=== PATIENT | male | born 1980 | race American Indian/Alaskan Native ===

== ENCOUNTER 2021-11-19 19:45 | Inpatient (IN) | payer SELFPAY ==
--- NOTE | 2021-11-19 21:06 | Emergency Department Report ---
ED Altered Mental Status HPI - General Stated Complaint: WEAKNESS Time Seen by Provider: 11/19/21 20:55 Source: patient, family, old records reviewed (No previous medical record for review) Mode of arrival: Ambulatory Limitations: Altered Mental Status - History of Present Illness Initial Comments: 41-year-old male with a past medical history end-stage renal disease on dialysis Sunday, Sunday, and Sunday and liver cirrhosis secondary to alcohol abuse presents to the hospital with alteration in mental status is 2 PM. Patient is alert and ambulatory but is confused and has to consciously be redirected. His mother is at the bedside providing details of history of present illness. Last dialysis yesterday with compliance. History of paracentesis in the past with last 3 months ago. No previous history of hepatic encephalopathy. Patient does not take lactulose as per mother. Patient has abdominal swelling/distention and leg edema which is chronic and at baseline. Patient is alert and oriented to self only. This is patient's first visit here. Typically goes to [facility]. 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 Mom states that pt no longer drinks alcohol. - Related Data Allergies Allergy/AdvReac Type Severity Reaction Status Date / Time No Known Allergies Allergy Unverified 11/19/21 21:37 ED Review of Systems ROS: Stated complaint: WEAKNESS Other details as noted in HPI Comment: All other systems reviewed and negative ED Physical Exam - Other Other exam information: General: No acute distress cachectic appearing Head: Atraumatic Eyes: normal appearance ENT: Moist mucous membranes Neck: Normal appearance, no midline tenderness Chest: Clear to auscultation bilaterally, right chest wall Vas-Cath CV: Regular rate and rhythm Abdomen: Soft, normal bowel sounds, abdominal ascites nontender] Rectal: maroon colored stools, guaic + Back: Normal inspection Extremity: Bilateral 2+ pitting lower extremity edema without leg exam Neuro: Alert O x 1, no facial asymmetry, speech clear, no gross motor sensory deficit Skin: No rash ED Course Vital Signs 11/19/21 20:54 Temperature 98.1 F Pulse Rate 93 H Respiratory 18 Rate Blood Pressure 114/87 Blood Pressure 114/87 [Left] O2 Sat by Pulse 100 Oximetry - Reevaluation(s) Reevaluation #1: 11/19/21 22:33 pt requiring restraint due to agitation and was administered haldol 5mg for sedation - Lab Data Result diagrams: 11/19/21 21:22 11/19/21 21:22 Lab Results 11/19/21 11/19/21 11/19/21 Range/Units 21:22 21:22 21:22 WBC 8.0 (4.5-11.0) K/mm3 RBC 1.87 L (3.65-5.03) M/mm3 Hgb 6.1 L (11.8-15.2) gm/dl Hct 18.9 L* (35.5-45.6) % MCV 102 H (84-94) fl MCH 33 H (28-32) pg MCHC 32 (32-34) % RDW 18.9 H (13.2-15.2) % Plt Count 161 (140-440) K/mm3 Lymph % (Auto) 24.7 (13.4-35.0) % [place] % (Auto) 9.0 H (0.0-7.3) % Eos % (Auto) 0.1 (0.0-4.3) % Baso % (Auto) 0.7 (0.0-1.8) % Lymph # (Auto) 2.0 (1.2-5.4) K/mm3 [place] # (Auto) 0.7 (0.0-0.8) K/mm3 Eos # (Auto) 0.0 (0.0-0.4) K/mm3 Baso # (Auto) 0.1 (0.0-0.1) K/mm3 Seg Neutrophils % 65.5 (40.0-70.0) % Seg Neutrophils # 5.2 (1.8-7.7) K/mm3 PT 17.7 H (12.2-14.9) Sec. INR 1.26 H (0.87-1.13) APTT 41.1 H (24.2-36.6) Sec. Sodium 138 (137-145) mmol/L Potassium 3.5 L (3.6-5.0) mmol/L Chloride 102.5 (98-107) mmol/L Carbon Dioxide 24 (22-30) mmol/L Anion Gap 15 mmol/L BUN 28 H (9-20) mg/dL Creatinine 2.5 H (0.8-1.3) mg/dL Estimated GFR 29 ml/min BUN/Creatinine Ratio 11 % Glucose 111 H (75-100) mg/dL Calcium 8.9 (8.4-10.2) mg/dL Magnesium (1.7-2.3) mg/dL Total Bilirubin 1.90 H (0.1-1.2) mg/dL AST 48 H (5-40) units/L ALT 17 (7-56) units/L Alkaline Phosphatase 167 H (35-129) units/L Ammonia (25-60) umol/L Total Protein 6.7 (6.3-8.2) g/dL Albumin 2.9 L (3.9-5) g/dL Albumin/Globulin Ratio 0.8 % Plasma/Serum Alcohol (0-0.07) % Blood Type 11/19/21 11/19/21 11/19/21 Range/Units 21:22 21:22 21:22 WBC (4.5-11.0) K/mm3 RBC (3.65-5.03) M/mm3 Hgb (11.8-15.2) gm/dl Hct (35.5-45.6) % MCV (84-94) fl MCH (28-32) pg MCHC (32-34) % RDW (13.2-15.2) % Plt Count (140-440) K/mm3 Lymph % (Auto) (13.4-35.0) % [place] % (Auto) (0.0-7.3) % Eos % (Auto) (0.0-4.3) % Baso % (Auto) (0.0-1.8) % Lymph # (Auto) (1.2-5.4) K/mm3 [place] # (Auto) (0.0-0.8) K/mm3 Eos # (Auto) (0.0-0.4) K/mm3 Baso # (Auto) (0.0-0.1) K/mm3 Seg Neutrophils % (40.0-70.0) % Seg Neutrophils # (1.8-7.7) K/mm3 PT (12.2-14.9) Sec. INR (0.87-1.13) APTT (24.2-36.6) Sec. Sodium (137-145) mmol/L Potassium (3.6-5.0) mmol/L Chloride (98-107) mmol/L Carbon Dioxide (22-30) mmol/L Anion Gap mmol/L BUN (9-20) mg/dL Creatinine (0.8-1.3) mg/dL Estimated GFR ml/min BUN/Creatinine Ratio % Glucose (75-100) mg/dL Calcium (8.4-10.2) mg/dL Magnesium 1.80 (1.7-2.3) mg/dL Total Bilirubin (0.1-1.2) mg/dL AST (5-40) units/L ALT (7-56) units/L Alkaline Phosphatase (35-129) units/L Ammonia 165.0 H (25-60) umol/L Total Protein (6.3-8.2) g/dL Albumin (3.9-5) g/dL Albumin/Globulin Ratio % Plasma/Serum Alcohol < 0.01 (0-0.07) % Blood Type 11/19/21 Range/Units 22:45 WBC (4.5-11.0) K/mm3 RBC (3.65-5.03) M/mm3 Hgb (11.8-15.2) gm/dl Hct (35.5-45.6) % MCV (84-94) fl MCH (28-32) pg MCHC (32-34) % RDW (13.2-15.2) % Plt Count (140-440) K/mm3 Lymph % (Auto) (13.4-35.0) % [place] % (Auto) (0.0-7.3) % Eos % (Auto) (0.0-4.3) % Baso % (Auto) (0.0-1.8) % Lymph # (Auto) (1.2-5.4) K/mm3 [place] # (Auto) (0.0-0.8) K/mm3 Eos # (Auto) (0.0-0.4) K/mm3 Baso # (Auto) (0.0-0.1) K/mm3 Seg Neutrophils % (40.0-70.0) % Seg Neutrophils # (1.8-7.7) K/mm3 PT (12.2-14.9) Sec. INR (0.87-1.13) APTT (24.2-36.6) Sec. Sodium (137-145) mmol/L Potassium (3.6-5.0) mmol/L Chloride (98-107) mmol/L Carbon Dioxide (22-30) mmol/L Anion Gap mmol/L BUN (9-20) mg/dL Creatinine (0.8-1.3) mg/dL Estimated GFR ml/min BUN/Creatinine Ratio % Glucose (75-100) mg/dL Calcium (8.4-10.2) mg/dL Magnesium (1.7-2.3) mg/dL Total Bilirubin (0.1-1.2) mg/dL AST (5-40) units/L ALT (7-56) units/L Alkaline Phosphatase (35-129) units/L Ammonia (25-60) umol/L Total Protein (6.3-8.2) g/dL Albumin (3.9-5) g/dL Albumin/Globulin Ratio % Plasma/Serum Alcohol (0-0.07) % Blood Type O POSITIVE - EKG Data -: EKG Interpreted by [place] EKG shows normal: sinus rhythm, ST-T waves (no stemi) Rate: normal - Radiology Data Radiology results: report reviewed CHEST 1 VIEW INDICATION / CLINICAL INFORMATION: ams, leg edema STUDY TIME: 2157 COMPARISON: None available. FINDINGS: SUPPORT DEVICES: Large for right CVL with tip in the area of the upper to mid right atrium. HEART / MEDIASTINUM: No significant abnormality. LUNGS / PLEURA: Left pleural effusion is seen which is small to moderate in size and probably is layering posteriorly causing diffuse increase in density. Left basilar atelectasis and possible infiltrate is seen and there is mild patchy density in the right upper lobe. Poor degree of inspiration. No pneumothorax. ADDITIONAL FINDINGS: No significant additional findings. - Medical Decision Making 41-year-old male with liver cirrhosis and end-stage renal disease requiring admission to the hospital for acute hepatic encephalopathy, anemia, and GI bleed. Case was discussed with GI on-call. Protonix twice daily ordered as well as octreotide drip. 1 unit PRBC ordered for significant anemia. Mild coagulopathy noted. CT head unremarkable for acute abnormality. Left pleural effusion noted on chest x-ray with clinical ascites and lower extremity edema. Patient did require Haldol for sedation for cooperation. Rectal p.o. lactulose ordered to be given as tolerated Critical Care Time: No Critical care attestation.: If time is entered above; I have spent that time in minutes in the direct care of this critically ill patient, excluding procedure time. ED Disposition Clinical Impression: Hepatic encephalopathy, Anemia, Alcoholic cirrhosis of liver with ascites, ESRD on dialysis, Rectal bleed Disposition: ADMITTED INPATIENT Is pt being admited?: Yes Condition: Stable Time of Disposition: 00:01 (Dr. Sams/hosptialist)
[2021-11-19] MEDS ORDERED: HALOPERIDOL LACTATE 5 MG/1 ML INJ IM ONE (21:33)
[2021-11-19 22:02] LABS: Basophils # (Auto) 0.1 K/mm3 (0.0-0.1); Basophils % (Auto) 0.7 % (0.0-1.8); Eosinophils % (Auto) 0.1 % (0.0-4.3); Hemoglobin 6.1 gm/dl (11.8-15.2); Lymphocytes % (Auto) 24.7 % (13.4-35.0); Mean Corpuscular HGB Conc 32 % (32-34); Mean Corpuscular Volume 102 fl (84-94); Monocytes # (Auto) 0.7 K/mm3 (0.0-0.8); Platelet Count 161 K/mm3 (140-440); Red Blood Count 1.87 M/mm3 (3.65-5.03); Red Cell Distribution Width 18.9 % (13.2-15.2)
[2021-11-19 22:05] LABS: Hematocrit 18.9 % (35.5-45.6)
[2021-11-19 22:11] LABS: INR 1.26 (0.87-1.13)
[2021-11-19 22:12] LABS: Partial Thromboplastin Time 41.1 Sec. (24.2-36.6)
[2021-11-19 22:27] LABS: Albumin 2.9 g/dL (3.9-5); Calcium 8.9 mg/dL (8.4-10.2)
[2021-11-19] MEDS ORDERED: LACTULOSE 20 GM/30 ML ORAL LIQD PO ONE (22:32)
--- NOTE | 2021-11-19 22:35 | XRay Report ---
CHEST 1 VIEW INDICATION / CLINICAL INFORMATION: ams, leg edema STUDY TIME: 2157 COMPARISON: None available. FINDINGS: SUPPORT DEVICES: Large for right CVL with tip in the area of the upper to mid right atrium. HEART / MEDIASTINUM: No significant abnormality. LUNGS / PLEURA: Left pleural effusion is seen which is small to moderate in size and probably is laye ring posteriorly causing diffuse increase in density. Left basilar atelectasis and possible infiltrat e is seen and there is mild patchy density in the right upper lobe. Poor degree of inspiration. No pn eumothorax. ADDITIONAL FINDINGS: No significant additional findings. Signer Name: Salvatore Gusman MD Signed: 11/19/2021 10:31 PM Workstation Name: [id number]
--- NOTE | 2021-11-19 22:59 | Cat Scan Report ---
. CT HEAD WITHOUT CONTRAST INDICATION / CLINICAL INFORMATION: ams. TECHNIQUE: All CT scans at this location are performed using CT dose reduction for ALARA by means of automated exposure control. COMPARISON: None available. FINDINGS: HEMORRHAGE: None. EXTRA-AXIAL SPACES: Normal in size and morphology for the patient's age. VENTRICULAR SYSTEM: Normal in size and morphology for the patient's age. CEREBRAL PARENCHYMA: No significant abnormality. No acute territorial infarct. MIDLINE SHIFT / HERNIATION: None. CEREBELLUM / BRAINSTEM: No significant abnormality. ORBITS: Normal as visualized SOFT TISSUES: No significant abnormality. SKULL: No significant abnormality. PARANASAL SINUSES / MASTOID AIR CELLS: Normal as visualized ADDITIONAL FINDINGS: None. IMPRESSION: 1. No acute intracranial abnormality. Signer Name: Chidi Mckeon DO Signed: 11/19/2021 10:54 PM Workstation Name: [id number]
[2021-11-19] MEDS ORDERED: SODIUM CHLORIDE 0.9% 500 ML 500 ML IV ONE (23:34)
[2021-11-19] MEDS ORDERED: OCTREOTIDE 500 MCG in SODIUM CHLORIDE 0.9% 100 ML IV SCH (23:45)
[2021-11-19] MEDS ORDERED: ACETAMINOPHEN 650 MG RECT SUPP PR PRN (23:47)
[2021-11-19] MEDS ORDERED: MORPHINE 4 MG/1 ML INJ IV PRN (23:47)
[2021-11-19] MEDS ORDERED: MORPHINE 2 MG/1 ML INJ IV PRN (23:47)
[2021-11-19] MEDS ORDERED: MAGNESIUM HYDROXIDE (MOM) ORAL LIQD UDC PO PRN (23:47)
--- NOTE | 2021-11-19 23:58 | History and Physical Report ---
History of Present Illness Date of examination: 11/19/21 Date of admission: 11/19/2021 Chief complaint: Altered mental status History of present illness: 41-year-old -K[place] male with known history of alcoholic liver cirrhosis, end-stage renal disease on dialysisMondays, Wednesdays and Fridays brought into the emergency room today for evaluation of changes in mental status which started at about 2 PM today. Most of the history was gotten from the mother who was by the bedside as patient is confused. Patient has been compliant with his dialysis and last dialysis was yesterday. Patient goes to [facility] in [place]. Patient has also had paracentesis done periodically for his ascites. Last paracentesis was about 3 months ago. According to mother, patient has had chronic lower extremity swelling and has also had abdominal distention. Patient has not been seen in this facility in the past. He goes to [facility] [place] for his medical care. According to mother patient no longer drinks alcohol. Unclear of when patient last drank alcohol. Work-up in the emergency room today, labs are significant for hemoglobin of 6.1 and hematocrit of 18.9. Potassium of 3.5, BUN of 28 and creatinine of 2.5. Total bilirubin of 1.9. Toxicology screen shows alcohol level less than 0.01. Stool Hemoccult today was positive. [employer] on-call was notified by the ER physician and recommendation was to place patient on IV Protonix and octreotide. Patient is being prepared for blood transfusion. Past History Past Medical History: dialysis (On Mondays, Wednesdays and Fridays), ESRD, liver disease (Alcoholic liver cirrhosis) Past Surgical History: No surgical history Social history: alcohol abuse Family history: no significant family history Medications and Allergies Allergies Allergy/AdvReac Type Severity Reaction Status Date / Time No Known Allergies Allergy Unverified 11/19/21 21:37 Active Meds: Active Medications Acetaminophen (Acetaminophen 650 Mg Rect Supp) 650 mg DE Q6H PRN PRN Reason: Pain MILD(1-3)/Fever >100.5/CARRERA Octreotide Acetate 500 mcg/ (Sodium Chloride) 101 mls @ 5.05 mls/hr IV TITR JORDAN; Protocol Lactulose (Lactulose Enema 1000 Ml) 200 gm DE ONCE ONE Stop: 11/20/21 00:16 Magnesium Hydroxide (Magnesium Hydroxide (Mom) Oral Liqd Udc) 30 ml PO Q4H PRN PRN Reason: Constipation Morphine Sulfate (Morphine 2 Mg/1 Ml Inj) 2 mg IV Q4H PRN PRN Reason: Pain, Moderate (4-6) Morphine Sulfate (Morphine 4 Mg/1 Ml Inj) 4 mg IV Q4H PRN PRN Reason: Pain , Severe (7-10) Octreotide Acetate (Octreotide 50 Mcg/1 Ml Inj) 50 mcg IV ONCE ONE Stop: 11/20/21 00:17 Pantoprazole Sodium (Pantoprazole 40 Mg Inj) 40 mg IV BID JORDAN Sodium Chloride (Sodium Chloride 0.9% 10 Ml Flush Syringe) 10 ml IV BID JORDAN Sodium Chloride (Sodium Chloride 0.9% 10 Ml Flush Syringe) 10 ml IV PRN PRN PRN Reason: LINE FLUSH Review of Systems ROS unobtainable: due to mental status Exam - Constitutional Vitals: Temp Pulse Resp BP Pulse Ox 98.1 F 93 H 18 114/87 100 11/19/21 20:54 11/19/21 20:54 11/19/21 20:54 11/19/21 20:54 11/19/21 20:54 General appearance: Present: no acute distress, well-nourished, disheveled - EENT Eyes: Present: PERRL, EOM intact. Absent: scleral icterus ENT: hearing intact, clear oral mucosa, dentition normal - Neck Neck: Present: supple, normal ROM - Respiratory Respiratory effort: normal Respiratory: bilateral: CTA - Cardiovascular Rhythm: regular Heart Sounds: Present: S1 & S2. Absent: gallop, systolic murmur, diastolic murmur, rub, click - Extremities Extremities: no ischemia, pulses intact, pulses symmetrical, normal temperature, normal color, Full ROM Extremity abnormal: edema (2+ bilateral ankle edema) Peripheral Pulses: within normal limits - Abdominal General gastrointestinal: Present: soft, non-tender, distended (With ascites), normal bowel sounds. Absent: mass - Integumentary Integumentary: Present: clear, warm, dry, normal turgor. Absent: rash - Musculoskeletal Musculoskeletal: strength equal bilaterally - Psychiatric Psychiatric: agitated - Neurologic Neurologic: CNII-XII intact, no focal deficits, moves all extremities Results - Labs CBC & Chem 7: 11/19/21 21:22 11/19/21 21:22 Labs: Abnormal lab results 11/19/21 11/19/21 11/19/21 Range/Units 21:22 21:22 21:22 RBC 1.87 L (3.65-5.03) M/mm3 Hgb 6.1 L (11.8-15.2) gm/dl Hct 18.9 L* (35.5-45.6) % MCV 102 H (84-94) fl MCH 33 H (28-32) pg RDW 18.9 H (13.2-15.2) % [place] % (Auto) 9.0 H (0.0-7.3) % PT 17.7 H (12.2-14.9) Sec. INR 1.26 H (0.87-1.13) APTT 41.1 H (24.2-36.6) Sec. Potassium 3.5 L (3.6-5.0) mmol/L BUN 28 H (9-20) mg/dL Creatinine 2.5 H (0.8-1.3) mg/dL Glucose 111 H (75-100) mg/dL Total Bilirubin 1.90 H (0.1-1.2) mg/dL AST 48 H (5-40) units/L Alkaline Phosphatase 167 H (35-129) units/L Ammonia (25-60) umol/L Albumin 2.9 L (3.9-5) g/dL Crossmatch 11/19/21 11/19/21 Range/Units 21:22 22:45 RBC (3.65-5.03) M/mm3 Hgb (11.8-15.2) gm/dl Hct (35.5-45.6) % MCV (84-94) fl MCH (28-32) pg RDW (13.2-15.2) % [place] % (Auto) (0.0-7.3) % PT (12.2-14.9) Sec. INR (0.87-1.13) APTT (24.2-36.6) Sec. Potassium (3.6-5.0) mmol/L BUN (9-20) mg/dL Creatinine (0.8-1.3) mg/dL Glucose (75-100) mg/dL Total Bilirubin (0.1-1.2) mg/dL AST (5-40) units/L Alkaline Phosphatase (35-129) units/L Ammonia 165.0 H (25-60) umol/L Albumin (3.9-5) g/dL Crossmatch See Detail Assessment and Plan Assessment: 1. Acute encephalopathy-possibly secondary to hepatic encephalopathy 2. GI bleed 3. End-stage renal disease on dialysis 4. Alcoholic liver cirrhosis 5. Anemia Plan: 1. Patient admitted and will be closely observed in the intensive care unit. 2. Patient started on IV Protonix and octreotide. 3. Consult to oil field rig builder requested 4. We will monitor CBC. 5. We will also place patient on CIWA protocol. 6. We will consult nephrology for dialysis while on admission. DVT prophylaxis: Sequential compression device. CODE STATUS: Full code
[2021-11-20] MEDS ORDERED: LACTULOSE ENEMA 1000 ML PR ONE (00:15)
[2021-11-20] MEDS ORDERED: OCTREOTIDE 50 MCG/1 ML INJ IV ONE (00:16)
[2021-11-20] MEDS ORDERED: HALOPERIDOL LACTATE 5 MG/1 ML INJ IM ONE (01:28)
[2021-11-20] MEDS: PANTOPRAZOLE 40 MG INJ IV SCH ×3 (02:30→21:00)
[2021-11-20] MEDS ORDERED: LACTULOSE 20 GM/30 ML ORAL LIQD PO ONE (03:00)
[2021-11-20] MEDS ORDERED: SODIUM CHLORIDE 0.9% 1000 ML 1,000 ML ONE ×2 (03:12→12:33)
--- NOTE | 2021-11-20 08:50 | Consultation ---
History of Present Illness - Reason for Consult Consult date: 11/20/21 end stage renal disease - History of Present Illness This is a 41 year-old man with ESRD, cirrhosis of liver who presents for altered mentation Patient usually dialyzes MWF at [facility]. Last HD 11/18. No recent issues with HD, including dizziness, lightheadedness, cramping, chest pain on HD per outpatient documentation. Currently, patient drowsy and remains altered, unable to provide any additional HPI. Found to have hemoglobin 6.1 on arrival, started on IV protonix, octreotide gtt. Past History Past Medical History: dialysis (On Mondays, Wednesdays and Fridays), ESRD, liver disease (Alcoholic liver cirrhosis) Past Surgical History: No surgical history Social history: alcohol abuse Family history: no significant family history Medications and Allergies Allergies Allergy/AdvReac Type Severity Reaction Status Date / Time No Known Allergies Allergy Unverified 11/19/21 21:37 Active Meds: Active Medications Acetaminophen (Acetaminophen 650 Mg Rect Supp) 650 mg CA Q6H PRN PRN Reason: Pain MILD(1-3)/Fever >100.5/CARRERA Octreotide Acetate 500 mcg/ (Sodium Chloride) 101 mls @ 5.05 mls/hr IV TITR JORDAN; Protocol Last Admin: 11/20/21 03:03 Dose: 25 mcg/hr, 5.05 mls/hr Magnesium Hydroxide (Magnesium Hydroxide (Mom) Oral Liqd Udc) 30 ml PO Q4H PRN PRN Reason: Constipation Pantoprazole Sodium (Pantoprazole 40 Mg Inj) 40 mg IV BID JORDAN Last Admin: 11/20/21 02:30 Dose: 40 mg Sodium Chloride (Sodium Chloride 0.9% 10 Ml Flush Syringe) 10 ml IV BID JORDAN Sodium Chloride (Sodium Chloride 0.9% 10 Ml Flush Syringe) 10 ml IV PRN PRN PRN Reason: LINE FLUSH Review of Systems ROS unobtainable: due to mental status Exam - Vital Signs Vital signs: Vital Signs Temp Pulse Resp BP Pulse Ox 98 F 93 H 18 114/87 100 11/19/21 20:54 11/19/21 20:54 11/19/21 20:54 11/19/21 20:54 11/19/21 20:54 - Physical Exam Narrative exam: Constitutional: drowsy, altered Head: NC/AT Neck: supple Lungs: clear to auscultation CV: RRR, no M/R/G Abdomen: distended Back: nontender Extremities: 1+ edema, pulses WNL Skin: intact Neuro: drowsy, not following commands Results - Lab Results 11/19/21 21:22 11/19/21 21:22 Most recent lab results Calcium 8.9 mg/dL (8.4-10.2) 11/19/21 21: Magnesium 1.80 mg/dL (1.7-2.3) 11/19/21 21:22 Assessment and Plan This is a 41 year old man who presents with altered mentation, anemia # ESRD: plan to continue HD MWF if hemodynamically stable- assess tomorrow AM and place orders pending clinical status - daily labs - renally dose meds - avoid nephrotoxins - renal diet - verbal consent obtained for HD # Anemia: last hemoglobin 6.1, GI following for potential GI bleed, on octreotide gtt. ESAs with HD as indicated # HTN: UF as tolerated, suspect intravascularly depleted. BP soft # Secondary Hyperparathyroidism: hold home binders for now if on, vitamin D analogs prn # Acute Metabolic Encephalopathy: less likely uremia related # Hepatic Cirrhosis, Alcoholic
--- NOTE | 2021-11-20 09:18 | Progress Note ---
<SAMANTHA LR - Last Filed: 11/20/21 17:21> Assessment and Plan Assessment and plan: This is a 41-year-old AA male with known past medical history of ESRD on Dialysis(M,W,F), alcoholic liver cirrhosis, ascites s/p paracentesis 3 months ago admitted for acute encephalopathy and possible GI bleed Hospital Course to Date: 11/20: S/p EGD with variceal band ligation by GI and Diagnostic paracentesis by CCM, 2.2L of cloudy yellow fluid removed. Pateint is currently obtunded, on NRB, no signs of any respiratory distress noted. VSS. Hyperammonemia noted this am, continue lactolose TID, repeat level in the am. Patient is also on octreotide gtt. Per GI continue gtt X48hrs and Protonix BID. Hgb improved to 7.0 post 1unit of PRBCs, no s/s of any active bleeding. Continue to trend H&H and transfuse for hgb less than 7. Empiric IV Abx was also initiated, F/u on paracentesis cultures for sensitivity. Possible US paracentesis in the am by IR. Assessment and Plan #Acute Metabolic Encephalopathy #Hyperammonemia - most likely secondary to liver cirrhosis - CT head/brain with no acute intracranial abnormality. - Ammonia level 165 - Continue Lactulose TID - repeat ammonia level in the am - Avoid benzodiazepine to reduce the possibility of delirium - Maintenance of sleep-wake cycle #Acute Blood Loss Anemia #Upper GI Bleed - presented with low Hgb 6.1, s/p 1unit of PRBCs - No s/s of any active bleeding - Stool Hemoccult is positive - H&H with mild improvement this am - GI consulted, appreciate recommendations - 11/20 s/p EGD by GI. Single grade grade 3 distal esophageal varix-Single rubber band placed on this for ligation. Gastroparesis with retained food, no evidence of blood in the upper GI tract. - Per GI clear Liquid diet, continue octreotide gtt X48hrs - On Protonix BID - Continue to trend H&H - Transfuse for hgb less than 7 #Acoholic Liver Cirrhosis #Large Volume Ascites #Esophageal Varix #Gastroparesis - Unclear of when patient last drank alcohol. Per mother she initially said last drink was in May, then she admit it might have been in August - US Abd reveals Large volume ascites - CCM and GI consulted, appreciate recommendations - S/p Diagnosic Paracentesis at the bedside by CCM, 2.2L of cloudy yellow fluid removed. Samples sent to the lab - s/p EGD by GI. as described above - Empiric IV Abx- Rocephin initiated - Continue Lactulose TID - Continue Octreotide gtt and IV protonix BID by GI - Possible US paracentesis in the am by IR. #End-Stage Renal Disease(ESRD) on dialysis - HD days(M,W,F), last HD 11/18 - Nephrology on consult, appreciated recommendation - HD per Nephro - Strict intake and output - Avoid nephrotoxic medications; Renally dose medications - Monitor and replace electrolytes as needed #GI/DVT Prophylaxis - PPI- Protonix - SCDs to bilateral lower extremities while in bed #Advance Care Planning - Disease education data, care plan, diagnoses, and prognosis were discussed with patient's mother, Rebecca Oscar, at the bedside. All questions and concerns were voiced at the bedside. Patient is a FULL code. Patient family acknowledged understanding and agreement with care plan. The high probability of a clinically significant, sudden or life threatening deterioration of the [multiple] system(s) required my full and direct attention, intervention and personal management. The aggregate critical care time was [60] minutes. This time is in addition to time spent performing reported procedures but includes the following: [x] Data Review and interpretation [x] Patient assessment and monitoring of vital signs [x] Documentation [x] Medication orders and management Disposition Plan: ICU Total Time Spent with Patient (Minutes): 60 History Interval history: Patient seen and examined at the bedside. S/p EGD with variceal band ligation by GI and Diagnostic paracentesis by CCM, 2.2L of cloudy yellow fluid removed. Patient is currently obtunded, on NRB, VSS. Abdomen remains distented, no signs of any respiratory distress noted. Hospitalist Physical - Constitutional Vitals: Temp Pulse Resp BP Pulse Ox 97.2 F L 102 H 17 123/79 100 11/20/21 04:02 11/20/21 06:45 11/20/21 06:45 11/20/21 06:45 11/20/21 06:45 General appearance: Present: no acute distress, cachectic - EENT Eyes: Present: PERRL (Sclera Jaundice) - Respiratory Respiratory effort: normal Respiratory: bilateral: diminished - Cardiovascular Rhythm: regular Heart Sounds: Present: S1 & S2 - Extremities Extremities: no ischemia, pulses intact, pulses symmetrical Peripheral Pulses: within normal limits - Abdominal General gastrointestinal: soft, distended (Taut), hypoactive bowel sounds - Integumentary Integumentary: Present: warm, dry - Psychiatric Psychiatric: other (JC, Obtunded) - Neurologic Neurologic: other (Obtunded, open eyes briefly with sternal rubs. Withdrawal from pain) - Allied Health Allied health notes reviewed: nursing Results - Labs CBC & Chem 7: 11/20/21 09:30 11/20/21 09:30 Labs: Laboratory Last Values WBC 8.0 K/mm3 (4.5-11.0) 11/19/21 21: RBC 1.87 M/mm3 (3.65-5.03) L 11/19/21 21: Hgb 6.1 gm/dl (11.8-15.2) L 11/19/21: Hct 18.9 % (35.5-45.6) L* 11/19/21 21: MCV 102 fl (84-94) H 11/19/21 21: MCH 33 pg (28-32) H 11/19/21: MCHC 32 % (32-34) 11/19/21 21: RDW 18.9 % (13.2-15.2) H 11/19/21 21: Plt Count 161 K/mm3 (140-440) 11/19/21 21: Lymph % (Auto) 24.7 % (13.4-35.0) 11/19/21 21: Emanuel % (Auto) 9.0 % (0.0-7.3) H 11/19/21: Eos % (Auto) 0.1 % (0.0-4.3) 11/19/21: Baso % (Auto) 0.7 % (0.0-1.8) 11/19/21: Lymph # (Auto) 2.0 K/mm3 (1.2-5.4) 11/19/21: Emanuel # (Auto) 0.7 K/mm3 (0.0-0.8) 11/19/21 21:22 Eos # (Auto) 0.0 K/mm3 (0.0-0.4) 11/19/21 21:22 Baso # (Auto) 0.1 K/mm3 (0.0-0.1) 11/19/21 21: Seg Neutrophils % 65.5 % (40.0-70.0) 11/19/21 21: Seg Neutrophils # 5.2 K/mm3 (1.8-7.7) 11/19/21 21: PT 17.7 Sec. (12.2-14.9) H 11/19/21 21: INR 1.26 (0.87-1.13) H 11/19/21 21: APTT 41.1 Sec. (24.2-36.6) H 11/19/21 21:22 Sodium 138 mmol/L (137-145) 11/19/21 21: Potassium 3.5 mmol/L (3.6-5.0) L 11/19/21: Chloride 102.5 mmol/L (98-107) 11/19/21 21: Carbon Dioxide 24 mmol/L (22-30) 11/19/21 21: Anion Gap 15 mmol/L 11/19/21 21: BUN 28 mg/dL (9-20) H 11/19/21 21: Creatinine 2.5 mg/dL (0.8-1.3) H 11/19/21 21:22 Estimated GFR 29 ml/min 11/19/21 21: BUN/Creatinine Ratio 11 % 11/19/21 21: Glucose 111 mg/dL (75-100) H 11/19/21 21: Calcium 8.9 mg/dL (8.4-10.2) 11/19/21: Magnesium 1.80 mg/dL (1.7-2.3) 11/19/21: Total Bilirubin 1.90 mg/dL (0.1-1.2) H 11/19/21 21: AST 48 units/L (5-40) H 11/19/21 21: ALT 17 units/L (7-56) 11/19/21 21: Alkaline Phosphatase 167 units/L (35-129) H 11/19/21 21:22 Ammonia 165.0 umol/L (25-60) H 11/19/21 21:22 Total Protein 6.7 g/dL (6.3-8.2) 11/19/21 21:22 Albumin 2.9 g/dL (3.9-5) L 11/19/21 21:22 Albumin/Globulin Ratio 0.8 % 11/19/21 21:22 Plasma/Serum Alcohol < 0.01 % (0-0.07) 11/19/21 21:22 Blood Type O POSITIVE 11/19/21 22:45 Antibody Screen Negative 11/19/21 22:45 Crossmatch See Detail 11/19/21 22:45 Microbiology: Microbiology 11/19/21 22:55 Stool Stool Occult Blood (MELVIN) - Final Active Medications - Current Medications Current Medications: Generic Name Dose Route Start Last Admin Trade Name Freq PRN Reason Stop Dose Admin Acetaminophen 650 mg 11/19/21 23:47 Acetaminophen 650 Mg Rect Supp SD Q6H PRN Pain MILD(1-3)/Fever >100.5/CARRERA Octreotide Acetate 500 mcg/ 101 mls @ 5.05 mls/hr 11/19/21 23:45 11/20/21 03: 03 Sodium Chloride IV 25 mcg/hr TITR JORDAN 5.05 mls/hr Administration Protocol 25 MCG/HR Lactulose 200 gm 11/20/21 14:00 Lactulose Enema 1000 Ml SD TID JORDAN Magnesium Hydroxide 30 ml 11/19/21 23:47 Magnesium Hydroxide (Mom) Oral Liqd Udc PO Q4H PRN Constipation Pantoprazole Sodium 40 mg 11/19/21 23:45 11/20/21 02:30 Pantoprazole 40 Mg Inj IV 40 mg BID JORDAN Administration Sodium Chloride 10 ml 11/20/21 10:00 Sodium Chloride 0.9% 10 Ml Flush Syringe IV BID JORDAN Sodium Chloride 10 ml 11/19/21 23:47 Sodium Chloride 0.9% 10 Ml Flush Syringe IV PRN PRN LINE FLUSH <JUDIE GUZMAN - Last Filed: 11/21/21 07:23> Assessment and Plan Assessment and plan: I saw and evaluated the patient. I agree with the findings and the plan of care as documented in the Nurse Practitioner's~note, with the following corrections and additions. Hospitalist Physical - Constitutional Vitals: Temp Pulse Resp BP Pulse Ox 98 F 79 12 105/76 100 11/21/21 00:13 11/21/21 07:00 11/21/21 07:00 11/21/21 07:00 11/21/21 07:00 Results - Labs CBC & Chem 7: 11/21/21 04:18 11/21/21 04:18 Labs: Laboratory Last Values WBC 6.1 K/mm3 (4.5-11.0) 11/21/21 04:18 RBC 2.24 M/mm3 (3.65-5.03) L 11/21/21 04:18 Hgb 7.1 gm/dl (11.8-15.2) L 11/21/21 04:18 Hct 21.7 % (35.5-45.6) L 11/21/21 04:18 MCV 97 fl (84-94) H 11/21/21 04:18 MCH 32 pg (28-32) 11/21/21 04:18 MCHC 33 % (32-34) 11/21/21 04:18 RDW 19.5 % (13.2-15.2) H 11/21/21 04:18 Plt Count 131 K/mm3 (140-440) L 11/21/21 04:18 Lymph % (Auto) 16.9 % (13.4-35.0) 11/20/21 09:30 Emanuel % (Auto) 6.6 % (0.0-7.3) 11/20/21 09:30 Eos % (Auto) 0.1 % (0.0-4.3) 11/20/21 09:30 Baso % (Auto) 0.6 % (0.0-1.8) 11/20/21 09:30 Lymph # (Auto) 1.2 K/mm3 (1.2-5.4) 11/20/21 09:30 Emanuel # (Auto) 0.5 K/mm3 (0.0-0.8) 11/20/21 09:30 Eos # (Auto) 0.0 K/mm3 (0.0-0.4) 11/20/21 09:30 Baso # (Auto) 0.0 K/mm3 (0.0-0.1) 11/20/21 09:30 Seg Neutrophils % 75.8 % (40.0-70.0) H 11/20/21 09:30 Seg Neutrophils # 5.4 K/mm3 (1.8-7.7) 11/20/21 09:30 PT 17.7 Sec. (12.2-14.9) H 11/19/21 21:22 INR 1.26 (0.87-1.13) H 11/19/21 21:22 APTT 41.1 Sec. (24.2-36.6) H 11/19/21 21:22 ABG pH 7.478 pH Units (7.350-7.450) H 11/20/21 18:40 ABG pCO2 31.9 mm Hg 11/20/21 18:40 ABG pO2 82.2 mm Hg (80.0-90.0) 11/20/21 18:40 ABG HCO3 23.1 mmol/L (20.0-26.0) 11/20/21 18:40 ABG O2 Saturation 97.2 % (95.0-99.0) 11/20/21 18:40 ABG O2 Content 7.4 (0.0-44) 11/20/21 18:40 ABG Base Excess -0.5 mmol/L (-2.0-3.0) 11/20/21 18:40 ABG Hemoglobin 5.4 gm/dl (14.0-18.0) L 11/20/21 18:40 ABG Carboxyhemoglobin 2.2 % (0.0-5.0) 11/20/21 18:40 ABG Methemoglobin 0.4 % (0.0-1.5) 11/20/21 18:40 Oxyhemoglobin 94.6 % (95.0-99.0) L 11/20/21 18:40 FiO2 21 % 11/20/21 18:40 Sodium 141 mmol/L (137-145) 11/21/21 04:18 Potassium 3.4 mmol/L (3.6-5.0) L 11/21/21 04:18 Chloride 107.3 mmol/L (98-107) H 11/21/21 04:18 Carbon Dioxide 23 mmol/L (22-30) 11/21/21 04:18 Anion Gap 14 mmol/L 11/21/21 04:18 BUN 30 mg/dL (9-20) H 11/21/21 04:18 Creatinine 2.5 mg/dL (0.8-1.3) H 11/21/21 04:18 Estimated GFR 35 ml/min 11/21/21 04:18 BUN/Creatinine Ratio 12 % 11/21/21 04:18 Glucose 94 mg/dL (75-100) 11/21/21 04:18 Calcium 8.4 mg/dL (8.4-10.2) 11/21/21 04:18 Magnesium 1.80 mg/dL (1.7-2.3) 11/19/21 21:22 Total Bilirubin 3.10 mg/dL (0.1-1.2) H 11/21/21 04:18 AST 41 units/L (5-40) H 11/21/21 04:18 ALT 16 units/L (7-56) 11/21/21 04:18 Alkaline Phosphatase 116 units/L (35-129) 11/21/21 04:18 Ammonia 71.0 umol/L (25-60) H 11/21/21 04:18 Total Protein 5.4 g/dL (6.3-8.2) L 11/21/21 04:18 Albumin 2.2 g/dL (3.9-5) L 11/21/21 04:18 Albumin/Globulin Ratio 0.7 % 11/21/21 04:18 Fluid Type Paracentesis 11/20/21 Unknown Fluid Color Dark yellow 11/20/21 Unknown Fluid Appearance Turbid 11/20/21 Unknown Fluid WBC 233 /mm3 11/20/21 Unknown Fluid RBC 42 /mm3 11/20/21 Unknown Fluid Seg Neutrophils 0 % 11/20/21 Unknown Fluid Lymphocytes 98 % 11/20/21 Unknown Fluid Reactive Lymphs 2 % 11/20/21 Unknown Fluid Monocytes 0 % 11/20/21 Unknown Fluid Eosinophils 0 % 11/20/21 Unknown Fluid Basophils 0 % 11/20/21 Unknown Plasma/Serum Alcohol < 0.01 % (0-0.07) 11/19/21 21:22 Blood Type O POSITIVE 11/19/21 22:45 Antibody Screen Negative 11/19/21 22:45 Crossmatch See Detail 11/19/21 22:45 Microbiology: Microbiology 11/20/21 Unknown Other (Please Specify:) - Other Body Fluid Culture - Preliminary Beltran/IV: Voiding Method Condom Catheter Active Medications - Current Medications Current Medications: Generic Name Dose Route Start Last Admin Trade Name Freq PRN Reason Stop Dose Admin Acetaminophen 650 mg 11/19/21 23:47 Acetaminophen 650 Mg Rect Supp SD Q6H PRN Pain MILD(1-3)/Fever >100.5/CARRERA Octreotide Acetate 500 mcg/ 101 mls @ 5.05 mls/hr 11/19/21 23:45 11/20/21 03:03 Sodium Chloride IV 25 mcg/hr TITR JORDAN 5.05 mls/hr Administration Protocol 25 MCG/HR Ceftriaxone Sodium 1 gm in 50 mls @ 100 mls/hr 11/20/21 14:00 11/20/21 15:49 Rocephin/Ns 1 Gm/50 Ml IV 100 mls/hr Q24H JORDAN Administration Protocol Lactulose 20 gm 11/20/21 16:00 11/20/21 20:20 Lactulose 20 Gm/30 Ml Oral Liqd PO 20 gm TID JORDAN Administration Lidocaine 10 ml 11/20/21 15:30 Lidocaine (1%) 10 Mg/1 Ml Vial 20 Ml Mdv INFILTRATI PREOP JORDAN Magnesium Hydroxide 30 ml 11/19/21 23:47 Magnesium Hydroxide (Mom) Oral Liqd Udc PO Q4H PRN Constipation Pantoprazole Sodium 40 mg 11/19/21 23:45 11/20/21 21:00 Pantoprazole 40 Mg Inj IV 40 mg BID JORDAN Administration Sodium Chloride 10 ml 11/20/21 10:00 11/20/21 21:00 Sodium Chloride 0.9% 10 Ml Flush Syringe IV 10 ml BID JORDAN Administration Sodium Chloride 10 ml 11/19/21 23:47 Sodium Chloride 0.9% 10 Ml Flush Syringe IV PRN PRN LINE FLUSH Nutrition/Malnutrition Assess - Dietary Evaluation Nutrition/Malnutrition Findings: Nutrition Notes Start: 11/20/21 14:41 Freq: Status: Active Protocol: Document 11/20/21 14:42 RS (Rec: 11/20/21 14:53 RS [id number]) Nutrition Notes Need for Assessment generated from: MD Order Initial or Follow up Brief Note Current Diagnosis CKD (stage V CKD) Other Pertinent Diagnosis EtOh related Cirrhosis, encephalopathy, GI bleed Current Diet Clear Liquids Labs/Tests K+: 3.5 BUN: 28 Cr:2.6 Glu:112 Pertinent Medications reviewed Height 6 ft 3 in Weight 81 kg [place] Body Weight (kg) 89.09 BMI 22.3 Weight change and time frame Dry wt unkown. Wt corrected on 11/20 to 81kg. Weight Status Appropriate Subjective/Other Information MD crook for diet education . Pt currently confused and has AMS. Diet education innapropriate at this time. Pt recieved paracentesis tx recently. Will need to educate pt on sodium/fluid restritions upon F/U if confusion subsides. RD noted extreme swelling in LE and distended belly. No urine output recorded. Lower GI bleed present GI Symptoms None Current % PO Negligible Minimum of two criteria No physical signs of malnutrition #1 Nutrition Diagnosis Inadequate protein intake Etiology ESRD As Evidenced by Signs and Symptoms negliable PO intake Is patient on ventilator? No Is Patient Ambulatory and/or Out of Bed No REE-([facility]-confined to bed) 2175.528 Kcal/Kg value to use for calculation 30 Approximate Energy Requirements Using 2430 kcal/Kg Calculation Used for Recommendations Kcal/kg Additional Notes Protein needs: >97g/day (>1.2g /kg BW/day) Fluid needs: 1000mL +UO or per MD Nutrition Intervention Nutrition Support: Ensure Clear apple qd Kcal 240 Protein (gm) 8 Goal #1 Diet advancement Anticipated Discharge Needs: 1.2-1.3g HBV Renal Diet Follow-Up By: 11/22/21 Additional Comments F/U for renal diet education, sodium/fluid restriction education, intakes, ONS tolerance
[2021-11-20 10:10] LABS: Basophils % (Auto) 0.6 % (0.0-1.8); Eosinophils % (Auto) 0.1 % (0.0-4.3); Hematocrit 20.7 % (35.5-45.6); Lymphocytes # (Auto) 1.2 K/mm3 (1.2-5.4); Lymphocytes % (Auto) 16.9 % (13.4-35.0); Mean Corpuscular HGB Conc 34 % (32-34); Mean Corpuscular Volume 98 fl (84-94); Monocytes # (Auto) 0.5 K/mm3 (0.0-0.8); Monocytes % (Auto) 6.6 % (0.0-7.3); Platelet Count 127 K/mm3 (140-440); Red Cell Distribution Width 17.8 % (13.2-15.2)
[2021-11-20 10:28] LABS: Calcium 8.9 mg/dL (8.4-10.2)
--- NOTE | 2021-11-20 11:48 | Ultrasound Report ---
ULTRASOUND ABDOMEN, COMPLETE INDICATION: Abdominal Distention/ Ascites. COMPARISON: No relevant prior imaging study available. FINDINGS: Pancreas: No significant abnormality. Abdominal Aorta: Incompletely visualized. Liver: Incompletely visualized Gallbladder: Not well visualized. Bile ducts: Difficult to visualize. Common bile duct difficult to visualize Kidneys: Right: Difficult to visualize given body habitus. Left: No significant abnormality. Spleen: Incompletely visualized Free fluid: Large volume ascites. Additional Findings: None. IMPRESSION: Large volume ascites. Limited exam. Signer Name: Rangel George MD Signed: 11/20/2021 11:43 AM Workstation Name: [id number]
[2021-11-20] MEDS ORDERED: LIDOCAINE MPF (2%) 20 MG/1 ML VIAL 5 ML ONE (12:15)
[2021-11-20] MEDS ORDERED: KETAMINE/STERILE WATER 50 MG/ML SYRINGE ONE (12:16)
[2021-11-20] MEDS ORDERED: propofoL 200 MG/20 ML VIAL IV ONE (12:16)
[2021-11-20] MEDS ORDERED: MIDAZOLAM 2 MG/2 ML INJ ONE (12:16)
--- NOTE | 2021-11-20 12:33 | Consultation ---
History of Present Illness - Reason for Consult Consult date: 11/20/21 GI bleed Requesting physician: NEO LE - History of Present Illness Mr. Aguero is a 41-year-old man with a history of alcoholic cirrhosis, quit alcohol in May 2021, and ascites, brought in by his mother for mental status changes. History is obtained from her. She states that he was well until yesterday at about 2:00 in the afternoon when she noticed onset of confusion. Just prior to that, he had gone to the bathroom and did not flush the toilet and she did note that there was blood in the toilet. On bringing him here, patient was profoundly encephalopathic and not answering questions. His hemoglobin was noted to be 6.1 and a rectal exam was performed which showed maroon stool. He was started on octreotide, given lactulose from below, and admitted to the intensive care unit. There is no prior history of GI bleeding. Patient is typically hospitalized at [facility] and was last there from August 18 through September 04, with ascites. He has end-stage renal disease and has been on dialysis for the last 3 months. He has a history of necrotizing pancreatitis more than a year ago. He has ascites and last had a paracentesis in August of this year. According to the mother, there is no history of GI bleeding. There is no history of encephalopathy. Patient has never undergone upper endoscopy. He was last seen by his licensed and certified midwife in [place] on October 06 of this year, and the notes do suggest that he would get an upper endoscopy done but according to the mother, it has not yet been scheduled. Currently, patient is oriented to name. He thinks he is at home. He denies any discomfort except for the Beltran catheter. Medications reviewed. Past History Past Medical History: dialysis (On Mondays, Wednesdays and Fridays), ESRD, liver disease (Alcoholic liver cirrhosis) Past Surgical History: No surgical history Social history: alcohol abuse (Quit in May 2021) Family history: no significant family history Medications and Allergies Allergies Allergy/AdvReac Type Severity Reaction Status Date / Time No Known Allergies Allergy Unverified 11/19/21 21:37 Active Meds: Active Medications Acetaminophen (Acetaminophen 650 Mg Rect Supp) 650 mg UT Q6H PRN PRN Reason: Pain MILD(1-3)/Fever >100.5/CARRERA Octreotide Acetate 500 mcg/ (Sodium Chloride) 101 mls @ 5.05 mls/hr IV TITR JORDAN; Protocol Last Admin: 11/20/21 03:03 Dose: 25 mcg/hr, 5.05 mls/hr Lactulose (Lactulose Enema 1000 Ml) 200 gm UT TID JORDAN Magnesium Hydroxide (Magnesium Hydroxide (Mom) Oral Liqd Udc) 30 ml PO Q4H PRN PRN Reason: Constipation Pantoprazole Sodium (Pantoprazole 40 Mg Inj) 40 mg IV BID JORDAN Last Admin: 11/20/21 10:10 Dose: 40 mg Sodium Chloride (Sodium Chloride 0.9% 10 Ml Flush Syringe) 10 ml IV BID JORDAN Last Admin: 11/20/21 10:10 Dose: 10 ml Sodium Chloride (Sodium Chloride 0.9% 10 Ml Flush Syringe) 10 ml IV PRN PRN PRN Reason: LINE FLUSH Review of Systems ROS unobtainable: due to mental status Exam - Constitutional Vitals: Temp Pulse Resp BP Pulse Ox 97.2 F L 96 H 13 104/71 100 11/20/21 04:02 11/20/21 12:20 11/20/21 12:20 11/20/21 12:20 11/20/21 12:20 General appearance: Present: no acute distress - EENT Eyes: Present: PERRL, EOM intact ENT: hearing intact - Respiratory Respiratory effort: normal Respiratory: bilateral: CTA - Cardiovascular Rhythm: regular Heart Sounds: Present: S1 & S2 - Extremities Extremities: No edema - Abdominal General gastrointestinal: Present: soft, non-tender, distended - Rectal Rectal Exam: other (Maroon stool per ER) - Psychiatric Psychiatric: cooperative - Neurologic Neurologic: other (Lethargic, oriented x1) Results - Labs CBC & Chem 7: 11/20/21 09:30 11/20/21 09:30 Labs: Abnormal lab results 11/19/21 11/19/21 11/19/21 Range/Units 21:22 21:22 21:22 RBC 1.87 L (3.65-5.03) M/mm3 Hgb 6.1 L (11.8-15.2) gm/dl Hct 18.9 L* (35.5-45.6) % MCV 102 H (84-94) fl MCH 33 H (28-32) pg RDW 18.9 H (13.2-15.2) % Plt Count (140-440) K/mm3 [place] % (Auto) 9.0 H (0.0-7.3) % Seg Neutrophils % (40.0-70.0) % PT 17.7 H (12.2-14.9) Sec. INR 1.26 H (0.87-1.13) APTT 41.1 H (24.2-36.6) Sec. Potassium 3.5 L (3.6-5.0) mmol/L BUN 28 H (9-20) mg/dL Creatinine 2.5 H (0.8-1.3) mg/dL Glucose 111 H (75-100) mg/dL Total Bilirubin 1.90 H (0.1-1.2) mg/dL AST 48 H (5-40) units/L Alkaline Phosphatase 167 H (35-129) units/L Ammonia (25-60) umol/L Albumin 2.9 L (3.9-5) g/dL Crossmatch 11/19/21 11/19/21 11/20/21 Range/Units 21:22 22:45 09:30 RBC 2.10 L (3.65-5.03) M/mm3 Hgb 7.0 L (11.8-15.2) gm/dl Hct 20.7 L (35.5-45.6) % MCV 98 H (84-94) fl MCH 33 H (28-32) pg RDW 17.8 H (13.2-15.2) % Plt Count 127 L (140-440) K/mm3 [place] % (Auto) (0.0-7.3) % Seg Neutrophils % 75.8 H (40.0-70.0) % PT (12.2-14.9) Sec. INR (0.87-1.13) APTT (24.2-36.6) Sec. Potassium (3.6-5.0) mmol/L BUN (9-20) mg/dL Creatinine (0.8-1.3) mg/dL Glucose (75-100) mg/dL Total Bilirubin (0.1-1.2) mg/dL AST (5-40) units/L Alkaline Phosphatase (35-129) units/L Ammonia 165.0 H (25-60) umol/L Albumin (3.9-5) g/dL Crossmatch See Detail 11/20/21 Range/Units 09:30 RBC (3.65-5.03) M/mm3 Hgb (11.8-15.2) gm/dl Hct (35.5-45.6) % MCV (84-94) fl MCH (28-32) pg RDW (13.2-15.2) % Plt Count (140-440) K/mm3 [place] % (Auto) (0.0-7.3) % Seg Neutrophils % (40.0-70.0) % PT (12.2-14.9) Sec. INR (0.87-1.13) APTT (24.2-36.6) Sec. Potassium 3.5 L (3.6-5.0) mmol/L BUN 28 H (9-20) mg/dL Creatinine 2.6 H (0.8-1.3) mg/dL Glucose 112 H (75-100) mg/dL Total Bilirubin (0.1-1.2) mg/dL AST (5-40) units/L Alkaline Phosphatase (35-129) units/L Ammonia (25-60) umol/L Albumin (3.9-5) g/dL Crossmatch Assessment and Plan 1. GI bleedneed to exclude portal hypertension as an etiology. He is not having hematemesis or significant chacha GI bleeding, but his hemoglobin has dropped from a 7.8 in August, to 6.1 now. We will proceed with upper endoscopy to assess for varices and other etiology. Discussed with mother. 2. Alcoholic cirrhosiswith ascites and encephalopathy. Encephalopathy now may be related to protein load from blood in GI tract since he has not had this before. Lactulose Minimize sodium 3. End-stage renal diseasedialysis as per nephrology. 4. Asciteschronic. May need paracentesis if worsens.
--- NOTE | 2021-11-20 12:58 | Post Operative Note ---
Pre-op diagnosis: GI bleed Post-op diagnosis: other (Single grade grade 3 distal esophageal varix, gastroparesis with retained food, no evidence of blood in the upper GI tract.) Findings: 1. Single, grade 3, distal esophageal varix with red skye markings. No evidence of bleeding. Single rubber band placed on this for ligation. 2. Otherwise normal esophagus. 3. Large solid bolus of food noted in gastric lumen. No evidence of blood. 4. Otherwise normal gastric antrum, cardia, and fundus with no evidence of ulcers or bleeding or varices. 5. Normal duodenum and bulb. Procedure: EGD with variceal band ligation Anesthesia: MAC Surgeon: LINUS YOUNG Estimated blood loss: none Pathology: none Condition: stable Disposition: ICU (Patient to remain in ICU. May have clear liquids. Monitor hemoglobin and transfuse as needed. Continue octreotide for total 48 hours.)
[2021-11-20] MEDS ORDERED: LIDOCAINE (1%) 10 MG/1 ML VIAL 20 ML MDV ONE (13:05)
--- NOTE | 2021-11-20 13:37 | Operative Report ---
DATE OF SURGERY: 11/20/2021 PROCEDURE: Upper endoscopy with variceal band ligation. PREOPERATIVE DIAGNOSIS: Gastrointestinal bleed. POSTOPERATIVE DIAGNOSES: Grade 3 esophageal varix and gastroparesis. SEDATION: MAC by Anesthesia. HISTORY: The patient is a 41-year-old man with a known history of alcoholic cirrhosis. He quit drinking in 05/2021. He has no prior history of GI bleeding, but does have ascites. He presented with mental status changes, and was found to be anemic with a hemoglobin of 6.1. Rectal exam revealed maroon stool. DESCRIPTION OF PROCEDURE: Indications, risks and benefits were explained and consent was obtained from the patient's mother as the patient is only oriented x 1. Endoscope was passed through the mouth and oropharynx into the descending duodenum and then gradually withdrawn with close inspection of mucosa. FINDINGS: 1. A single grade 3 esophageal varix was found in the distal esophagus with red skye markings, but no stigmata of bleeding. This is a band ligated with a rubber band x 1. 2. Otherwise, normal esophagus. 3. Normal appearing gastric antrum, cardia, and fundus with no evidence of ulcers, mass, lesions or blood. 4. Large food bolus present in gastric lumen precluding visualization of the mucosa of the body. No blood is identified. 5. Normal duodenal bulb and duodenum. The patient tolerated the procedure well without immediate complications. IMPRESSION: 1. Single grade 3 esophageal varix -- band ligated. 2. Food retained in gastric lumen consistent with gastroparesis. 3. Otherwise, normal upper endoscopy with no evidence of blood or bleeding source. RECOMMENDATIONS: 1. Advance diet to clear liquids. 2. Monitor hemoglobin and transfuse as needed. 3. Continue octreotide for a total of 48 hours. 4. If has ongoing evidence of bleeding, may need colonoscopy. TID: [id number] RECEIPT: [id number] [facility]/DRE[facility]
[2021-11-20] MEDS ORDERED: LACTULOSE ENEMA 1000 ML PR SCH (14:00)
--- NOTE | 2021-11-20 15:15 | Consultation ---
History of Present Illness Consult date: 11/20/21 Requesting physician: PAPO HURTADO History of present illness: 41-year-old -Cymra[place] male with known history of alcoholic liver cirrhosi s, end-stage renal disease on dialysisMondays, Wednesdays and Fridays brought into the emergency room today for evaluation of changes in mental status which started at about 2 PM today. Most of the history was gotten from the mother who was by the bedside as patient is confused. Patient has been compliant with his dialysis and last dialysis was yesterday. Patient goes to [facility] dialysis center in [place]. Patient has also had paracentesis done periodically for his ascites. Last paracentesis was about 3 months ago. According to mother, patient has had chronic lower extremity swelling and has also had abdominal distention. Patient has not been seen in this facility in the past. He goes to [facility] for his medical care. According to mother patient no longer drinks alcohol. Unclear of when patient last drank alcohol. Work-up in the emergency room today, labs are significant for hemoglobin of 6.1 and hematocrit of 18.9. Potassium of 3.5, BUN of 28 and creatinine of 2.5. Total bilirubin of 1.9. Toxicology screen shows alcohol level less than 0.01. Stool Hemoccult today was positive. Patient is currently on IV Protonix and octreotide. 1 unit PRBC was transfused. Patient has been admitted to the ICU and a critical care consult placed. Past History Past Medical History: dialysis (On Mondays, Wednesdays and Fridays), ESRD, liver disease (Alcoholic liver cirrhosis) Past Surgical History: No surgical history Social history: alcohol abuse (Quit in May 2021) Family history: no significant family history Medications and Allergies Allergies Allergy/AdvReac Type Severity Reaction Status Date / Time No Known Allergies Allergy Unverified 11/19/21 21:37 Active Meds: Active Medications Acetaminophen (Acetaminophen 650 Mg Rect Supp) 650 mg ND Q6H PRN PRN Reason: Pain MILD(1-3)/Fever >100.5/CARRERA Octreotide Acetate 500 mcg/ (Sodium Chloride) 101 mls @ 5.05 mls/hr IV TITR JORDAN; Protocol Last Admin: 11/20/21 03:03 Dose: 25 mcg/hr, 5.05 mls/hr Ceftriaxone Sodium (Rocephin/Ns 1 Gm/50 Ml) 1 gm in 50 mls @ 100 mls/hr IV Q24H JORDAN; Protocol Lactulose (Lactulose Enema 1000 Ml) 200 gm ND TID JORDAN Magnesium Hydroxide (Magnesium Hydroxide (Mom) Oral Liqd Udc) 30 ml PO Q4H PRN PRN Reason: Constipation Pantoprazole Sodium (Pantoprazole 40 Mg Inj) 40 mg IV BID JORDAN Last Admin: 11/20/21 10:10 Dose: 40 mg Sodium Chloride (Sodium Chloride 0.9% 10 Ml Flush Syringe) 10 ml IV BID JORDAN Last Admin: 11/20/21 10:10 Dose: 10 ml Sodium Chloride (Sodium Chloride 0.9% 10 Ml Flush Syringe) 10 ml IV PRN PRN PRN Reason: LINE FLUSH Review of Systems ROS unobtainable: due to mental status Physical Examination Vital signs: Vital Signs Temp Pulse Resp BP Pulse Ox 98 F 93 H 18 114/87 100 11/19/21 20:54 11/19/21 20:54 11/19/21 20:54 11/19/21 20:54 11/19/21 20:54 Reviewed vitals General appearance: Present: no acute distress, cachectic - EENT Eyes: Present: PERRL (Sclera Jaundice) - Respiratory Respiratory effort: normal Respiratory: bilateral: diminished - Cardiovascular Rhythm: regular Heart Sounds: Present: S1 & S2 - Extremities Extremities: no ischemia, pulses intact, pulses symmetrical Peripheral Pulses: within normal limits - Abdominal General gastrointestinal: soft, distended (Taut), hypoactive bowel sounds - Integumentary Integumentary: Present: warm, dry - Psychiatric Psychiatric: other (JC, Obtunded) - Neurologic Neurologic: other (Obtunded, open eyes briefly with sternal rubs. Withdrawal from pain) Results - Laboratory Findings CBC and BMP: 11/21/21 04:18 11/21/21 04:18 PT/INR, D-dimer PT 17.7 Sec. (12.2-14.9) H 11/19/21 21:22 INR 1.26 (0.87-1.13) H 11/19/21 21:22 Abnormal lab findings: Abnormal Labs 11/19/21 11/19/21 11/19/21 21:22 21:22 21:22 RBC 1.87 L Hgb 6.1 L Hct 18.9 L* MCV 102 H MCH 33 H RDW 18.9 H Plt Count Gray % (Auto) 9.0 H Seg Neutrophils % PT 17.7 H INR 1.26 H APTT 41.1 H Potassium 3.5 L BUN 28 H Creatinine 2.5 H Glucose 111 H Total Bilirubin 1.90 H AST 48 H Alkaline Phosphatase 167 H Ammonia Albumin 2.9 L Crossmatch 11/19/21 11/19/21 11/20/21 21:22 22:45 09:30 RBC 2.10 L Hgb 7.0 L Hct 20.7 L MCV 98 H MCH 33 H RDW 17.8 H Plt Count 127 L Gray % (Auto) Seg Neutrophils % 75.8 H PT INR APTT Potassium BUN Creatinine Glucose Total Bilirubin AST Alkaline Phosphatase Ammonia 165.0 H Albumin Crossmatch See Detail 11/20/21 09:30 RBC Hgb Hct MCV MCH RDW Plt Count Gray % (Auto) Seg Neutrophils % PT INR APTT Potassium 3.5 L BUN 28 H Creatinine 2.6 H Glucose 112 H Total Bilirubin AST Alkaline Phosphatase Ammonia Albumin Crossmatch - Diagnostic Findings Chest x-ray: image reviewed (Right HD catheter, left pleural effusion) Assessment and Plan This is a 41-year-old AA male with known past medical history of ESRD on Dialysis(M,W,F), alcoholic liver cirrhosis, ascites s/p paracentesis 3 months ago admitted for acute encephalopathy and possible GI bleed Acute Metabolic Encephalopathy Hyperammonemia - most likely secondary to liver cirrhosis Acute Blood Loss Anemia Upper GI Bleed - 11/20 s/p EGD by GI. Single grade grade 3 distal esophageal varix-Single rubber band placed on this for ligation. Gastroparesis with retained food, no evidence of blood in the upper GI tract. Acoholic Liver Cirrhosis Large Volume Ascites Esophageal Varix Gastroparesis End-Stage Renal Disease(ESRD) on dialysis Severe protein calorie malnutrition -Transfuse to keep HgB>7g/dL -Treat for hepatic encephalopathy- lactulose, monitor and replace electrolytes -CIWA protocol -Nutritional support -Will proceed with paracentesis- consent obtained from patient's mother -Treat for SBP -Monitor post EGD -SCDs for VTE prophylaxis -Continue PPI and Octreotide per GI -Aspiration precautions -Maintain sleep- wake cycle -Renal consult fro HD -Discontinue Beltran catheter Updated mother at the bedside Discussed with primary service
--- NOTE | 2021-11-20 15:15 | Procedure Note ---
Date of procedure: 11/20/21 Pre-op diagnosis: Large volume ascite, cirrhosis, acute encephalopathy Post-op diagnosis: same Procedure: Paracentesis Consent obtained from his mother. Patient prepped and draped in sterile fashion 1% lidocaine infiltrated- RLQ of the abdomen Finder needle used to aspirate milky-yellow fluid Manually drained about 2.3L 20 ml of fluid placed in a sterile container for peritoneal fluid analysis Anesthesia: local Surgeon: MICAELA MOON Hogshead Opener: SAMANTHA LR Estimated blood loss: none Specimen disposition: to lab Condition: stable Disposition: ICU
[2021-11-20] MEDS ORDERED: LIDOCAINE (1%) 10 MG/1 ML VIAL 20 ML MDV INFILTRATI SCH (15:30)
[2021-11-20] MEDS: LACTULOSE 20 GM/30 ML ORAL LIQD PO SCH ×2 (15:49→20:20)
[2021-11-20] MEDS: cefTRIAXone/NS 1 GM/50 ML 1 GM/50 ML BAG IV SCH (15:49)
[2021-11-20 17:10] LABS: Monocytes Body Fluid 0 %
[2021-11-20 17:14] LABS: Total Cells Counted 100 /mm3
[2021-11-20 18:52] LABS: ABG Base Excess -0.5 mmol/L (-2.0-3.0); ABG HCO3 23.1 mmol/L (20.0-26.0); ABG Methemoglobin 0.4 % (0.0-1.5); ABG Oxygen Saturation 97.2 % (95.0-99.0); ABG PCO2 31.9 mm Hg; ABG PH 7.478 pH Units (7.350-7.450); ABG PO2 82.2 mm Hg (80.0-90.0)
[2021-11-20 22:23] LABS: Hemoglobin 6.3 gm/dl (11.8-15.2)
[2021-11-20 22:48] LABS: Hematocrit 19.4 % (35.5-45.6)
[2021-11-20] MEDS ORDERED: SODIUM CHLORIDE 0.9% 500 ML 500 ML IV ONE (23:34)
[2021-11-21 04:46] LABS: Hematocrit 21.7 % (35.5-45.6); Hemoglobin 7.1 gm/dl (11.8-15.2); Mean Corpuscular HGB Conc 33 % (32-34); Mean Corpuscular Volume 97 fl (84-94); Platelet Count 131 K/mm3 (140-440); Red Blood Count 2.24 M/mm3 (3.65-5.03); Red Cell Distribution Width 19.5 % (13.2-15.2)
[2021-11-21 05:07] LABS: Albumin 2.2 g/dL (3.9-5); Calcium 8.4 mg/dL (8.4-10.2)
[2021-11-21] MEDS: LACTULOSE 20 GM/30 ML ORAL LIQD PO SCH ×3 (09:53→20:19)
[2021-11-21] MEDS: PANTOPRAZOLE 40 MG INJ IV SCH (09:53)
--- NOTE | 2021-11-21 10:43 | Electrocardiograph Report ---
[facility] Test Date: 2021-11-19 Test Time: 23:06:21 Pat Name: ELBA BOUDREAUX Department: Room: A264 Gender: M Loan Processor: ANANTH : 1980 Requested By: NEO LE Order Number: [id number] Reading MD: Mac Roberts Measurements Intervals Teller Rate: 98 P: 50 AR: 184 QRS: 46 QRSD: 77 T: -10 QT: 333 QTc: 424 Interpretive Statements Sinus rhythm Nonspecific T wave abnormality No previous ECG available for comparison Electronically Signed On 11-21-2021 10:43:11 EDT by Mac Roberts
--- NOTE | 2021-11-21 11:26 | Progress Note ---
Subjective Date of service: 11/21/21 Principal diagnosis: esrd Interval history: Assessment and Plan This is a 41 year old man who presents with altered mentation, anemia # ESRD: plan to continue HD MWF if hemodynamically stable - daily labs - renally dose meds - avoid nephrotoxins - renal diet - verbal consent obtained for HD # Anemia: serial h/h, prn prbcs GI following for potential GI bleed, on octreotide gtt. ESAs with HD as indicated # HTN: UF as tolerated, suspect intravascularly depleted. BP soft # Secondary Hyperparathyroidism: hold home binders for now if on, vitamin D analogs prn # Acute Metabolic Encephalopathy: less likely uremia related # Hepatic Cirrhosis, Alcoholic - History of Present Illness This is a 41 year-old man with ESRD, cirrhosis of liver who presents for altered mentation Patient usually dialyzes MWF at [facility]. Last HD 11/18. No recent issues with HD, including dizziness, lightheadedness, cramping, chest pain on HD per outpatient documentation. Found to have hemoglobin 6.1 on arrival, started on IV protonix, octreotide gtt. Review of Systems ROS unobtainable: due to mental status - Physical Exam Narrative exam: Constitutional: drowsy, altered Head: NC/AT Neck: supple Lungs: clear to auscultation CV: RRR, no M/R/G Abdomen: distended Back: nontender Extremities: 1+ edema, pulses WNL Skin: intact Neuro: drowsy, not following commands Objective - Vital Signs Vital signs: Vital Signs - 12hr 11/21/21 11/21/21 11/21/21 00:00 00:06 00:10 Temperature 98.5 F Pulse Rate 93 H 94 H 94 H Pulse Rate [ From Monitor] Respiratory 10 L 15 16 Rate Blood Pressure 107/77 107/77 107/77 O2 Sat by Pulse 100 100 100 Oximetry 11/21/21 11/21/21 11/21/21 00:13 00:15 00:30 Temperature 98 F Pulse Rate 89 91 H 88 Pulse Rate [ From Monitor] Respiratory 14 14 15 Rate Blood Pressure 109/72 109/72 111/78 O2 Sat by Pulse 100 100 100 Oximetry 11/21/21 11/21/21 11/21/21 00:45 01:00 01:15 Temperature Pulse Rate 90 87 90 Pulse Rate [ From Monitor] Respiratory 9 L 13 12 Rate Blood Pressure 110/80 108/77 105/74 O2 Sat by Pulse 100 100 100 Oximetry 11/21/21 11/21/21 11/21/21 01:30 01:45 02:00 Temperature Pulse Rate 92 H 89 89 Pulse Rate [ From Monitor] Respiratory 12 13 14 Rate Blood Pressure 109/75 113/71 113/71 O2 Sat by Pulse 100 100 100 Oximetry 11/21/21 11/21/21 11/21/21 02:15 03:00 03:30 Temperature Pulse Rate 86 90 Pulse Rate [ From Monitor] Respiratory 10 L 15 Rate Blood Pressure 115/77 115/83 O2 Sat by Pulse 100 100 100 Oximetry 11/21/21 11/21/21 11/21/21 04:00 05:00 06:00 Temperature Pulse Rate 83 80 80 Pulse Rate [ From Monitor] Respiratory 13 14 12 Rate Blood Pressure 116/80 114/81 109/76 O2 Sat by Pulse 100 100 Oximetry 11/21/21 11/21/21 11/21/21 07:00 07:50 07:54 Temperature Pulse Rate 79 80 Pulse Rate [ 83 From Monitor] Respiratory 12 Rate Blood Pressure 105/76 O2 Sat by Pulse 100 100 Oximetry 11/21/21 11/21/21 11/21/21 07:55 08:00 09:00 Temperature 98.1 F Pulse Rate 91 H 77 Pulse Rate [ From Monitor] Respiratory 15 13 Rate Blood Pressure 114/84 112/78 O2 Sat by Pulse 99 Oximetry 11/21/21 11/21/21 10:00 11:00 Temperature Pulse Rate 77 80 Pulse Rate [ From Monitor] Respiratory 9 L 9 L Rate Blood Pressure 116/82 114/79 O2 Sat by Pulse 100 100 Oximetry - Lab 11/21/21 04:18 11/21/21 04:18 Most recent lab results ABG pH 7.478 pH Units (7.350-7.450) H 11/20/21 18:40 ABG pCO2 31.9 mm Hg 11/20/21 18:40 ABG pO2 82.2 mm Hg (80.0-90.0) 11/20/21 18:40 ABG HCO3 23.1 mmol/L (20.0-26.0) 11/20/21 18:40 ABG O2 Saturation 97.2 % (95.0-99.0) 11/20/21 18:40 Calcium 8.4 mg/dL (8.4-10.2) 11/21/21 04:18 Magnesium 1.80 mg/dL (1.7-2.3) 11/19/21 21:22 Medications & Allergies - Medications Allergies/Adverse Reactions: Allergies No Known Allergies Allergy (Unverified 11/19/21 21:37) Active Medications: Generic Name Dose Route Start Last Admin Trade Name Freq PRN Reason Stop Dose Admin Octreotide Acetate 500 mcg/ 101 mls @ 5.05 mls/hr 11/19/21 23:45 11/20/21 03:03 Sodium Chloride IV 11/21/21 23:44 25 mcg/hr TITR JORDAN 5.05 mls/hr Administration Protocol 25 MCG/HR Ceftriaxone Sodium 1 gm in 50 mls @ 100 mls/hr 11/20/21 14:00 11/20/21 15:49 Rocephin/Ns 1 Gm/50 Ml IV 11/24/21 14:29 100 mls/hr Q24H JORDAN Administration Protocol Lactulose 20 gm 11/20/21 16:00 11/21/21 09:53 Lactulose 20 Gm/30 Ml Oral Liqd PO 20 gm TID JORDAN Administration Magnesium Hydroxide 30 ml 11/19/21 23:47 Magnesium Hydroxide (Mom) Oral Liqd Udc PO Q4H PRN Constipation Pantoprazole Sodium 40 mg 11/19/21 23:45 11/21/21 09:53 Pantoprazole 40 Mg Inj IV 40 mg BID JORDAN Administration Sodium Chloride 10 ml 11/20/21 10:00 11/21/21 09:52 Sodium Chloride 0.9% 10 Ml Flush Syringe IV 10 ml BID JORDAN Administration Sodium Chloride 10 ml 11/19/21 23:47 Sodium Chloride 0.9% 10 Ml Flush Syringe IV PRN PRN LINE FLUSH
[2021-11-21] MEDS ORDERED: EPOETIN ALFA-EPBX 20,000 UNIT/1 ML VIAL IV PRN (11:27)
[2021-11-21] MEDS ORDERED: ALBUMIN HUMAN 25% (25 GM/100 ML) INJ IV PRN (11:27)
[2021-11-21] MEDS ORDERED: SODIUM CHLORIDE 0.9% 100 ML IV PRN (11:27)
--- NOTE | 2021-11-21 13:27 | Progress Note ---
Assessment and Plan Acute Metabolic Encephalopathy Hyperammonemia Acute Blood Loss Anemia Upper GI Bleed Acoholic Liver Cirrhosis Large Volume Ascites Esophageal Varix Gastroparesis End-Stage Renal Disease on dialysis Severe protein calorie malnutrition - prn supplemental oxygen for target O2 sat's > 90% acutely - aspiration precautions - prn bronchodilators with pulmonary hygiene per RT - avoid nephrotoxins, renally dose all medications - AB's per ID rec's - prn analgesia per CPOT score - continue accuchecks with glycemic control per SSI for target blood glucose < 180 mg/dL - G.I. & VTE prophylaxis - PT/OT/ROM exercises - continue mobility protocols for pressure ulcer prophylaxis - Monitor hemodynamics closely - continue other care per attending / other consultants - discharge planning ongoing concurrently ... re-evaluate in am & prn Subjective Date of service: 11/21/21 Principal diagnosis: AMS; ABLA; Upper GI Bleed; EtOH Cirrhosis; Ascites; Esophageal Varices Interval history: Patient is seen today for: Acute Metabolic Encephalopathy; Hyperammonemia; Acute Blood Loss Anemia; Upper GI Bleed; Alcoholic Liver Cirrhosis; Large Volume Ascites; Esophageal Varix; Gastroparesis; ESRD on dialysis; Severe protein calorie malnutrition Seen and examined at bedside; 24hour events reviewed; nursing and respiratory care staff consulted; no adverse overnight events reported to me; resting in bed; Objective Vital Signs - 12hr 11/21/21 11/21/21 11/21/21 01:30 01:45 02:00 Temperature Pulse Rate 92 H 89 89 Pulse Rate [ From Monitor] Respiratory 12 13 14 Rate Blood Pressure 109/75 113/71 113/71 O2 Sat by Pulse 100 100 100 Oximetry 11/21/21 11/21/21 11/21/21 02:15 03:00 03:30 Temperature Pulse Rate 86 90 Pulse Rate [ From Monitor] Respiratory 10 L 15 Rate Blood Pressure 115/77 115/83 O2 Sat by Pulse 100 100 100 Oximetry 11/21/21 11/21/21 11/21/21 04:00 05:00 06:00 Temperature Pulse Rate 83 80 80 Pulse Rate [ From Monitor] Respiratory 13 14 12 Rate Blood Pressure 116/80 114/81 109/76 O2 Sat by Pulse 100 100 Oximetry 11/21/21 11/21/21 11/21/21 07:00 07:50 07:54 Temperature Pulse Rate 79 80 Pulse Rate [ 83 From Monitor] Respiratory 12 Rate Blood Pressure 105/76 O2 Sat by Pulse 100 100 Oximetry 11/21/21 11/21/21 11/21/21 07:55 08:00 09:00 Temperature 98.1 F Pulse Rate 91 H 77 Pulse Rate [ From Monitor] Respiratory 15 13 Rate Blood Pressure 114/84 112/78 O2 Sat by Pulse 99 Oximetry 11/21/21 11/21/21 11/21/21 10:00 11:00 11:36 Temperature Pulse Rate 77 80 85 Pulse Rate [ From Monitor] Respiratory 9 L 9 L Rate Blood Pressure 116/82 114/79 O2 Sat by Pulse 100 100 Oximetry 11/21/21 11/21/21 11/21/21 11:38 12:00 13:00 Temperature 97 F L Pulse Rate 82 81 Pulse Rate [ 85 From Monitor] Respiratory 16 15 Rate Blood Pressure 121/79 115/83 O2 Sat by Pulse 91 100 Oximetry CBC and BMP: 11/21/21 04:18 11/21/21 04:18 ABG, PT/INR, D-dimer: ABG ABG pH 7.478 pH Units (7.350-7.450) H 11/20/21 18:40 ABG pCO2 31.9 mm Hg 11/20/21 18:40 ABG pO2 82.2 mm Hg (80.0-90.0) 11/20/21 18:40 ABG O2 Saturation 97.2 % (95.0-99.0) 11/20/21 18:40 PT/INR, D-dimer PT 17.7 Sec. (12.2-14.9) H 11/19/21 21:22 INR 1.26 (0.87-1.13) H 11/19/21 21:22 Abnormal lab findings: Abnormal Labs 11/19/21 11/19/21 11/19/21 21:22 21:22 21:22 RBC 1.87 L Hgb 6.1 L Hct 18.9 L* MCV 102 H MCH 33 H RDW 18.9 H Plt Count [place] % (Auto) 9.0 H Seg Neutrophils % PT 17.7 H INR 1.26 H APTT 41.1 H ABG pH ABG Hemoglobin Oxyhemoglobin Potassium 3.5 L Chloride BUN 28 H Creatinine 2.5 H Glucose 111 H Total Bilirubin 1.90 H AST 48 H Alkaline Phosphatase 167 H Ammonia Total Protein Albumin 2.9 L Crossmatch 11/19/21 11/19/21 11/20/21 21:22 22:45 09:30 RBC 2.10 L Hgb 7.0 L Hct 20.7 L MCV 98 H MCH 33 H RDW 17.8 H Plt Count 127 L [place] % (Auto) Seg Neutrophils % 75.8 H PT INR APTT ABG pH ABG Hemoglobin Oxyhemoglobin Potassium Chloride BUN Creatinine Glucose Total Bilirubin AST Alkaline Phosphatase Ammonia 165.0 H Total Protein Albumin Crossmatch See Detail 11/20/21 11/20/21 11/20/21 09:30 18:40 21:25 RBC Hgb 6.3 L Hct 19.4 L* MCV MCH RDW Plt Count [place] % (Auto) Seg Neutrophils % PT INR APTT ABG pH 7.478 H ABG Hemoglobin 5.4 L Oxyhemoglobin 94.6 L Potassium 3.5 L Chloride BUN 28 H Creatinine 2.6 H Glucose 112 H Total Bilirubin AST Alkaline Phosphatase Ammonia Total Protein Albumin Crossmatch 11/21/21 11/21/21 11/21/21 04:18 04:18 04:18 RBC 2.24 L Hgb 7.1 L Hct 21.7 L MCV 97 H MCH RDW 19.5 H Plt Count 131 L [place] % (Auto) Seg Neutrophils % PT INR APTT ABG pH ABG Hemoglobin Oxyhemoglobin Potassium 3.4 L Chloride 107.3 H BUN 30 H Creatinine 2.5 H Glucose Total Bilirubin 3.10 H AST 41 H Alkaline Phosphatase Ammonia 71.0 H Total Protein 5.4 L Albumin 2.2 L Crossmatch
[2021-11-21] MEDS: cefTRIAXone/NS 1 GM/50 ML 1 GM/50 ML BAG IV SCH (13:42)
[2021-11-21 16:39] LABS: Hepatitis B Surface Antigen Non-Reactive (Negative); Hepatitis C Virus Antibody Non-Reactive (NonReactive)
--- NOTE | 2021-11-21 17:13 | Progress Note ---
Assessment and Plan Assessment and plan: This is a 41-year-old -[place] male with EtOH cirrhosis, ascites, ESRD on HD (MWF) admitted with hepatic encephalopathy and GI bleed Neuro: Acute on chronic hepatic encephalopathy (resolving), h/o EtOH abuse -Admit ammonia 165 -Lactulose 3 times daily -Reorientation as needed -Maintain sleep-wake cycle -As needed analgesia -CT head with no acute intracranial abnormality -Trend ammonia Cardiac: h/o HTN -Per patient: On medication to support blood pressure -BP monitoring per protocol Respiratory: NAD -Supplemental oxygen as needed -SPO2 monitoring per protocol -Pulmonary hygiene GI: Alcohol liver cirrhosis, large volume ascites, UGIB secondary to esophageal varices, gastroparesis, transaminitis -GI and CCM consulted, appreciate recommendations -US Abd revealed large volume ascites -S/p paracentesis at the bedside by CCM, 2.2L of cloudy yellow fluid removed; Samples sent to the lab -s/p EGD 11/20 showing one bleeding esophageal varices with was banded, gastroparesis with retained food -24 hours -260 ml -CLD -Octreotide drip -Protonix twice daily -BR: lactulose -Trend LFTs : ESRD on HD, h/o secondary para-hypothyroidism -Nephrology consulted, appreciate recommendations -HD per nephrology -Monitor intake and output -Renally dose medications -Avoid nephrotoxic medications -Erythropoietin with HD per nephrology -Hold home binders for now -Trend BMP ID: r/o SBP -Antibiotic therapy with Rocephin -f/u blood culture -Monitor WBC and temperature curve Endo: NAD -Avoid hypoglycemia Heme: Acute blood loss anemia, upper GI bleed -Admit H/H6.1/18.9 -Admit Hemoccult positive -S/p esophageal variceal banding -S/p 2 units PRBC -Trend CBC -Transfuse hemoglobin less than 7 -SCDs to BLE while in bed The high probability of a clinically significant, sudden or life threatening de terioration of the [multiple] system(s) required my full and direct attention, intervention and personal management. The aggregate critical care time was [60] minutes. This time is in addition to time spent performing reported procedures but includes the following: [x] Data Review and interpretation [x] Patient assessment and monitoring of vital signs [x] Documentation [x] Medication orders and management Disposition Plan: transfer to floor Total Time Spent with Patient (Minutes): 60 History Interval history: This is a 41-year-old male with EtOH cirrhosis, hepatic encephalopathy, ascites with last paracentesis 3 months prior, ESRD on HD (MWF) who presented to the emergency department due to change in mental status on 11/19. In the ED occult was postive and lab work showed anemia with h/h 6.1/18.9 and hepatic encephalopathy with ammonia 165. Patient was placed on Protonix twice daily and octreotide drip and given [address] head was unremarkable for acute abnormality and left pleural effusion was noted on CXR. Patient was admitted to the hospitalist service with consults to nephrology and GI. Hospital Course to Date: 11/20: S/p EGD with variceal band ligation by GI and Diagnostic paracentesis by CCM, 2.2L of cloudy yellow fluid removed. Pateint is currently obtunded, on NRB, no signs of any respiratory distress noted. VSS. Hyperammonemia noted this am, continue lactolose TID, repeat level in the am. Patient is also on octreotide gtt. Per GI continue gtt X48hrs and Protonix BID. Hgb improved to 7.0 post 1unit of PRBCs, no s/s of any active bleeding. Continue to trend H&H and transfuse for hgb less than 7. Empiric IV Abx was also initiated, F/u on paracentesis cultures for sensitivity. Possible US paracentesis in the am by IR. 11/21: Patient ultimately status is very improved, H/H 7.1/21.7. Patient will be transferred to the floor. Hospitalist Physical - Constitutional Vitals: Temp Pulse Resp BP Pulse Ox 97 F L 85 15 115/83 100 11/21/21 11:38 11/21/21 16:00 11/21/21 13:00 11/21/21 13:00 11/21/21 16:00 General appearance: Present: no acute distress, cachectic - EENT Eyes: Present: PERRL, EOM intact - Neck Neck: Present: supple, normal ROM - Respiratory Respiratory effort: normal Respiratory: bilateral: CTA, diminished - Cardiovascular Rhythm: regular Heart Sounds: Present: S1 & S2. Absent: systolic murmur, diastolic murmur - Extremities Extremities: no ischemia, pulses intact, pulses symmetrical, No edema, normal temperature, normal color Extremity abnormal: edema Peripheral Pulses: within normal limits - Abdominal General gastrointestinal: soft, non-tender, normal bowel sounds - Integumentary Integumentary: Present: warm, dry - Psychiatric Psychiatric: cooperative - Neurologic Neurologic: CNII-XII intact, no focal deficits, moves all extremities - Allied Health Allied health notes reviewed: nursing, RT, social work Results - Labs CBC & Chem 7: 11/21/21 04:18 11/21/21 04:18 Labs: Laboratory Last Values WBC 6.1 K/mm3 (4.5-11.0) 11/21/21 04:18 RBC 2.24 M/mm3 (3.65-5.03) L 11/21/21 04:18 Hgb 7.1 gm/dl (11.8-15.2) L 11/21/21 04:18 Hct 21.7 % (35.5-45.6) L 11/21/21 04:18 MCV 97 fl (84-94) H 11/21/21 04:18 MCH 32 pg (28-32) 11/21/21 04:18 MCHC 33 % (32-34) 11/21/21 04:18 RDW 19.5 % (13.2-15.2) H 11/21/21 04:18 Plt Count 131 K/mm3 (140-440) L 11/21/21 04:18 Lymph % (Auto) 16.9 % (13.4-35.0) 11/20/21 09:30 Bandera % (Auto) 6.6 % (0.0-7.3) 11/20/21 09:30 Eos % (Auto) 0.1 % (0.0-4.3) 11/20/21 09:30 Baso % (Auto) 0.6 % (0.0-1.8) 11/20/21 09:30 Lymph # (Auto) 1.2 K/mm3 (1.2-5.4) 11/20/21 09:30 Bandera # (Auto) 0.5 K/mm3 (0.0-0.8) 11/20/21 09:30 Eos # (Auto) 0.0 K/mm3 (0.0-0.4) 11/20/21 09:30 Baso # (Auto) 0.0 K/mm3 (0.0-0.1) 11/20/21 09:30 Seg Neutrophils % 75.8 % (40.0-70.0) H 11/20/21 09:30 Seg Neutrophils # 5.4 K/mm3 (1.8-7.7) 11/20/21 09:30 PT 17.7 Sec. (12.2-14.9) H 11/19/21 21:22 INR 1.26 (0.87-1.13) H 11/19/21 21:22 APTT 41.1 Sec. (24.2-36.6) H 11/19/21 21:22 ABG pH 7.478 pH Units (7.350-7.450) H 11/20/21 18:40 ABG pCO2 31.9 mm Hg 11/20/21 18:40 ABG pO2 82.2 mm Hg (80.0-90.0) 11/20/21 18:40 ABG HCO3 23.1 mmol/L (20.0-26.0) 11/20/21 18:40 ABG O2 Saturation 97.2 % (95.0-99.0) 11/20/21 18:40 ABG O2 Content 7.4 (0.0-44) 11/20/21 18:40 ABG Base Excess -0.5 mmol/L (-2.0-3.0) 11/20/21 18:40 ABG Hemoglobin 5.4 gm/dl (14.0-18.0) L 11/20/21 18:40 ABG Carboxyhemoglobin 2.2 % (0.0-5.0) 11/20/21 18:40 ABG Methemoglobin 0.4 % (0.0-1.5) 11/20/21 18:40 Oxyhemoglobin 94.6 % (95.0-99.0) L 11/20/21 18:40 FiO2 21 % 11/20/21 18:40 Sodium 141 mmol/L (137-145) 11/21/21 04:18 Potassium 3.4 mmol/L (3.6-5.0) L 11/21/21 04:18 Chloride 107.3 mmol/L (98-107) H 11/21/21 04:18 Carbon Dioxide 23 mmol/L (22-30) 11/21/21 04:18 Anion Gap 14 mmol/L 11/21/21 04:18 BUN 30 mg/dL (9-20) H 11/21/21 04:18 Creatinine 2.5 mg/dL (0.8-1.3) H 11/21/21 04:18 Estimated GFR 35 ml/min 11/21/21 04:18 BUN/Creatinine Ratio 12 % 11/21/21 04:18 Glucose 94 mg/dL (75-100) 11/21/21 04:18 POC Glucose 102 mg/dL (70-105) 11/21/21 11:35 Calcium 8.4 mg/dL (8.4-10.2) 11/21/21 04:18 Magnesium 1.80 mg/dL (1.7-2.3) 11/19/21 21:22 Total Bilirubin 3.10 mg/dL (0.1-1.2) H 11/21/21 04:18 AST 41 units/L (5-40) H 11/21/21 04:18 ALT 16 units/L (7-56) 11/21/21 04:18 Alkaline Phosphatase 116 units/L (35-129) 11/21/21 04:18 Ammonia 71.0 umol/L (25-60) H 11/21/21 04:18 Total Protein 5.4 g/dL (6.3-8.2) L 11/21/21 04:18 Albumin 2.2 g/dL (3.9-5) L 11/21/21 04:18 Albumin/Globulin Ratio 0.7 % 11/21/21 04:18 Fluid Type Paracentesis 11/20/21 Unknown Fluid Color Dark yellow 11/20/21 Unknown Fluid Appearance Turbid 11/20/21 Unknown Fluid WBC 233 /mm3 11/20/21 Unknown Fluid RBC 42 /mm3 11/20/21 Unknown Fluid Seg Neutrophils 0 % 11/20/21 Unknown Fluid Lymphocytes 98 % 11/20/21 Unknown Fluid Reactive Lymphs 2 % 11/20/21 Unknown Fluid Monocytes 0 % 11/20/21 Unknown Fluid Eosinophils 0 % 11/20/21 Unknown Fluid Basophils 0 % 11/20/21 Unknown Plasma/Serum Alcohol < 0.01 % (0-0.07) 11/19/21 21:22 Hepatitis A IgM Ab Non-reactive (NonReactive) 11/21/21 14:48 Hep Bs Antigen Non-reactive (Negative) 11/21/21 14:48 Hep B Core IgM Ab Non-reactive (NonReactive) 11/21/21 14:48 Hepatitis C Antibody Non-reactive (NonReactive) 11/21/21 14:48 Blood Type O POSITIVE 11/19/21 22:45 Antibody Screen Negative 11/19/21 22:45 Crossmatch See Detail 11/19/21 22:45 Microbiology: Microbiology 11/20/21 Unknown Other (Please Specify:) - Other Body Fluid Culture - Preliminary Beltran/IV: Voiding Method Condom Catheter Active Medications - Current Medications Current Medications: Generic Name Dose Route Start Last Admin Trade Name Freq PRN Reason Stop Dose Admin Albumin Human 25 gm 11/21/21 11:27 Albumin Human 25% (25 Gm/100 Ml) Inj IV CLAUDIA PRN Hypotension Epoetin Gautam-epbx 20,000 unit 11/21/21 11:27 Epoetin Gautam-Epbx 20,000 Unit/1 Ml Vial IV CLAUDIA PRN hemodialysis Famotidine 10 mg 11/21/21 22:00 Famotidine 10 Mg Tab PO BID JORDAN Octreotide Acetate 500 mcg/ 101 mls @ 5.05 mls/hr 11/19/21 23:45 11/20/21 03:03 Sodium Chloride IV 11/21/21 23:44 25 mcg/hr TITR JORDAN 5.05 mls/hr Administration Protocol 25 MCG/HR Ceftriaxone Sodium 1 gm in 50 mls @ 100 mls/hr 11/20/21 14:00 11/21/21 13:42 Rocephin/Ns 1 Gm/50 Ml IV 11/24/21 14:29 100 mls/hr Q24H JORDAN Administration Protocol Sodium Chloride 100 mls @ 999 mls/hr 11/21/21 11:27 Nacl 0.9% IV CLAUDIA PRN Hypotension Lactulose 20 gm 11/20/21 16:00 11/21/21 13:43 Lactulose 20 Gm/30 Ml Oral Liqd PO 20 gm TID JORDAN Administration Magnesium Hydroxide 30 ml 11/19/21 23:47 Magnesium Hydroxide (Mom) Oral Liqd Udc PO Q4H PRN Constipation Sodium Chloride 10 ml 11/20/21 10:00 11/21/21 09:52 Sodium Chloride 0.9% 10 Ml Flush Syringe IV 10 ml BID JORDAN Administration Sodium Chloride 10 ml 11/19/21 23:47 Sodium Chloride 0.9% 10 Ml Flush Syringe IV PRN PRN LINE FLUSH Nutrition/Malnutrition Assess - Dietary Evaluation Nutrition/Malnutrition Findings: Nutrition Notes Start: 11/20/21 14:41 Freq: Status: Active Protocol: Document 11/20/21 14:42 RS (Rec: 11/20/21 14:53 RS [id number]) Nutrition Notes Need for Assessment generated from: MD Order Initial or Follow up Brief Note Current Diagnosis CKD (stage V CKD) Other Pertinent Diagnosis EtOh related Cirrhosis, encephalopathy, GI bleed Current Diet Clear Liquids Labs/Tests K+: 3.5 BUN: 28 Cr:2.6 Glu:112 Pertinent Medications reviewed Height 6 ft 3 in Weight 81 kg Archie Body Weight (kg) 89.09 BMI 22.3 Weight change and time frame Dry wt unkown. Wt corrected on 11/20 to 81kg. Weight Status Appropriate Subjective/Other Information referall for diet education . Pt currently confused and has AMS. Diet education innapropriate at this time. Pt recieved paracentesis tx recently. Will need to educate pt on sodium/fluid restritions upon F/U if confusion subsides. RD noted extreme swelling in LE and distended belly. No urine output recorded. Lower GI bleed present GI Symptoms None Current % PO Negligible Minimum of two criteria No physical signs of malnutrition #1 Nutrition Diagnosis Inadequate protein intake Etiology ESRD As Evidenced by Signs and Symptoms negliable PO intake Is patient on ventilator? No Is Patient Ambulatory and/or Out of Bed No REE-([facility]-confined to bed) 2175.528 Kcal/Kg value to use for calculation 30 Approximate Energy Requirements Using 2430 kcal/Kg Calculation Used for Recommendations Kcal/kg Additional Notes Protein needs: >97g/day (>1.2g /kg BW/day) Fluid needs: 1000mL +UO or per MD Nutrition Intervention Nutrition Support: Ensure Clear apple qd Kcal 240 Protein (gm) 8 Goal #1 Diet advancement Anticipated Discharge Needs: 1.2-1.3g HBV Renal Diet Follow-Up By: 11/22/21 Additional Comments F/U for renal diet education, sodium/fluid restriction education, intakes, ONS tolerance
[2021-11-21] MEDS: FAMOTIDINE 10 MG TAB PO SCH (21:20)
[2021-11-22 05:35] LABS: Hematocrit 24.1 % (35.5-45.6); Mean Corpuscular HGB Conc 33 % (32-34); Mean Corpuscular Volume 95 fl (84-94); Platelet Count 110 K/mm3 (140-440); Red Blood Count 2.54 M/mm3 (3.65-5.03); Red Cell Distribution Width 19.3 % (13.2-15.2)
[2021-11-22 05:56] LABS: Calcium 8.3 mg/dL (8.4-10.2)
[2021-11-22] MEDS ORDERED: MAGNESIUM SULFATE 1 GM in SODIUM CHLORIDE 0.9% 50 ML IV ONE (09:00)
[2021-11-22] MEDS: FAMOTIDINE 10 MG TAB PO SCH ×2 (09:48→22:31)
[2021-11-22] MEDS: LACTULOSE 20 GM/30 ML ORAL LIQD PO SCH ×3 (09:48→22:34)
[2021-11-22] MEDS: POTASSIUM CHLORIDE 10 MEQ 10 MEQ/100 ML BAG IV SCH ×3 (09:48→14:03)
--- NOTE | 2021-11-22 11:28 | Progress Note ---
Subjective Date of service: 11/22/21 Principal diagnosis: AMS; ABLA; Upper GI Bleed; EtOH Cirrhosis; Ascites; Esophageal Varices Interval history: Assessment and Plan This is a 41 year old man who presents with altered mentation, anemia # ESRD: plan to continue HD MWF if hemodynamically stable - daily labs - renally dose meds - avoid nephrotoxins - renal diet - verbal consent obtained for HD # Anemia: serial h/h, prn prbcs GI following for potential GI bleed, on octreotide gtt. ESAs with HD as indicated # HTN: UF as tolerated, suspect intravascularly depleted. BP soft # Secondary Hyperparathyroidism: hold home binders for now if on, vitamin D analogs prn # Acute Metabolic Encephalopathy: less likely uremia related # Hepatic Cirrhosis, Alcoholic - History of Present Illness This is a 41 year-old man with ESRD, cirrhosis of liver who presents for altered mentation Patient usually dialyzes MWF at [facility]. Last HD 11/18. No recent issues with HD, including dizziness, lightheadedness, cramping, chest pain on HD per outpatient documentation. Found to have hemoglobin 6.1 on arrival, started on IV protonix, octreotide gtt. Review of Systems ROS unobtainable: due to mental status - Physical Exam Narrative exam: Constitutional: drowsy, altered Head: NC/AT Neck: supple Lungs: clear to auscultation CV: RRR, no M/R/G Abdomen: distended Back: nontender Extremities: 1+ edema, pulses WNL Skin: intact Neuro: drowsy, not following commands Objective - Vital Signs Vital signs: Vital Signs - 12hr 11/22/21 11/22/21 11/22/21 00:00 03:41 04:00 Temperature 98.5 F Pulse Rate 76 Respiratory 16 Rate Blood Pressure 109/73 O2 Sat by Pulse 97 100 100 Oximetry 11/22/21 08:52 Temperature 98.5 F Pulse Rate 74 Respiratory 18 Rate Blood Pressure 115/81 O2 Sat by Pulse 100 Oximetry - Lab 11/22/21 05:21 11/22/21 05:21 Most recent lab results ABG pH 7.478 pH Units (7.350-7.450) H 11/20/21 18:40 ABG pCO2 31.9 mm Hg 11/20/21 18:40 ABG pO2 82.2 mm Hg (80.0-90.0) 11/20/21 18:40 ABG HCO3 23.1 mmol/L (20.0-26.0) 11/20/21 18:40 ABG O2 Saturation 97.2 % (95.0-99.0) 11/20/21 18:40 Calcium 8.3 mg/dL (8.4-10.2) L 11/22/21 05:21 Phosphorus 3.30 mg/dL (2.5-4.5) 11/22/21 05:21 Magnesium 1.60 mg/dL (1.7-2.3) L 11/22/21 05:21 Medications & Allergies - Medications Allergies/Adverse Reactions: Allergies No Known Allergies Allergy (Unverified 11/19/21 21:37) Active Medications: Generic Name Dose Route Start Last Admin Trade Name Freq PRN Reason Stop Dose Admin Albumin Human 25 gm 11/21/21 11:27 Albumin Human 25% (25 Gm/100 Ml) Inj IV CLAUDIA PRN Hypotension Epoetin Gautam-epbx 20,000 unit 11/21/21 11:27 Epoetin Gautam-Epbx 20,000 Unit/1 Ml Vial IV CLAUDIA PRN hemodialysis Famotidine 10 mg 11/21/21 22:00 11/22/21 09:48 Famotidine 10 Mg Tab PO 10 mg BID JORDAN Administration Ceftriaxone Sodium 1 gm in 50 mls @ 100 mls/hr 11/20/21 14:00 11/21/21 13:42 Rocephin/Ns 1 Gm/50 Ml IV 11/24/21 14:29 100 mls/hr Q24H JORDAN Administration Protocol Sodium Chloride 100 mls @ 999 mls/hr 11/21/21 11:27 Nacl 0.9% IV CLAUDIA PRN Hypotension Potassium Chloride 10 meq in 100 mls @ 100 mls/hr 11/22/21 10:00 11/22/21 1 0:18 Kcl 10meq/100ml IV 11/22/21 13:59 100 mls/hr Q1H JORDAN Administration Lactulose 20 gm 11/20/21 16:00 11/22/21 09:48 Lactulose 20 Gm/30 Ml Oral Liqd PO 20 gm TID JORDAN Administration Magnesium Hydroxide 30 ml 11/19/21 23:47 Magnesium Hydroxide (Mom) Oral Liqd Udc PO Q4H PRN Constipation Sodium Chloride 10 ml 11/20/21 10:00 11/22/21 09:49 Sodium Chloride 0.9% 10 Ml Flush Syringe IV 10 ml BID JORDAN Administration Sodium Chloride 10 ml 11/19/21 23:47 Sodium Chloride 0.9% 10 Ml Flush Syringe IV PRN PRN LINE FLUSH
--- NOTE | 2021-11-22 12:52 | Gastroenterology Progress Note ---
<RAMSES BEAUCHAMP - Last Filed: 11/22/21 12:52> Assessment and Plan 1. Variceal bleed - H/H: 01/18.1, stable, continue to monitor and transfuse if hemoglobin <7 - No signs of active bleeding at this point, no hematemesis/coffee ground emesis - okay to d/c octreotide Subjective Date of service: 11/22/21 Principal diagnosis: AMS; ABLA; Upper GI Bleed; EtOH Cirrhosis; Ascites; Esophageal Varices Interval history: Pt seen and examined. Lying comfortably in bed and eating lunch. Pt states that he is feeling well and eating clear liquids w/o issues. Denies N/V. States that he has minor abd pain from paracentesis, but no other complaints. Objective - Constitutional Vitals: Temp Pulse Resp BP Pulse Ox 98.6 F 65 18 107/78 91 11/22/21 12:37 11/22/21 12:37 11/22/21 12:37 11/22/21 12:37 11/22/21 12:37 General appearance: no acute distress - EENT ENT: hearing intact - Gastrointestinal General gastrointestinal: Present: soft, non-tender, distended - Labs CBC & Chem 7: 11/22/21 05:21 11/22/21 05:21 Labs: Laboratory Results - last 24 hr 11/21/21 11/22/21 11/22/21 14:48 00:03 05:20 WBC RBC Hgb Hct MCV MCH MCHC RDW Plt Count Sodium Potassium Chloride Carbon Dioxide Anion Gap BUN Creatinine Estimated GFR BUN/Creatinine Ratio Glucose POC Glucose 110 H 90 Calcium Phosphorus Magnesium Total Bilirubin AST ALT Alkaline Phosphatase Ammonia Total Protein Albumin Albumin/Globulin Ratio Hepatitis A IgM Ab Non-reactive Hep Bs Antigen Non-reactive Hep B Core IgM Ab Non-reactive Hepatitis C Antibody Non-reactive 11/22/21 11/22/21 11/22/21 05:21 05:21 05:21 WBC 6.2 RBC 2.54 L Hgb 8.0 L Hct 24.1 L MCV 95 H MCH 32 MCHC 33 RDW 19.3 H Plt Count 110 L Sodium 136 L Potassium 3.5 L Chloride 102.9 Carbon Dioxide 24 Anion Gap 13 BUN 15 Creatinine 1.6 H Estimated GFR 59 BUN/Creatinine Ratio 9 Glucose 89 POC Glucose Calcium 8.3 L Phosphorus 3.30 Magnesium 1.60 L Total Bilirubin 2.50 H AST 44 H ALT 16 Alkaline Phosphatase 105 Ammonia 40.0 Total Protein 5.6 L Albumin 2.0 L Albumin/Globulin Ratio 0.6 Hepatitis A IgM Ab Hep Bs Antigen Hep B Core IgM Ab Hepatitis C Antibody <LINUS YOUNG R - Last Filed: 11/22/21 20:25> Assessment and Plan Patient seen and examined. No further GI bleeding. Encephalopathy resolved. If remains stable, okay to discharge home tomorrow from GI standpoint. Would keep on daily lactulose Patient is to follow-up with primary GI in [place], for follow-up endoscopy, and for initiation of nonselective beta-car for additional variceal prophylaxis. Further management of ascites, and liver disease as per primary GI. Complete 5-day course of antibiotics with oral Levaquin at time of discharge Objective - Constitutional Vitals: Temp Pulse Resp BP Pulse Ox 98.8 F 74 18 108/79 100 11/22/21 15:53 11/22/21 15:53 11/22/21 15:53 11/22/21 15:53 11/22/21 17:04 - Labs CBC & Chem 7: 11/22/21 05:21 11/22/21 05:21 Labs: Laboratory Results - last 24 hr 11/22/21 11/22/21 11/22/21 00:03 05:20 05:21 WBC 6.2 RBC 2.54 L Hgb 8.0 L Hct 24.1 L MCV 95 H MCH 32 MCHC 33 RDW 19.3 H Plt Count 110 L Sodium Potassium Chloride Carbon Dioxide Anion Gap BUN Creatinine Estimated GFR BUN/Creatinine Ratio Glucose POC Glucose 110 H 90 Calcium Phosphorus Magnesium Total Bilirubin AST ALT Alkaline Phosphatase Ammonia Total Protein Albumin Albumin/Globulin Ratio 11/22/21 11/22/21 11/22/21 05:21 05:21 16:04 WBC RBC Hgb Hct MCV MCH MCHC RDW Plt Count Sodium 136 L Potassium 3.5 L Chloride 102.9 Carbon Dioxide 24 Anion Gap 13 BUN 15 Creatinine 1.6 H Estimated GFR 59 BUN/Creatinine Ratio 9 Glucose 89 POC Glucose 92 Calcium 8.3 L Phosphorus 3.30 Magnesium 1.60 L Total Bilirubin 2.50 H AST 44 H ALT 16 Alkaline Phosphatase 105 Ammonia 40.0 Total Protein 5.6 L Albumin 2.0 L Albumin/Globulin Ratio 0.6
--- NOTE | 2021-11-22 13:26 | Progress Note ---
Assessment and Plan Assessment and plan: This is a 41-year-old -[place] male with EtOH cirrhosis, ascites, ESRD on HD (MWF) admitted with hepatic encephalopathy and upper GI bleed from esophageal varices. #Upper GI bleed #Decompensated alcoholic cirrhosis with esophageal varices #Possible SBP #Hepatic encephalopathyresolved Hemoglobin 8.0; status post transfusion 2 units packed RBCs Gastroenterology consulted; appreciate recs Status post upper endoscopy with banding. Transitioning from clear liquids to full liquids to soft GI diet. Status post paracentesis with ascitic fluid pending culture. Discontinuing octreotide drip. Continue Rocephin 1 g daily for prophylaxis. She can be transitioned to Levaquin upon discharge to complete a 5-day antibiotic course. Continue to monitor #Acute blood loss anemiaresolved #Macrocytic anemia #Thrombocytopenia Hemoglobin 8.0, platelets 110 Status post 2 units packed RBC transfusion. Transfuse if hemoglobin less than 7 or patient becomes symptomatic. #ESRD on hemodialysis #Secondary para-hypothyroidism -Access: Permacath in right upper chest -Outpatient schedule: Sunday -HD center: Unknown -Nephrology consulted; appreciate recs. -Renally dose medications and avoid nephrotoxic drugs. Renal diet. #Hypomagnesemia Magnesium 1.6 Repleted. Continue to monitor. #Hypocalcemia Calcium 8.3 Repleted. Continue to monitor. #Moderate protein caloric malnutrition Albumin 2.0 Continue dietary supplementation #Advanced care planning -Disease education conducted, care plan discussed, diagnoses discussed, prognosis discussed, and patient acknowledges understanding with care plan -Time: +30 min Disposition Plan: Possible discharge home tomorrow Total Time Spent with Patient (Minutes): 45 minutes History Interval history: No acute events overnight. Hospitalist Physical - Constitutional Vitals: Temp Pulse Resp BP Pulse Ox 98.6 F 65 18 107/78 91 11/22/21 12:37 11/22/21 12:37 11/22/21 12:37 11/22/21 12:37 11/22/21 12:37 General appearance: Present: no acute distress, cachectic - EENT Eyes: Present: PERRL, EOM intact ENT: hearing intact, clear oral mucosa, dentition normal - Neck Neck: Present: supple, normal ROM, other (Permacath in right upper chest) - Respiratory Respiratory effort: normal Respiratory: bilateral: CTA - Cardiovascular Rhythm: regular Heart Sounds: Present: S1 & S2 - Extremities Extremities: no ischemia, pulses intact, pulses symmetrical, No edema, normal temperature, normal color - Abdominal General gastrointestinal: soft, non-tender, non-distended, normal bowel sounds - Integumentary Integumentary: Present: clear, warm, dry - Psychiatric Psychiatric: appropriate mood/affect, intact judgment & insight, memory intact, cooperative - Neurologic Neurologic: CNII-XII intact, moves all extremities - Allied Health Allied health notes reviewed: nursing Results - Labs CBC & Chem 7: 11/22/21 05:21 11/22/21 05:21 Labs: Laboratory Last Values WBC 6.2 K/mm3 (4.5-11.0) 11/22/21 05:21 RBC 2.54 M/mm3 (3.65-5.03) L 11/22/21 05:21 Hgb 8.0 gm/dl (11.8-15.2) L 11/22/21 05:21 Hct 24.1 % (35.5-45.6) L 11/22/21 05:21 MCV 95 fl (84-94) H 11/22/21 05:21 MCH 32 pg (28-32) 11/22/21 05:21 MCHC 33 % (32-34) 11/22/21 05:21 RDW 19.3 % (13.2-15.2) H 11/22/21 05:21 Plt Count 110 K/mm3 (140-440) L 11/22/21 05:21 Lymph % (Auto) 16.9 % (13.4-35.0) 11/20/21 09:30 [place] % (Auto) 6.6 % (0.0-7.3) 11/20/21 09:30 Eos % (Auto) 0.1 % (0.0-4.3) 11/20/21 09:30 Baso % (Auto) 0.6 % (0.0-1.8) 11/20/21 09:30 Lymph # (Auto) 1.2 K/mm3 (1.2-5.4) 11/20/21 09:30 [place] # (Auto) 0.5 K/mm3 (0.0-0.8) 11/20/21 09:30 Eos # (Auto) 0.0 K/mm3 (0.0-0.4) 11/20/21 09:30 Baso # (Auto) 0.0 K/mm3 (0.0-0.1) 11/20/21 09:30 Seg Neutrophils % 75.8 % (40.0-70.0) H 11/20/21 09:30 Seg Neutrophils # 5.4 K/mm3 (1.8-7.7) 11/20/21 09:30 PT 17.7 Sec. (12.2-14.9) H 11/19/21 21:22 INR 1.26 (0.87-1.13) H 11/19/21 21:22 APTT 41.1 Sec. (24.2-36.6) H 11/19/21 21:22 ABG pH 7.478 pH Units (7.350-7.450) H 11/20/21 18:40 ABG pCO2 31.9 mm Hg 11/20/21 18:40 ABG pO2 82.2 mm Hg (80.0-90.0) 11/20/21 18:40 ABG HCO3 23.1 mmol/L (20.0-26.0) 11/20/21 18:40 ABG O2 Saturation 97.2 % (95.0-99.0) 11/20/21 18:40 ABG O2 Content 7.4 (0.0-44) 11/20/21 18:40 ABG Base Excess -0.5 mmol/L (-2.0-3.0) 11/20/21 18:40 ABG Hemoglobin 5.4 gm/dl (14.0-18.0) L 11/20/21 18:40 ABG Carboxyhemoglobin 2.2 % (0.0-5.0) 11/20/21 18:40 ABG Methemoglobin 0.4 % (0.0-1.5) 11/20/21 18:40 Oxyhemoglobin 94.6 % (95.0-99.0) L 11/20/21 18:40 FiO2 21 % 11/20/21 18:40 Sodium 136 mmol/L (137-145) L 11/22/21 05:21 Potassium 3.5 mmol/L (3.6-5.0) L 11/22/21 05:21 Chloride 102.9 mmol/L (98-107) 11/22/21 05:21 Carbon Dioxide 24 mmol/L (22-30) 11/22/21 05:21 Anion Gap 13 mmol/L 11/22/21 05:21 BUN 15 mg/dL (9-20) 11/22/21 05:21 Creatinine 1.6 mg/dL (0.8-1.3) H 11/22/21 05:21 Estimated GFR 59 ml/min 11/22/21 05:21 BUN/Creatinine Ratio 9 % 11/22/21 05:21 Glucose 89 mg/dL (75-100) 11/22/21 05:21 POC Glucose 90 mg/dL (70-105) 11/22/21 05:20 Calcium 8.3 mg/dL (8.4-10.2) L 11/22/21 05:21 Phosphorus 3.30 mg/dL (2.5-4.5) 11/22/21 05:21 Magnesium 1.60 mg/dL (1.7-2.3) L 11/22/21 05:21 Total Bilirubin 2.50 mg/dL (0.1-1.2) H 11/22/21 05:21 AST 44 units/L (5-40) H 11/22/21 05:21 ALT 16 units/L (7-56) 11/22/21 05:21 Alkaline Phosphatase 105 units/L (35-129) 11/22/21 05:21 Ammonia 40.0 umol/L (25-60) 11/22/21 05:21 Total Protein 5.6 g/dL (6.3-8.2) L 11/22/21 05:21 Albumin 2.0 g/dL (3.9-5) L 11/22/21 05:21 Albumin/Globulin Ratio 0.6 % 11/22/21 05:21 Fluid Type Paracentesis 11/20/21 Unknown Fluid Color Dark yellow 11/20/21 Unknown Fluid Appearance Turbid 11/20/21 Unknown Fluid WBC 233 /mm3 11/20/21 Unknown Fluid RBC 42 /mm3 11/20/21 Unknown Fluid Seg Neutrophils 0 % 11/20/21 Unknown Fluid Lymphocytes 98 % 11/20/21 Unknown Fluid Reactive Lymphs 2 % 11/20/21 Unknown Fluid Monocytes 0 % 11/20/21 Unknown Fluid Eosinophils 0 % 11/20/21 Unknown Fluid Basophils 0 % 11/20/21 Unknown Plasma/Serum Alcohol < 0.01 % (0-0.07) 11/19/21 21:22 Hepatitis A IgM Ab Non-reactive (NonReactive) 11/21/21 14:48 Hep Bs Antigen Non-reactive (Negative) 11/21/21 14:48 Hep B Core IgM Ab Non-reactive (NonReactive) 11/21/21 14:48 Hepatitis C Antibody Non-reactive (NonReactive) 11/21/21 14:48 Blood Type O POSITIVE 11/19/21 22:45 Antibody Screen Negative 11/19/21 22:45 Crossmatch See Detail 11/19/21 22:45 Microbiology: Microbiology 11/20/21 Unknown Other (Please Specify:) - Other Body Fluid Culture - Preliminary [place]/IV: Voiding Method External Female Catheter Active Medications - Current Medications Current Medications: Generic Name Dose Route Start Last Admin Trade Name Freq PRN Reason Stop Dose Admin Albumin Human 25 gm 11/21/21 11:27 Albumin Human 25% (25 Gm/100 Ml) Inj IV CLAUDIA PRN Hypotension Epoetin Gautam-epbx 20,000 unit 11/21/21 11:27 Epoetin Gautam-Epbx 20,000 Unit/1 Ml Vial IV CLAUDIA PRN hemodialysis Famotidine 10 mg 11/21/21 22:00 11/22/21 09:48 Famotidine 10 Mg Tab PO 10 mg BID JORDAN Administration Ceftriaxone Sodium 1 gm in 50 mls @ 100 mls/hr 11/20/21 14:00 11/21/21 13:42 Rocephin/Ns 1 Gm/50 Ml IV 11/24/21 14:29 100 mls/hr Q24H JORDAN Administration Protocol Sodium Chloride 100 mls @ 999 mls/hr 11/21/21 11:27 Nacl 0.9% IV CLAUDIA PRN Hypotension Potassium Chloride 10 meq in 100 mls @ 100 mls/hr 11/22/21 10:00 11/22/21 10:18 Kcl 10meq/100ml IV 11/22/21 13:59 100 mls/hr Q1H JORDAN Administration Lactulose 20 gm 11/20/21 16:00 11/22/21 09:48 Lactulose 20 Gm/30 Ml Oral Liqd PO 20 gm TID JORDAN Administration Magnesium Hydroxide 30 ml 11/19/21 23:47 Magnesium Hydroxide (Mom) Oral Liqd Udc PO Q4H PRN Constipation Sodium Chloride 10 ml 11/20/21 10:00 11/22/21 09:49 Sodium Chloride 0.9% 10 Ml Flush Syringe IV 10 ml BID JORDAN Administration Sodium Chloride 10 ml 11/19/21 23:47 Sodium Chloride 0.9% 10 Ml Flush Syringe IV PRN PRN LINE FLUSH Nutrition/Malnutrition Assess - Dietary Evaluation Nutrition/Malnutrition Findings: Nutrition Notes Start: 11/20/21 14:41 Freq: Status: Active Protocol: Document 11/22/21 11:29 TYRESE (Rec: 11/22/21 12:24 TYRESE [id number]) Nutrition Notes Initial or Follow up Assessment Current Diagnosis CKD (stage V CKD),Hypertension ,Malnutrition Other Pertinent Diagnosis ESRD+HD, Ascites, Anemia, Encephalopathy, s/p UGI Bleed/ Gastroparesis, Cirr Current Diet D Suppl (11/20), Full Liquids Diet (L 11/22), GI Soft Diet ( from D 11/22). Labs/Tests 11/22: Na 136, K 3.5, Crea 1.6 , Ca 8.3, Mg 1.6. Pertinent Medications 11/22: KCl 10mEq, others nutritionally unremarkable. Height 6 ft 3 in Weight 81 kg [place] Body Weight (kg) 89.09 BMI 22.3 Weight change and time frame No body weight change reported in 2 days. Weight Status Appropriate Subjective/Other Information RD consult for routine F/U on dietary advancement and nutrition education assessment . No reports available on Pt's PO intake of meals at the time , but diet has advanced from Clear to Full Liquids Diet and will advance to GI Soft Diet tonight, according to Progress notes. I will increase prescription of dietary supplements to support energy protein needs and malnutrition diagnosis during LOS. Pt is on Room Air, O2 saturation @ 100%, according to Physical Assessment History notes. Pt produced a BM with black liquid consistency on 11/22, according to Physical Assessment History notes. Pt's abdomen appears still distended, according to Physical Assessment History notes. Pt presents significant amounts of fluid accumulation in abdominal cavity and bilateral-LE edema, according to Progress notes. Procedure on 11/20: EGD w/ variceal band ligation, well tolerated, according to Operative Report notes. Pt still in critical condition , not a candidate for Nutrition Education at the time, will assess feasibility on F/U. Percent of energy/protein needs met: Prescribed Full Liquids Diet provides for energy/protein needs (1,155 Kcal/37 g) during LOS. Prescribed GI Soft Diet provides for energy/protein needs (2,000 Kcal/82 g) during LOS; additionally, Dietary Supplements will compensate for possible poor or insufficient PO intake of meals with 480 Kcal and 16 g of protein. Burn Absent Trauma Absent GI Symptoms Other Food Allergy No Skin Integrity/Comment R-Wrist Abrasion. 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 Etiology Possibly secondary to Hepatic Cirrhosis. As Evidenced by Signs and Symptoms Ascites, Bilateral-LE edema, Transaminitis. Is patient on ventilator? No Is Patient Ambulatory and/or Out of Bed Yes REE-([facility]-ambulatory/OOB) [ 2353.819 [id number]] Calculation Used for Recommendations [facility] Additional Notes Protein: >1.2 g/Kg ABW; >97 g/ day. Fluids: 1 ml/Kcal, or as per MD. Nutrition Intervention Change Diet Order: Advance to GI Soft Diet as tolerated. Add Supplement/Snack (indicate name/kcal Continue 8 fl oz Ensure Clear: /protein ) BID. Provides kCal: 480 Provides Protein (gm) 16 Goal #1 Compensate, through dietary supplementation, for possible poor or insufficient PO intake of meals during LOS. Goal #2 Adjust the dietary intervention to better serve Pt's needs and clinical conditions during LOS. Follow-Up By: 11/29/21 Additional Comments Nutrition education will be provided at F/U, if feasible. Continue monitoring food tolerance, %PO intake of meals , and BM.
--- NOTE | 2021-11-22 16:05 | Procedure Note ---
Date of procedure: 11/22/21 Pre-op diagnosis: ascites Post-op diagnosis: same Procedure: US paracentesis Findings: moderate ascites Anesthesia: local Surgeon: SAM TERRY Estimated blood loss: none Pathology: list (60cc was saved in case needed. No labs ordered at time of procedure.) Condition: stable Disposition: floor
--- NOTE | 2021-11-22 16:54 | Progress Note ---
Assessment and Plan This is a 41-year-old AA male with known past medical history of ESRD on Dialysis(M,W,F), alcoholic liver cirrhosis, ascites s/p paracentesis 3 months ago admitted for acute encephalopathy and possible GI bleed Acute Metabolic Encephalopathy Hyperammonemia - most likely secondary to liver cirrhosis Acute Blood Loss Anemia Upper GI Bleed - 11/20 s/p EGD by GI. Single grade grade 3 distal esophageal varix-Single rubber band placed on this for ligation. Gastroparesis with retained food, no evidence of blood in the upper GI tract. Acoholic Liver Cirrhosis Large Volume Ascites Esophageal Varix Gastroparesis End-Stage Renal Disease(ESRD) on dialysis Severe protein calorie malnutrition -Transfuse as clinically indicated to keep HgB>7g/dL -Treat for hepatic encephalopathy- lactulose, monitor and replace electrolytes -CIWA protocol -Nutritional support -SCDs for VTE prophylaxis -Continue PPI -Maintain sleep- wake cycle -Substance abuse counselling -Complete antibiotics for SBP -Discharge planning per primary service Subjective Date of service: 11/22/21 Principal diagnosis: AMS; ABLA; Upper GI Bleed; EtOH Cirrhosis; Ascites; Esophageal Varices Interval history: Patient is seen today for: Acute Metabolic Encephalopathy; Hyperammonemia; Acute Blood Loss Anemia; Upper GI Bleed; Alcoholic Liver Cirrhosis; Large Volume Ascites; Esophageal Varix; Gastroparesis; ESRD on dialysis; Severe protein calorie malnutrition Seen and examined at bedside; 24hour events reviewed; nursing and respiratory care staff consulted; no adverse overnight events reported to me; resting in bed; awake, alert, denies any chest pain, no shortness of breath, no fevers or chills. No nausea or vomiting Objective Vital Signs - 12hr 11/22/21 11/22/21 08:52 12:37 Temperature 98.5 F 98.6 F Pulse Rate 74 65 Respiratory 18 18 Rate Blood Pressure 115/81 107/78 O2 Sat by Pulse 100 91 Oximetry Constitutional: alert, other (chronically ill looking) Eyes: non-icteric ENT: oropharynx moist Neck: supple, no lymphadenopathy Effort: normal Ascultation: Bilateral: clear, diminished breath sounds Cardiovascular: regular rate and rhythm, other (S1,S2) Gastrointestinal: normoactive bowel sounds, soft, non-tender, other (distended) Integumentary: normal Extremities: no cyanosis, no edema Neurologic: normal mental status, non-focal exam, pupils equal and round, motor strength normal and Psychiatric: mood appropriate, affect normal CBC and BMP: 11/23/21 04:45 11/23/21 04:45 ABG, PT/INR, D-dimer: ABG ABG pH 7.478 pH Units (7.350-7.450) H 11/20/21 18:40 ABG pCO2 31.9 mm Hg 11/20/21 18:40 ABG pO2 82.2 mm Hg (80.0-90.0) 11/20/21 18:40 ABG O2 Saturation 97.2 % (95.0-99.0) 11/20/21 18:40 PT/INR, D-dimer PT 17.7 Sec. (12.2-14.9) H 11/19/21: INR 1.26 (0.87-1.13) H 11/19/21 21: Abnormal lab findings: Abnormal Labs 11/19/21 11/19/21 11/19/21 21:22 21:22 21:22 RBC 1.87 L Hgb 6.1 L Hct 18.9 L* MCV 102 H MCH 33 H RDW 18.9 H Plt Count [place] % (Auto) 9.0 H Seg Neutrophils % PT 17.7 H INR 1.26 H APTT 41.1 H ABG pH ABG Hemoglobin Oxyhemoglobin Sodium Potassium 3.5 L Chloride BUN 28 H Creatinine 2.5 H Glucose 111 H POC Glucose Calcium Magnesium Total Bilirubin 1.90 H AST 48 H Alkaline Phosphatase 167 H Ammonia Total Protein Albumin 2.9 L Crossmatch 11/19/21 11/19/21 11/20/21 21:22 22:45 09:30 RBC 2.10 L Hgb 7.0 L Hct 20.7 L MCV 98 H MCH 33 H RDW 17.8 H Plt Count 127 L [place] % (Auto) Seg Neutrophils % 75.8 H PT INR APTT ABG pH ABG Hemoglobin Oxyhemoglobin Sodium Potassium Chloride BUN Creatinine Glucose POC Glucose Calcium Magnesium Total Bilirubin AST Alkaline Phosphatase Ammonia 165.0 H Total Protein Albumin Crossmatch See Detail 11/20/21 11/20/21 11/20/21 09:30 18:40 21:25 RBC Hgb 6.3 L Hct 19.4 L* MCV MCH RDW Plt Count [place] % (Auto) Seg Neutrophils % PT INR APTT ABG pH 7.478 H ABG Hemoglobin 5.4 L Oxyhemoglobin 94.6 L Sodium Potassium 3.5 L Chloride BUN 28 H Creatinine 2.6 H Glucose 112 H POC Glucose Calcium Magnesium Total Bilirubin AST Alkaline Phosphatase Ammonia Total Protein Albumin Crossmatch 11/21/21 11/21/21 11/21/21 04:18 04:18 04:18 RBC 2.24 L Hgb 7.1 L Hct 21.7 L MCV 97 H MCH RDW 19.5 H Plt Count 131 L [place] % (Auto) Seg Neutrophils % PT INR APTT ABG pH ABG Hemoglobin Oxyhemoglobin Sodium Potassium 3.4 L Chloride 107.3 H BUN 30 H Creatinine 2.5 H Glucose POC Glucose Calcium Magnesium Total Bilirubin 3.10 H AST 41 H Alkaline Phosphatase Ammonia 71.0 H Total Protein 5.4 L Albumin 2.2 L Crossmatch 11/22/21 11/22/21 11/22/21 00:03 05:21 05:21 RBC 2.54 L Hgb 8.0 L Hct 24.1 L MCV 95 H MCH RDW 19.3 H Plt Count 110 L [place] % (Auto) Seg Neutrophils % PT INR APTT ABG pH ABG Hemoglobin Oxyhemoglobin Sodium 136 L Potassium 3.5 L Chloride BUN Creatinine 1.6 H Glucose POC Glucose 110 H Calcium 8.3 L Magnesium 1.60 L Total Bilirubin 2.50 H AST 44 H Alkaline Phosphatase Ammonia Total Protein 5.6 L Albumin 2.0 L Crossmatch Allied health notes reviewed: nursing
[2021-11-22] MEDS: cefTRIAXone/NS 1 GM/50 ML 1 GM/50 ML BAG IV SCH (18:25)
[2021-11-23 05:21] LABS: Hematocrit 21.9 % (35.5-45.6); Hemoglobin 7.4 gm/dl (11.8-15.2)
[2021-11-23 05:41] LABS: Calcium 8.1 mg/dL (8.4-10.2)
--- NOTE | 2021-11-23 07:44 | Ultrasound Report ---
ULTRASOUND-GUIDED PARACENTESIS HISTORY: Ascites. PROCEDURE: The risks (including but not limited to bleeding, infection, and bowel injury) and benefi ts were explained to the patient and informed consent was obtained. A time out procedure was perform ed. Ultrasound was used to evaluate the abdomen and locate the largest ascites fluid pocket. Once the sk in was marked, the procedure site was prepped and draped in the usual sterile fashion and lidocaine w as used for local anesthesia. A 5 Kinyarwanda centesis catheter was placed. The patient was monitored cl osely throughout the procedure, and a total of 3400 mL of cloudy yellow fluid was aspirated. 60 cc o f fluid was saved in case labs were ordered. The patient tolerated the procedure well with no complications. IMPRESSION: Successful ultrasound-guided paracentesis as described. Signer Name: Alberto El Jr, MD Signed: 11/23/2021 7:40 AM Workstation Name: [id number]
--- NOTE | 2021-11-23 07:57 | Discharge Summary ---
Providers - Providers Date of Admission: 11/20/21 05:26 Date of discharge: 11/23/21 Attending physician: BEVERLY VO MD 11/19/21 23:21 Consult to Physician [CONS] Urgent Comment: Consulting Provider: LINUS YOUNG Physician Instructions: Reason For Exam: gi bleed, anemia, hepatic encephalopathy 11/19/21 23:49 Consult to Dietitian/Nutrition [CONS] Routine Physician Instructions: Reason For Exam: Reason for Consult: Diet education Consult to Physician [CONS] Routine Comment: Consulting Provider: MICAELA MOON Physician Instructions: Reason For Exam: GI Bleed, Hepatic encephalopathy 11/20/21 06:56 Consult to Physician [CONS] Routine Comment: called answ. serv./ karie Consulting Provider: LUIS SMITH Physician Instructions: Reason For Exam: End-stage renal disease-on dialysis Sun, Sun,Sun Primary care physician: SHIN BYRD Hospitalization Reason for admission: Upper GI bleed, hepatic encephalopathy, acute blood loss anemia Condition: Stable Pertinent studies: Reviewed. Procedures: Upper endoscopy with banding of esophageal varix Hospital course: Patient is a 41-year-old male with past medical history of decompensated alcoholic cirrhosis complicated by ascites and esophageal varices, ESRD on hemodialysis (Sunday), chronic hepatic encephalopathy, and prior history of upper GI bleed who presented to the ED for repeat upper GI bleed from his esophageal varices. On presentation to the ED, the patient was hemodynamically stable but required transfusion of 2 units packed RBCs. Gastroenterology was consulted, the patient was started on octreotide drip, and the patient was started on a PPI drip. The patient underwent upper endoscopy with banding of 1 actively bleeding esophageal varix. Patient is since been transitioned to a soft GI diet. Due to concerns for SBP, the patient was started on prophylactic Rocephin 1 g daily. The patient will complete a 5-day antibiotic course; patient will be transitioned to Levaquin 500 mg daily upon discharge. Patient will continue with his hemodialysis on Sunday in outpatient setting. Patient is medically cleared for discharge. Disposition: HOME / SELF CARE / HOMELESS Final Discharge Diagnosis (Prints w/discharge instructions): Upper GI bleed from esophageal varices, decompensated alcoholic cirrhosis with esophageal varices, hepatic encephalopathy, acute blood loss anemia, macrocytic anemia, thrombocytopenia, ESRD on hemodialysis, secondary para-Hypothyroidism, hypomagnesemia, hypocalcemia, moderate protein caloric malnutrition Time spent for discharge: 45 min Core Measure Documentation - Palliative Care Palliative Care/ Comfort Measures: Not Applicable - Core Measures Any of the following diagnoses?: none Exam - Constitutional Vitals: Temp Pulse Resp BP Pulse Ox 98.7 F 77 16 117/86 100 11/23/21 04:54 11/23/21 04:54 11/23/21 04:54 11/23/21 04:54 11/23/21 04:54 General appearance: Present: no acute distress, cachectic - EENT Eyes: Present: PERRL, EOM intact ENT: hearing intact, clear oral mucosa, dentition normal - Neck Neck: Present: supple, normal ROM, other (Permacath in right upper chest) - Respiratory Respiratory effort: normal Respiratory: bilateral: CTA - Cardiovascular Rhythm: regular Heart Sounds: Present: S1 & S2 - Extremities Extremities: no ischemia, pulses intact, pulses symmetrical, No edema, normal temperature, normal color Peripheral Pulses: within normal limits - Abdominal General gastrointestinal: Present: soft, non-tender, non-distended, normal bowel sounds Male genitourinary: Present: deferred - Rectal Rectal Exam: deferred - Integumentary Integumentary: Present: clear, warm, dry - Musculoskeletal Musculoskeletal: generalized weakness - Psychiatric Psychiatric: appropriate mood/affect, intact judgment & insight, memory intact, cooperative - Neurologic Neurologic: CNII-XII intact, moves all extremities - Allied Health Allied health notes reviewed: nursing Plan Activity: advance as tolerated Diet: regular Additional Instructions: Patient is a 41-year-old male with past medical history of decompensated alcoholic cirrhosis complicated by ascites and esophageal varices, ESRD on hemodialysis (Sunday), chronic hepatic encephalopathy, and prior history of upper GI bleed who presented to the ED for repeat upper GI bleed from his esophageal varices. On presentation to the ED, the patient was hemodynamically stable but required transfusion of 2 units packed RBCs. Gastroenterology was consulted, the patient was started on octreotide drip, and the patient was started on a PPI drip. The patient underwent upper endoscopy with banding of 1 actively bleeding esophageal varix. Patient is since been transitioned to a soft GI diet. Due to concerns for SBP, the patient was started on prophylactic Rocephin 1 g daily. The patient will c omplete a 5-day antibiotic course; patient will be transitioned to Levaquin 500 mg daily upon discharge. Patient will continue with his hemodialysis on Sunday in outpatient setting. Patient is medically cleared for discharge. Care Plan Goals: Patient is medically clear for discharge. Assessment: Patient is a 41-year-old male with past medical history of decompensated alcoholic cirrhosis complicated by ascites and esophageal varices, ESRD on hemodialysis (Sunday), chronic hepatic encephalopathy, and prior history of upper GI bleed who presented to the ED for repeat upper GI bleed from his esophageal varices. On presentation to the ED, the patient was hemodynamically stable but required transfusion of 2 units packed RBCs. Gastroenterology was consulted, the patient was started on octreotide drip, and the patient was started on a PPI drip. The patient underwent upper endoscopy with banding of 1 actively bleeding esophageal varix. Patient is since been transitioned to a soft GI diet. Due to concerns for SBP, the patient was started on prophylactic Rocephin 1 g daily. The patient will complete a 5-day antibiotic course; patient will be transitioned to Levaquin 500 mg daily upon discharge. Patient will continue with his hemodialysis on Sunday in outpatient setting. Patient is medically cleared for discharge. Follow up with: SHIN BYRD MD [Primary Care Provider] - 7 Days Forms: Work/School Release Form Prescriptions: Lactulose [Cephulac] 20 gm PO TID #1 bottle Midodrine 1 tab PO Q8HR #90 tab Pantoprazole [Protonix TAB] 40 mg PO BID #60 tab
--- NOTE | 2021-11-23 08:04 | Progress Note ---
Assessment and Plan - Patient Problems (1) Alcoholic cirrhosis of liver with ascites Current Visit: Yes Status: Acute (2) ESRD on dialysis Current Visit: Yes Status: Acute (3) Rectal bleed Current Visit: Yes Status: Acute (4) Pleural effusion, left Current Visit: Yes Status: Acute Subjective Date of service: 11/23/21 Principal diagnosis: AMS; ABLA; Upper GI Bleed; EtOH Cirrhosis; Ascites; Esophageal Varices Interval history: 41-year-old -[place] male with known history of alcoholic liver cirrhosis, end-stage renal disease on dialysisMondays, Wednesdays and Fridays brought into the emergency room today for evaluation of changes in mental status which started at about 2 PM today. Most of the history was gotten from the mother who was by the bedside as patient is confused. Patient has been compliant with his dialysis and last dialysis was yesterday. Patient goes to [facility] dialysis center in [place]. Patient has also had paracentesis done periodically for his ascites. Last paracentesis was about 3 months ago. According to mother, patient has had chronic lower extremity swelling and has also had abdominal distention. Patient has not been seen in this facility in the past. He goes to [facility] for his medical care. According to mother patient no longer drinks alcohol. Unclear of when patient last drank alcohol. Work-up in the emergency room today, labs are significant for hemoglobin of 6.1 and hematocrit of 18.9. Potassium of 3.5, BUN of 28 and creatinine of 2.5. Total bilirubin of 1.9. Toxicology screen shows alcohol level less than 0.01. Stool Hemoccult today was positive. Stamp Classifier on-call was notified by the ER physician and recommendation was to place patient on IV Protonix and octreotide. Patient is being prepared for blood transfusion. Past History Past Medical History: dialysis (On Mondays, Wednesdays and Fridays), ESRD, liver disease (Alcoholic liver cirrhosis) Past Surgical History: No surgical history Social history: alcohol abuse Family history: no significant family history Objective Vital Signs - 12hr 11/22/21 11/22/21 11/23/21 20:30 22:58 04:54 Temperature 98.6 F 99.1 F 98.7 F Pulse Rate 80 77 Respiratory 18 16 Rate Blood Pressure 109/80 117/86 O2 Sat by Pulse 100 100 Oximetry CBC and BMP: 11/23/21 04:45 11/23/21 04:45 ABG, PT/INR, D-dimer: ABG ABG pH 7.478 pH Units (7.350-7.450) H 11/20/21 18:40 ABG pCO2 31.9 mm Hg 11/20/21 18:40 ABG pO2 82.2 mm Hg (80.0-90.0) 11/20/21 18:40 ABG O2 Saturation 97.2 % (95.0-99.0) 11/20/21 18:40 PT/INR, D-dimer PT 17.7 Sec. (12.2-14.9) H 11/19/21 21:22 INR 1.26 (0.87-1.13) H 11/19/21 21: Abnormal lab findings: Abnormal Labs 11/19/21 11/19/21 11/19/21 21:22 21:22 21:22 RBC 1.87 L Hgb 6.1 L Hct 18.9 L* MCV 102 H MCH 33 H RDW 18.9 H Plt Count Sawyer % (Auto) 9.0 H Seg Neutrophils % PT 17.7 H INR 1.26 H APTT 41.1 H ABG pH ABG Hemoglobin Oxyhemoglobin Sodium Potassium 3.5 L Chloride BUN 28 H Creatinine 2.5 H Glucose 111 H POC Glucose Calcium Magnesium Total Bilirubin 1.90 H AST 48 H Alkaline Phosphatase 167 H Ammonia Total Protein Albumin 2.9 L Crossmatch 11/19/21 11/19/21 11/20/21 21:22 22:45 09:30 RBC 2.10 L Hgb 7.0 L Hct 20.7 L MCV 98 H MCH 33 H RDW 17.8 H Plt Count 127 L Sawyer % (Auto) Seg Neutrophils % 75.8 H PT INR APTT ABG pH ABG Hemoglobin Oxyhemoglobin Sodium Potassium Chloride BUN Creatinine Glucose POC Glucose Calcium Magnesium Total Bilirubin AST Alkaline Phosphatase Ammonia 165.0 H Total Protein Albumin Crossmatch See Detail 11/20/21 11/20/21 11/20/21 09:30 18:40 21:25 RBC Hgb 6.3 L Hct 19.4 L* MCV MCH RDW Plt Count Sawyer % (Auto) Seg Neutrophils % PT INR APTT ABG pH 7.478 H ABG Hemoglobin 5.4 L Oxyhemoglobin 94.6 L Sodium Potassium 3.5 L Chloride BUN 28 H Creatinine 2.6 H Glucose 112 H POC Glucose Calcium Magnesium Total Bilirubin AST Alkaline Phosphatase Ammonia Total Protein Albumin Crossmatch 11/21/21 11/21/21 11/21/21 04:18 04:18 04:18 RBC 2.24 L Hgb 7.1 L Hct 21.7 L MCV 97 H MCH RDW 19.5 H Plt Count 131 L Sawyer % (Auto) Seg Neutrophils % PT INR APTT ABG pH ABG Hemoglobin Oxyhemoglobin Sodium Potassium 3.4 L Chloride 107.3 H BUN 30 H Creatinine 2.5 H Glucose POC Glucose Calcium Magnesium Total Bilirubin 3.10 H AST 41 H Alkaline Phosphatase Ammonia 71.0 H Total Protein 5.4 L Albumin 2.2 L Crossmatch 11/22/21 11/22/21 11/22/21 00:03 05:21 05:21 RBC 2.54 L Hgb 8.0 L Hct 24.1 L MCV 95 H MCH RDW 19.3 H Plt Count 110 L Sawyer % (Auto) Seg Neutrophils % PT INR APTT ABG pH ABG Hemoglobin Oxyhemoglobin Sodium 136 L Potassium 3.5 L Chloride BUN Creatinine 1.6 H Glucose POC Glucose 110 H Calcium 8.3 L Magnesium 1.60 L Total Bilirubin 2.50 H AST 44 H Alkaline Phosphatase Ammonia Total Protein 5.6 L Albumin 2.0 L Crossmatch 11/23/21 11/23/21 04:45 04:45 RBC Hgb 7.4 L Hct 21.9 L MCV MCH RDW Plt Count Sawyer % (Auto) Seg Neutrophils % PT INR APTT ABG pH ABG Hemoglobin Oxyhemoglobin Sodium 133 L Potassium Chloride BUN Creatinine 2.0 H Glucose POC Glucose Calcium 8.1 L Magnesium 1.60 L Total Bilirubin AST Alkaline Phosphatase Ammonia Total Protein Albumin Crossmatch Chest x-ray: report reviewed, image reviewed Additional Studies: HEST 1 VIEW 11/19/21 INDICATION / CLINICAL INFORMATION: ams, leg edema STUDY TIME: 2157 COMPARISON: None available. FINDINGS: SUPPORT DEVICES: Large for right CVL with tip in the area of the upper to mid right atrium. HEART / MEDIASTINUM: No significant abnormality. LUNGS / PLEURA: Left pleural effusion is seen which is small to moderate in size and probably is layering posteriorly causing diffuse increase in density. Left basilar atelectasis and possible infiltrate is seen and there is mild patchy density in the right upper lobe. Poor degree of inspiration. No pneumothorax. ADDITIONAL FINDINGS: No significant additional findings.
[2021-11-23] MEDS: FAMOTIDINE 10 MG TAB PO SCH (09:40)
[2021-11-23] MEDS: LACTULOSE 20 GM/30 ML ORAL LIQD PO SCH ×2 (09:40→15:51)
--- NOTE | 2021-11-23 12:01 | Progress Note ---
Subjective Date of service: 11/23/21 Principal diagnosis: AMS; ABLA; Upper GI Bleed; EtOH Cirrhosis; Ascites; Esophageal Varices Interval history: Assessment and Plan This is a 41 year old man who presents with altered mentation, anemia # ESRD: plan to continue HD MWF if hemodynamically stable - daily labs - renally dose meds - avoid nephrotoxins - renal diet - verbal consent obtained for HD # Anemia: serial h/h, prn prbcs GI following for potential GI bleed, on octreotide gtt. ESAs with HD as indicated # HTN: UF as tolerated, suspect intravascularly depleted. BP soft # Secondary Hyperparathyroidism: hold home binders for now if on, vitamin D analogs prn # Acute Metabolic Encephalopathy: less likely uremia related # Hepatic Cirrhosis, Alcoholic can do 24hr urine as outpatient and monitor for renal recovery - History of Present Illness This is a 41 year-old man with ESRD, cirrhosis of liver who presents for altered mentation Patient usually dialyzes MWF at [facility]. Last HD 11/18. No recent issues with HD, including dizziness, lightheadedness, cramping, chest pain on HD per outpatient documentation. Found to have hemoglobin 6.1 on arrival, started on IV protonix, octreotide gtt. Review of Systems ROS unobtainable: due to mental status - Physical Exam Narrative exam: Constitutional: drowsy, altered Head: NC/AT Neck: supple Lungs: clear to auscultation CV: RRR, no M/R/G Abdomen: distended Back: nontender Extremities: 1+ edema, pulses WNL Skin: intact Neuro: drowsy, not following commands Objective - Vital Signs Vital signs: Vital Signs - 12hr 11/23/21 11/23/21 11/23/21 04:54 07:31 08:00 Temperature 98.7 F 98.8 F Pulse Rate 77 75 88 Respiratory 16 16 Rate Blood Pressure 117/86 114/76 O2 Sat by Pulse 100 98 Oximetry 11/23/21 11:25 Temperature 98.6 F Pulse Rate 78 Respiratory 16 Rate Blood Pressure 111/74 O2 Sat by Pulse 100 Oximetry - Lab 11/23/21 04:45 11/23/21 04:45 Most recent lab results ABG pH 7.478 pH Units (7.350-7.450) H 11/20/21 18:40 ABG pCO2 31.9 mm Hg 11/20/21 18:40 ABG pO2 82.2 mm Hg (80.0-90.0) 11/20/21 18:40 ABG HCO3 23.1 mmol/L (20.0-26.0) 11/20/21 18:40 ABG O2 Saturation 97.2 % (95.0-99.0) 11/20/21 18:40 Calcium 8.1 mg/dL (8.4-10.2) L 11/23/21 04:45 Phosphorus 3.60 mg/dL (2.5-4.5) 11/23/21 04:45 Magnesium 1.60 mg/dL (1.7-2.3) L 11/23/21 04:45 Medications & Allergies - Medications Allergies/Adverse Reactions: Allergies No Known Allergies Allergy (Unverified 11/19/21 21:37) Home Medications: Home Medications Medication Instructions Recorded Confirmed Last Taken Type Lactulose [Cephulac] 20 gm PO TID #1 bottle 11/23/21 Unknown Rx Midodrine 1 tab PO Q8HR #90 tab 11/23/21 Unknown Rx Pantoprazole [Protonix TAB] 40 mg PO BID #60 tab 11/23/21 Unknown Rx levoFLOXacin [Levaquin TAB] 500 mg PO QDAY #3 tablet 11/23/21 Unknown Rx Active Medications: Generic Name Dose Route Start Last Admin Trade Name Freq PRN Reason Stop Dose Admin Albumin Human 25 gm 11/21/21 11:27 Albumin Human 25% (25 Gm/100 Ml) Inj IV CLAUDIA PRN Hypotension Epoetin Gautam-epbx 20,000 unit 11/21/21 11:27 Epoetin Gautam-Epbx 20,000 Unit/1 Ml Vial IV CLAUDIA PRN hemodialysis Famotidine 10 mg 11/21/21 22:00 11/23/21 09:40 Famotidine 10 Mg Tab PO 10 mg BID JORDAN Administration Ceftriaxone Sodium 1 gm in 50 mls @ 100 mls/hr 11/20/21 14:00 11/22/21 18:25 Rocephin/Ns 1 Gm/50 Ml IV 11/24/21 14:29 100 mls/hr Q24H JORDAN Administration Protocol Sodium Chloride 100 mls @ 999 mls/hr 11/21/21 11:27 Nacl 0.9% IV CLAUDIA PRN Hypotension Lactulose 20 gm 11/20/21 16:00 11/23/21 09:40 Lactulose 20 Gm/30 Ml Oral Liqd PO 20 gm TID JORDAN Administration Magnesium Hydroxide 30 ml 11/19/21 23:47 Magnesium Hydroxide (Mom) Oral Liqd Udc PO Q4H PRN Constipation Sodium Chloride 10 ml 11/20/21 10:00 11/23/21 09:40 Sodium Chloride 0.9% 10 Ml Flush Syringe IV 10 ml BID JORDAN Administration Sodium Chloride 10 ml 11/19/21 23:47 Sodium Chloride 0.9% 10 Ml Flush Syringe IV PRN PRN LINE FLUSH
[2021-11-23] MEDS: cefTRIAXone/NS 1 GM/50 ML 1 GM/50 ML BAG IV SCH (15:51)
[2021-11-23 18:26] VITALS: BP 114/77
== END 2021-11-23 18:04 | disposition home health service (06) | DRG 432 ==
LOC: ED 19:45 → CC1 11-20 05:26 → IMCU 11-20 17:40 → 4A 11-21 14:20
PROVIDERS: ADMIT Internal Medicine; ATTEND Student in an Organized Health Care Education/Training Program
PROC: 06L38CZ Occlusion of Esophageal Vein with Extraluminal Device, Via Natural or Artificial Opening Endoscopic (ICD-10-PCS; principal; 2021-11-20)
PROC: 0W9G3ZZ Drainage of Peritoneal Cavity, Percutaneous Approach (ICD-10-PCS; 2021-11-20)
PROC: 30233N1 Transfusion of Nonautologous Red Blood Cells into Peripheral Vein, Percutaneous Approach (ICD-10-PCS; 2021-11-20)
PROC: 4A033R1 Measurement of Arterial Saturation, Peripheral, Percutaneous Approach (ICD-10-PCS; 2021-11-20)
PROC: 0W9G3ZZ Drainage of Peritoneal Cavity, Percutaneous Approach (ICD-10-PCS; 2021-11-21)
PROC: 5A1D70Z Performance of Urinary Filtration, Intermittent, Less than 6 Hours Per Day (ICD-10-PCS; 2021-11-21)
PROC: 0W9G3ZZ Drainage of Peritoneal Cavity, Percutaneous Approach (ICD-10-PCS; 2021-11-22)
PROC: 5A1D70Z Performance of Urinary Filtration, Intermittent, Less than 6 Hours Per Day (ICD-10-PCS; 2021-11-23)
DX: K70.31 Alcoholic cirrhosis of liver with ascites (principal); G93.41 Metabolic encephalopathy; N18.6 End stage renal disease; E43 Unspecified severe protein-calorie malnutrition; I85.11 Secondary esophageal varices with bleeding; K72.00 Acute and subacute hepatic failure without coma; D62 Acute posthemorrhagic anemia; I85.10 Secondary esophageal varices without bleeding; E72.20 Disorder of urea cycle metabolism, unspecified; Z99.2 Dependence on renal dialysis; K31.84 Gastroparesis; Z68.22 Body mass index [BMI] 22.0-22.9, adult; K72.10 Chronic hepatic failure without coma; E03.9 Hypothyroidism, unspecified; Z68.21 Body mass index [BMI] 21.0-21.9, adult
CPT/HCPCS: 36415; 36600; 49083; 70450; 71045; 76700; 80048; 80053; 80074; 80320; 82040; 82140; 82271; 82803; 82962; 83735; 84100; 85014; 85018; 85025; 85027; 85049; 85610; 85730; 86850; 86900; 86901; 86920; 87116; 89051; 93005; G0378; J2501; J3490; C1729; C9113; G0480; J0696; J1630; J2250; J2270; J2354; J2704; J3475; J3480; J7030; J7040; P9016

== ENCOUNTER 2021-12-21 06:57 | Inpatient (IN) | payer SELFPAY ==
[2021-12-21 11:03] LABS: Hematocrit 22.6 % (35.5-45.6); Hemoglobin 6.8 gm/dl (11.8-15.2); Mean Corpuscular HGB Conc 30 % (32-34); Mean Corpuscular Volume 99 fl (84-94); Platelet Count 220 K/mm3 (140-440); Red Cell Distribution Width 19.2 % (13.2-15.2)
[2021-12-21 11:14] LABS: Albumin 2.4 g/dL (3.9-5); Calcium 8.9 mg/dL (8.4-10.2)
[2021-12-21] MEDS ORDERED: SODIUM CHLORIDE 0.9% 1000 ML IV SOLN IV ONE (11:59)
[2021-12-21] MEDS ORDERED: CEFEPIME/NS 2 GM/100 ML 2 GM/100 ML BAG IV ONE (12:15)
[2021-12-21] MEDS ORDERED: PANTOPRAZOLE 40 MG INJ IV ONE (12:33)
[2021-12-21] MEDS ORDERED: OCTREOTIDE 500 MCG in SODIUM CHLORIDE 0.9% 100 ML IV ONE (12:34)
[2021-12-21] MEDS ORDERED: OCTREOTIDE 50 MCG/1 ML INJ IV ONE (12:34)
[2021-12-21] MEDS ORDERED: ONDANSETRON 4 MG/2 ML INJ IV ONE (12:35)
[2021-12-21] MEDS ORDERED: fentaNYL 100 MCG/2 ML INJ IV ONE (12:36)
[2021-12-21] MEDS ORDERED: SODIUM CHLORIDE 0.9% 500 ML 500 ML IV ONE (12:37)
--- NOTE | 2021-12-21 12:42 | Emergency Department Report ---
HPI - General Chief Complaint: Abdominal Pain Time Seen by Provider: 12/21/21 12:22 - [facility] HPI: Room 40 Patient is a 41-year-old male present with a chief complaint of abdominal pain and black stool. Patient states for the past 3 days he has had constant diffuse abdominal pain and has passed black and bloody stool. Patient admits to nausea but denies vomiting. Of note the patient was admitted to this hospital last month and had a varix banded. Patient states that he gets dizzy upon standing for the past 2 to 3 days. Patient admits to occasional shortness of breath ED Past Medical Hx - Past Medical History Hx Renal Disease: Yes (ESRD, HD q. MWF Dr. Bridges) Additional medical history: Cirrhosis of Liver. Hypotension - Surgical History Additional Surgical History: PermaCath Right upper chest, bilateral eye surgery - Social History Smoking Status: Former Smoker Substance Use Type: None (Denies illicit drug use), Alcohol (Moderate) - Medications Home Medications: Home Medications Medication Instructions Recorded Confirmed Last Taken Type Lactulose [Cephulac] 20 gm PO TID #1 bottle 11/23/21 Unknown Rx Midodrine 1 tab PO Q8HR #90 tab 11/23/21 Unknown Rx Pantoprazole [Protonix TAB] 40 mg PO BID #60 tab 11/23/21 Unknown Rx levoFLOXacin [Levaquin TAB] 500 mg PO QDAY #3 tablet 11/23/21 Unknown Rx ED Review of Systems ROS: Stated complaint: ABD PAIN Other details as noted in HPI Constitutional: malaise Eyes: denies: eye pain ENT: denies: throat pain Respiratory: shortness of breath (+/-) Cardiovascular: denies: chest pain Endocrine: no symptoms reported Gastrointestinal: abdominal pain, nausea, melena, hematochezia. denies: vomiting Genitourinary: denies: dysuria Musculoskeletal: denies: back pain Neurological: denies: headache Physical Exam - Physical Exam Vital Signs: Vital Signs 12/21/21 09:23 Temperature 98.6 F Pulse Rate 112 H Respiratory 16 Rate Blood Pressure 103/66 [Left] O2 Sat by Pulse 100 Oximetry Physical Exam: GENERAL: The patient is well-developed well-nourished male lying on stretcher not appearing to be in acute distress. [] HEENT: Normocephalic. Atraumatic. Extraocular motions are intact. Patient has moist mucous membranes. NECK: Supple. Trachea midline CHEST/LUNGS: Clear to auscultation. There is no respiratory distress noted. HEART/CARDIOVASCULAR: Regular. There is no tachycardia. There is no gallop rub or murmur. ABDOMEN: Abdomen is soft, with diffuse tenderness to palpation. There is no rebound or guarding. Patient has normal bowel sounds. There is no abdominal distention. SKIN: There is no rash. There is no edema. There is no diaphoresis. NEURO: The patient is awake, alert, and oriented. The patient is cooperative. The patient has no focal neurologic deficits. The patient has normal speech. GCS 15 MUSCULOSKELETAL: There is no evidence of acute injury. RECTAL: Guaiac positive brown stool ED Course Vital Signs 12/21/21 09:23 Temperature 98.6 F Pulse Rate 112 H Respiratory 16 Rate Blood Pressure 103/66 [Left] O2 Sat by Pulse 100 Oximetry - Consultations Consultation #1: 12/21/21 13:47 GI paged ED Medical Decision Making - Lab Data Result diagrams: 12/21/21 10:22 12/21/21 10:22 Laboratory Tests 12/21/21 12/21/21 10:22 10:22 WBC 35.4 H RBC 2.30 L Hgb 6.8 L Hct 22.6 L MCV 99 H MCH 30 MCHC 30 L RDW 19.2 H Plt Count 220 Sodium 136 L Potassium 4.9 Chloride 98.2 Carbon Dioxide 18 L Anion Gap 25 BUN 27 H Creatinine 3.6 H Estimated GFR 23 BUN/Creatinine Ratio 8 Glucose 96 Calcium 8.9 Phosphorus 6.20 H Magnesium 1.80 Total Bilirubin 2.00 H AST 40 ALT 14 Alkaline Phosphatase 104 Total Protein 6.2 L Albumin 2.4 L Albumin/Globulin Ratio 0.6 Lipase 10 L - Radiology Data Radiology results: report reviewed (CT abdomen pelvis), image reviewed (CT abdomen pelvis) [facility] [address] [place] [address] Cat Scan Report Signed Patient: ELBA BOUDREAUX MR#: [id number] 1 : 1980 Acct:[id number] Age/Sex: 41 / M ADM Date: 12/21/21 Loc: ED Attending Dr: Ordering Physician: ALEX POLO MD Date of Service: 12/21/21 Procedure(s): CT abdomen pelvis wo con Accession Number(s): [id number] cc: ALEX POLO MD CT ABDOMEN AND PELVIS WITHOUT CONTRAST HISTORY: Diffuse abdominal pain, leukocytosis COMPARISON: Ultrasound on 11/20/2021 TECHNIQUE: Routine abdominal and pelvic CT exam performed without contrast. Lack of intravenous contrast limits evaluation of the vascular and solid organs.. All CT scans at this location are performed using CT dose reduction for ALARA by means of automated exposure control. FINDINGS: CT ABDOMEN: Lung Bases: There are small bilateral pleural effusions. Liver: No significant abnormality. Biliary: No significant abnormality. Spleen: No significant abnormality. Unenlarged. Pancreas: No significant abnormality. Adrenals: No significant abnormality. Kidneys: No significant abnormality. Lymphatics: No lymphadenopathy. Vasculature: No significant abnormality. Bowel/Peritoneum: Very large volume of ascites is again seen. No free air or obstruction. CT PELVIC: : No significant abnormality. Lymphatics: No lymphadenopathy. Osseous Structures: No aggressive appearing osseous lesions. Additional Findings: None IMPRESSION: 1. Very large volume of ascites. 2. Small bilateral pleural effusions. Signer Name: Lucius Haji MD Signed: 12/21/2021 2:16 PM Workstation Name: [id number] Transcribed By: HUSSEIN Dictated By: Lucius Haji MD Electronically Authenticated By: Lucius Haji MD Signed Date/Time: 12/21/211415 DD/ 15 TD/TT: Print Cancel - Differential Diagnosis GI bleed Critical care attestation.: If time is entered above; I have spent that time in minutes in the direct care of this critically ill patient, excluding procedure time. ED Disposition Clinical Impression: GI bleed, Ascites, Abdominal pain, acute, ESRD on dialysis Disposition: ADMITTED INPATIENT Is pt being admited?: Yes Does the pt Need Aspirin: No Condition: Fair Time of Disposition: 14:24 (Care transferred to hospitalist (Dr. Conner))
--- NOTE | 2021-12-21 13:44 | XRay Report ---
CHEST 1 VIEW 12/21/2021 12:15 PM INDICATION / CLINICAL INFORMATION: fever. COMPARISON: November 19, 2021 FINDINGS: SUPPORT DEVICES: Right Vas-Cath tip overlies distal SVC right atrial junction HEART / MEDIASTINUM: No significant abnormality. LUNGS / PLEURA: Increased opacity and effusion the left lung persist however improved since October No p neumothorax. Signer Name: Kyle Carrera MD Signed: 12/21/2021 1:39 PM Workstation Name: [id number]
--- NOTE | 2021-12-21 14:21 | Cat Scan Report ---
CT ABDOMEN AND PELVIS WITHOUT CONTRAST HISTORY: Diffuse abdominal pain, leukocytosis COMPARISON: Ultrasound on 11/20/2021 TECHNIQUE: Routine abdominal and pelvic CT exam performed without contrast. Lack of intravenous cont rast limits evaluation of the vascular and solid organs.. All CT scans at this location are performed using CT dose reduction for ALARA by means of automated exposure control. FINDINGS: CT ABDOMEN: Lung Bases: There are small bilateral pleural effusions. Liver: No significant abnormality. Biliary: No significant abnormality. Spleen: No significant abnormality. Unenlarged. Pancreas: No significant abnormality. Adrenals: No significant abnormality. Kidneys: No significant abnormality. Lymphatics: No lymphadenopathy. Vasculature: No significant abnormality. Bowel/Peritoneum: Very large volume of ascites is again seen. No free air or obstruction. CT PELVIC: : No significant abnormality. Lymphatics: No lymphadenopathy. Osseous Structures: No aggressive appearing osseous lesions. Additional Findings: None IMPRESSION: 1. Very large volume of ascites. 2. Small bilateral pleural effusions. Signer Name: Lucius Haji MD Signed: 12/21/2021 2:16 PM Workstation Name: [id number]
[2021-12-21] MEDS ORDERED: fentaNYL 100 MCG/2 ML INJ IV SCH (16:00)
--- NOTE | 2021-12-21 16:11 | Gastroenterology Consultation ---
History of Present Illness - Reason for Consult Consult date: 12/21/21 GI bleed Requesting physician: ALEX POLO - History of Present Illness The patient is a 41 yo aam who presents with abd pain, sob, and melena/hematochezia. 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 Also with ESRD on dialysis. Last alcohol intake was in May (~6 months ago). He was in the hospital 1 month ago for HE, had worsening anemia/gi bleed and EGD showing single grade III varix with red skye sign s/p banding. he started having abd pain, generalized after dialysis 2 days ago. + nausea w/o emesis. he had paracentesis last admission and has noticed re-accumulation of ascites in interim. + black stools for 2 days. found to have leukocytosis, worsening anemia and tachycardic on admission. no obvious mental status changes. Past History Past Medical History: other (cirrhosis, ESRD) Past Surgical History: Other Social history: alcohol abuse (quit in May) Medications and Allergies Allergies Allergy/AdvReac Type Severity Reaction Status Date / Time No Known Allergies Allergy Unverified 11/19/21 21:37 Home Medications Medication Instructions Recorded Confirmed Last Taken Type Lactulose [Cephulac] 20 gm PO TID #1 bottle 11/23/21 Unknown Rx Midodrine 1 tab PO Q8HR #90 tab 11/23/21 Unknown Rx Pantoprazole [Protonix TAB] 40 mg PO BID #60 tab 11/23/21 Unknown Rx levoFLOXacin [Levaquin TAB] 500 mg PO QDAY #3 tablet 11/23/21 Unknown Rx Active Meds: Active Medications Fentanyl (Fentanyl 100 Mcg/2 Ml Inj) 50 mcg IV ONCE@1600 JORDAN Stop: 12/21/21 19:00 Octreotide Acetate 500 mcg/ (Sodium Chloride) 101 mls @ 5.05 mls/hr IV TITR ONE; Protocol Stop: 12/22/21 08:33 Last Admin: 12/21/21 15:06 Dose: 25 mcg/hr, 5.05 mls/hr Reviewed/updated patient's home and current medications. Review of Systems - Review of Systems All systems: negative (per HPI) Exam - Constitutional Vital Signs: Temp Pulse Resp BP Pulse Ox 98.6 F 119 H 18 106/59 99 12/21/21 09:23 12/21/21 14:04 12/21/21 14:04 12/21/21 14:04 12/21/21 14:04 General appearance: no acute distress, other (chronically ill appearing) - EENT Eyes: PERRL, EOM intact, scleral icterus ENT: hearing intact - Respiratory Respiratory effort: normal Respiratory: bilateral: CTA - Cardiovascular Rhythm: regular Heart Sounds: Present: S1 & S2 - Gastrointestinal General gastrointestinal: Present: soft, tender (diffuse mild ttp), distended (+ ascites) Rectal Exam: stool bloody - Integumentary Integumentary: Present: clear, warm - Neurologic Neurological: alert and oriented x3 - Psychiatric Psychiatric: appropriate mood/affect - Labs CBC & Chem 7: 12/21/21 10:22 12/21/21 10:22 Lab Results: Laboratory Results - last 24 hr 12/21/21 12/21/21 12/21/21 10:22 10:22 12:48 WBC 35.4 H RBC 2.30 L Hgb 6.8 L Hct 22.6 L MCV 99 H MCH 30 MCHC 30 L RDW 19.2 H Plt Count 220 Sodium 136 L Potassium 4.9 Chloride 98.2 Carbon Dioxide 18 L Anion Gap 25 BUN 27 H Creatinine 3.6 H Estimated GFR 23 BUN/Creatinine Ratio 8 Glucose 96 Lactic Acid 13.80 H* Calcium 8.9 Phosphorus 6.20 H Magnesium 1.80 Total Bilirubin 2.00 H AST 40 ALT 14 Alkaline Phosphatase 104 Total Protein 6.2 L Albumin 2.4 L Albumin/Globulin Ratio 0.6 Lipase 10 L Blood Type Antibody Screen Crossmatch 12/21/21 12:48 WBC RBC Hgb Hct MCV MCH MCHC RDW Plt Count Sodium Potassium Chloride Carbon Dioxide Anion Gap BUN Creatinine Estimated GFR BUN/Creatinine Ratio Glucose Lactic Acid Calcium Phosphorus Magnesium Total Bilirubin AST ALT Alkaline Phosphatase Total Protein Albumin Albumin/Globulin Ratio Lipase Blood Type O POSITIVE Antibody Screen Negative Crossmatch See Detail Assessment and Plan 1. GI bleed - dark blood on rectal. chronic anemia, worse from recent discharge levels. h/o grade III varix 1 month ago s/p banding. cont octreotide and PPI drip. transfuse 1 unit but avoid over transfusion (goal hgb 7-8 range). will plan for EGD tomorrow 2. Cirrhosis - from alcohol, last intake 6 months ago. 3. Sepsis - ? sbp in setting of abd pain/ascites. recommend broad spectrum abx empirically to include coverage of possible sbp 4. Ascites - may need paracentesis once acute issues have resolved 5. ESRD
[2021-12-21] MEDS ORDERED: SODIUM CHLORIDE 0.9% 1000 ML 1,000 ML ONE (17:32)
--- NOTE | 2021-12-21 19:17 | History and Physical Report ---
History of Present Illness Date of examination: 12/21/21 Date of admission: 12/21/2021 Chief complaint: Lower GI bleed History of present illness: 41-year-old man with history of esophageal varices and recurrent GI bleed comes in for diffuse abdominal pain and blackening bloody stools for 2 days. Patient admits to nausea but no vomiting. Patient was recently admitted and discharged on 11/23/2021 for esophageal varices and ascites. Patient also has end-stage renal disease on hemodialysis. Patient had endoscopy and was on PPI drip and banding of 1 esophageal varices last admission. Patient continues to be actively bleeding. No hematemesis. No fever or chills. Compliant with his medication. [facility] neph[facility] is his sign language interpreter group. Discharge summary from 11/23/2021 Upper endoscopy with banding of esophageal varix Hospital course: Patient is a 41-year-old male with past medical history of decompensated alcoholic cirrhosis complicated by ascites and esophageal varices, ESRD on hemodialysis (Sunday), chronic hepatic encephalopathy, and prior history of upper GI bleed who presented to the ED for repeat upper GI bleed from his esophageal varices. On presentation to the ED, the patient was hemodynamically stable but required transfusion of 2 units packed RBCs. Gastroenterology was consulted, the patient was started on octreotide drip, and the patient was started on a PPI drip. The patient underwent upper endoscopy with banding of 1 actively bleeding esophageal varix. Patient is since been transitioned to a soft GI diet. Due to concerns for SBP, the patient was started on prophylactic Rocephin 1 g daily. The patient will complete a 5-day antibiotic course; patient will be transitioned to Levaquin 500 mg daily upon discharge. Patient will continue with his hemodialysis on Sunday in outpatient setting. Patient is medically cleared for discharge. Disposition: 01 HOME / SELF CARE / HOMELESS Final Discharge Diagnosis (Prints w/discharge instructions): Upper GI bleed from esophageal varices, decompensated alcoholic cirrhosis with esophageal varices, hepatic encephalopathy, acute blood loss anemia, macrocytic anemia, thrombocytopenia, ESRD on hemodialysis, secondary para-Hypothyroidism, hypomagn esemia, hypocalcemia, moderate protein caloric malnutrition Time spent for discharge: 45 min - Past Medical History --Renal Disease: Yes (ESRD, HD q. MWF Dr. Yuliana) --Additional medical history: Cirrhosis of Liver. Hypotension --GI bleed--recurrent - Surgical History --Additional Surgical History: PermaCath Right upper chest, bilateral eye surgery - Social History --Smoking Status: Former Smoker --Substance Use Type: None (Denies illicit drug use), Alcohol (Moderate) Family history --Htn - Medications Home Medications: Home Medications Medication Instructions Recorded Confirmed Last Taken Type Lactulose [Cephulac] 20 gm PO TID #1 bottle 11/23/21 Unknown Rx Midodrine 1 tab PO Q8HR #90 tab 11/23/21 Unknown Rx Pantoprazole [Protonix TAB] 40 mg PO BID #60 tab 11/23/21 Unknown Rx levoFLOXacin [Levaquin TAB] 500 mg PO QDAY #3 tablet 11/23/21 Unknown Rx -Review of Systems ROS: Stated complaint: ABD PAIN Other details as noted in HPI Constitutional: malaise Eyes: denies: eye pain ENT: denies: throat pain Respiratory: shortness of breath (+/-) Cardiovascular: denies: chest pain Endocrine: no symptoms reported Gastrointestinal: abdominal pain, nausea, melena, hematochezia. denies: vomiting Genitourinary: denies: dysuria Musculoskeletal: denies: back pain Neurological: denies: headache Past History Past Medical History: other (cirrhosis, ESRD) Past Surgical History: Other Social history: alcohol abuse (quit in May) Medications and Allergies Allergies Allergy/AdvReac Type Severity Reaction Status Date / Time No Known Allergies Allergy Verified 12/22/21 06:29 Home Medications Medication Instructions Recorded Confirmed Last Taken Type Lactulose [Cephulac] 20 gm PO TID #1 bottle 11/23/21 Unknown Rx Pantoprazole [Protonix TAB] 40 mg PO BID #60 tab 11/23/21 Unknown Rx Active Meds: Active Medications Octreotide Acetate 500 mcg/ (Sodium Chloride) 101 mls @ 5.05 mls/hr IV TITR ONE; Protocol Stop: 12/22/21 08:33 Last Admin: 12/21/21 15:06 Dose: 25 mcg/hr, 5.05 mls/hr Exam - Constitutional Vitals: Temp Pulse Resp BP Pulse Ox 98.0 F 114 H 14 111/60 100 12/21/21 18:54 12/21/21 18:54 12/21/21 18:54 12/21/21 18:54 12/21/21 18:54 General appearance: Present: no acute distress, well-nourished - EENT Eyes: Present: PERRL ENT: hearing intact, clear oral mucosa - Neck Neck: Present: supple, normal ROM - Respiratory Respiratory effort: normal Respiratory: bilateral: CTA - Cardiovascular Heart rate: 78 Rhythm: regular Heart Sounds: Present: S1 & S2. Absent: rub, click - Extremities Extremities: no ischemia, pulses intact, pulses symmetrical, No edema Peripheral Pulses: within normal limits - Abdominal General gastrointestinal: Present: soft, non-tender, tender, distended, normal bowel sounds Male genitourinary: Present: normal - Rectal Rectal Exam: stool bloody - Integumentary Integumentary: Present: clear, warm, dry - Musculoskeletal Musculoskeletal: gait normal, strength equal bilaterally - Psychiatric Psychiatric: appropriate mood/affect, intact judgment & insight - Neurologic Neurologic: CNII-XII intact, moves all extremities - Allied Health Allied health notes reviewed: nursing, case management Results - Labs CBC & Chem 7: 12/22/21 04:22 12/22/21 04:22 Labs: Laboratory Last Values WBC 35.4 K/mm3 (4.5-11.0) H 12/21/21 10:22 RBC 2.30 M/mm3 (3.65-5.03) L 12/21/21 10:22 Hgb 6.8 gm/dl (11.8-15.2) L 12/21/21 10:22 Hct 22.6 % (35.5-45.6) L 12/21/21 10:22 MCV 99 fl (84-94) H 12/21/21 10:22 MCH 30 pg (28-32) 12/21/21 10:22 MCHC 30 % (32-34) L 12/21/21 10:22 RDW 19.2 % (13.2-15.2) H 12/21/21 10:22 Plt Count 220 K/mm3 (140-440) 12/21/21 10:22 Sodium 136 mmol/L (137-145) L 12/21/21 10:22 Potassium 4.9 mmol/L (3.6-5.0) 12/21/21 10:22 Chloride 98.2 mmol/L (98-107) 12/21/21 10:22 Carbon Dioxide 18 mmol/L (22-30) L 12/21/21 10:22 Anion Gap 25 mmol/L 12/21/21 10:22 BUN 27 mg/dL (9-20) H 12/21/21 10:22 Creatinine 3.6 mg/dL (0.8-1.3) H 12/21/21 10:22 Estimated GFR 23 ml/min 12/21/21 10:22 BUN/Creatinine Ratio 8 % 12/21/21 10:22 Glucose 96 mg/dL (75-100) 12/21/21 10:22 Lactic Acid 13.80 mmol/L (0.7-2.0) H* 12/21/21 12:48 Calcium 8.9 mg/dL (8.4-10.2) 12/21/21 10:22 Phosphorus 6.20 mg/dL (2.5-4.5) H 12/21/21 10:22 Magnesium 1.80 mg/dL (1.7-2.3) 12/21/21 10:22 Total Bilirubin 2.00 mg/dL (0.1-1.2) H 12/21/21 10:22 AST 40 units/L (5-40) 12/21/21 10:22 ALT 14 units/L (7-56) 12/21/21 10:22 Alkaline Phosphatase 104 units/L (35-129) 12/21/21 10:22 Total Protein 6.2 g/dL (6.3-8.2) L 12/21/21 10:22 Albumin 2.4 g/dL (3.9-5) L 12/21/21 10:22 Albumin/Globulin Ratio 0.6 % 12/21/21 10:22 Lipase 10 units/L (13-60) L 12/21/21 10:22 Blood Type O POSITIVE 12/21/21 12:48 Antibody Screen Negative 12/21/21 12:48 Crossmatch See Detail 12/21/21 12:48 Short CBC 12/21/21 12/21/21 12/21/21 Range/Units 10:22 10:22 12:48 WBC 35.4 H (4.5-11.0) K/mm3 RBC 2.30 L (3.65-5.03) M/mm3 Hgb 6.8 L (11.8-15.2) gm/dl Hct 22.6 L (35.5-45.6) % MCV 99 H (84-94) fl MCH 30 (28-32) pg MCHC 30 L (32-34) % RDW 19.2 H (13.2-15.2) % Plt Count 220 (140-440) K/mm3 Add Manual Diff Total Counted Seg Neuts % (Manual) (40.0-70.0) % Band Neutrophils % % Lymphocytes % (Manual) (13.4-35.0) % Reactive Lymphs % (Man) % Monocytes % (Manual) (0.0-7.3) % Eosinophils % (Manual) (0.0-4.3) % Basophils % (Manual) (0.0-1.8) % Metamyelocytes % % Myelocytes % % Promyelocytes % % Blast Cells % % Nucleated RBC % Seg Neutrophils # Man (1.8-7.7) K/mm3 Band Neutrophils # K/mm3 Lymphocytes # (Manual) (1.2-5.4) K/mm3 Abs React Lymphs (Man) K/mm3 Monocytes # (Manual) (0.0-0.8) K/mm3 Eosinophils # (Manual) (0.0-0.4) K/mm3 Basophils # (Manual) (0.0-0.1) K/mm3 Metamyelocytes # K/mm3 Myelocytes # K/mm3 Promyelocytes # K/mm3 Blast Cells # K/mm3 WBC Morphology Hypersegmented Neuts Hyposegmented Neuts Hypogranular Neuts Smudge Cells Toxic Granulation Toxic Vacuolation Dohle Bodies Pelger-Huet Anomaly Dmitri Rods Platelet Estimate Clumped Platelets Plt Clumps, EDTA Large Platelets Giant Platelets Platelet Satelliting Plt Morphology Comment RBC Morphology Dimorphic RBCs Polychromasia Hypochromasia Poikilocytosis Anisocytosis Microcytosis Macrocytosis Spherocytes Pappenheimer Bodies Sickle Cells Target Cells Tear Drop Cells Ovalocytes Helmet Cells Nicholson-Kermit Bodies [place] Rings Mason Cells Bite Cells Crenated Cell Elliptocytes Acanthocytes (Spur) Rouleaux Hemoglobin C Crystals Schistocytes Malaria parasites Shamir Bodies Hem Pathologist Commnt Sodium 136 L (137-145) mmol/L Potassium 4.9 (3.6-5.0) mmol/L Chloride 98.2 (98-107) mmol/L Carbon Dioxide 18 L (22-30) mmol/L Anion Gap 25 mmol/L BUN 27 H (9-20) mg/dL Creatinine 3.6 H (0.8-1.3) mg/dL Estimated GFR 23 ml/min BUN/Creatinine Ratio 8 % Glucose 96 (75-100) mg/dL Lactic Acid 13.80 H* (0.7-2.0) mmol/L Calcium 8.9 (8.4-10.2) mg/dL Phosphorus 6.20 H (2.5-4.5) mg/dL Magnesium 1.80 (1.7-2.3) mg/dL Total Bilirubin 2.00 H (0.1-1.2) mg/dL AST 40 (5-40) units/L ALT 14 (7-56) units/L Alkaline Phosphatase 104 (35-129) units/L Total Protein 6.2 L (6.3-8.2) g/dL Albumin 2.4 L (3.9-5) g/dL Albumin/Globulin Ratio 0.6 % Lipase 10 L (13-60) units/L Urine Color (Yellow) Urine Turbidity (Clear) Urine pH (5.0-7.0) Ur Specific [place] (1.003-1.030) Urine Protein (Negative) mg/dL Urine Glucose (UA) (Negative) mg/dL Urine Ketones (Negative) mg/dL Urine Blood (Negative) Urine Nitrite (Negative) Urine Bilirubin (Negative) Urine Ictotest (Negative) Urine Urobilinogen (<2.0) mg/dL Ur Leukocyte Esterase (Negative) Urine RBC (Auto) (0.0-6.0) /HPF 12/21/21 12/22/21 12/22/21 Range/Units 18:34 00:20 04:22 WBC 27.7 H (4.5-11.0) K/mm3 RBC 2.19 L (3.65-5.03) M/mm3 Hgb 6.5 L (11.8-15.2) gm/dl Hct 20.2 L (35.5-45.6) % MCV 92 (84-94) fl MCH 30 (28-32) pg MCHC 32 (32-34) % RDW 18.9 H (13.2-15.2) % Plt Count 164 (140-440) K/mm3 Add Manual Diff Complete Total Counted 100 Seg Neuts % (Manual) 85.0 H (40.0-70.0) % Band Neutrophils % 0 % Lymphocytes % (Manual) 7.0 L (13.4-35.0) % Reactive Lymphs % (Man) 0 % Monocytes % (Manual) 8.0 H (0.0-7.3) % Eosinophils % (Manual) 0 (0.0-4.3) % Basophils % (Manual) 0 (0.0-1.8) % Metamyelocytes % 0 % Myelocytes % 0 % Promyelocytes % 0 % Blast Cells % 0 % Nucleated RBC % Not Reportable Seg Neutrophils # Man 23.5 H (1.8-7.7) K/mm3 Band Neutrophils # 0.0 K/mm3 Lymphocytes # (Manual) 1.9 (1.2-5.4) K/mm3 Abs React Lymphs (Man) 0.0 K/mm3 Monocytes # (Manual) 2.2 H (0.0-0.8) K/mm3 Eosinophils # (Manual) 0.0 (0.0-0.4) K/mm3 Basophils # (Manual) 0.0 (0.0-0.1) K/mm3 Metamyelocytes # 0.0 K/mm3 Myelocytes # 0.0 K/mm3 Promyelocytes # 0.0 K/mm3 Blast Cells # 0.0 K/mm3 WBC Morphology Not Reportable Hypersegmented Neuts Not Reportable Hyposegmented Neuts Not Reportable Hypogranular Neuts Not Reportable Smudge Cells Not Reportable Toxic Granulation Not Reportable Toxic Vacuolation Not Reportable Dohle Bodies Not Reportable Pelger-Huet Anomaly Not Reportable Dmitri Rods Not Reportable Platelet Estimate Consistent w auto Clumped Platelets Not Reportable Plt Clumps, EDTA Not Reportable Large Platelets Not Reportable Giant Platelets Not Reportable Platelet Satelliting Not Reportable Plt Morphology Comment Not Reportable RBC Morphology Not Reportable Dimorphic RBCs Not Reportable Polychromasia Not Reportable Hypochromasia Not Reportable Poikilocytosis Not Reportable Anisocytosis Not Reportable Microcytosis Not Reportable Macrocytosis Not Reportable Spherocytes Not Reportable Pappenheimer Bodies Not Reportable Sickle Cells Not Reportable Target Cells Not Reportable Tear Drop Cells Not Reportable Ovalocytes Not Reportable Helmet Cells Not Reportable Nicholson-Kermit Bodies Not Reportable [place] Rings Not Reportable Zackary Cells Not Reportable Bite Cells Not Reportable Crenated Cell Not Reportable Elliptocytes Not Reportable Acanthocytes (Spur) Not Reportable Rouleaux Not Reportable Hemoglobin C Crystals Not Reportable Schistocytes Not Reportable Malaria parasites Not Reportable Shamir Bodies Not Reportable Hem Pathologist Commnt No Sodium (137-145) mmol/L Potassium (3.6-5.0) mmol/L Chloride (98-107) mmol/L Carbon Dioxide (22-30) mmol/L Anion Gap mmol/L BUN (9-20) mg/dL Creatinine (0.8-1.3) mg/dL Estimated GFR ml/min BUN/Creatinine Ratio % Glucose (75-100) mg/dL Lactic Acid 5.70 H* (0.7-2.0) mmol/L Calcium (8.4-10.2) mg/dL Phosphorus (2.5-4.5) mg/dL Magnesium (1.7-2.3) mg/dL Total Bilirubin (0.1-1.2) mg/dL AST (5-40) units/L ALT (7-56) units/L Alkaline Phosphatase (35-129) units/L Total Protein (6.3-8.2) g/dL Albumin (3.9-5) g/dL Albumin/Globulin Ratio % Lipase (13-60) units/L Urine Color Gloria (Yellow) Urine Turbidity Clear (Clear) Urine pH 5.0 (5.0-7.0) Ur Specific [place] 1.020 (1.003-1.030) Urine Protein 100 mg/dl (Negative) mg/dL Urine Glucose (UA) Negative (Negative) mg/dL Urine Ketones Negative (Negative) mg/dL Urine Blood Negative (Negative) Urine Nitrite Negative (Negative) Urine Bilirubin 1+ (Negative) Urine Ictotest Positive (Negative) Urine Urobilinogen 0.0 (<2.0) mg/dL Ur Leukocyte Esterase 1+ (Negative) Urine RBC (Auto) (0.0-6.0) /HPF 12/22/ Range/Units 04:22 WBC (4.5-11.0) K/mm3 RBC (3.65-5.03) M/mm3 Hgb (11.8-15.2) gm/dl Hct (35.5-45.6) % MCV (84-94) fl MCH (28-32) pg MCHC (32-34) % RDW (13.2-15.2) % Plt Count (140-440) K/mm3 Add Manual Diff Total Counted Seg Neuts % (Manual) (40.0-70.0) % Band Neutrophils % % Lymphocytes % (Manual) (13.4-35.0) % Reactive Lymphs % (Man) % Monocytes % (Manual) (0.0-7.3) % Eosinophils % (Manual) (0.0-4.3) % Basophils % (Manual) (0.0-1.8) % Metamyelocytes % % Myelocytes % % Promyelocytes % % Blast Cells % % Nucleated RBC % Seg Neutrophils # Man (1.8-7.7) K/mm3 Band Neutrophils # K/mm3 Lymphocytes # (Manual) (1.2-5.4) K/mm3 Abs React Lymphs (Man) K/mm3 Monocytes # (Manual) (0.0-0.8) K/mm3 Eosinophils # (Manual) (0.0-0.4) K/mm3 Basophils # (Manual) (0.0-0.1) K/mm3 Metamyelocytes # K/mm3 Myelocytes # K/mm3 Promyelocytes # K/mm3 Blast Cells # K/mm3 WBC Morphology Hypersegmented Neuts Hyposegmented Neuts Hypogranular Neuts Smudge Cells Toxic Granulation Toxic Vacuolation Dohle Bodies Pelger-Huet Anomaly Dmitri Rods Platelet Estimate Clumped Platelets Plt Clumps, EDTA Large Platelets Giant Platelets Platelet Satelliting Plt Morphology Comment RBC Morphology Dimorphic RBCs Polychromasia Hypochromasia Poikilocytosis Anisocytosis Microcytosis Macrocytosis Spherocytes Pappenheimer Bodies Sickle Cells Target Cells Tear Drop Cells Ovalocytes Helmet Cells Nicholson-Kermit Bodies [place] Rings Mason Cells Bite Cells Crenated Cell Elliptocytes Acanthocytes (Spur) Rouleaux Hemoglobin C Crystals Schistocytes Malaria parasites Shamir Bodies Hem Pathologist Commnt Sodium 135 L (137-145) mmol/L Potassium 6.1 H* D (3.6-5.0) mmol/L Chloride 98.4 (98-107) mmol/L Carbon Dioxide 22 (22-30) mmol/L Anion Gap 21 mmol/L BUN 43 H (9-20) mg/dL Creatinine 4.3 H (0.8-1.3) mg/dL Estimated GFR 19 ml/min BUN/Creatinine Ratio 10 % Glucose 116 H (75-100) mg/dL Lactic Acid (0.7-2.0) mmol/L Calcium 8.3 L (8.4-10.2) mg/dL Phosphorus (2.5-4.5) mg/dL Magnesium (1.7-2.3) mg/dL Total Bilirubin 2.20 H (0.1-1.2) mg/dL AST 30 (5-40) units/L ALT 11 (7-56) units/L Alkaline Phosphatase 75 (35-129) units/L Total Protein 5.4 L (6.3-8.2) g/dL Albumin 2.2 L (3.9-5) g/dL Albumin/Globulin Ratio 0.7 % Lipase (13-60) units/L Urine Color (Yellow) Urine Turbidity (Clear) Urine pH (5.0-7.0) Ur Specific [place] (1.003-1.030) Urine Protein (Negative) mg/dL Urine Glucose (UA) (Negative) mg/dL Urine Ketones (Negative) mg/dL Urine Blood (Negative) Urine Nitrite (Negative) Urine Bilirubin (Negative) Urine Ictotest (Negative) Urine Urobilinogen (<2.0) mg/dL Ur Leukocyte Esterase (Negative) Urine RBC (Auto) (0.0-6.0) /HPF BMP 12/21/21 12/22/21 10:22 04:22 Sodium 136 L 135 L Potassium 4.9 6.1 H* D Chloride 98.2 98.4 Carbon Dioxide 18 L 22 BUN 27 H 43 H Creatinine 3.6 H 4.3 H Glucose 96 116 H Calcium 8.9 8.3 L Liver Function 12/21/21 12/22/21 Range/Units 10:22 04:22 Total Bilirubin 2.00 H 2.20 H (0.1-1.2) mg/dL AST 40 30 (5-40) units/L ALT 14 11 (7-56) units/L Alkaline Phosphatase 104 75 (35-129) units/L Albumin 2.4 L 2.2 L (3.9-5) g/dL Urine 12/21/21 Range/Units 18:34 Urine Color Gloria (Yellow) Urine pH 5.0 (5.0-7.0) Ur Specific [place] 1.020 (1.003-1.030) Urine Protein 100 mg/dl (Negative) mg/dL Urine Glucose (UA) Negative (Negative) mg/dL Microbiology: Microbiology 12/21/21 12:48 Peripheral/Venous Blood Culture - Preliminary Culture in Progress 12/21/21 12:48 Peripheral/Venous Blood Culture - Preliminary Culture in Progress 12/21/21 13:25 Stool Stool Occult Blood (MELVIN) - Final Assessment and Plan Assessment and plan: Critical care statement The high probability OF a clinically significant sudden or life-threatening deterioration of the cardiorespiratory system and endocrine system required my full and direct attention, intervention and postoperative management. The aggregate critical care time was 40 minutes. The time is in addition to time spent performing reported procedures but includes the followin: Data review and interpretation 2: Patient assessment and monitoring of vital signs 3: Documentation 4:: Medication orders and management Advance Directives: Yes (Full code) VTE prophylaxis?: Mechanical Plan of care discussed with patient/family: Yes - Patient Problems (1) GI bleed Current Visit: Yes Status: Acute Plan to address problem: Possibly secondary to esophageal varices Hemoglobin is 6.7 We will transfuse 1 unit for now IV Protonix drip started GI consult requested Had banding of 1 varix last admission in October 1 month ago (2) Spontaneous bacterial peritonitis Current Visit: Yes Status: Acute Plan to address problem: Rule out spontaneous bacterial peritonitis Paracentesis IV cefepime for now (3) Sepsis Current Visit: Yes Status: Acute Plan to address problem: Possible sepsis Leukocytosis Initiated on cefepime empirically Rule out SBP(spontaneous bacterial peritonitis) (4) ESRD on dialysis Current Visit: Yes Status: Chronic Plan to address problem: Continue hemodialysis as per schedule (5) Alcoholic cirrhosis of liver with ascites Current Visit: No Status: Chronic Plan to address problem: Paracentesis if necessary (6) Hepatic failure Current Visit: Yes Status: Chronic Qualifiers: Liver failure chronicity: chronic Plan to address problem: Continue lactulose KS (7) Symptomatic anemia Current Visit: Yes Status: Acute Plan to address problem: Transfuse 1 to 2 units of packed red blood cells (8) DVT prophylaxis Current Visit: Yes Status: Acute Plan to address problem: On SCDs and GI prophylaxis (9) Advance care planning Current Visit: Yes Status: Acute Plan to address problem: Disease education collected, care plan discussed, diagnosis discussed and prognosis discussed. Patient acknowledges understanding with care plan. +30 minutes
[2021-12-21] MEDS ORDERED: ONDANSETRON 4 MG/2 ML INJ IV PRN (19:32)
[2021-12-21] MEDS ORDERED: ACETAMINOPHEN 325 MG TAB PO PRN (19:32)
[2021-12-21 19:36] LABS: Bilirubin,Urine 1+ (Negative); Blood,Urine Negative (Negative); Color,Urine AMBER (Yellow)
[2021-12-21 19:39] LABS: Ictotest,Urine Positive (Negative)
[2021-12-21] MEDS ORDERED: METOCLOPRAMIDE 10 MG/2 ML INJ IV PRN (19:43)
[2021-12-21] MEDS ORDERED: D5W/0.9% NACL 1,000 ML IV SCH (20:00)
[2021-12-21] MEDS: PANTOPRAZOLE 80 MG in SODIUM CHLORIDE 0.9% 100 ML IV SCH (20:42)
[2021-12-21] MEDS: MORPHINE 2 MG/1 ML INJ IV PRN (20:50)
[2021-12-22 04:52] LABS: Hematocrit 20.2 % (35.5-45.6); Hemoglobin 6.5 gm/dl (11.8-15.2); Mean Corpuscular HGB Conc 32 % (32-34); Mean Corpuscular Volume 92 fl (84-94); Platelet Count 164 K/mm3 (140-440); Red Blood Count 2.19 M/mm3 (3.65-5.03); Red Cell Distribution Width 18.9 % (13.2-15.2)
[2021-12-22 05:12] LABS: Albumin 2.2 g/dL (3.9-5); Calcium 8.3 mg/dL (8.4-10.2)
[2021-12-22 05:43] LABS: Basophils % (Manual) 0 % (0.0-1.8); Eosinophils % (Manual) 0 % (0.0-4.3); Platelet Estimate Consistent w Auto; Total Cells Counted 100
[2021-12-22] MEDS ORDERED: CALCIUM GLUCONATE 1,000 MG/NS 100 ML PREMIX IV ONE (06:05)
[2021-12-22] MEDS ORDERED: SODIUM CHLORIDE 0.9% 500 ML 500 ML IV ONE (06:09)
[2021-12-22] MEDS ORDERED: INSULIN REGULAR, HUMAN 100 UNITS/1 ML IV ONE (06:53)
[2021-12-22] MEDS ORDERED: DEXTROSE 50% IN WATER (25GM) 50 ML SYRINGE IV ONE (06:54)
[2021-12-22] MEDS ORDERED: LACTULOSE ENEMA 1000 ML PR SCH ×2 (07:00→10:00)
[2021-12-22] MEDS ORDERED: CALC GLUCONATE 1GM/NS 100 ML 1 GM/100 ML BAG IV ONE (07:00)
[2021-12-22] MEDS ORDERED: CEFEPIME/NS 1 GM/100 ML 1 GM/100 ML BAG IV SCH (07:00)
[2021-12-22] MEDS: PANTOPRAZOLE 80 MG in SODIUM CHLORIDE 0.9% 100 ML IV SCH (07:16)
[2021-12-22] MEDS: SODIUM POLYSTYRENE 15 GM/60 ML ORAL LIQD PR SCH ×2 (07:19→16:45)
[2021-12-22] MEDS ORDERED: DEXTROSE 50% IN WATER (25GM) 50 ML SYRINGE IV SCH (07:30)
[2021-12-22] MEDS ORDERED: EPINEPHrine 1 MG/10 ML SYRINGE ONE (07:34)
[2021-12-22] MEDS ORDERED: SODIUM CHLORIDE 0.9% 1000 ML 1,000 ML ONE (07:34)
[2021-12-22] MEDS ORDERED: WATER FOR IRRIG STERILE 1,000 ML BOTTLE ONE (07:35)
[2021-12-22] MEDS ORDERED: WATER FOR IRRIG STERILE 250 ML BOTTLE IR ONE (07:35)
[2021-12-22] MEDS ORDERED: propofoL 200 MG/20 ML VIAL IV ONE ×2 (07:36→07:37)
--- NOTE | 2021-12-22 07:55 | Anesthesia Day of Surgery ---
Anesthesia Day of Surgery - Day of Surgery Patient Examined: Yes Patient H&P Reviewed: Yes Patient is NPO: Yes
--- NOTE | 2021-12-22 07:55 | Anesthesia Consultation ---
Anesthesia Consult and Med Hx Date of service: 12/22/21 - Airway Anesthetic Teeth Evaluation: Good ROM Head & Neck: Adequate Mental/Hyoid Distance: Adequate Mallampati Class: Class II Intubation Access Assessment: Probably Good - Pulmonary Exam CTA: Yes - Cardiac Exam Cardiac Exam: RRR - Pre-Operative Health Status ASA Pre-Surgery Classification: ASA4, Emergency Proposed Anesthetic Plan: MAC - Pulmonary Hx Smoking: Yes (occasional cigars - last 05/2021) Hx Asthma: No Hx Respiratory Symptoms: No Hx Pneumonia: No Hx Sleep Apnea: No - Cardiovascular System Hx Hypertension: No Hx Coronary Artery Disease: No - Central Nervous System Hx Seizures: No CVA: No Hx Psychiatric Problems: No - Gastrointestinal Hx Gastroesophageal Reflux Disease: No - Endocrine Hx Renal Disease: Yes (ESRD, HD - last on 12/19/21) Hx End Stage Renal Disease: Yes Hx Cirrhosis: Yes (ETOH) Hx Non-Insulin Dependent Diabetes: No Hx Thyroid Disease: No - Hematic Hx Anemia: Yes (hgb 6.5/27 today) Hx Sickle Cell Disease: No - Other Systems Hx Alcohol Use: Yes Hx Substance Use: No Hx Cancer: No Hx Obesity: No - Additional Comments Anesthesia Medical History Comments: Potassium 6.[address] Bullard who would like to proceed due to the emergent nature of this procedure. EKG NSR at this time and patient appears to be asymptomatic from high potassium value. No hx of anesthetic complications.
[2021-12-22] MEDS ORDERED: METOCLOPRAMIDE 10 MG/2 ML INJ IV PRN (08:00)
[2021-12-22] MEDS ORDERED: OCTREOTIDE 500 MCG in SODIUM CHLORIDE 0.9% 100 ML IV SCH (08:00)
--- NOTE | 2021-12-22 08:37 | Operative Report ---
Operative Report Operative Report: Esophagogastroduodenoscopy Procedure Report Date of procedure: 12/22/2021 Endoscopist: Jose Angel Bullard Pre-op diagnosis/indication: GI bleed (melena, maroon blood per rectum) Post-op diagnosis: Grade II esophageal varices MEDICATIONS: MAC COMPLICATIONS: No immediate complications ESTIMATED BLOOD LOSS: None DESCRIPTION OF PROCEDURE: After consent was obtained, the patient was placed in the left lateral decubitis position. The Upper endoscope was inserted in the patient's mouth under direct vision and advanced into the esophagus, stomach and then duodenum without difficulty. The views of the mucosa were fair/adequate. The patient tolerated the procedure well. Vital signs were monitored continuously throughout the procedure. FINDINGS: There were multiple columns of grade II esophageal varices in the distal esophagus. There was possibly one varix with a red spot but there was no active bleeding. Banding was planned, however unable to grasp enough of the mucosa due to inadequate suctioning. There was no blood seen in the stomach, some retained liquids were seen. No obv ious bleeding source in the stomach otherwise. The duodenum appeared normal. IMPRESSION: 1. Grade II esophageal varices. One with small red spot but no active bleeding. Unclear if this represented a recent bleeding stigmata. Unable to band due to inadequate suctioning at bedside to grasp the mucosa. No active bleeding was seen at the end of the procedure. RECOMMENDATIONS: -can start clears -continue octreotide drip for 2 more days -monitor labs -eventually recommend non-selective beta car if vital signs/BP allows -will follow
[2021-12-22] MEDS ORDERED: SODIUM CHLORIDE 0.9% 100 ML IV PRN (09:18)
[2021-12-22] MEDS ORDERED: ALBUMIN HUMAN 25% (25 GM/100 ML) INJ IV PRN (09:18)
--- NOTE | 2021-12-22 09:18 | Consultation ---
History of Present Illness - Reason for Consult Consult date: 12/22/21 end stage renal disease Requesting physician: TOMMY BRIONES - History of Present Illness 41-year-old man with history of esophageal varices and recurrent GI bleed comes in for diffuse abdominal pain and blackening bloody stools for 2 days. Patient admits to nausea but no vomiting. Patient was recently admitted and discharged on 11/23/2021 for esophageal varices and ascites. Patient also has end-stage renal disease on hemodialysis. Patient had endoscopy and was on PPI drip and banding of 1 esophageal varices last admission. Patient continues to be actively bleeding. No hematemesis. No fever or chills. Compliant with his medication. [place] [facility] [place] He undergoes dialysis on MWF schedule. His last dialysis treatment was on Sunday. He did miss his dialysis treatment yesterday. Patient is currently on octreotide as well as Protonix drip. Oxygen saturation is 100%. He is currently on a facemask Past History Past Medical History: dialysis, other (cirrhosis, ESRD, history of GI bleed and hepatic encephalopathy) Past Surgical History: Other Social history: alcohol abuse (quit in May) Medications and Allergies Allergies Allergy/AdvReac Type Severity Reaction Status Date / Time No Known Allergies Allergy Verified 12/22/21 06:29 Home Medications Medication Instructions Recorded Confirmed Last Taken Type Lactulose [Cephulac] 20 gm PO TID #1 bottle 11/23/21 12/22/21 12/21/21 Rx Pantoprazole [Protonix TAB] 40 mg PO BID #60 tab 11/23/21 12/22/21 12/21/21 Rx Active Meds: Active Medications Acetaminophen (Acetaminophen 325 Mg Tab) 650 mg PO Q4H PRN PRN Reason: Pain MILD(1-3)/Fever >100.5/CARRERA Dextrose (Dextrose 50% In Water (25gm) 50 Ml Syringe) 50 ml IV ONCE@0730 JORDAN; Protocol Stop: 12/22/21 09:30 Last Admin: 12/22/21 07:19 Dose: 50 ml Hydromorphone HCl (Hydromorphone 0.5 Mg/0.5 Ml Inj) 0.5 mg IV Q3H PRN PRN Reason: Pain , Severe (7-10) Dextrose/Sodium Chloride (D5ns) 1,000 mls @ 100 mls/hr IV DIRECT JORDAN Last Admin: 12/22/21 02:56 Dose: 100 mls/hr Pantoprazole Sodium 80 mg/ (Sodium Chloride) 100 mls @ 10 mls/hr IV DIRECT JORDAN Last Admin: 12/22/21 07:16 Dose: 8 mg/hr, 10 mls/hr Cefepime HCl (Cefepime/Ns 1 Gm/100 Ml) 1 gm in 100 mls @ 200 mls/hr IV Q24HR JORDAN Octreotide Acetate 500 mcg/ (Sodium Chloride) 101 mls @ 5.05 mls/hr IV DIRECT JORDAN; Protocol Lactulose (Lactulose Enema 1000 Ml) 200 gm TN QDAY JORDAN Metoclopramide HCl (Metoclopramide 10 Mg/2 Ml Inj) 5 mg IV Q6H PRN PRN Reason: Nausea And Vomiting Morphine Sulfate (Morphine 2 Mg/1 Ml Inj) 2 mg IV Q4H PRN PRN Reason: Pain, Moderate (4-6) Last Admin: 12/21/21 20:50 Dose: 2 mg Ondansetron HCl (Ondansetron 4 Mg/2 Ml Inj) 4 mg IV Q3H PRN PRN Reason: Nausea And Vomiting Sodium Chloride (Sodium Chloride 0.9% 10 Ml Flush Syringe) 10 ml IV BID JORDAN Last Admin: 12/22/21 03:07 Dose: 10 ml Sodium Chloride (Sodium Chloride 0.9% 10 Ml Flush Syringe) 10 ml IV PRN PRN PRN Reason: LINE FLUSH Sodium Polystyrene Sulfonate (Sodium Polystyrene 15 Gm/60 Ml Oral Liqd) 30 gm TN Q4H JORDAN Stop: 12/22/21 11:01 Last Admin: 12/22/21 07:19 Dose: 30 gm Review of Systems All systems: negative (Negative except as noted above) Exam - Vital Signs Vital signs: Vital Signs Temp Pulse Resp BP Pulse Ox 98.6 F 112 H 16 103/66 100 12/21/21 09:23 12/21/21 09:23 12/21/21 09:23 12/21/21 09:23 12/21/21 09:23 - General Appearance General appearance: cachectic, other (Pleasant -Swedish male) EENT: PERRL, mucous membranes moist Neck: Present: neck supple, trachea midline, Other (Right IJ PermCath in place). Absent: JVD/HJR, Masses Respiratory: Clear to Ascultation Heart: regular, normal heart rate, S1S2, no murmurs Gastrointestinal: Present: distended, other (Ascites present) Integumentary: other (No edema) Results - Lab Results 12/22/21 04:22 12/22/21 04:22 Most recent lab results Calcium 8.3 mg/dL (8.4-10.2) L 12/22/21 04:22 Phosphorus 6.20 mg/dL (2.5-4.5) H 12/21/21 10:22 Magnesium 1.80 mg/dL (1.7-2.3) 12/21/21 10:22 Assessment and Plan Impression * End-stage renal disease on maintenance hemodialysis * GI bleed * Hyperkalemia * Cirrhosis of liver * Lactic acidosis * Leukocytosis Recommendations * Shall arrange for hemodialysis treatment for today. No heparin with dialysis * Hopefully his hyperkalemia will be corrected with dialysis * Transfuse packed RBC with dialysis * Adjust diet and meds for ESRD state * Hold phosphate binders for now * Shall administer Epogen as well * Avoid nephrotoxins * Monitor fluid status and electrolytes closely * Thank you very much for the consultation. Shall follow along with you
[2021-12-22] MEDS: CEFEPIME/NS 1 GM/100 ML 1 GM/100 ML BAG IV SCH (09:21)
--- NOTE | 2021-12-22 11:22 | Post Anesthesia Evaluation ---
- Post Anesthesia Evaluation Patient Participated: Yes Airway Patent: Yes Stable Respiratory Function: Yes Nausea/Vomiting: No Temp > 96.8F: Yes Pain Manageable: Yes Adequeate Hydration: Yes Anesthesia Complications: No Block Receding Appropriately: Not Applicable Patient on Ventilator: No
--- NOTE | 2021-12-22 16:00 | Progress Note ---
Assessment and Plan Assessment and plan: This is a 41-year-old male with EtOH cirrhosis, EV, ascites, ESRD on HD, chronic HE admitted for GIB Neuro: h/o chronic HE -Reorientation as needed -Maintain sleep-wake cycle -As needed analgesia -Continue lactulose Cardiac: h/o chronic hypotension -Home meds includes midodrine, restart as needed -Blood pressure monitoring per protocol Respiratory: Acute hypoxic respiratory failure -Weaned to RA -Pulmonary hygiene -SPO2 monitoring -Supplemental oxygen as needed GI: GIB, h/o EV, EtOH cirrhosis, GIB -GI consulted, patient recommendations -S/p EGD on 12/22 which showed grade 2 esophageal varices, one with small red spots but no active bleeding, unclear if this represents due to recent bleeding stigmata, unable to bend due to inadequate suctioning at bedside to assess the mucosa, no active bleeding seen at the end of the procedure -CLD -Octreotide drip for 2 days per GI -PPI -Stool occult positive -BR: lactulose : ESRD on HD -Nephrology consulted, appreciate recommendations -Renally dose medications -Avoid nephrotoxic medications -Epogen per nephro -Trend BMP ID: r/o SBP -On cefepime for now -Paracentesis pending -f/u blood culture -Monitor WBC and temperature curve Endo: NAD -Avoid hypoglycemia Heme: Leukocytosis, symptomatic anemia -Presented with H/H of 6.8/22.6 -S/p 3 units prbc -Serial h/h -Transfuse hemoglobin less than 7 -SCDs to BLE while in bed -Avoid chemical anticoagulation in setting of recent GI bleed The high probability of a clinically significant, sudden or life threatening deterioration of the [GI/CV] system(s) required my full and direct attention, intervention and personal management. The aggregate critical care time was [60] minutes. This time is in addition to time spent performing reported procedures but includes the following: [x] Data Review and interpretation [x] Patient assessment and monitoring of vital signs [x] Documentation [x] Medication orders and management Disposition Plan: imcu Total Time Spent with Patient (Minutes): 60 History Interval history: This is a 41-year-old male with EtOH cirrhosis, esophageal varices, ascites, ESRD on HD, chronic HE who presented to the hospital on 12/21 with complaints of diffuse abdominal pain and black and bloody stools over the past 2 days along with nausea and vomiting. Of note patient was seen here on 11/23/2021 and was discharged after having banding of 1 esophageal varice. In the emergency department patient was tachycardic and had a hemoglobin and hematocrit of 6.5/20.2, leukocytosis at 27.7, hyponatremia 135, hyperkalemia 6.1. Patient was admitted to the hospitalist service with consults to nephrology and GI. Hospital course to date: 12/22: Patient had an EGD today which showed no active variceal bleed, patient has been cleared for clear liquid diet and will continue Protonix IVP and octreotide drip. Hospitalist Physical - Constitutional Vitals: Temp Pulse Resp BP Pulse Ox 99.1 F 92 H 14 100/68 100 12/22/21 12:00 12/22/21 12:00 12/22/21 12:00 12/22/21 12:00 12/22/21 12:00 General appearance: Present: no acute distress, well-nourished - EENT Eyes: Present: PERRL, EOM intact ENT: hearing intact, clear oral mucosa, dentition normal - Neck Neck: Present: normal ROM - Respiratory Respiratory effort: normal Respiratory: bilateral: diminished - Cardiovascular Rhythm: regular Heart Sounds: Present: S1 & S2 - Extremities Extremities: no ischemia, pulses intact, pulses symmetrical, normal temperature, normal color Extremity abnormal: edema Peripheral Pulses: within normal limits - Abdominal General gastrointestinal: soft, tender, distended, normal bowel sounds, h epatomegaly - Integumentary Integumentary: Present: warm, dry - Psychiatric Psychiatric: cooperative - Neurologic Neurologic: CNII-XII intact, no focal deficits, moves all extremities - Allied Health Allied health notes reviewed: nursing, RT Results - Labs CBC & Chem 7: 12/22/21 04:22 12/22/21 04:22 Labs: Laboratory Last Values WBC 27.7 K/mm3 (4.5-11.0) H 12/22/21 04:22 RBC 2.19 M/mm3 (3.65-5.03) L 12/22/21 04:22 Hgb 6.5 gm/dl (11.8-15.2) L 12/22/21 04:22 Hct 20.2 % (35.5-45.6) L 12/22/21 04:22 MCV 92 fl (84-94) 12/22/21 04:22 MCH 30 pg (28-32) 12/22/21 04:22 MCHC 32 % (32-34) 12/22/21 04:22 RDW 18.9 % (13.2-15.2) H 12/22/21 04:22 Plt Count 164 K/mm3 (140-440) 12/22/21 04:22 Add Manual Diff Complete 12/22/21 04:22 Total Counted 100 12/22/21 04:22 Seg Neuts % (Manual) 85.0 % (40.0-70.0) H 12/22/21 04:22 Band Neutrophils % 0 % 12/22/21 04:22 Lymphocytes % (Manual) 7.0 % (13.4-35.0) L 12/22/21 04:22 Reactive Lymphs % (Man) 0 % 12/22/21 04:22 Monocytes % (Manual) 8.0 % (0.0-7.3) H 12/22/21 04:22 Eosinophils % (Manual) 0 % (0.0-4.3) 12/22/21 04:22 Basophils % (Manual) 0 % (0.0-1.8) 12/22/21 04:22 Metamyelocytes % 0 % 12/22/21 04:22 Myelocytes % 0 % 12/22/21 04:22 Promyelocytes % 0 % 12/22/21 04:22 Blast Cells % 0 % 12/22/21 04:22 Nucleated RBC % Not Reportable 12/22/21 04:22 Seg Neutrophils # Man 23.5 K/mm3 (1.8-7.7) H 12/22/21 04:22 Band Neutrophils # 0.0 K/mm3 12/22/21 04:22 Lymphocytes # (Manual) 1.9 K/mm3 (1.2-5.4) 12/22/21 04:22 Abs React Lymphs (Man) 0.0 K/mm3 12/22/21 04:22 Monocytes # (Manual) 2.2 K/mm3 (0.0-0.8) H 12/22/21 04:22 Eosinophils # (Manual) 0.0 K/mm3 (0.0-0.4) 12/22/21 04:22 Basophils # (Manual) 0.0 K/mm3 (0.0-0.1) 12/22/21 04:22 Metamyelocytes # 0.0 K/mm3 12/22/21 04:22 Myelocytes # 0.0 K/mm3 12/22/21 04:22 Promyelocytes # 0.0 K/mm3 12/22/21 04:22 Blast Cells # 0.0 K/mm3 12/22/21 04:22 WBC Morphology Not Reportable 12/22/21 04:22 Hypersegmented Neuts Not Reportable 12/22/21 04:22 Hyposegmented Neuts Not Reportable 12/22/21 04:22 Hypogranular Neuts Not Reportable 12/22/21 04:22 Smudge Cells Not Reportable 12/22/21 04:22 Toxic Granulation Not Reportable 12/22/21 04:22 Toxic Vacuolation Not Reportable 12/22/21 04:22 Dohle Bodies Not Reportable 12/22/21 04:22 Pelger-Huet Anomaly Not Reportable 12/22/21 04:22 Dmitri Rods Not Reportable 12/22/21 04:22 Platelet Estimate Consistent w auto 12/22/21 04:22 Clumped Platelets Not Reportable 12/22/21 04:22 Plt Clumps, EDTA Not Reportable 12/22/21 04:22 Large Platelets Not Reportable 12/22/21 04:22 Giant Platelets Not Reportable 12/22/21 04:22 Platelet Satelliting Not Reportable 12/22/21 04:22 Plt Morphology Comment Not Reportable 12/22/21 04:22 RBC Morphology Not Reportable 12/22/21 04:22 Dimorphic RBCs Not Reportable 12/22/21 04:22 Polychromasia Not Reportable 12/22/21 04:22 Hypochromasia Not Reportable 12/22/21 04:22 Poikilocytosis Not Reportable 12/22/21 04:22 Anisocytosis Not Reportable 12/22/21 04:22 Microcytosis Not Reportable 12/22/21 04:22 Macrocytosis Not Reportable 12/22/21 04:22 Spherocytes Not Reportable 12/22/21 04:22 Pappenheimer Bodies Not Reportable 12/22/21 04:22 Sickle Cells Not Reportable 12/22/21 04:22 Target Cells Not Reportable 12/22/21 04:22 Tear Drop Cells Not Reportable 12/22/21 04:22 Ovalocytes Not Reportable 12/22/21 04:22 Helmet Cells Not Reportable 12/22/21 04:22 Nicholson-Silt Bodies Not Reportable 12/22/21 04:22 Coral Rings Not Reportable 12/22/21 04:22 Zackary Cells Not Reportable 12/22/21 04:22 Bite Cells Not Reportable 12/22/21 04:22 Crenated Cell Not Reportable 12/22/21 04:22 Elliptocytes Not Reportable 12/22/21 04:22 Acanthocytes (Spur) Not Reportable 12/22/21 04:22 Rouleaux Not Reportable 12/22/21 04:22 Hemoglobin C Crystals Not Reportable 12/22/21 04:22 Schistocytes Not Reportable 12/22/21 04:22 Malaria parasites Not Reportable 12/22/21 04:22 Shamir Bodies Not Reportable 12/22/21 04:22 Hem Pathologist Commnt No 12/22/21 04:22 Sodium 135 mmol/L (137-145) L 12/22/21 04:22 Potassium 6.1 mmol/L (3.6-5.0) H* D 12/22/21 04:22 Chloride 98.4 mmol/L (98-107) 12/22/21 04:22 Carbon Dioxide 22 mmol/L (22-30) 12/22/21 04:22 Anion Gap 21 mmol/L 12/22/21 04:22 BUN 43 mg/dL (9-20) H 12/22/21 04:22 Creatinine 4.3 mg/dL (0.8-1.3) H 12/22/21 04:22 Estimated GFR 19 ml/min 12/22/21 04:22 BUN/Creatinine Ratio 10 % 12/22/21 04:22 Glucose 116 mg/dL (75-100) H 12/22/21 04:22 Lactic Acid 3.80 mmol/L (0.7-2.0) H* 12/22/21 07:38 Calcium 8.3 mg/dL (8.4-10.2) L 12/22/21 04:22 Phosphorus 6.20 mg/dL (2.5-4.5) H 12/21/21 10:22 Magnesium 1.80 mg/dL (1.7-2.3) 12/21/21 10:22 Total Bilirubin 2.20 mg/dL (0.1-1.2) H 12/22/21 04:22 AST 30 units/L (5-40) 12/22/21 04:22 ALT 11 units/L (7-56) 12/22/21 04:22 Alkaline Phosphatase 75 units/L (35-129) 12/22/21 04:22 Total Protein 5.4 g/dL (6.3-8.2) L 12/22/21 04:22 Albumin 2.2 g/dL (3.9-5) L 12/22/21 04:22 Albumin/Globulin Ratio 0.7 % 12/22/21 04:22 Lipase 10 units/L (13-60) L 12/21/21 10:22 Urine Color Gloria (Yellow) 12/21/21 18:34 Urine Turbidity Clear (Clear) 12/21/21 18:34 Urine pH 5.0 (5.0-7.0) 12/21/21 18:34 Ur Specific [place] 1.020 (1.003-1.030) 12/21/21 18:34 Urine Protein 100 mg/dl mg/dL (Negative) 12/21/21 18:34 Urine Glucose (UA) Negative mg/dL (Negative) 12/21/21 18:34 Urine Ketones Negative mg/dL (Negative) 12/21/21 18:34 Urine Blood Negative (Negative) 12/21/21 18:34 Urine Nitrite Negative (Negative) 12/21/21 18:34 Urine Bilirubin 1+ (Negative) 12/21/21 18:34 Urine Ictotest Positive (Negative) 12/21/21 18:34 Urine Urobilinogen 0.0 mg/dL (<2.0) 12/21/21 18:34 Ur Leukocyte Esterase 1+ (Negative) 12/21/21 18:34 Urine RBC (Auto) /HPF (0.0-6.0) 12/21/21 18:34 Blood Type O POSITIVE 12/21/21 12:48 Antibody Screen Negative 12/21/21 12:48 Crossmatch See Detail 12/21/21 12:48 Microbiology: Microbiology 12/21/21 12:48 Peripheral/Venous Blood Culture - Preliminary NO GROWTH AFTER 24 HOURS 12/21/21 12:48 Peripheral/Venous Blood Culture - Preliminary NO GROWTH AFTER 24 HOURS 12/21/21 13:25 Stool Stool Occult Blood (MELVIN) - Final Beltran/IV: Voiding Method Urinal Active Medications - Current Medications Current Medications: Generic Name Dose Route Start Last Admin Trade Name Freq PRN Reason Stop Dose Admin Acetaminophen 650 mg 12/21/21 19:32 Acetaminophen 325 Mg Tab PO Q4H PRN Pain MILD(1-3)/Fever >100.5/CARRERA Albumin Human 25 gm 12/22/21 09:18 Albumin Human 25% (25 Gm/100 Ml) Inj IV CLAUDIA PRN Hypotension Epoetin Gautam-epbx 20,000 unit 12/22/21 09:18 Epoetin Gautam-Epbx 20,000 Unit/1 Ml Vial IV CLAUDIA PRN hemodialysis Hydromorphone HCl 0.5 mg 12/21/21 19:43 Hydromorphone 0.5 Mg/0.5 Ml Inj IV Q3H PRN Pain , Severe (7-10) Dextrose/Sodium Chloride 1,000 mls @ 100 mls/hr 12/21/21 20:00 12/22/21 02:56 D5ns IV 100 mls/hr DIRECT JORDAN Administration Cefepime HCl 1 gm in 100 mls @ 200 mls/hr 12/22/21 10:00 12/22/21 09:21 Cefepime/Ns 1 Gm/100 Ml IV 200 mls/hr Q24HR JORDAN Administration Octreotide Acetate 500 mcg/ 101 mls @ 5.05 mls/hr 12/22/21 08:00 Sodium Chloride IV 12/24/21 07:59 DIRECT JORDAN Protocol 25 MCG/HR Sodium Chloride 100 mls @ 999 mls/hr 12/22/21 09:18 Nacl 0.9% IV CLAUDIA PRN Hypotension Lactulose 20 gm 12/22/21 20:00 Lactulose 20 Gm/30 Ml Oral Liqd PO TID JORDAN Metoclopramide HCl 5 mg 12/22/21 08:00 Metoclopramide 10 Mg/2 Ml Inj IV Q6H PRN Nausea And Vomiting Morphine Sulfate 2 mg 12/21/21 19:43 12/21/21 20:50 Morphine 2 Mg/1 Ml Inj IV 2 mg Q4H PRN Administration Pain, Moderate (4-6) Ondansetron HCl 4 mg 12/21/21 19:32 Ondansetron 4 Mg/2 Ml Inj IV Q3H PRN Nausea And Vomiting Pantoprazole Sodium 40 mg 12/23/21 10:00 Pantoprazole 40 Mg Inj IV QDAY JORDAN Sodium Chloride 10 ml 12/21/21 22:00 12/22/21 09:21 Sodium Chloride 0.9% 10 Ml Flush Syringe IV 10 ml BID JORDAN Administration Sodium Chloride 10 ml 12/21/21 19:32 Sodium Chloride 0.9% 10 Ml Flush Syringe IV PRN PRN LINE FLUSH
[2021-12-22 16:58] LABS: Hematocrit 24.5 % (35.5-45.6); Hemoglobin 8.2 gm/dl (11.8-15.2); Mean Corpuscular HGB Conc 34 % (32-34); Mean Corpuscular Volume 92 fl (84-94); Platelet Count 143 K/mm3 (140-440); Red Blood Count 2.67 M/mm3 (3.65-5.03); Red Cell Distribution Width 18.5 % (13.2-15.2)
[2021-12-22 17:37] LABS: Hepatitis B Surface Antigen Non-Reactive (Negative); Hepatitis C Virus Antibody Non-Reactive (NonReactive)
[2021-12-22] MEDS: EPOETIN ALFA-EPBX 20,000 UNIT/1 ML VIAL IV PRN (21:45)
[2021-12-22 23:07] LABS: Hematocrit 21.5 % (35.5-45.6); Hemoglobin 7.2 gm/dl (11.8-15.2); Mean Corpuscular HGB Conc 34 % (32-34); Mean Corpuscular Volume 91 fl (84-94); Platelet Count 126 K/mm3 (140-440); Red Blood Count 2.36 M/mm3 (3.65-5.03); Red Cell Distribution Width 17.4 % (13.2-15.2)
[2021-12-23] MEDS: MORPHINE 2 MG/1 ML INJ IV PRN (00:45)
[2021-12-23] MEDS: LACTULOSE 20 GM/30 ML ORAL LIQD PO SCH ×4 (00:45→23:06)
[2021-12-23 05:16] LABS: Basophils % (Auto) 0.3 % (0.0-1.8); Hematocrit 22.9 % (35.5-45.6); Hemoglobin 7.5 gm/dl (11.8-15.2); Lymphocytes # (Auto) 1.5 K/mm3 (1.2-5.4); Lymphocytes % (Auto) 11.6 % (13.4-35.0); Mean Corpuscular HGB Conc 33 % (32-34); Mean Corpuscular Volume 91 fl (84-94); Monocytes # (Auto) 1.2 K/mm3 (0.0-0.8); Monocytes % (Auto) 9.4 % (0.0-7.3); Platelet Count 135 K/mm3 (140-440); Red Cell Distribution Width 17.9 % (13.2-15.2)
[2021-12-23 05:30] LABS: Calcium 7.7 mg/dL (8.4-10.2)
[2021-12-23] MEDS ORDERED: MAGNESIUM SULFATE 2 GM/50 ML BAG IV SCH (09:00)
--- NOTE | 2021-12-23 10:06 | Gastroenterology Progress Note ---
<RAMSES BEAUCHAMP - Last Filed: 12/23/21 10:07> Assessment and Plan 1. GI bleed - resolved - hemoglobin 12.2, continue to monitor and transfuse as needed - EGD yesterday revealed Grade II esophageal varices. onw with small red spot b ut not active bleeding. Unclear if this represented a recent bleeding stigmata. Unable to band d/t inadequate suctioning at bedside to grasp the mucosa. No active bleeding was seen at the end of the procedure. - continue CLD - continue octreotide drip for x1 more day - eventually recommend non-selective beta car if vitals/BP allow 2. Diffuse abd pain - ascites present - recommend paracentesis w/ fluid studies to r/o peritonitis Subjective Date of service: 12/23/21 Principal diagnosis: Gi bleed Interval history: Pt seen and examined. Lying comfortably in bed. Denies overt upper/lower GI bleeding. Reports dark BMs. Endorses generalized abd pain. Denies issues with clear liquids. Objective - Constitutional Vitals: Temp Pulse Resp BP Pulse Ox 97.2 F L 100 H 14 136/81 100 12/23/21 04:07 12/23/21 04:00 12/23/21 04:00 12/22/21 22:19 12/23/21 04:00 - EENT ENT: hearing intact - Gastrointestinal General gastrointestinal: Present: tender, distended - Neurologic Neurological: alert and oriented x3 - Labs CBC & Chem 7: 12/23/21 04:24 12/23/21 04:24 Labs: Laboratory Results - last 24 hr 12/21/21 12/22/21 12/22/21 12:48 15:50 15:50 WBC RBC Hgb Hct MCV MCH MCHC RDW Plt Count Lymph % (Auto) [place] % (Auto) Eos % (Auto) Baso % (Auto) Lymph # (Auto) [place] # (Auto) Eos # (Auto) Baso # (Auto) Seg Neutrophils % Seg Neutrophils # Sodium Potassium 5.3 H Chloride Carbon Dioxide Anion Gap BUN Creatinine Estimated GFR BUN/Creatinine Ratio Glucose Lactic Acid Calcium Phosphorus Magnesium Ammonia Hepatitis A IgM Ab Non-reactive Hep Bs Antigen Non-reactive Hep B Core IgM Ab Non-reactive Hepatitis C Antibody Non-reactive Blood Type O POSITIVE Antibody Screen Negative Crossmatch See Detail 12/22/21 12/22/21 12/22/21 16:35 16:35 16:35 WBC 20.2 H RBC 2.67 L Hgb 8.2 L Hct 24.5 L MCV 92 MCH 31 MCHC 34 RDW 18.5 H Plt Count 143 Lymph % (Auto) [place] % (Auto) Eos % (Auto) Baso % (Auto) Lymph # (Auto) [place] # (Auto) Eos # (Auto) Baso # (Auto) Seg Neutrophils % Seg Neutrophils # Sodium Potassium Chloride Carbon Dioxide Anion Gap BUN Creatinine Estimated GFR BUN/Creatinine Ratio Glucose Lactic Acid 2.80 H* Calcium Phosphorus Magnesium Ammonia 56.0 Hepatitis A IgM Ab Hep Bs Antigen Hep B Core IgM Ab Hepatitis C Antibody Blood Type Antibody Screen Crossmatch 12/22/21 12/22/21 12/23/21 22:49 22:49 04:24 WBC 15.7 H RBC 2.36 L Hgb 7.2 L Hct 21.5 L MCV 91 MCH 31 MCHC 34 RDW 17.4 H Plt Count 126 L Lymph % (Auto) [place] % (Auto) Eos % (Auto) Baso % (Auto) Lymph # (Auto) [place] # (Auto) Eos # (Auto) Baso # (Auto) Seg Neutrophils % Seg Neutrophils # Sodium Potassium Chloride Carbon Dioxide Anion Gap BUN Creatinine Estimated GFR BUN/Creatinine Ratio Glucose Lactic Acid 2.40 H* 1.70 Calcium Phosphorus Magnesium Ammonia Hepatitis A IgM Ab Hep Bs Antigen Hep B Core IgM Ab Hepatitis C Antibody Blood Type Antibody Screen Crossmatch 12/23/21 12/23/21 04:24 04:24 WBC 12.9 H RBC 2.50 L Hgb 7.5 L Hct 22.9 L MCV 91 MCH 30 MCHC 33 RDW 17.9 H Plt Count 135 L Lymph % (Auto) 11.6 L [place] % (Auto) 9.4 H Eos % (Auto) 0.0 Baso % (Auto) 0.3 Lymph # (Auto) 1.5 [place] # (Auto) 1.2 H Eos # (Auto) 0.0 Baso # (Auto) 0.0 Seg Neutrophils % 78.7 H Seg Neutrophils # 10.2 H Sodium 135 L Potassium 3.9 D Chloride 100.0 Carbon Dioxide 27 Anion Gap 12 BUN 26 H Creatinine 2.7 H Estimated GFR 32 BUN/Creatinine Ratio 10 Glucose 99 Lactic Acid Calcium 7.7 L Phosphorus 3.80 Magnesium 1.50 L Ammonia Hepatitis A IgM Ab Hep Bs Antigen Hep B Core IgM Ab Hepatitis C Antibody Blood Type Antibody Screen Crossmatch <ELIANE BRIONES A - Last Filed: 12/23/21 14:26> Assessment and Plan Patient seen and examined. I spent over 50% of time on management and care of the patient. Hgb stable (7-8 range), no overt gi bleeding today, cont octreotide through tomorrow, would empirically treat for SBP given sepsis on exam (f/u ascitic fluid studies). pt does not have insurance so unable to pursue transplant work-up at present time. Objective - Constitutional Vitals: Temp Pulse Resp BP Pulse Ox 97.2 F L 100 H 14 136/81 100 12/23/21 04:07 12/23/21 04:00 12/23/21 04:00 12/22/21 22:19 12/23/21 04:00 - Labs CBC & Chem 7: 12/23/21 10:14 12/23/21 04:24 Labs: Laboratory Results - last 24 hr 12/21/21 12/22/21 12/22/21 12:48 15:50 15:50 WBC RBC Hgb Hct MCV MCH MCHC RDW Plt Count Lymph % (Auto) [place] % (Auto) Eos % (Auto) Baso % (Auto) Lymph # (Auto) [place] # (Auto) Eos # (Auto) Baso # (Auto) Seg Neutrophils % Seg Neutrophils # Sodium Potassium 5.3 H Chloride Carbon Dioxide Anion Gap BUN Creatinine Estimated GFR BUN/Creatinine Ratio Glucose Lactic Acid Calcium Phosphorus Magnesium Ammonia Nasal Screen MRSA (PCR) Hepatitis A IgM Ab Non-reactive Hep Bs Antigen Non-reactive Hep B Core IgM Ab Non-reactive Hepatitis C Antibody Non-reactive Crossmatch See Detail 12/22/21 12/22/21 12/22/21 16:35 16:35 16:35 WBC 20.2 H RBC 2.67 L Hgb 8.2 L Hct 24.5 L MCV 92 MCH 31 MCHC 34 RDW 18.5 H Plt Count 143 Lymph % (Auto) [place] % (Auto) Eos % (Auto) Baso % (Auto) Lymph # (Auto) [place] # (Auto) Eos # (Auto) Baso # (Auto) Seg Neutrophils % Seg Neutrophils # Sodium Potassium Chloride Carbon Dioxide Anion Gap BUN Creatinine Estimated GFR BUN/Creatinine Ratio Glucose Lactic Acid 2.80 H* Calcium Phosphorus Magnesium Ammonia 56.0 Nasal Screen MRSA (PCR) Hepatitis A IgM Ab Hep Bs Antigen Hep B Core IgM Ab Hepatitis C Antibody Crossmatch 12/22/21 12/22/21 12/23/21 22:49 22:49 04:24 WBC 15.7 H RBC 2.36 L Hgb 7.2 L Hct 21.5 L MCV 91 MCH 31 MCHC 34 RDW 17.4 H Plt Count 126 L Lymph % (Auto) [place] % (Auto) Eos % (Auto) Baso % (Auto) Lymph # (Auto) [place] # (Auto) Eos # (Auto) Baso # (Auto) Seg Neutrophils % Seg Neutrophils # Sodium Potassium Chloride Carbon Dioxide Anion Gap BUN Creatinine Estimated GFR BUN/Creatinine Ratio Glucose Lactic Acid 2.40 H* 1.70 Calcium Phosphorus Magnesium Ammonia Nasal Screen MRSA (PCR) Hepatitis A IgM Ab Hep Bs Antigen Hep B Core IgM Ab Hepatitis C Antibody Crossmatch 12/23/21 12/23/21 12/23/21 04:24 04:24 10:14 WBC 12.9 H RBC 2.50 L Hgb 7.5 L 7.8 L Hct 22.9 L 22.9 L MCV 91 MCH 30 MCHC 33 RDW 17.9 H Plt Count 135 L Lymph % (Auto) 11.6 L [place] % (Auto) 9.4 H Eos % (Auto) 0.0 Baso % (Auto) 0.3 Lymph # (Auto) 1.5 [place] # (Auto) 1.2 H Eos # (Auto) 0.0 Baso # (Auto) 0.0 Seg Neutrophils % 78.7 H Seg Neutrophils # 10.2 H Sodium 135 L Potassium 3.9 D Chloride 100.0 Carbon Dioxide 27 Anion Gap 12 BUN 26 H Creatinine 2.7 H Estimated GFR 32 BUN/Creatinine Ratio 10 Glucose 99 Lactic Acid Calcium 7.7 L Phosphorus 3.80 Magnesium 1.50 L Ammonia Nasal Screen MRSA (PCR) Hepatitis A IgM Ab Hep Bs Antigen Hep B Core IgM Ab Hepatitis C Antibody Crossmatch 12/23/21 10:36 WBC RBC Hgb Hct MCV MCH MCHC RDW Plt Count Lymph % (Auto) [place] % (Auto) Eos % (Auto) Baso % (Auto) Lymph # (Auto) [place] # (Auto) Eos # (Auto) Baso # (Auto) Seg Neutrophils % Seg Neutrophils # Sodium Potassium Chloride Carbon Dioxide Anion Gap BUN Creatinine Estimated GFR BUN/Creatinine Ratio Glucose Lactic Acid Calcium Phosphorus Magnesium Ammonia Nasal Screen MRSA (PCR) Negative Hepatitis A IgM Ab Hep Bs Antigen Hep B Core IgM Ab Hepatitis C Antibody Crossmatch
[2021-12-23 10:37] LABS: Hematocrit 22.9 % (35.5-45.6); Hemoglobin 7.8 gm/dl (11.8-15.2)
[2021-12-23] MEDS: PANTOPRAZOLE 40 MG INJ IV SCH (10:43)
[2021-12-23] MEDS: CEFEPIME/NS 1 GM/100 ML 1 GM/100 ML BAG IV SCH (10:44)
--- NOTE | 2021-12-23 10:59 | Progress Note ---
Assessment and Plan Impression * End-stage renal disease on maintenance hemodialysis * GI bleed * Hyperkalemia * Cirrhosis of liver * Lactic acidosis * Leukocytosis Recommendations * Continue HD // or prn * No indication for additional HD today per clinical assessment, lab review * Transfuse packed RBC prn * Adjust diet and meds for ESRD state * Hold phosphate binders for now * Continue Epogen with HD * Avoid nephrotoxins * Monitor fluid status and electrolytes closely * Thank you very much for the consultation. Shall follow along with you Subjective Date of service: 12/23/21 Principal diagnosis: Gi bleed Interval history: Resting in bed, off oxygen Objective - Exam Narrative Exam: General appearance: cachectic, other (Pleasant -[place] male) EENT: PERRL, mucous membranes moist Neck: Present: neck supple, trachea midline, Other (Right IJ PermCath in place). Respiratory: Clear to Ascultation Heart: regular, normal heart rate, S1S2, no murmurs Gastrointestinal: Present: distended, other (Ascites present) Integumentary: other (No edema) - Vital Signs Vital signs: Vital Signs - 12hr 12/23/21 12/23/21 12/23/21 00:00 04:00 04:07 Temperature 97.2 F L Pulse Rate [ 101 H 100 H From Monitor] Pulse Rate [ 101 H 100 H Left Dorsalis Pedis] Pulse Rate [ 101 H 100 H Right Dorsalis Pedis] Respiratory 14 14 Rate O2 Sat by Pulse 100 100 Oximetry - Lab 12/23/21 10:14 12/23/21 04:24 Most recent lab results Calcium 7.7 mg/dL (8.4-10.2) L 12/23/21 04:24 Phosphorus 3.80 mg/dL (2.5-4.5) 12/23/21 04:24 Magnesium 1.50 mg/dL (1.7-2.3) L 12/23/21 04:24 Medications & Allergies - Medications Allergies/Adverse Reactions: Allergies No Known Allergies Allergy (Verified 12/22/21 06:29) Home Medications: Home Medications Medication Instructions Recorded Confirmed Last Taken Type Lactulose [Cephulac] 20 gm PO TID #1 bottle 11/23/21 12/22/21 12/21/21 Rx Pantoprazole [Protonix TAB] 40 mg PO BID #60 tab 11/23/21 12/22/21 12/21/21 Rx Active Medications: Generic Name Dose Route Start Last Admin Trade Name Freq PRN Reason Stop Dose Admin Acetaminophen 650 mg 12/21/21 19:32 Acetaminophen 325 Mg Tab PO Q4H PRN Pain MILD(1-3)/Fever >100.5/CARRERA Albumin Human 25 gm 12/22/21 09:18 Albumin Human 25% (25 Gm/100 Ml) Inj IV CLAUDIA PRN Hypotension Epoetin Gautam-epbx 20,000 unit 12/22/21 09:18 12/22/21 21:45 Epoetin Gautam-Epbx 20,000 Unit/1 Ml Vial IV 20,000 unit CLAUDIA PRN Administration hemodialysis Hydromorphone HCl 0.5 mg 12/21/21 19:43 Hydromorphone 0.5 Mg/0.5 Ml Inj IV Q3H PRN Pain , Severe (7-10) Cefepime HCl 1 gm in 100 mls @ 200 mls/hr 12/22/21 10:00 12/23/21 10:44 Cefepime/Ns 1 Gm/100 Ml IV 12/27/21 09:59 200 mls/hr Q24HR JORDAN Administration Octreotide Acetate 500 mcg/ 101 mls @ 5.05 mls/hr 12/22/21 08:00 Sodium Chloride IV 12/24/21 07:59 DIRECT JORDAN Protocol 25 MCG/HR Sodium Chloride 100 mls @ 999 mls/hr 12/22/21 09:18 Nacl 0.9% IV CLAUDIA PRN Hypotension Magnesium Sulfate 2 gm in 50 mls @ 25 mls/hr 12/23/21 09:00 12/23/21 10:00 Magnesium Sulfate 2gm/50ml IV 12/23/21 13:00 25 mls/hr ONCE@0900 JORDAN Administration Lactulose 20 gm 12/22/21 20:00 12/23/21 08:35 Lactulose 20 Gm/30 Ml Oral Liqd PO 20 gm TID JORDAN Administration Metoclopramide HCl 5 mg 12/22/21 08:00 Metoclopramide 10 Mg/2 Ml Inj IV Q6H PRN Nausea And Vomiting Morphine Sulfate 2 mg 12/21/21 19:43 12/23/21 00:45 Morphine 2 Mg/1 Ml Inj IV 2 mg Q4H PRN Administration Pain, Moderate (4-6) Ondansetron HCl 4 mg 12/21/21 19:32 Ondansetron 4 Mg/2 Ml Inj IV Q3H PRN Nausea And Vomiting Pantoprazole Sodium 40 mg 12/23/21 10:00 12/23/21 10:43 Pantoprazole 40 Mg Inj IV 40 mg QDAY JORDAN Administration Sodium Chloride 10 ml 12/21/21 22:00 12/23/21 10:45 Sodium Chloride 0.9% 10 Ml Flush Syringe IV 10 ml BID JORDNA Administration Sodium Chloride 10 ml 12/21/21 19:32 Sodium Chloride 0.9% 10 Ml Flush Syringe IV PRN PRN LINE FLUSH
--- NOTE | 2021-12-23 12:00 | Procedure Note ---
Date of procedure: 12/23/21 Pre-op diagnosis: ascites Post-op diagnosis: same Procedure: US guided paracentesis Findings: See radiology report Anesthesia: local Surgeon: VIJAY GIRON Estimated blood loss: none Pathology: none Specimen disposition: discarded Condition: stable Disposition: floor
[2021-12-23] MEDS ORDERED: ALBUMIN HUMAN 25% (25 GM/100 ML) INJ IV ONE (14:00)
--- NOTE | 2021-12-23 14:07 | Progress Note ---
<ALLISONWALTER VazquezRoseanne - Last Filed: 12/23/21 14:04> Assessment and Plan Assessment and plan: This is a 41-year-old male with EtOH cirrhosis, EV, ascites, ESRD on HD, chronic HE admitted for GIB Neuro: h/o chronic HE -Reorientation as needed -Maintain sleep-wake cycle -As needed analgesia -Continue lactulose Cardiac: h/o chronic hypotension -Home meds includes midodrine, restart as needed -Blood pressure monitoring per protocol Respiratory: Acute hypoxic respiratory failure -Weaned to RA -Pulmonary hygiene -SPO2 monitoring -Supplemental oxygen as needed GI: GIB, h/o EV, EtOH cirrhosis, GIB -GI consulted, patient recommendations -S/p EGD on 12/22 which showed grade 2 esophageal varices, one with small red spots but no active bleeding, unclear if this represents due to recent bleeding stigmata, unable to bend due to inadequate suctioning at bedside to assess the mucosa, no active bleeding seen at the end of the procedure -CLD -Octreotide drip for 2 days per GI -PPI -Stool occult positive -BR: lactulose : ESRD on HD -Nephrology consulted, appreciate recommendations -Renally dose medications -Avoid nephrotoxic medications -Epogen per nephro -Trend BMP ID: r/o SBP -On cefepime for now -Paracentesis completed 12/23 with removal of 7.5 L -Albumin post procedure -Fluid studies pending -f/u blood culture -Monitor WBC and temperature curve Endo: NAD -Avoid hypoglycemia Heme: Leukocytosis, symptomatic anemia -Presented with H/H of 6.8/22.6 -S/p 3 units prbc -Serial h/h -Transfuse hemoglobin less than 7 -SCDs to BLE while in bed -Avoid chemical anticoagulation in setting of recent GI bleed The high probability of a clinically significant, sudden or life threatening deterioration of the [GI/CV] system(s) required my full and direct attention, intervention and personal management. The aggregate critical care time was [60] minutes. This time is in addition to time spent performing reported procedures but includes the following: [x] Data Review and interpretation [x] Patient assessment and monitoring of vital signs [x] Documentation [x] Medication orders and management Disposition Plan: imcu Total Time Spent with Patient (Minutes): 60 History Interval history: This is a 41-year-old male with EtOH cirrhosis, esophageal varices, ascites, ESRD on HD, chronic HE who presented to the hospital on 12/21 with complaints of diffuse abdominal pain and black and bloody stools over the past 2 days along with nausea and vomiting. Of note patient was seen here on 11/23/2021 and was discharged after having banding of 1 esophageal varice. In the emergency department patient was tachycardic and had a hemoglobin and hematocrit of 6.5/20.2, leukocytosis at 27.7, hyponatremia 135, hyperkalemia 6.1. Patient was admitted to the hospitalist service with consults to nephrology and GI. Hospital course to date: 12/22: Patient had an EGD today which showed no active variceal bleed, patient has been cleared for clear liquid diet and will continue Protonix IVP and octreotide drip. 12/23: Patient had paracentesis today with removal 7.5 L. Lab studies ordered. Will administer albumin. Hospitalist Physical - Constitutional Vitals: Temp Pulse Resp BP Pulse Ox 97.2 F L 100 H 14 136/81 100 12/23/21 04:07 12/23/21 04:00 12/23/21 04:00 12/22/21 22:19 12/23/21 04:00 General appearance: Present: no acute distress, well-nourished - EENT Eyes: Present: PERRL, EOM intact, scleral icterus ENT: hearing intact, clear oral mucosa, dentition normal - Neck Neck: Present: normal ROM - Respiratory Respiratory effort: normal Respiratory: bilateral: CTA, diminished - Cardiovascular Rhythm: regular Heart Sounds: Present: S1 & S2. Absent: systolic murmur, diastolic murmur - Extremities Extremities: no ischemia, pulses intact, pulses symmetrical, No edema, normal temperature, normal color, Full ROM Peripheral Pulses: within normal limits - Abdominal General gastrointestinal: soft, non-tender, non-distended, normal bowel sounds - Integumentary Integumentary: Present: warm, dry - Psychiatric Psychiatric: cooperative - Neurologic Neurologic: CNII-XII intact, no focal deficits, moves all extremities - Allied Health Allied health notes reviewed: nursing, social work Results - Labs CBC & Chem 7: 12/23/21 10:14 12/23/21 04:24 Labs: Laboratory Last Values WBC 12.9 K/mm3 (4.5-11.0) H 07/29/22 04:24 RBC 2.50 M/mm3 (3.65-5.03) L 12/23/21 04:24 Hgb 7.8 gm/dl (11.8-15.2) L 12/23/21 10:14 Hct 22.9 % (35.5-45.6) L 12/23/21 10:14 MCV 91 fl (84-94) 12/23/21 04:24 MCH 30 pg (28-32) 12/23/21 04:24 MCHC 33 % (32-34) 12/23/21 04:24 RDW 17.9 % (13.2-15.2) H 12/23/21 04:24 Plt Count 135 K/mm3 (140-440) L 12/23/21 04:24 Lymph % (Auto) 11.6 % (13.4-35.0) L 12/23/21 04:24 Pender % (Auto) 9.4 % (0.0-7.3) H 12/23/21 04:24 Eos % (Auto) 0.0 % (0.0-4.3) 12/23/21 04:24 Baso % (Auto) 0.3 % (0.0-1.8) 12/23/21 04:24 Lymph # (Auto) 1.5 K/mm3 (1.2-5.4) 12/23/21 04:24 Pender # (Auto) 1.2 K/mm3 (0.0-0.8) H 12/23/21 04:24 Eos # (Auto) 0.0 K/mm3 (0.0-0.4) 12/23/21 04:24 Baso # (Auto) 0.0 K/mm3 (0.0-0.1) 12/23/21 04:24 Add Manual Diff Complete 12/22/21 04:22 Total Counted 100 12/22/21 04:22 Seg Neutrophils % 78.7 % (40.0-70.0) H 12/23/21 04:24 Seg Neuts % (Manual) 85.0 % (40.0-70.0) H 12/22/21 04:22 Band Neutrophils % 0 % 12/22/21 04:22 Lymphocytes % (Manual) 7.0 % (13.4-35.0) L 12/22/21 04:22 Reactive Lymphs % (Man) 0 % 12/22/21 04:22 Monocytes % (Manual) 8.0 % (0.0-7.3) H 12/22/21 04:22 Eosinophils % (Manual) 0 % (0.0-4.3) 12/22/21 04:22 Basophils % (Manual) 0 % (0.0-1.8) 12/22/21 04:22 Metamyelocytes % 0 % 12/22/21 04:22 Myelocytes % 0 % 12/22/21 04:22 Promyelocytes % 0 % 12/22/21 04:22 Blast Cells % 0 % 12/22/21 04:22 Nucleated RBC % Not Reportable 12/22/21 04:22 Seg Neutrophils # 10.2 K/mm3 (1.8-7.7) H 12/23/21 04:24 Seg Neutrophils # Man 23.5 K/mm3 (1.8-7.7) H 12/22/21 04:22 Band Neutrophils # 0.0 K/mm3 12/22/21 04:22 Lymphocytes # (Manual) 1.9 K/mm3 (1.2-5.4) 12/22/21 04:22 Abs React Lymphs (Man) 0.0 K/mm3 12/22/21 04:22 Monocytes # (Manual) 2.2 K/mm3 (0.0-0.8) H 12/22/21 04:22 Eosinophils # (Manual) 0.0 K/mm3 (0.0-0.4) 12/22/21 04:22 Basophils # (Manual) 0.0 K/mm3 (0.0-0.1) 12/22/21 04:22 Metamyelocytes # 0.0 K/mm3 12/22/21 04:22 Myelocytes # 0.0 K/mm3 12/22/21 04:22 Promyelocytes # 0.0 K/mm3 12/22/21 04:22 Blast Cells # 0.0 K/mm3 12/22/21 04:22 WBC Morphology Not Reportable 12/22/21 04:22 Hypersegmented Neuts Not Reportable 12/22/21 04:22 Hyposegmented Neuts Not Reportable 07/28/22 04:22 Hypogranular Neuts Not Reportable 12/22/21 04:22 Smudge Cells Not Reportable 12/22/21 04:22 Toxic Granulation Not Reportable 12/22/21 04:22 Toxic Vacuolation Not Reportable 12/22/21 04:22 Dohle Bodies Not Reportable 12/22/21 04:22 Pelger-Huet Anomaly Not Reportable 12/22/21 04:22 Dmitri Rods Not Reportable 12/22/21 04:22 Platelet Estimate Consistent w auto 12/22/21 04:22 Clumped Platelets Not Reportable 12/22/21 04:22 Plt Clumps, EDTA Not Reportable 12/22/21 04:22 Large Platelets Not Reportable 12/22/21 04:22 Giant Platelets Not Reportable 12/22/21 04:22 Platelet Satelliting Not Reportable 12/22/21 04:22 Plt Morphology Comment Not Reportable 12/22/21 04:22 RBC Morphology Not Reportable 12/22/21 04:22 Dimorphic RBCs Not Reportable 12/22/21 04:22 Polychromasia Not Reportable 12/22/21 04:22 Hypochromasia Not Reportable 12/22/21 04:22 Poikilocytosis Not Reportable 12/22/21 04:22 Anisocytosis Not Reportable 12/22/21 04:22 Microcytosis Not Reportable 12/22/21 04:22 Macrocytosis Not Reportable 12/22/21 04:22 Spherocytes Not Reportable 12/22/21 04:22 Pappenheimer Bodies Not Reportable 12/22/21 04:22 Sickle Cells Not Reportable 12/22/21 04:22 Target Cells Not Reportable 12/22/21 04:22 Tear Drop Cells Not Reportable 12/22/21 04:22 Ovalocytes Not Reportable 12/22/21 04:22 Helmet Cells Not Reportable 12/22/21 04:22 [place] Bodies Not Reportable 12/22/21 04:22 [place] Rings Not Reportable 12/22/21 04:22 Saffell Cells Not Reportable 12/22/21 04:22 Bite Cells Not Reportable 12/22/21 04:22 Crenated Cell Not Reportable 12/22/21 04:22 Elliptocytes Not Reportable 12/22/21 04:22 Acanthocytes (Spur) Not Reportable 12/22/21 04:22 Rouleaux Not Reportable 12/22/21 04:22 Hemoglobin C Crystals Not Reportable 12/22/21 04:22 Schistocytes Not Reportable 12/22/21 04:22 Malaria parasites Not Reportable 12/22/21 04:22 Shamir Bodies Not Reportable 12/22/21 04:22 Hem Pathologist Commnt No 12/22/21 04:22 Sodium 135 mmol/L (137-145) L 12/23/21 04:24 Potassium 3.9 mmol/L (3.6-5.0) D 12/23/21 04:24 Chloride 100.0 mmol/L (98-107) 12/23/21 04:24 Carbon Dioxide 27 mmol/L (22-30) 12/23/21 04:24 Anion Gap 12 mmol/L 12/23/21 04:24 BUN 26 mg/dL (9-20) H 12/23/21 04:24 Creatinine 2.7 mg/dL (0.8-1.3) H 12/23/21 04:24 Estimated GFR 32 ml/min 12/23/21 04:24 BUN/Creatinine Ratio 10 % 12/23/21 04:24 Glucose 99 mg/dL (75-100) 12/23/21 04:24 Lactic Acid 1.70 mmol/L (0.7-2.0) 12/23/21 04:24 Calcium 7.7 mg/dL (8.4-10.2) L 12/23/21 04:24 Phosphorus 3.80 mg/dL (2.5-4.5) 12/23/21 04:24 Magnesium 1.50 mg/dL (1.7-2.3) L 12/23/21 04:24 Total Bilirubin 2.20 mg/dL (0.1-1.2) H 12/22/21 04:22 AST 30 units/L (5-40) 12/22/21 04:22 ALT 11 units/L (7-56) 12/22/21 04:22 Alkaline Phosphatase 75 units/L (35-129) 12/22/21 04:22 Ammonia 56.0 umol/L (25-60) 12/22/21 16:35 Total Protein 5.4 g/dL (6.3-8.2) L 12/22/21 04:22 Albumin 2.2 g/dL (3.9-5) L 12/22/21 04:22 Albumin/Globulin Ratio 0.7 % 12/22/21 04:22 Lipase 10 units/L (13-60) L 12/21/21 10:22 Urine Color Gloria (Yellow) 12/21/21 18:34 Urine Turbidity Clear (Clear) 12/21/21 18:34 Urine pH 5.0 (5.0-7.0) 12/21/21 18:34 Ur Specific Edison 1.020 (1.003-1.030) 12/21/21 18:34 Urine Protein 100 mg/dl mg/dL (Negative) 12/21/21 18:34 Urine Glucose (UA) Negative mg/dL (Negative) 12/21/21 18:34 Urine Ketones Negative mg/dL (Negative) 12/21/21 18:34 Urine Blood Negative (Negative) 12/21/21 18:34 Urine Nitrite Negative (Negative) 12/21/21 18:34 Urine Bilirubin 1+ (Negative) 12/21/21 18:34 Urine Ictotest Positive (Negative) 12/21/21 18:34 Urine Urobilinogen 0.0 mg/dL (<2.0) 12/21/21 18:34 Ur Leukocyte Esterase 1+ (Negative) 12/21/21 18:34 Urine RBC (Auto) /HPF (0.0-6.0) 12/21/21 18:34 Hepatitis A IgM Ab Non-reactive (NonReactive) 12/22/21 15:50 Hep Bs Antigen Non-reactive (Negative) 12/22/21 15:50 Hep B Core IgM Ab Non-reactive (NonReactive) 12/22/21 15:50 Hepatitis C Antibody Non-reactive (NonReactive) 12/22/21 15:50 Blood Type O POSITIVE 12/21/21 12:48 Antibody Screen Negative 12/21/21 12:48 Crossmatch See Detail 12/21/21 12:48 Microbiology: Microbiology 12/21/21 12:48 Peripheral/Venous Blood Culture - Preliminary NO GROWTH AFTER 24 HOURS 12/21/21 12:48 Peripheral/Venous Blood Culture - Preliminary NO GROWTH AFTER 24 HOURS Beltran/IV: Voiding Method Urinal Active Medications - Current Medications Current Medications: Generic Name Dose Route Start Last Admin Trade Name Freq PRN Reason Stop Dose Admin Acetaminophen 650 mg 12/21/21 19:32 Acetaminophen 325 Mg Tab PO Q4H PRN Pain MILD(1-3)/Fever >100.5/CARRERA Albumin Human 25 gm 12/22/21 09:18 Albumin Human 25% (25 Gm/100 Ml) Inj IV CLAUDIA PRN Hypotension Epoetin Gautam-epbx 20,000 unit 12/22/21 09:18 12/22/21 21:45 Epoetin Gautam-Epbx 20,000 Unit/1 Ml Vial IV 20,000 unit CLAUDIA PRN Administration hemodialysis Hydromorphone HCl 0.5 mg 12/21/21 19:43 Hydromorphone 0.5 Mg/0.5 Ml Inj IV Q3H PRN Pain , Severe (7-10) Cefepime HCl 1 gm in 100 mls @ 200 mls/hr 12/22/21 10:00 12/23/21 10:44 Cefepime/Ns 1 Gm/100 Ml IV 12/29/21 09:59 200 mls/hr Q24HR JORDAN Administration Octreotide Acetate 500 mcg/ 101 mls @ 5.05 mls/hr 12/22/21 08:00 Sodium Chloride IV 12/24/21 07:59 DIRECT JORDAN Protocol 25 MCG/HR Sodium Chloride 100 mls @ 999 mls/hr 12/22/21 09:18 Nacl 0.9% IV CLAUDIA PRN Hypotension Lactulose 20 gm 12/22/21 20:00 12/23/21 13:29 Lactulose 20 Gm/30 Ml Oral Liqd PO 20 gm TID JORDAN Administration Metoclopramide HCl 5 mg 12/22/21 08:00 Metoclopramide 10 Mg/2 Ml Inj IV Q6H PRN Nausea And Vomiting Morphine Sulfate 2 mg 12/21/21 19:43 12/23/21 00:45 Morphine 2 Mg/1 Ml Inj IV 2 mg Q4H PRN Administration Pain, Moderate (4-6) Ondansetron HCl 4 mg 12/21/21 19:32 Ondansetron 4 Mg/2 Ml Inj IV Q3H PRN Nausea And Vomiting Pantoprazole Sodium 40 mg 12/23/21 10:00 12/23/21 10:43 Pantoprazole 40 Mg Inj IV 40 mg QDAY JORDAN Administration Sodium Chloride 10 ml 12/21/21 22:00 12/23/21 10:45 Sodium Chloride 0.9% 10 Ml Flush Syringe IV 10 ml BID JORDAN Administration Sodium Chloride 10 ml 12/21/21 19:32 Sodium Chloride 0.9% 10 Ml Flush Syringe IV PRN PRN LINE FLUSH <TOMMY BRIONES - Last Filed: 01/03/22 07:35> History Interval history: I saw and evaluated the patient. Discussed with the nurse practitioner and agree with their findings and plan as documented in this note. Hospitalist Physical - Constitutional Vitals: Temp Pulse Resp BP Pulse Ox 97.8 F 102 H 16 120/80 97 12/29/21 13:01 12/29/21 13:01 12/29/21 13:01 12/29/21 13:01 12/29/21 13:01 Results - Labs CBC & Chem 7: 12/29/21 04:00 12/29/21 04:00 Labs: Laboratory Last Values WBC 10.7 K/mm3 (4.5-11.0) 12/29/21 04:00 RBC 2.46 M/mm3 (3.65-5.03) L 12/29/21 04:00 Hgb 7.5 gm/dl (11.8-15.2) L 12/29/21 04:00 Hct 22.4 % (35.5-45.6) L 12/29/21 04:00 MCV 91 fl (84-94) 12/29/21 04:00 MCH 31 pg (28-32) 12/29/21 04:00 MCHC 34 % (32-34) 12/29/21 04:00 RDW 18.0 % (13.2-15.2) H 12/29/21 04:00 Plt Count 227 K/mm3 (140-440) 12/29/21 04:00 Lymph % (Auto) 16.5 % (13.4-35.0) 12/28/21 07:50 Pender % (Auto) 13.2 % (0.0-7.3) H 12/28/21 07:50 Eos % (Auto) 0.4 % (0.0-4.3) 12/28/21 07:50 Baso % (Auto) 0.7 % (0.0-1.8) 12/28/21 07:50 Lymph # (Auto) 1.4 K/mm3 (1.2-5.4) 12/28/21 07:50 Pender # (Auto) 1.2 K/mm3 (0.0-0.8) H 12/28/21 07:50 Eos # (Auto) 0.0 K/mm3 (0.0-0.4) 12/28/21 07:50 Baso # (Auto) 0.1 K/mm3 (0.0-0.1) 12/28/21 07:50 Add Manual Diff Complete 12/22/21 04:22 Total Counted 100 12/22/21 04:22 Seg Neutrophils % 69.2 % (40.0-70.0) 12/28/21 07:50 Seg Neuts % (Manual) 85.0 % (40.0-70.0) H 12/22/21 04:22 Band Neutrophils % 0 % 12/22/21 04:22 Lymphocytes % (Manual) 7.0 % (13.4-35.0) L 12/22/21 04:22 Reactive Lymphs % (Man) 0 % 12/22/21 04:22 Monocytes % (Manual) 8.0 % (0.0-7.3) H 12/22/21 04:22 Eosinophils % (Manual) 0 % (0.0-4.3) 12/22/21 04:22 Basophils % (Manual) 0 % (0.0-1.8) 12/22/21 04:22 Metamyelocytes % 0 % 12/22/21 04:22 Myelocytes % 0 % 12/22/21 04:22 Promyelocytes % 0 % 12/22/21 04:22 Blast Cells % 0 % 12/22/21 04:22 Nucleated RBC % Not Reportable 12/22/21 04:22 Seg Neutrophils # 6.0 K/mm3 (1.8-7.7) 12/28/21 07:50 Seg Neutrophils # Man 23.5 K/mm3 (1.8-7.7) H 12/22/21 04:22 Band Neutrophils # 0.0 K/mm3 12/22/21 04:22 Lymphocytes # (Manual) 1.9 K/mm3 (1.2-5.4) 12/22/21 04:22 Abs React Lymphs (Man) 0.0 K/mm3 12/22/21 04:22 Monocytes # (Manual) 2.2 K/mm3 (0.0-0.8) H 12/22/21 04:22 Eosinophils # (Manual) 0.0 K/mm3 (0.0-0.4) 12/22/21 04:22 Basophils # (Manual) 0.0 K/mm3 (0.0-0.1) 12/22/21 04:22 Metamyelocytes # 0.0 K/mm3 12/22/21 04:22 Myelocytes # 0.0 K/mm3 12/22/21 04:22 Promyelocytes # 0.0 K/mm3 12/22/21 04:22 Blast Cells # 0.0 K/mm3 12/22/21 04:22 WBC Morphology Not Reportable 12/22/21 04:22 Hypersegmented Neuts Not Reportable 12/22/21 04:22 Hyposegmented Neuts Not Reportable 12/22/21 04:22 Hypogranular Neuts Not Reportable 12/22/21 04:22 Smudge Cells Not Reportable 12/22/21 04:22 Toxic Granulation Not Reportable 12/22/21 04:22 Toxic Vacuolation Not Reportable 12/22/21 04:22 Dohle Bodies Not Reportable 12/22/21 04:22 Pelger-Huet Anomaly Not Reportable 12/22/21 04:22 Dmitri Rods Not Reportable 12/22/21 04:22 Platelet Estimate Consistent w auto 12/22/21 04:22 Clumped Platelets Not Reportable 12/22/21 04:22 Plt Clumps, EDTA Not Reportable 12/22/21 04:22 Large Platelets Not Reportable 12/22/21 04:22 Giant Platelets Not Reportable 12/22/21 04:22 Platelet Satelliting Not Reportable 12/22/21 04:22 Plt Morphology Comment Not Reportable 12/22/21 04:22 RBC Morphology Not Reportable 12/22/21 04:22 Dimorphic RBCs Not Reportable 12/22/21 04:22 Polychromasia Not Reportable 12/22/21 04:22 Hypochromasia Not Reportable 12/22/21 04:22 Poikilocytosis Not Reportable 12/22/21 04:22 Anisocytosis Not Reportable 12/22/21 04:22 Microcytosis Not Reportable 12/22/21 04:22 Macrocytosis Not Reportable 12/22/21 04:22 Spherocytes Not Reportable 12/22/21 04:22 Pappenheimer Bodies Not Reportable 12/22/21 04:22 Sickle Cells Not Reportable 12/22/21 04:22 Target Cells Not Reportable 12/22/21 04:22 Tear Drop Cells Not Reportable 12/22/21 04:22 Ovalocytes Not Reportable 12/22/21 04:22 Helmet Cells Not Reportable 12/22/21 04:22 [place] Bodies Not Reportable 12/22/21 04:22 [place] Rings Not Reportable 12/22/21 04:22 [place] Cells Not Reportable 12/22/21 04:22 Bite Cells Not Reportable 12/22/21 04:22 Crenated Cell Not Reportable 12/22/21 04:22 Elliptocytes Not Reportable 12/22/21 04:22 Acanthocytes (Spur) Not Reportable 12/22/21 04:22 Rouleaux Not Reportable 12/22/21 04:22 Hemoglobin C Crystals Not Reportable 12/22/21 04:22 Schistocytes Not Reportable 12/22/21 04:22 Malaria parasites Not Reportable 12/22/21 04:22 Shamir Bodies Not Reportable 12/22/21 04:22 Hem Pathologist Commnt No 12/22/21 04:22 Sodium 135 mmol/L (137-145) L 12/29/21 04:00 Potassium 3.5 mmol/L (3.6-5.0) L 12/29/21 04:00 Chloride 98.5 mmol/L (98-107) 12/29/21 04:00 Carbon Dioxide 26 mmol/L (22-30) 12/29/21 04:00 Anion Gap 14 mmol/L 12/29/21 04:00 BUN 15 mg/dL (9-20) 12/29/21 04:00 Creatinine 2.0 mg/dL (0.8-1.3) H 12/29/21 04:00 Estimated GFR 45 ml/min 12/29/21 04:00 BUN/Creatinine Ratio 8 % 12/29/21 04:00 Glucose 101 mg/dL (75-100) H 12/29/21 04:00 Lactic Acid 1.70 mmol/L (0.7-2.0) 12/23/21 04:24 Calcium 7.7 mg/dL (8.4-10.2) L 12/29/21 04:00 Phosphorus 3.10 mg/dL (2.5-4.5) 12/27/21 05:13 Magnesium 1.70 mg/dL (1.7-2.3) 12/27/21 05:13 Total Bilirubin 1.20 mg/dL (0.1-1.2) 12/29/21 04:00 AST 20 units/L (5-40) 12/29/21 04:00 ALT 8 units/L (7-56) 12/29/21 04:00 Alkaline Phosphatase 118 units/L (35-129) 12/29/21 04:00 Ammonia 56.0 umol/L (25-60) 12/22/21 16:35 Total Protein 5.4 g/dL (6.3-8.2) L 12/29/21 04:00 Albumin 2.0 g/dL (3.9-5) L 12/29/21 04:00 Albumin/Globulin Ratio 0.6 % 12/29/21 04:00 Lipase 10 units/L (13-60) L 12/21/21 10:22 Urine Color Gloria (Yellow) 12/21/21 18:34 Urine Turbidity Clear (Clear) 12/21/21 18:34 Urine pH 5.0 (5.0-7.0) 12/21/21 18:34 Ur Specific Edison 1.020 (1.003-1.030) 12/21/21 18:34 Urine Protein 100 mg/dl mg/dL (Negative) 12/21/21 18:34 Urine Glucose (UA) Negative mg/dL (Negative) 12/21/21 18:34 Urine Ketones Negative mg/dL (Negative) 12/21/21 18:34 Urine Blood Negative (Negative) 12/21/21 18:34 Urine Nitrite Negative (Negative) 12/21/21 18:34 Urine Bilirubin 1+ (Negative) 12/21/21 18:34 Urine Ictotest Positive (Negative) 12/21/21 18:34 Urine Urobilinogen 0.0 mg/dL (<2.0) 12/21/21 18:34 Ur Leukocyte Esterase 1+ (Negative) 12/21/21 18:34 Urine RBC (Auto) /HPF (0.0-6.0) 12/21/21 18:34 Fluid Type Ascitic 12/26/21 15:15 Fluid Color Yellow 12/26/21 15:15 Fluid Appearance Cloudy 12/26/21 15:15 Fluid WBC 500 /mm3 12/26/21 15:15 Fluid RBC 1265 /mm3 12/26/21 15:15 Fluid Seg Neutrophils 76.0 % 12/26/21 15:15 Fluid Lymphocytes 18.0 % 12/26/21 15:15 Fluid Monocytes 6.0 % 12/26/21 15:15 Nasal Screen MRSA (PCR) Negative (Negative) 12/23/21 10:36 Hepatitis A IgM Ab Non-reactive (NonReactive) 12/22/21 15:50 Hep Bs Antigen Non-reactive (Negative) 12/22/21 15:50 Hep B Core IgM Ab Non-reactive (NonReactive) 12/22/21 15:50 Hepatitis C Antibody Non-reactive (NonReactive) 12/22/21 15:50 Blood Type O POSITIVE 12/21/21 12:48 Antibody Screen Negative 12/21/21 12:48 Crossmatch See Detail 12/21/21 12:48 Beltran/IV: Voiding Method Toilet Nutrition/Malnutrition Assess - Dietary Evaluation Nutrition/Malnutrition Findings: Nutrition Notes Start: 12/28/21 16:49 Freq: Status: Discharge Protocol: Document 12/28/21 16:50 TYRESE (Rec: 12/28/21 17:19 TYRESE [id number]) Nutrition Notes Need for Assessment generated from: LOS Initial or Follow up Assessment Current Diagnosis CKD (stage V CKD),Sepsis, Hypertension Other Pertinent Diagnosis s/p GI Bleed, ESRD+HD, Cirrhosis/Ascites, Hepatic Failure, Anemia, ... Current Diet Regular Diet (since D 12/27), Renal Diet+D Suppl (from B ). Labs/Tests 12/28: Na 135, K 3.4, BUN 24, Crea 2.3, Ca 7.8. Pertinent Medications 12/28: Nutritionally unremarkable. 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 Weight Status Appropriate Subjective/Other Information RD consult for LOS assessment. Pt's PO intake of meals has been Negligible (0-25%), according to ADL notes. I will prescribe dietary supplements to compensate for poor or insufficient PO intake of meals during LOS. I will change the diet form Regular to Renal to support Pt 's ESRD condition. Pt is on Room Air, O2 saturation @ 98%, according to Physical Assessment History notes. Plans for Endoscopy on 12/29, according to Progress notes. Pt continues to complain from abdominal pain, but no more nausea or GI bleeding at the time, according to Progress notes. Percent of energy/protein needs met: Prescribed Renal Diet provides for energy/protein needs (2, 072 Kcal/77 g) during LOS; additionally, Dietary Supplements will compensate for possible poor or insufficient PO intake of meals with 1,275 Kcal and 57 g of protein. Burn Absent Trauma Absent GI Symptoms Other Food Allergy No Skin Integrity/Comment Assessment WNL. 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 As Evidenced by Signs and Symptoms 12/28: Na 135, K 3.4, BUN 24, Crea 2.3. #1 Nutrition Diagnosis Inadequate protein-energy intake Etiology Ongoing and concomitant chronic metabolic conditions. As Evidenced by Signs and Symptoms Pt's PO intake of meals has been Negligible (0-25%), according to ADL notes. Is patient on ventilator? No Is Patient Ambulatory and/or Out of Bed Yes REE[facility] [ [id number] [id number]] Calculation Used for Recommendations [facility] Additional Notes Protein: >1.2 g/Kg ABW; >96 g/ day. Fluids: 1 ml/Kcal, or as per MD. Nutrition Intervention Change Diet Order: Change diet to Renal Diet as tolerated. Add Supplement/Snack (indicate name/kcal Start 8 fl oz Nepro w/ /protein ) CARBSTEADY; TID. Provides kCal: 1,275 Provides Protein (gm) 57 Goal #1 Compensate, through dietary supplementation, for possible poor or insufficient PO intake of meals during LOS. Goal #2 Help reach and maintain acceptable chemistry lab values during LOS. Goal #3 Adjust the dietary intervention to better serve Pt's needs and clinical conditions during LOS. Follow-Up By: 01/04/22 Additional Comments Continue monitoring food tolerance, %PO intake of meals , dietary supplements, and BM.
[2021-12-23 19:16] LABS: Hematocrit 22.2 % (35.5-45.6); Hemoglobin 7.2 gm/dl (11.8-15.2)
[2021-12-24] MEDS: MORPHINE 2 MG/1 ML INJ IV PRN (00:52)
[2021-12-24 05:04] LABS: Calcium 8.1 mg/dL (8.4-10.2)
[2021-12-24] MEDS: LACTULOSE 20 GM/30 ML ORAL LIQD PO SCH ×3 (09:00→20:15)
[2021-12-24] MEDS: CEFEPIME/NS 1 GM/100 ML 1 GM/100 ML BAG IV SCH (09:06)
[2021-12-24] MEDS: PANTOPRAZOLE 40 MG INJ IV SCH (09:06)
[2021-12-24 09:18] LABS: Hematocrit 22.4 % (35.5-45.6); Hemoglobin 7.5 gm/dl (11.8-15.2); Mean Corpuscular HGB Conc 33 % (32-34); Mean Corpuscular Volume 92 fl (84-94); Platelet Count 143 K/mm3 (140-440); Red Blood Count 2.44 M/mm3 (3.65-5.03); Red Cell Distribution Width 17.7 % (13.2-15.2)
--- NOTE | 2021-12-24 09:41 | Gastroenterology Progress Note ---
Assessment and Plan GI bleed - dark and maroon blood on presentation. EGD with grade II EV's no active bleeding, one with small red spot, unable to be banded due to inadequate suctioning of mucosa but there was no clear evidence of high risk stigmata otherwise. no bleeding last couple days. cont octreotide for another 24 hours. Ascites - s/p paracentesis, given abd pain and leukocytosis on admission, would complete course of empiric abx for SBP Decompensated cirrhosis - last alcohol intake over 6 months ago. currently without insurance so unable to pursue transplant work-up ESRD Subjective Date of service: 12/24/21 Principal diagnosis: Gi bleed Interval history: no bleeding signs last couple days. tolerating liquids. has some abd discomfort with positional changes. Objective - Constitutional Vitals: Temp Pulse Resp BP Pulse Ox 97.2 F L 85 16 136/81 100 12/23/21 04:07 12/24/21 08:00 12/24/21 08:00 12/22/21 22:19 12/24/21 08:00 General appearance: no acute distress, other (chronically ill appearing) - Respiratory Respiratory effort: normal Respiratory: bilateral: CTA - Gastrointestinal General gastrointestinal: Present: soft, distended (mod distention) - Neurologic Neurological: alert and oriented x3 - Labs CBC & Chem 7: 12/24/21 08:49 12/24/21 04:14 Labs: Laboratory Results - last 24 hr 12/23/21 12/23/21 12/23/21 10:14 10:36 19:00 WBC RBC Hgb 7.8 L 7.2 L Hct 22.9 L 22.2 L MCV MCH MCHC RDW Plt Count Sodium Potassium Chloride Carbon Dioxide Anion Gap BUN Creatinine Estimated GFR BUN/Creatinine Ratio Glucose Calcium Magnesium Nasal Screen MRSA (PCR) Negative 12/24/21 12/24/21 04:14 08:49 WBC 8.7 RBC 2.44 L Hgb 7.5 L Hct 22.4 L MCV 92 MCH 31 MCHC 33 RDW 17.7 H Plt Count 143 Sodium 135 L Potassium 3.4 L Chloride 98.0 Carbon Dioxide 26 Anion Gap 14 BUN 32 H Creatinine 3.2 H Estimated GFR 26 BUN/Creatinine Ratio 10 Glucose 94 Calcium 8.1 L Magnesium 1.80 Nasal Screen MRSA (PCR)
--- NOTE | 2021-12-24 11:51 | Progress Note ---
Assessment and Plan Impression * End-stage renal disease on maintenance hemodialysis * GI bleed * Hyperkalemia * Cirrhosis of liver * Lactic acidosis * Leukocytosis Recommendations * Patient is scheduled for hemodialysis treatment for today. Continue dialysis on TTS schedule * Hyperkalemia has been corrected * Monitor H&H and transfuse packed RBC as needed * Adjust diet and meds for ESRD state * Hold phosphate binders for now * Shall administer Epogen as well * Avoid nephrotoxins * Monitor fluid status and electrolytes closely Subjective Date of service: 12/24/21 Principal diagnosis: Gi bleed Interval history: Patient is awake and alert. Complains of some epigastric discomfort. No melena or hematochezia. Denies any nausea or vomiting. Objective - Vital Signs Vital signs: Vital Signs - 12hr 12/24/21 12/24/21 12/24/21 00:00 04:00 08:00 Pulse Rate [ 90 90 85 From Monitor] Pulse Rate [ 90 90 85 Left Dorsalis Pedis] Pulse Rate [ 90 90 85 Right Dorsalis Pedis] Respiratory 16 16 16 Rate O2 Sat by Pulse 98 98 100 Oximetry - General Appearance General appearance: well-developed, well-nourished, appears stated age EENT: PERRL, mucous membranes moist Neck: no JVD, no thyromegaly, no carotid bruit, supple, other (Right IJ PermCath in place) Respiratory: Present: Clear to Ascultation Cardiology: regular, normal heart rate, S1S2, no murmurs Gastrointestinal: normal, normoactive bowel sounds Integumentary: other (No edema) - Lab 12/24/21 08:49 12/24/21 04:14 Most recent lab results Calcium 8.1 mg/dL (8.4-10.2) L 12/24/21 04:14 Phosphorus 3.80 mg/dL (2.5-4.5) 12/23/21 04:24 Magnesium 1.80 mg/dL (1.7-2.3) 12/24/21 04:14 Medications & Allergies - Medications Allergies/Adverse Reactions: Allergies No Known Allergies Allergy (Verified 12/22/21 06:29) Home Medications: Home Medications Medication Instructions Recorded Confirmed Last Taken Type Lactulose [Cephulac] 20 gm PO TID #1 bottle 11/23/21 12/22/21 12/21/21 Rx Pantoprazole [Protonix TAB] 40 mg PO BID #60 tab 11/23/21 12/22/21 12/21/21 Rx Active Medications: Generic Name Dose Route Start Last Admin Trade Name Freq PRN Reason Stop Dose Admin Acetaminophen 650 mg 12/21/21 19:32 Acetaminophen 325 Mg Tab PO Q4H PRN Pain MILD(1-3)/Fever >100.5/CARRERA Albumin Human 25 gm 12/22/21 09:18 Albumin Human 25% (25 Gm/100 Ml) Inj IV CLAUDIA PRN Hypotension Epoetin Gautam-epbx 20,000 unit 12/22/21 09:18 12/22/21 21:45 Epoetin Gautam-Epbx 20,000 Unit/1 Ml Vial IV 20,000 unit CLAUDIA PRN Administration hemodialysis Hydromorphone HCl 0.5 mg 12/21/21 19:43 Hydromorphone 0.5 Mg/0.5 Ml Inj IV Q3H PRN Pain , Severe (7-10) Cefepime HCl 1 gm in 100 mls @ 200 mls/hr 12/22/21 10:00 12/24/21 09:06 Cefepime/Ns 1 Gm/100 Ml IV 12/29/21 09:59 200 mls/hr Q24HR JORDAN Administration Sodium Chloride 100 mls @ 999 mls/hr 12/22/21 09:18 Nacl 0.9% IV CLAUDIA PRN Hypotension Lactulose 20 gm 12/22/21 20:00 12/24/21 09:00 Lactulose 20 Gm/30 Ml Oral Liqd PO 20 gm TID JORDAN Administration Metoclopramide HCl 5 mg 12/22/21 08:00 Metoclopramide 10 Mg/2 Ml Inj IV Q6H PRN Nausea And Vomiting Morphine Sulfate 2 mg 12/21/21 19:43 12/24/21 00:52 Morphine 2 Mg/1 Ml Inj IV 2 mg Q4H PRN Administration Pain, Moderate (4-6) Ondansetron HCl 4 mg 12/21/21 19:32 Ondansetron 4 Mg/2 Ml Inj IV Q3H PRN Nausea And Vomiting Pantoprazole Sodium 40 mg 12/23/21 10:00 12/24/21 09:06 Pantoprazole 40 Mg Inj IV 40 mg QDAY JORDAN Administration Sodium Chloride 10 ml 12/21/21 22:00 12/24/21 09:06 Sodium Chloride 0.9% 10 Ml Flush Syringe IV 10 ml BID JORDAN Administration Sodium Chloride 10 ml 12/21/21 19:32 Sodium Chloride 0.9% 10 Ml Flush Syringe IV PRN PRN LINE FLUSH
--- NOTE | 2021-12-24 13:16 | Progress Note ---
<ALLISONWALTER HRoseanne - Last Filed: 12/24/21 13:14> Assessment and Plan Assessment and plan: This is a 41-year-old male with EtOH cirrhosis, EV, ascites, ESRD on HD, chronic HE admitted for GIB Neuro: h/o chronic HE -Reorientation as needed -Maintain sleep-wake cycle -As needed analgesia -Continue lactulose Cardiac: h/o chronic hypotension -Home meds includes midodrine, restart as needed -Blood pressure monitoring per protocol Respiratory: Acute hypoxic respiratory failure -Weaned to RA -Pulmonary hygiene -SPO2 monitoring -Supplemental oxygen as needed GI: GIB, h/o EV, EtOH cirrhosis, GIB -GI consulted, patient recommendations -S/p EGD on 12/22 which showed grade 2 esophageal varices, one with small red spots but no active bleeding, unclear if this represents due to recent bleeding stigmata, unable to bend due to inadequate suctioning at bedside to assess the mucosa, no active bleeding seen at the end of the procedure -CLD -Octreotide drip for 2 days per GI -PPI -Stool occult positive -BR: lactulose : ESRD on HD -Nephrology consulted, appreciate recommendations -Renally dose medications -Avoid nephrotoxic medications -Epogen per nephro -Trend BMP ID: r/o SBP -On cefepime for now -Paracentesis completed 12/23 with removal of 7.5 L -Albumin post procedure -Fluid studies pending -f/u blood culture -Monitor WBC and temperature curve Endo: NAD -Avoid hypoglycemia Heme: Leukocytosis, symptomatic anemia -Presented with H/H of 6.8/22.6 -S/p 3 units prbc -Serial h/h -Transfuse hemoglobin less than 7 -SCDs to BLE while in bed -Avoid chemical anticoagulation in setting of recent GI bleed The high probability of a clinically significant, sudden or life threatening deterioration of the [GI/CV] system(s) required my full and direct attention, intervention and personal management. The aggregate critical care time was [60] minutes. This time is in addition to time spent performing reported procedures but includes the following: [x] Data Review and interpretation [x] Patient assessment and monitoring of vital signs [x] Documentation [x] Medication orders and management Disposition Plan: transfer to floor Total Time Spent with Patient (Minutes): 60 History Interval history: This is a 41-year-old male with EtOH cirrhosis, esophageal varices, ascites, ESRD on HD, chronic HE who presented to the hospital on 12/21 with complaints of diffuse abdominal pain and black and bloody stools over the past 2 days along with nausea and vomiting. Of note patient was seen here on 11/23/2021 and was discharged after having banding of 1 esophageal varice. In the emergency department patient was tachycardic and had a hemoglobin and hematocrit of 6.5/20.2, leukocytosis at 27.7, hyponatremia 135, hyperkalemia 6.1. Patient was admitted to the hospitalist service with consults to nephrology and GI. Hospital course to date: 12/22: Patient had an EGD today which showed no active variceal bleed, patient has been cleared for clear liquid diet and will continue Protonix IVP and octreotide drip. 12/23: Patient had paracentesis today with removal 7.5 L. Lab studies ordered. Will administer albumin. 12/24: H/H holding, patient will be transferred to the floor. Hospitalist Physical - Constitutional Vitals: Temp Pulse Resp BP Pulse Ox 97.2 F L 85 16 136/81 100 12/23/21 04:07 12/24/21 08:00 12/24/21 08:00 12/22/21 22:19 12/24/21 08:00 General appearance: Present: no acute distress, well-nourished, cachectic - EENT Eyes: Present: PERRL, EOM intact ENT: dentition normal - Neck Neck: Present: normal ROM - Respiratory Respiratory: bilateral: diminished - Cardiovascular Rhythm: regular Heart Sounds: Present: S1 & S2. Absent: systolic murmur, diastolic murmur - Extremities Extremities: no ischemia, pulses intact, pulses symmetrical, No edema, normal temperature, normal color, Full ROM Peripheral Pulses: within normal limits - Abdominal General gastrointestinal: soft, non-tender, normal bowel sounds - Integumentary Integumentary: Present: warm, dry - Psychiatric Psychiatric: cooperative - Neurologic Neurologic: CNII-XII intact, no moves all extremities - Allied Health Allied health notes reviewed: nursing, RT, social work Results - Labs CBC & Chem 7: 12/24/21 08:49 12/24/21 04:14 Labs: Laboratory Last Values WBC 8.7 K/mm3 (4.5-11.0) 12/24/21 08:49 RBC 2.44 M/mm3 (3.65-5.03) L 12/24/21 08:49 Hgb 7.5 gm/dl (11.8-15.2) L 12/24/21 08:49 Hct 22.4 % (35.5-45.6) L 12/24/21 08:49 MCV 92 fl (84-94) 12/24/21 08:49 MCH 31 pg (28-32) 12/24/21 08:49 MCHC 33 % (32-34) 12/24/21 08:49 RDW 17.7 % (13.2-15.2) H 12/24/21 08:49 Plt Count 143 K/mm3 (140-440) 12/24/21 08:49 Lymph % (Auto) 11.6 % (13.4-35.0) L 12/23/21 04:24 [place] % (Auto) 9.4 % (0.0-7.3) H 12/23/21 04:24 Eos % (Auto) 0.0 % (0.0-4.3) 12/23/21 04:24 Baso % (Auto) 0.3 % (0.0-1.8) 12/23/21 04:24 Lymph # (Auto) 1.5 K/mm3 (1.2-5.4) 12/23/21 04:24 [place] # (Auto) 1.2 K/mm3 (0.0-0.8) H 12/23/21 04:24 Eos # (Auto) 0.0 K/mm3 (0.0-0.4) 12/23/21 04:24 Baso # (Auto) 0.0 K/mm3 (0.0-0.1) 12/23/21 04:24 Add Manual Diff Complete 12/22/21 04:22 Total Counted 100 12/22/21 04:22 Seg Neutrophils % 78.7 % (40.0-70.0) H 12/23/21 04:24 Seg Neuts % (Manual) 85.0 % (40.0-70.0) H 12/22/21 04:22 Band Neutrophils % 0 % 12/22/21 04:22 Lymphocytes % (Manual) 7.0 % (13.4-35.0) L 12/22/21 04:22 Reactive Lymphs % (Man) 0 % 12/22/21 04:22 Monocytes % (Manual) 8.0 % (0.0-7.3) H 12/22/21 04:22 Eosinophils % (Manual) 0 % (0.0-4.3) 12/22/21 04:22 Basophils % (Manual) 0 % (0.0-1.8) 12/22/21 04:22 Metamyelocytes % 0 % 12/22/21 04:22 Myelocytes % 0 % 12/22/21 04:22 Promyelocytes % 0 % 12/22/21 04:22 Blast Cells % 0 % 12/22/21 04:22 Nucleated RBC % Not Reportable 12/22/21 04:22 Seg Neutrophils # 10.2 K/mm3 (1.8-7.7) H 12/23/21 04:24 Seg Neutrophils # Man 23.5 K/mm3 (1.8-7.7) H 12/22/21 04:22 Band Neutrophils # 0.0 K/mm3 12/22/21 04:22 Lymphocytes # (Manual) 1.9 K/mm3 (1.2-5.4) 12/22/21 04:22 Abs React Lymphs (Man) 0.0 K/mm3 12/22/21 04:22 Monocytes # (Manual) 2.2 K/mm3 (0.0-0.8) H 12/22/21 04:22 Eosinophils # (Manual) 0.0 K/mm3 (0.0-0.4) 12/22/21 04:22 Basophils # (Manual) 0.0 K/mm3 (0.0-0.1) 12/22/21 04:22 Metamyelocytes # 0.0 K/mm3 12/22/21 04:22 Myelocytes # 0.0 K/mm3 12/22/21 04:22 Promyelocytes # 0.0 K/mm3 12/22/21 04:22 Blast Cells # 0.0 K/mm3 12/22/21 04:22 WBC Morphology Not Reportable 12/22/21 04:22 Hypersegmented Neuts Not Reportable 12/22/21 04:22 Hyposegmented Neuts Not Reportable 12/22/21 04:22 Hypogranular Neuts Not Reportable 12/22/21 04:22 Smudge Cells Not Reportable 12/22/21 04:22 Toxic Granulation Not Reportable 12/22/21 04:22 Toxic Vacuolation Not Reportable 12/22/21 04:22 Dohle Bodies Not Reportable 12/22/21 04:22 Pelger-Huet Anomaly Not Reportable 12/22/21 04:22 Dmitri Rods Not Reportable 12/22/21 04:22 Platelet Estimate Consistent w auto 12/22/21 04:22 Clumped Platelets Not Reportable 12/22/21 04:22 Plt Clumps, EDTA Not Reportable 12/22/21 04:22 Large Platelets Not Reportable 12/22/21 04:22 Giant Platelets Not Reportable 12/22/21 04:22 Platelet Satelliting Not Reportable 12/22/21 04:22 Plt Morphology Comment Not Reportable 12/22/21 04:22 RBC Morphology Not Reportable 12/22/21 04:22 Dimorphic RBCs Not Reportable 12/22/21 04:22 Polychromasia Not Reportable 12/22/21 04:22 Hypochromasia Not Reportable 12/22/21 04:22 Poikilocytosis Not Reportable 12/22/21 04:22 Anisocytosis Not Reportable 12/22/21 04:22 Microcytosis Not Reportable 12/22/21 04:22 Macrocytosis Not Reportable 12/22/21 04:22 Spherocytes Not Reportable 12/22/21 04:22 Pappenheimer Bodies Not Reportable 12/22/21 04:22 Sickle Cells Not Reportable 12/22/21 04:22 Target Cells Not Reportable 12/22/21 04:22 Tear Drop Cells Not Reportable 12/22/21 04:22 Ovalocytes Not Reportable 12/22/21 04:22 Helmet Cells Not Reportable 12/22/21 04:22 [place] Bodies Not Reportable 12/22/21 04:22 [place] Rings Not Reportable 12/22/21 04:22 [place]ack[place] Cells Not Reportable 12/22/21 04:22 Bite Cells Not Reportable 12/22/21 04:22 Crenated Cell Not Reportable 12/22/21 04:22 Elliptocytes Not Reportable 12/22/21 04:22 Acanthocytes (Spur) Not Reportable 12/22/21 04:22 Rouleaux Not Reportable 12/22/21 04:22 Hemoglobin C Crystals Not Reportable 12/22/21 04:22 Schistocytes Not Reportable 12/22/21 04:22 Malaria parasites Not Reportable 12/22/21 04:22 Shamir Bodies Not Reportable 12/22/21 04:22 Hem Pathologist Commnt No 12/22/21 04:22 Sodium 135 mmol/L (137-145) L 12/24/21 04:14 Potassium 3.4 mmol/L (3.6-5.0) L 12/24/21 04:14 Chloride 98.0 mmol/L (98-107) 12/24/21 04:14 Carbon Dioxide 26 mmol/L (22-30) 12/24/21 04:14 Anion Gap 14 mmol/L 12/24/21 04:14 BUN 32 mg/dL (9-20) H 12/24/21 04:14 Creatinine 3.2 mg/dL (0.8-1.3) H 12/24/21 04:14 Estimated GFR 26 ml/min 12/24/21 04:14 BUN/Creatinine Ratio 10 % 12/24/21 04:14 Glucose 94 mg/dL (75-100) 12/24/21 04:14 Lactic Acid 1.70 mmol/L (0.7-2.0) 12/23/21 04:24 Calcium 8.1 mg/dL (8.4-10.2) L 12/24/21 04:14 Phosphorus 3.80 mg/dL (2.5-4.5) 12/23/21 04:24 Magnesium 1.80 mg/dL (1.7-2.3) 12/24/21 04:14 Total Bilirubin 2.20 mg/dL (0.1-1.2) H 12/22/21 04:22 AST 30 units/L (5-40) 12/22/21 04:22 ALT 11 units/L (7-56) 12/22/21 04:22 Alkaline Phosphatase 75 units/L (35-129) 12/22/21 04:22 Ammonia 56.0 umol/L (25-60) 12/22/21 16:35 Total Protein 5.4 g/dL (6.3-8.2) L 12/22/21 04:22 Albumin 2.2 g/dL (3.9-5) L 12/22/21 04:22 Albumin/Globulin Ratio 0.7 % 12/22/21 04:22 Lipase 10 units/L (13-60) L 12/21/21 10:22 Urine Color Gloria (Yellow) 12/21/21 18:34 Urine Turbidity Clear (Clear) 12/21/21 18:34 Urine pH 5.0 (5.0-7.0) 12/21/21 18:34 Ur Specific [place] 1.020 (1.003-1.030) 12/21/21 18:34 Urine Protein 100 mg/dl mg/dL (Negative) 12/21/21 18:34 Urine Glucose (UA) Negative mg/dL (Negative) 12/21/21 18:34 Urine Ketones Negative mg/dL (Negative) 12/21/21 18:34 Urine Blood Negative (Negative) 12/21/21 18:34 Urine Nitrite Negative (Negative) 12/21/21 18:34 Urine Bilirubin 1+ (Negative) 12/21/21 18:34 Urine Ictotest Positive (Negative) 12/21/21 18:34 Urine Urobilinogen 0.0 mg/dL (<2.0) 12/21/21 18:34 Ur Leukocyte Esterase 1+ (Negative) 12/21/21 18:34 Urine RBC (Auto) /HPF (0.0-6.0) 12/21/21 18:34 Nasal Screen MRSA (PCR) Negative (Negative) 12/23/21 10:36 Hepatitis A IgM Ab Non-reactive (NonReactive) 12/22/21 15:50 Hep Bs Antigen Non-reactive (Negative) 12/22/21 15:50 Hep B Core IgM Ab Non-reactive (NonReactive) 12/22/21 15:50 Hepatitis C Antibody Non-reactive (NonReactive) 12/22/21 15:50 Blood Type O POSITIVE 12/21/21 12:48 Antibody Screen Negative 12/21/21 12:48 Crossmatch See Detail 12/21/21 12:48 Microbiology: Microbiology 12/21/21 12:48 Peripheral/Venous Blood Culture - Preliminary NO GROWTH AFTER 48 HOURS 12/21/21 12:48 Peripheral/Venous Blood Culture - Preliminary NO GROWTH AFTER 48 HOURS Beltran/IV: Voiding Method Urinal Active Medications - Current Medications Current Medications: Generic Name Dose Route Start Last Admin Trade Name Freq PRN Reason Stop Dose Admin Acetaminophen 650 mg 12/21/21 19:32 Acetaminophen 325 Mg Tab PO Q4H PRN Pain MILD(1-3)/Fever >100.5/CARRERA Albumin Human 25 gm 12/22/21 09:18 Albumin Human 25% (25 Gm/100 Ml) Inj IV CLAUDIA PRN Hypotension Epoetin Gautam-epbx 20,000 unit 12/22/21 09:18 12/22/21 21:45 Epoetin Gautam-Epbx 20,000 Unit/1 Ml Vial IV 20,000 unit CLAUDIA PRN Administration hemodialysis Hydromorphone HCl 0.5 mg 12/21/21 19:43 Hydromorphone 0.5 Mg/0.5 Ml Inj IV Q3H PRN Pain , Severe (7-10) Cefepime HCl 1 gm in 100 mls @ 200 mls/hr 12/22/21 10:00 12/24/21 09:06 Cefepime/Ns 1 Gm/100 Ml IV 12/29/21 09:59 200 mls/hr Q24HR JORDAN Administration Sodium Chloride 100 mls @ 999 mls/hr 12/22/21 09:18 Nacl 0.9% IV CLAUDIA PRN Hypotension Lactulose 20 gm 12/22/21 20:00 12/24/21 09:00 Lactulose 20 Gm/30 Ml Oral Liqd PO 20 gm TID JORDAN Administration Metoclopramide HCl 5 mg 12/22/21 08:00 Metoclopramide 10 Mg/2 Ml Inj IV Q6H PRN Nausea And Vomiting Morphine Sulfate 2 mg 12/21/21 19:43 12/24/21 00:52 Morphine 2 Mg/1 Ml Inj IV 2 mg Q4H PRN Administration Pain, Moderate (4-6) Ondansetron HCl 4 mg 12/21/21 19:32 Ondansetron 4 Mg/2 Ml Inj IV Q3H PRN Nausea And Vomiting Pantoprazole Sodium 40 mg 12/23/21 10:00 12/24/21 09:06 Pantoprazole 40 Mg Inj IV 40 mg QDAY JORDAN Administration Sodium Chloride 10 ml 12/21/21 22:00 12/24/21 09:06 Sodium Chloride 0.9% 10 Ml Flush Syringe IV 10 ml BID JORDAN Administration Sodium Chloride 10 ml 12/21/21 19:32 Sodium Chloride 0.9% 10 Ml Flush Syringe IV PRN PRN LINE FLUSH <MEGANJUDIE - Last Filed: 12/25/21 07:16> Assessment and Plan Assessment and plan: I saw and evaluated the patient. I agree with the findings and the plan of care as documented in the Nurse Practitioner's~note, with the following corrections and additions. Hospitalist Physical - Constitutional Vitals: Temp Pulse Resp BP Pulse Ox 98.5 F 89 18 97/53 98 12/25/21 04:26 12/25/21 04:26 12/25/21 04:26 12/25/21 04:26 12/25/21 04:26 Results - Labs CBC & Chem 7: 12/24/21 21:55 12/24/21 04:14 Labs: Laboratory Last Values WBC 8.7 K/mm3 (4.5-11.0) 12/24/21 08:49 RBC 2.44 M/mm3 (3.65-5.03) L 12/24/21 08:49 Hgb 7.8 gm/dl (11.8-15.2) L 12/24/21 21:55 Hct 24.0 % (35.5-45.6) L 12/24/21 21:55 MCV 92 fl (84-94) 12/24/21 08:49 MCH 31 pg (28-32) 12/24/21 08:49 MCHC 33 % (32-34) 12/24/21 08:49 RDW 17.7 % (13.2-15.2) H 12/24/21 08:49 Plt Count 143 K/mm3 (140-440) 12/24/21 08:49 Lymph % (Auto) 11.6 % (13.4-35.0) L 12/23/21 04:24 [place] % (Auto) 9.4 % (0.0-7.3) H 12/23/21 04:24 Eos % (Auto) 0.0 % (0.0-4.3) 12/23/21 04:24 Baso % (Auto) 0.3 % (0.0-1.8) 12/23/21 04:24 Lymph # (Auto) 1.5 K/mm3 (1.2-5.4) 12/23/21 04:24 [place] # (Auto) 1.2 K/mm3 (0.0-0.8) H 12/23/21 04:24 Eos # (Auto) 0.0 K/mm3 (0.0-0.4) 12/23/21 04:24 Baso # (Auto) 0.0 K/mm3 (0.0-0.1) 12/23/21 04:24 Add Manual Diff Complete 12/22/21 04:22 Total Counted 100 12/22/21 04:22 Seg Neutrophils % 78.7 % (40.0-70.0) H 12/23/21 04:24 Seg Neuts % (Manual) 85.0 % (40.0-70.0) H 12/22/21 04:22 Band Neutrophils % 0 % 12/22/21 04:22 Lymphocytes % (Manual) 7.0 % (13.4-35.0) L 12/22/21 04:22 Reactive Lymphs % (Man) 0 % 12/22/21 04:22 Monocytes % (Manual) 8.0 % (0.0-7.3) H 12/22/21 04:22 Eosinophils % (Manual) 0 % (0.0-4.3) 12/22/21 04:22 Basophils % (Manual) 0 % (0.0-1.8) 12/22/21 04:22 Metamyelocytes % 0 % 12/22/21 04:22 Myelocytes % 0 % 12/22/21 04:22 Promyelocytes % 0 % 12/22/21 04:22 Blast Cells % 0 % 12/22/21 04:22 Nucleated RBC % Not Reportable 12/22/21 04:22 Seg Neutrophils # 10.2 K/mm3 (1.8-7.7) H 12/23/21 04:24 Seg Neutrophils # Man 23.5 K/mm3 (1.8-7.7) H 12/22/21 04:22 Band Neutrophils # 0.0 K/mm3 12/22/21 04:22 Lymphocytes # (Manual) 1.9 K/mm3 (1.2-5.4) 12/22/21 04:22 Abs React Lymphs (Man) 0.0 K/mm3 12/22/21 04:22 Monocytes # (Manual) 2.2 K/mm3 (0.0-0.8) H 12/22/21 04:22 Eosinophils # (Manual) 0.0 K/mm3 (0.0-0.4) 12/22/21 04:22 Basophils # (Manual) 0.0 K/mm3 (0.0-0.1) 12/22/21 04:22 Metamyelocytes # 0.0 K/mm3 12/22/21 04:22 Myelocytes # 0.0 K/mm3 12/22/21 04:22 Promyelocytes # 0.0 K/mm3 12/22/21 04:22 Blast Cells # 0.0 K/mm3 12/22/21 04:22 WBC Morphology Not Reportable 12/22/21 04:22 Hypersegmented Neuts Not Reportable 12/22/21 04:22 Hyposegmented Neuts Not Reportable 12/22/21 04:22 Hypogranular Neuts Not Reportable 12/22/21 04:22 Smudge Cells Not Reportable 12/22/21 04:22 Toxic Granulation Not Reportable 12/22/21 04:22 Toxic Vacuolation Not Reportable 12/22/21 04:22 Dohle Bodies Not Reportable 12/22/21 04:22 Pelger-Huet Anomaly Not Reportable 12/22/21 04:22 Dmitri Rods Not Reportable 12/22/21 04:22 Platelet Estimate Consistent w auto 12/22/21 04:22 Clumped Platelets Not Reportable 12/22/21 04:22 Plt Clumps, EDTA Not Reportable 12/22/21 04:22 Large Platelets Not Reportable 12/22/21 04:22 Giant Platelets Not Reportable 12/22/21 04:22 Platelet Satelliting Not Reportable 12/22/21 04:22 Plt Morphology Comment Not Reportable 12/22/21 04:22 RBC Morphology Not Reportable 12/22/21 04:22 Dimorphic RBCs Not Reportable 12/22/21 04:22 Polychromasia Not Reportable 12/22/21 04:22 Hypochromasia Not Reportable 12/22/21 04:22 Poikilocytosis Not Reportable 12/22/21 04:22 Anisocytosis Not Reportable 12/22/21 04:22 Microcytosis Not Reportable 12/22/21 04:22 Macrocytosis Not Reportable 12/22/21 04:22 Spherocytes Not Reportable 12/22/21 04:22 Pappenheimer Bodies Not Reportable 12/22/21 04:22 Sickle Cells Not Reportable 12/22/21 04:22 Target Cells Not Reportable 12/22/21 04:22 Tear Drop Cells Not Reportable 12/22/21 04:22 Ovalocytes Not Reportable 12/22/21 04:22 Helmet Cells Not Reportable 12/22/21 04:22 [place] Bodies Not Reportable 12/22/21 04:22 [place] Rings Not Reportable 12/22/21 04:22 [place] Cells Not Reportable 12/22/21 04:22 Bite Cells Not Reportable 12/22/21 04:22 Crenated Cell Not Reportable 12/22/21 04:22 Elliptocytes Not Reportable 12/22/21 04:22 Acanthocytes (Spur) Not Reportable 12/22/21 04:22 Rouleaux Not Reportable 12/22/21 04:22 Hemoglobin C Crystals Not Reportable 12/22/21 04:22 Schistocytes Not Reportable 12/22/21 04:22 Malaria parasites Not Reportable 12/22/21 04:22 Shamir Bodies Not Reportable 12/22/21 04:22 Hem Pathologist Commnt No 12/22/21 04:22 Sodium 135 mmol/L (137-145) L 12/24/21 04:14 Potassium 3.4 mmol/L (3.6-5.0) L 12/24/21 04:14 Chloride 98.0 mmol/L (98-107) 12/24/21 04:14 Carbon Dioxide 26 mmol/L (22-30) 12/24/21 04:14 Anion Gap 14 mmol/L 12/24/21 04:14 BUN 32 mg/dL (9-20) H 12/24/21 04:14 Creatinine 3.2 mg/dL (0.8-1.3) H 12/24/21 04:14 Estimated GFR 26 ml/min 12/24/21 04:14 BUN/Creatinine Ratio 10 % 12/24/21 04:14 Glucose 94 mg/dL (75-100) 12/24/21 04:14 Lactic Acid 1.70 mmol/L (0.7-2.0) 12/23/21 04:24 Calcium 8.1 mg/dL (8.4-10.2) L 12/24/21 04:14 Phosphorus 3.80 mg/dL (2.5-4.5) 12/23/21 04:24 Magnesium 1.80 mg/dL (1.7-2.3) 12/24/21 04:14 Total Bilirubin 2.20 mg/dL (0.1-1.2) H 12/22/21 04:22 AST 30 units/L (5-40) 12/22/21 04:22 ALT 11 units/L (7-56) 12/22/21 04:22 Alkaline Phosphatase 75 units/L (35-129) 12/22/21 04:22 Ammonia 56.0 umol/L (25-60) 12/22/21 16:35 Total Protein 5.4 g/dL (6.3-8.2) L 12/22/21 04:22 Albumin 2.2 g/dL (3.9-5) L 12/22/21 04:22 Albumin/Globulin Ratio 0.7 % 12/22/21 04:22 Lipase 10 units/L (13-60) L 12/21/21 10:22 Urine Color Gloria (Yellow) 12/21/21 18:34 Urine Turbidity Clear (Clear) 12/21/21 18:34 Urine pH 5.0 (5.0-7.0) 12/21/21 18:34 Ur Specific [place] 1.020 (1.003-1.030) 12/21/21 18:34 Urine Protein 100 mg/dl mg/dL (Negative) 12/21/21 18:34 Urine Glucose (UA) Negative mg/dL (Negative) 12/21/21 18:34 Urine Ketones Negative mg/dL (Negative) 12/21/21 18:34 Urine Blood Negative (Negative) 12/21/21 18:34 Urine Nitrite Negative (Negative) 12/21/21 18:34 Urine Bilirubin 1+ (Negative) 12/21/21 18:34 Urine Ictotest Positive (Negative) 12/21/21 18:34 Urine Urobilinogen 0.0 mg/dL (<2.0) 12/21/21 18:34 Ur Leukocyte Esterase 1+ (Negative) 12/21/21 18:34 Urine RBC (Auto) /HPF (0.0-6.0) 12/21/21 18:34 Nasal Screen MRSA (PCR) Negative (Negative) 12/23/21 10:36 Hepatitis A IgM Ab Non-reactive (NonReactive) 12/22/21 15:50 Hep Bs Antigen Non-reactive (Negative) 12/22/21 15:50 Hep B Core IgM Ab Non-reactive (NonReactive) 12/22/21 15:50 Hepatitis C Antibody Non-reactive (NonReactive) 12/22/21 15:50 Blood Type O POSITIVE 12/21/21 12:48 Antibody Screen Negative 12/21/21 12:48 Crossmatch See Detail 12/21/21 12:48 Microbiology: Microbiology 12/21/21 18:34 Urine,Clean Catch Urine Culture - Preliminary NO GROWTH AFTER 24 HOURS 12/21/21 12:48 Peripheral/Venous Blood Culture - Preliminary NO GROWTH AFTER 72 HOURS 12/21/21 12:48 Peripheral/Venous Blood Culture - Preliminary NO GROWTH AFTER 72 HOURS Beltran/IV: Voiding Method Urinal Active Medications - Current Medications Current Medications: Generic Name Dose Route Start Last Admin Trade Name Freq PRN Reason Stop Dose Admin Albumin Human 25 gm 12/22/21 09:18 Albumin Human 25% (25 Gm/100 Ml) Inj IV CLAUDIA PRN Hypotension Epoetin Gautam-epbx 20,000 unit 12/22/21 09:18 12/24/21 14:56 Epoetin Gautam-Epbx 20,000 Unit/1 Ml Vial IV 20,000 unit CLAUDIA PRN Administration hemodialysis Hydromorphone HCl 0.5 mg 12/21/21 19:43 12/24/21 20:15 Hydromorphone 0.5 Mg/0.5 Ml Inj IV 0.5 mg Q3H PRN Administration Pain , Severe (7-10) Cefepime HCl 1 gm in 100 mls @ 200 mls/hr 12/22/21 10:00 12/24/21 09:06 Cefepime/Ns 1 Gm/100 Ml IV 12/29/21 09:59 200 mls/hr Q24HR JORDAN Administration Sodium Chloride 100 mls @ 999 mls/hr 12/22/21 09:18 Nacl 0.9% IV CLAUDIA PRN Hypotension Lactulose 20 gm 12/22/21 20:00 12/24/21 20:15 Lactulose 20 Gm/30 Ml Oral Liqd PO 20 gm TID JORDAN Administration Metoclopramide HCl 5 mg 12/22/21 08:00 Metoclopramide 10 Mg/2 Ml Inj IV Q6H PRN Nausea And Vomiting Morphine Sulfate 2 mg 12/21/21 19:43 12/24/21 00:52 Morphine 2 Mg/1 Ml Inj IV 2 mg Q4H PRN Administration Pain, Moderate (4-6) Ondansetron HCl 4 mg 12/21/21 19:32 Ondansetron 4 Mg/2 Ml Inj IV Q3H PRN Nausea And Vomiting Pantoprazole Sodium 40 mg 12/23/21 10:00 12/24/21 09:06 Pantoprazole 40 Mg Inj IV 40 mg QDAY JORDAN Administration Sodium Chloride 10 ml 12/21/21 22:00 12/24/21 22:50 Sodium Chloride 0.9% 10 Ml Flush Syringe IV 10 ml BID JORDAN Administration Sodium Chloride 10 ml 12/21/21 19:32 Sodium Chloride 0.9% 10 Ml Flush Syringe IV PRN PRN LINE FLUSH
[2021-12-24] MEDS: EPOETIN ALFA-EPBX 20,000 UNIT/1 ML VIAL IV PRN (14:56)
[2021-12-24] MEDS: HYDROmorphone 0.5 MG/0.5 ML INJ IV PRN (20:15)
[2021-12-24 22:24] LABS: Hemoglobin 7.8 gm/dl (11.8-15.2)
[2021-12-25] MEDS: LACTULOSE 20 GM/30 ML ORAL LIQD PO SCH ×3 (09:33→21:00)
[2021-12-25] MEDS: PANTOPRAZOLE 40 MG INJ IV SCH (09:33)
[2021-12-25] MEDS: CEFEPIME/NS 1 GM/100 ML 1 GM/100 ML BAG IV SCH (09:34)
--- NOTE | 2021-12-25 09:39 | Gastroenterology Progress Note ---
Assessment and Plan It is concerning to me that the patient was unable to have his varices successfully banded as he has had recurrent variceal bleeding, and outpatient follow-up is likely going to be challenging for him Therefore, will perform paracentesis for symptom improvement as well as rule out SBP. Once that is performed we will tentatively plan on performing EGD on Sunday for repeat attempt to band his esophageal varices to decrease the risk of life-threatening variceal bleeding In the meantime, his bleeding has stopped for the moment therefore we will advance diet as tolerated - Patient Problems (1) Ascites Current Visit: Yes Status: Acute (2) GI bleed Current Visit: Yes Status: Acute (3) ESRD on dialysis Current Visit: Yes Status: Chronic (4) Hepatic failure Current Visit: Yes Status: Chronic Qualifiers: Liver failure chronicity: chronic (5) Alcoholic cirrhosis of liver with ascites Current Visit: No Status: Chronic Subjective Date of service: 12/25/21 Principal diagnosis: Gi bleed Interval history: Patient with abdominal pain with movement and palpation of his abdomen he reports Reports ascites is continuing to reaccumulate No overt bleeding since the endoscopy he reports Objective - Constitutional Vitals: Temp Pulse Resp BP Pulse Ox 98.5 F 89 18 97/53 98 12/25/21 04:26 12/25/21 04:26 12/25/21 04:26 12/25/21 04:26 12/25/21 04:26 General appearance: no acute distress - EENT Eyes: EOM intact - Neck Neck: supple - Respiratory Respiratory effort: normal - Cardiovascular Rhythm: regular - Gastrointestinal General gastrointestinal: Present: tender, distended, other (Positive fluid wave) - Integumentary Integumentary: Present: dry - Musculoskeletal Musculoskeletal: normal - Neurologic Neurological: alert and oriented x3 - Psychiatric Psychiatric: appropriate mood/affect - Labs CBC & Chem 7: 12/24/21 21:55 12/24/21 04:14 Labs: Laboratory Results - last 24 hr 12/24/21 21:55 Hgb 7.8 L Hct 24.0 L
--- NOTE | 2021-12-25 10:37 | Progress Note ---
Assessment and Plan Assessment and plan: This is a 41-year-old male with EtOH cirrhosis, esophageal varices, ascites, ESRD on HD, chronic HE who presented to the hospital on 12/21 with complaints of diffuse abdominal pain and black and bloody stools over the past 2 days along with nausea and vomiting. Of note patient was seen here on 11/23/2021 and was discharged after having banding of 1 esophageal varice. In the emergency department patient was tachycardic and had a hemoglobin and hematocrit of 6.5/20.2, leukocytosis at 27.7, hyponatremia 135, hyperkalemia 6.1. Patient was admitted to the hospitalist service with consults to nephrology and GI. Hospital course to date: 12/22: Patient had an EGD today which showed no active variceal bleed, patient has been cleared for clear liquid diet and will continue Protonix IVP and octreotide drip. 12/23: Patient had paracentesis today with removal 7.5 L. Lab studies ordered. Will administer albumin. 12/24: H/H holding, patient will be transferred to the floor. 12/25: Patient seen and examined, will continue pain control. Discussed with GI, plan is to repeat EGD for banding of the esophageal varices. Will also schedule for paracentesis. Neuro: h/o chronic HE -Reorientation as needed -Maintain sleep-wake cycle -As needed analgesia -Continue lactulose Cardiac: h/o chronic hypotension -Home meds includes midodrine, restart as needed -Blood pressure monitoring per protocol Respiratory: Acute hypoxic respiratory failure -Weaned to RA -Pulmonary hygiene -SPO2 monitoring -Supplemental oxygen as needed GI: GIB, h/o EV, EtOH cirrhosis, GIB -GI consulted, patient recommendations -S/p EGD on 12/22 which showed grade 2 esophageal varices, one with small red spots but no active bleeding, unclear if this represents due to recent bleeding stigmata, unable to bend due to inadequate suctioning at bedside to assess the mucosa, no active bleeding seen at the end of the procedure -CLD -Octreotide drip for 2 days per GI -PPI -Stool occult positive -BR: lactulose : ESRD on HD -Nephrology consulted, appreciate recommendations -Renally dose medications -Avoid nephrotoxic medications -Epogen per nephro -Trend BMP ID: r/o SBP -On cefepime for now -Paracentesis completed 12/23 with removal of 7.5 L -Albumin post procedure -Fluid studies pending -f/u blood culture -Monitor WBC and temperature curve Endo: NAD -Avoid hypoglycemia Heme: Leukocytosis, symptomatic anemia -Presented with H/H of 6.8/22.6 -S/p 3 units prbc -Serial h/h -Transfuse hemoglobin less than 7 -SCDs to BLE while in bed -Avoid chemical anticoagulation in setting of recent GI bleed History Interval history: Patient seen and examined, no acute distress but still with soreness on the abdominal cavity area. Hospitalist Physical - Physical exam Narrative exam: General appearance: Present: no acute distress, well-nourished, cachectic - EENT Eyes: Present: PERRL, EOM intact, icteric sclera ENT: dentition normal - Neck Neck: Present: normal ROM - Respiratory Respiratory: bilateral: diminished - Cardiovascular Rhythm: regular Heart Sounds: Present: S1 & S2. Absent: systolic murmur, diastolic murmur - Extremities Extremities: no ischemia, pulses intact, pulses symmetrical, No edema, normal temperature, normal color, Full ROM Peripheral Pulses: within normal limits - Abdominal General gastrointestinal: soft, normal bowel sounds, tender-generalized, gravidus pannus with positive fluid wave - Integumentary Integumentary: Present: warm, dry - Psychiatric Psychiatric: cooperative - Neurologic Neurologic: CNII-XII intact, no moves all extremities - Allied Health Allied health notes reviewed: nursing, RT, social work - Constitutional Vitals: Temp Pulse Resp BP Pulse Ox 98.5 F 89 18 97/53 98 12/25/21 04:26 12/25/21 04:26 12/25/21 04:26 12/25/21 04:26 12/25/21 04:26 General appearance: Present: no acute distress, well-nourished, cachectic Results - Labs CBC & Chem 7: 12/24/21 21:55 12/24/21 04:14 Labs: Laboratory Last Values WBC 8.7 K/mm3 (4.5-11.0) 12/24/21 08:49 RBC 2.44 M/mm3 (3.65-5.03) L 12/24/21 08:49 Hgb 7.8 gm/dl (11.8-15.2) L 12/24/21 21:55 Hct 24.0 % (35.5-45.6) L 12/24/21 21:55 MCV 92 fl (84-94) 12/24/21 08:49 MCH 31 pg (28-32) 12/24/21 08:49 MCHC 33 % (32-34) 12/24/21 08:49 RDW 17.7 % (13.2-15.2) H 12/24/21 08:49 Plt Count 143 K/mm3 (140-440) 12/24/21 08:49 Lymph % (Auto) 11.6 % (13.4-35.0) L 12/23/21 04:24 [place] % (Auto) 9.4 % (0.0-7.3) H 12/23/21 04:24 Eos % (Auto) 0.0 % (0.0-4.3) 12/23/21 04:24 Baso % (Auto) 0.3 % (0.0-1.8) 12/23/21 04:24 Lymph # (Auto) 1.5 K/mm3 (1.2-5.4) 12/23/21 04:24 [place] # (Auto) 1.2 K/mm3 (0.0-0.8) H 12/23/21 04:24 Eos # (Auto) 0.0 K/mm3 (0.0-0.4) 12/23/21 04:24 Baso # (Auto) 0.0 K/mm3 (0.0-0.1) 12/23/21 04:24 Add Manual Diff Complete 12/22/21 04:22 Total Counted 100 12/22/21 04:22 Seg Neutrophils % 78.7 % (40.0-70.0) H 12/23/21 04:24 Seg Neuts % (Manual) 85.0 % (40.0-70.0) H 12/22/21 04:22 Band Neutrophils % 0 % 12/22/21 04:22 Lymphocytes % (Manual) 7.0 % (13.4-35.0) L 12/22/21 04:22 Reactive Lymphs % (Man) 0 % 12/22/21 04:22 Monocytes % (Manual) 8.0 % (0.0-7.3) H 12/22/21 04:22 Eosinophils % (Manual) 0 % (0.0-4.3) 12/22/21 04:22 Basophils % (Manual) 0 % (0.0-1.8) 12/22/21 04:22 Metamyelocytes % 0 % 12/22/21 04:22 Myelocytes % 0 % 12/22/21 04:22 Promyelocytes % 0 % 12/22/21 04:22 Blast Cells % 0 % 12/22/21 04:22 Nucleated RBC % Not Reportable 12/22/21 04:22 Seg Neutrophils # 10.2 K/mm3 (1.8-7.7) H 12/23/21 04:24 Seg Neutrophils # Man 23.5 K/mm3 (1.8-7.7) H 12/22/21 04:22 Band Neutrophils # 0.0 K/mm3 12/22/21 04:22 Lymphocytes # (Manual) 1.9 K/mm3 (1.2-5.4) 12/22/21 04:22 Abs React Lymphs (Man) 0.0 K/mm3 12/22/21 04:22 Monocytes # (Manual) 2.2 K/mm3 (0.0-0.8) H 12/22/21 04:22 Eosinophils # (Manual) 0.0 K/mm3 (0.0-0.4) 12/22/21 04:22 Basophils # (Manual) 0.0 K/mm3 (0.0-0.1) 12/22/21 04:22 Metamyelocytes # 0.0 K/mm3 12/22/21 04:22 Myelocytes # 0.0 K/mm3 12/22/21 04:22 Promyelocytes # 0.0 K/mm3 12/22/21 04:22 Blast Cells # 0.0 K/mm3 12/22/21 04:22 WBC Morphology Not Reportable 12/22/21 04:22 Hypersegmented Neuts Not Reportable 12/22/21 04:22 Hyposegmented Neuts Not Reportable 12/22/21 04:22 Hypogranular Neuts Not Reportable 12/22/21 04:22 Smudge Cells Not Reportable 12/22/21 04:22 Toxic Granulation Not Reportable 12/22/21 04:22 Toxic Vacuolation Not Reportable 12/22/21 04:22 Dohle Bodies Not Reportable 12/22/21 04:22 Pelger-Huet Anomaly Not Reportable 12/22/21 04:22 Dmitri Rods Not Reportable 12/22/21 04:22 Platelet Estimate Consistent w auto 12/22/21 04:22 Clumped Platelets Not Reportable 12/22/21 04:22 Plt Clumps, EDTA Not Reportable 12/22/21 04:22 Large Platelets Not Reportable 12/22/21 04:22 Giant Platelets Not Reportable 12/22/21 04:22 Platelet Satelliting Not Reportable 12/22/21 04:22 Plt Morphology Comment Not Reportable 12/22/21 04:22 RBC Morphology Not Reportable 12/22/21 04:22 Dimorphic RBCs Not Reportable 12/22/21 04:22 Polychromasia Not Reportable 12/22/21 04:22 Hypochromasia Not Reportable 12/22/21 04:22 Poikilocytosis Not Reportable 12/22/21 04:22 Anisocytosis Not Reportable 12/22/21 04:22 Microcytosis Not Reportable 12/22/21 04:22 Macrocytosis Not Reportable 12/22/21 04:22 Spherocytes Not Reportable 12/22/21 04:22 Pappenheimer Bodies Not Reportable 12/22/21 04:22 Sickle Cells Not Reportable 12/22/21 04:22 Target Cells Not Reportable 12/22/21 04:22 Tear Drop Cells Not Reportable 12/22/21 04:22 Ovalocytes Not Reportable 12/22/21 04:22 Helmet Cells Not Reportable 12/22/21 04:22 [place] Bodies Not Reportable 12/22/21 04:22 [place] Rings Not Reportable 12/22/21 04:22 [place] Cells Not Reportable 12/22/21 04:22 Bite Cells Not Reportable 12/22/21 04:22 Crenated Cell Not Reportable 12/22/21 04:22 Elliptocytes Not Reportable 12/22/21 04:22 Acanthocytes (Spur) Not Reportable 12/22/21 04:22 Rouleaux Not Reportable 12/22/21 04:22 Hemoglobin C Crystals Not Reportable 12/22/21 04:22 Schistocytes Not Reportable 12/22/21 04:22 Malaria parasites Not Reportable 12/22/21 04:22 Shamir Bodies Not Reportable 12/22/21 04:22 Hem Pathologist Commnt No 12/22/21 04:22 Sodium 135 mmol/L (137-145) L 12/24/21 04:14 Potassium 3.4 mmol/L (3.6-5.0) L 12/24/21 04:14 Chloride 98.0 mmol/L (98-107) 12/24/21 04:14 Carbon Dioxide 26 mmol/L (22-30) 12/24/21 04:14 Anion Gap 14 mmol/L 12/24/21 04:14 BUN 32 mg/dL (9-20) H 12/24/21 04:14 Creatinine 3.2 mg/dL (0.8-1.3) H 12/24/21 04:14 Estimated GFR 26 ml/min 12/24/21 04:14 BUN/Creatinine Ratio 10 % 12/24/21 04:14 Glucose 94 mg/dL (75-100) 12/24/21 04:14 Lactic Acid 1.70 mmol/L (0.7-2.0) 12/23/21 04:24 Calcium 8.1 mg/dL (8.4-10.2) L 12/24/21 04:14 Phosphorus 3.80 mg/dL (2.5-4.5) 12/23/21 04:24 Magnesium 1.80 mg/dL (1.7-2.3) 12/24/21 04:14 Total Bilirubin 2.20 mg/dL (0.1-1.2) H 12/22/21 04:22 AST 30 units/L (5-40) 12/22/21 04:22 ALT 11 units/L (7-56) 12/22/21 04:22 Alkaline Phosphatase 75 units/L (35-129) 12/22/21 04:22 Ammonia 56.0 umol/L (25-60) 12/22/21 16:35 Total Protein 5.4 g/dL (6.3-8.2) L 12/22/21 04:22 Albumin 2.2 g/dL (3.9-5) L 12/22/21 04:22 Albumin/Globulin Ratio 0.7 % 12/22/21 04:22 Lipase 10 units/L (13-60) L 12/21/21 10:22 Urine Color Gloria (Yellow) 12/21/21 18:34 Urine Turbidity Clear (Clear) 12/21/21 18:34 Urine pH 5.0 (5.0-7.0) 12/21/21 18:34 Ur Specific [place] 1.020 (1.003-1.030) 12/21/21 18:34 Urine Protein 100 mg/dl mg/dL (Negative) 12/21/21 18:34 Urine Glucose (UA) Negative mg/dL (Negative) 12/21/21 18:34 Urine Ketones Negative mg/dL (Negative) 12/21/21 18:34 Urine Blood Negative (Negative) 12/21/21 18:34 Urine Nitrite Negative (Negative) 12/21/21 18:34 Urine Bilirubin 1+ (Negative) 12/21/21 18:34 Urine Ictotest Positive (Negative) 12/21/21 18:34 Urine Urobilinogen 0.0 mg/dL (<2.0) 12/21/21 18:34 Ur Leukocyte Esterase 1+ (Negative) 12/21/21 18:34 Urine RBC (Auto) /HPF (0.0-6.0) 12/21/21 18:34 Nasal Screen MRSA (PCR) Negative (Negative) 12/23/21 10:36 Hepatitis A IgM Ab Non-reactive (NonReactive) 12/22/21 15:50 Hep Bs Antigen Non-reactive (Negative) 12/22/21 15:50 Hep B Core IgM Ab Non-reactive (NonReactive) 12/22/21 15:50 Hepatitis C Antibody Non-reactive (NonReactive) 12/22/21 15:50 Blood Type O POSITIVE 12/21/21 12:48 Antibody Screen Negative 12/21/21 12:48 Crossmatch See Detail 12/21/21 12:48 Microbiology: Microbiology 12/21/21 18:34 Urine,Clean Catch Urine Culture - Preliminary NO GROWTH AFTER 24 HOURS 12/21/21 12:48 Peripheral/Venous Blood Culture - Preliminary NO GROWTH AFTER 72 HOURS 12/21/21 12:48 Peripheral/Venous Blood Culture - Preliminary NO GROWTH AFTER 72 HOURS Beltran/IV: Voiding Method Urinal Active Medications - Current Medications Current Medications: Generic Name Dose Route Start Last Admin Trade Name Freq PRN Reason Stop Dose Admin Albumin Human 25 gm 12/22/21 09:18 Albumin Human 25% (25 Gm/100 Ml) Inj IV CLAUDIA PRN Hypotension Epoetin Gautam-epbx 20,000 unit 12/22/21 09:18 12/24/21 14:56 Epoetin Gautam-Epbx 20,000 Unit/1 Ml Vial IV 20,000 unit CLAUDIA PRN Administration hemodialysis Hydromorphone HCl 0.5 mg 12/21/21 19:43 12/24/21 20:15 Hydromorphone 0.5 Mg/0.5 Ml Inj IV 0.5 mg Q3H PRN Administration Pain , Severe (7-10) Cefepime HCl 1 gm in 100 mls @ 200 mls/hr 12/22/21 10:00 12/25/21 09:34 Cefepime/Ns 1 Gm/100 Ml IV 12/29/21 09:59 200 mls/hr Q24HR JORDAN Administration Sodium Chloride 100 mls @ 999 mls/hr 12/22/21 09:18 Nacl 0.9% IV CLAUDIA PRN Hypotension Lactulose 20 gm 12/22/21 20:00 12/25/21 09:33 Lactulose 20 Gm/30 Ml Oral Liqd PO 20 gm TID JORDAN Administration Metoclopramide HCl 5 mg 12/22/21 08:00 Metoclopramide 10 Mg/2 Ml Inj IV Q6H PRN Nausea And Vomiting Morphine Sulfate 2 mg 12/21/21 19:43 12/24/21 00:52 Morphine 2 Mg/1 Ml Inj IV 2 mg Q4H PRN Administration Pain, Moderate (4-6) Ondansetron HCl 4 mg 12/21/21 19:32 Ondansetron 4 Mg/2 Ml Inj IV Q3H PRN Nausea And Vomiting Pantoprazole Sodium 40 mg 12/23/21 10:00 12/25/21 09:33 Pantoprazole 40 Mg Inj IV 40 mg QDAY JORDAN Administration Sodium Chloride 10 ml 12/21/21 22:00 12/25/21 09:34 Sodium Chloride 0.9% 10 Ml Flush Syringe IV 10 ml BID JORDAN Administration Sodium Chloride 10 ml 12/21/21 19:32 Sodium Chloride 0.9% 10 Ml Flush Syringe IV PRN PRN LINE FLUSH
--- NOTE | 2021-12-25 12:46 | Progress Note ---
Assessment and Plan Impression * End-stage renal disease on maintenance hemodialysis * GI bleed * Hyperkalemia * Cirrhosis of liver * Lactic acidosis * Leukocytosis Recommendations * Patient had uneventful hemodialysis yesterday * Continue dialysis on TTS schedule . His outpatient dialysis days are however MWF at [facility] [place] * Hyperkalemia has been corrected * Monitor H&H and transfuse packed RBC as needed * Adjust diet and meds for ESRD state * Hold phosphate binders for now * Shall administer Epogen as well * Avoid nephrotoxins * Monitor fluid status and electrolytes closely * Further plan as per GI services Subjective Date of service: 12/25/21 Principal diagnosis: Gi bleed Interval history: Patient is comfortable today. He is currently out of IMCU. Denies any hematochezia or melena. No nausea or vomiting. Still complains of mild epigastric discomfort Objective - Vital Signs Vital signs: Vital Signs - 12hr 12/25/21 12/25/21 12/25/21 04:00 04:26 11:20 Temperature 98.5 F 98.4 F Pulse Rate 89 92 H Pulse Rate [ 85 From Monitor] Pulse Rate [ 92 H Left Dorsalis Pedis] Pulse Rate [ 92 H Right Dorsalis Pedis] Respiratory 16 18 18 Rate Blood Pressure 97/53 104/58 O2 Sat by Pulse 99 98 93 Oximetry 12/25/21 12:27 Temperature Pulse Rate Pulse Rate [ 85 From Monitor] Pulse Rate [ 92 H Left Dorsalis Pedis] Pulse Rate [ 92 H Right Dorsalis Pedis] Respiratory 16 Rate Blood Pressure O2 Sat by Pulse 99 Oximetry - General Appearance General appearance: well-developed, well-nourished, appears stated age EENT: PERRL, mucous membranes moist Neck: no JVD, no thyromegaly, no carotid bruit, supple, other (IJ PermCath in place) Respiratory: Present: Clear to Ascultation Cardiology: regular, normal heart rate, S1S2, no murmurs Gastrointestinal: normal, normoactive bowel sounds, tenderness (Mild epigastric discomfort) Integumentary: other (No edema) - Lab 12/24/21 21:55 12/24/21 04:14 Most recent lab results Calcium 8.1 mg/dL (8.4-10.2) L 12/24/21 04:14 Phosphorus 3.80 mg/dL (2.5-4.5) 12/23/21 04:24 Magnesium 1.80 mg/dL (1.7-2.3) 12/24/21 04:14 Medications & Allergies - Medications Allergies/Adverse Reactions: Allergies No Known Allergies Allergy (Verified 12/22/21 06:29) Home Medications: Home Medications Medication Instructions Recorded Confirmed Last Taken Type Lactulose [Cephulac] 20 gm PO TID #1 bottle 11/23/21 12/22/21 12/21/21 Rx Pantoprazole [Protonix TAB] 40 mg PO BID #60 tab 11/23/21 12/22/21 12/21/21 Rx Active Medications: Generic Name Dose Route Start Last Admin Trade Name Freq PRN Reason Stop Dose Admin Albumin Human 25 gm 12/22/21 09:18 Albumin Human 25% (25 Gm/100 Ml) Inj IV CLAUDIA PRN Hypotension Epoetin Gautam-epbx 20,000 unit 12/22/21 09:18 12/24/21 14:56 Epoetin Gautam-Epbx 20,000 Unit/1 Ml Vial IV 20,000 unit CLAUDIA PRN Administration hemodialysis Hydromorphone HCl 0.5 mg 12/21/21 19:43 12/24/21 20:15 Hydromorphone 0.5 Mg/0.5 Ml Inj IV 0.5 mg Q3H PRN Administration Pain , Severe (7-10) Cefepime HCl 1 gm in 100 mls @ 200 mls/hr 12/22/21 10:00 12/25/21 09:34 Cefepime/Ns 1 Gm/100 Ml IV 12/29/21 09:59 200 mls/hr Q24HR JORDAN Administration Sodium Chloride 100 mls @ 999 mls/hr 12/22/21 09:18 Nacl 0.9% IV CLAUDIA PRN Hypotension Lactulose 20 gm 12/22/21 20:00 12/25/21 09:33 Lactulose 20 Gm/30 Ml Oral Liqd PO 20 gm TID JORDAN Administration Metoclopramide HCl 5 mg 12/22/21 08:00 Metoclopramide 10 Mg/2 Ml Inj IV Q6H PRN Nausea And Vomiting Morphine Sulfate 2 mg 12/21/21 19:43 12/24/21 00:52 Morphine 2 Mg/1 Ml Inj IV 2 mg Q4H PRN Administration Pain, Moderate (4-6) Ondansetron HCl 4 mg 12/21/21 19:32 Ondansetron 4 Mg/2 Ml Inj IV Q3H PRN Nausea And Vomiting Pantoprazole Sodium 40 mg 12/23/21 10:00 12/25/21 09:33 Pantoprazole 40 Mg Inj IV 40 mg QDAY JORDAN Administration Sodium Chloride 10 ml 12/21/21 22:00 12/25/21 09:34 Sodium Chloride 0.9% 10 Ml Flush Syringe IV 10 ml BID JORDAN Administration Sodium Chloride 10 ml 12/21/21 19:32 Sodium Chloride 0.9% 10 Ml Flush Syringe IV PRN PRN LINE FLUSH
[2021-12-25] MEDS: MORPHINE 2 MG/1 ML INJ IV PRN (15:41)
[2021-12-25] MEDS: HYDROmorphone 0.5 MG/0.5 ML INJ IV PRN (22:18)
--- NOTE | 2021-12-26 07:51 | Gastroenterology Progress Note ---
Assessment and Plan It is concerning to me that the patient was unable to have his varices successfully banded as he has had recurrent variceal bleeding, and outpatient follow-up is likely going to be challenging for him Therefore, will perform paracentesis for symptom improvement, orders already placed, as well as rule out SBP. Once that is performed we will tentatively plan on performing EGD on Sunday for repeat attempt to band his esophageal varices to decrease the risk of life-threatening variceal bleeding In the meantime, his bleeding has stopped for the moment therefore may advance diet as tolerated though please make patient n.p.o. past midnight tonight - Patient Problems (1) Ascites Current Visit: Yes Status: Acute (2) GI bleed Current Visit: Yes Status: Acute (3) ESRD on dialysis Current Visit: Yes Status: Chronic (4) Hepatic failure Current Visit: Yes Status: Chronic Qualifiers: Liver failure chronicity: chronic (5) Alcoholic cirrhosis of liver with ascites Current Visit: No Status: Chronic Subjective Date of service: 12/26/21 Principal diagnosis: Gi bleed Interval history: Patient with abdominal pain with movement and palpation of his abdomen he reports Awaiting paracentesis Reports ascites is continuing to reaccumulate No overt bleeding since the endoscopy he reports Objective - Constitutional Vitals: Temp Pulse Resp BP Pulse Ox 98.2 F 96 H 18 115/72 93 12/26/21 04:17 12/26/21 04:17 12/26/21 04:17 12/26/21 04:17 12/26/21 04:17 General appearance: no acute distress - EENT Eyes: EOM intact - Respiratory Respiratory effort: normal - Gastrointestinal General gastrointestinal: Present: tender, distended - Integumentary Integumentary: Present: dry - Neurologic Neurological: alert and oriented x3 - Psychiatric Psychiatric: appropriate mood/affect - Labs CBC & Chem 7: 12/24/21 21:55 12/24/21 04:14
[2021-12-26 08:29] LABS: Hematocrit 23.3 % (35.5-45.6); Hemoglobin 7.7 gm/dl (11.8-15.2); Mean Corpuscular HGB Conc 33 % (32-34); Mean Corpuscular Volume 92 fl (84-94); Platelet Count 200 K/mm3 (140-440); Red Blood Count 2.53 M/mm3 (3.65-5.03)
[2021-12-26 09:01] LABS: Albumin 2.1 g/dL (3.9-5); Calcium 7.7 mg/dL (8.4-10.2)
[2021-12-26] MEDS: LACTULOSE 20 GM/30 ML ORAL LIQD PO SCH ×3 (10:42→20:15)
[2021-12-26] MEDS: PANTOPRAZOLE 40 MG INJ IV SCH (10:52)
[2021-12-26] MEDS: MORPHINE 2 MG/1 ML INJ IV PRN ×2 (10:52→20:15)
[2021-12-26] MEDS: CEFEPIME/NS 1 GM/100 ML 1 GM/100 ML BAG IV SCH (10:52)
--- NOTE | 2021-12-26 12:46 | Progress Note ---
Assessment and Plan Assessment and plan: This is a 41-year-old male with EtOH cirrhosis, esophageal varices, ascites, ESRD on HD, chronic HE who presented to the hospital on 12/21 with complaints of diffuse abdominal pain and black and bloody stools over the past 2 days along with nausea and vomiting. Of note patient was seen here on 11/23/2021 and was discharged after having banding of 1 esophageal varice. In the emergency department patient was tachycardic and had a hemoglobin and hematocrit of 6.5/20.2, leukocytosis at 27.7, hyponatremia 135, hyperkalemia 6.1. Patient was admitted to the hospitalist service with consults to nephrology and GI. Hospital course to date: 12/22: Patient had an EGD today which showed no active variceal bleed, patient has been cleared for clear liquid diet and will continue Protonix IVP and octreotide drip. 12/23: Patient had paracentesis today with removal 7.5 L. Lab studies ordered. Will administer albumin. 12/24: H/H holding, patient will be transferred to the floor. 12/25: Patient seen and examined, will continue pain control. Discussed with GI, plan is to repeat EGD for banding of the esophageal varices. Will also schedule for paracentesis. 12/26: Patient seen and examined, plan for Endoscopy tomorrow for possible varicale bleeding. Noted Hypokalemia. Will replace Neuro: h/o chronic HE -Reorientation as needed -Maintain sleep-wake cycle -As needed analgesia -Continue lactulose Cardiac: h/o chronic hypotension -Home meds includes midodrine, restart as needed -Blood pressure monitoring per protocol Respiratory: Acute hypoxic respiratory failure -Weaned to RA -Pulmonary hygiene -SPO2 monitoring -Supplemental oxygen as needed GI: GIB, h/o EV, EtOH cirrhosis, GIB -GI consulted, patient recommendations -S/p EGD on 12/22 which showed grade 2 esophageal varices, one with small red spots but no active bleeding, unclear if this represents due to recent bleeding stigmata, unable to bend due to inadequate suctioning at bedside to assess the mucosa, no active bleeding seen at the end of the procedure -CLD -Octreotide drip for 2 days per GI -PPI -Stool occult positive -BR: lactulose : ESRD on HD -Nephrology consulted, appreciate recommendations -Renally dose medications -Avoid nephrotoxic medications -Epogen per nephro -Trend BMP ID: r/o SBP -On cefepime for now -Paracentesis completed 12/23 with removal of 7.5 L -Albumin post procedure -Fluid studies pending -f/u blood culture -Monitor WBC and temperature curve Endo: NAD -Avoid hypoglycemia Heme: Leukocytosis, symptomatic anemia -Presented with H/H of 6.8/22.6 -S/p 3 units prbc -Serial h/h -Transfuse hemoglobin less than 7 -SCDs to BLE while in bed -Avoid chemical anticoagulation in setting of recent GI bleed History Interval history: Patient seen and examined, no acute distress, No adverse event reports. Hospitalist Physical - Physical exam Narrative exam: General appearance: Present: no acute distress, well-nourished, - EENT Eyes: Present: PERRL, EOM intact, icteric sclera ENT: dentition normal - Neck Neck: Present: normal ROM - Respiratory Respiratory: bilateral: diminished - Cardiovascular Rhythm: regular Heart Sounds: Present: S1 & S2. Absent: systolic murmur, diastolic murmur - Extremities Extremities: no ischemia, pulses intact, pulses symmetrical, No edema, normal temperature, normal color, Full ROM Peripheral Pulses: within normal limits - Abdominal General gastrointestinal: soft, normal bowel sounds, tender-generalized, gravidus pannus with positive fluid wave - Integumentary Integumentary: Present: warm, dry - Psychiatric Psychiatric: cooperative - Neurologic Neurologic: CNII-XII intact, no moves all extremities - Allied Health Allied health notes reviewed: nursing, RT, social work - Constitutional Vitals: Temp Pulse Resp BP Pulse Ox 98.2 F 96 H 18 115/72 93 12/26/21 04:17 12/26/21 04:17 12/26/21 04:17 12/26/21 04:17 12/26/21 04:17 General appearance: Present: no acute distress, well-nourished, cachectic Results - Labs CBC & Chem 7: 12/26/21 07:42 12/26/21 07:42 Labs: Laboratory Last Values WBC 9.3 K/mm3 (4.5-11.0) 12/26/21 07:42 RBC 2.53 M/mm3 (3.65-5.03) L 12/26/21 07:42 Hgb 7.7 gm/dl (11.8-15.2) L 12/26/21 07:42 Hct 23.3 % (35.5-45.6) L 12/26/21 07:42 MCV 92 fl (84-94) 12/26/21 07:42 MCH 31 pg (28-32) 12/26/21 07:42 MCHC 33 % (32-34) 12/26/21 07:42 RDW 18.0 % (13.2-15.2) H 12/26/21 07:42 Plt Count 200 K/mm3 (140-440) 12/26/21 07:42 Lymph % (Auto) 11.6 % (13.4-35.0) L 12/23/21 04:24 [place] % (Auto) 9.4 % (0.0-7.3) H 12/23/21 04:24 Eos % (Auto) 0.0 % (0.0-4.3) 12/23/21 04:24 Baso % (Auto) 0.3 % (0.0-1.8) 12/23/21 04:24 Lymph # (Auto) 1.5 K/mm3 (1.2-5.4) 12/23/21 04:24 [place] # (Auto) 1.2 K/mm3 (0.0-0.8) H 12/23/21 04:24 Eos # (Auto) 0.0 K/mm3 (0.0-0.4) 12/23/21 04:24 Baso # (Auto) 0.0 K/mm3 (0.0-0.1) 12/23/21 04:24 Add Manual Diff Complete 12/22/21 04:22 Total Counted 100 12/22/21 04:22 Seg Neutrophils % 78.7 % (40.0-70.0) H 12/23/21 04:24 Seg Neuts % (Manual) 85.0 % (40.0-70.0) H 12/22/21 04:22 Band Neutrophils % 0 % 12/22/21 04:22 Lymphocytes % (Manual) 7.0 % (13.4-35.0) L 12/22/21 04:22 Reactive Lymphs % (Man) 0 % 12/22/21 04:22 Monocytes % (Manual) 8.0 % (0.0-7.3) H 12/22/21 04:22 Eosinophils % (Manual) 0 % (0.0-4.3) 12/22/21 04:22 Basophils % (Manual) 0 % (0.0-1.8) 12/22/21 04:22 Metamyelocytes % 0 % 12/22/21 04:22 Myelocytes % 0 % 12/22/21 04:22 Promyelocytes % 0 % 12/22/21 04:22 Blast Cells % 0 % 12/22/21 04:22 Nucleated RBC % Not Reportable 12/22/21 04:22 Seg Neutrophils # 10.2 K/mm3 (1.8-7.7) H 12/23/21 04:24 Seg Neutrophils # Man 23.5 K/mm3 (1.8-7.7) H 12/22/21 04:22 Band Neutrophils # 0.0 K/mm3 12/22/21 04:22 Lymphocytes # (Manual) 1.9 K/mm3 (1.2-5.4) 12/22/21 04:22 Abs React Lymphs (Man) 0.0 K/mm3 12/22/21 04:22 Monocytes # (Manual) 2.2 K/mm3 (0.0-0.8) H 12/22/21 04:22 Eosinophils # (Manual) 0.0 K/mm3 (0.0-0.4) 12/22/21 04:22 Basophils # (Manual) 0.0 K/mm3 (0.0-0.1) 12/22/21 04:22 Metamyelocytes # 0.0 K/mm3 12/22/21 04:22 Myelocytes # 0.0 K/mm3 12/22/21 04:22 Promyelocytes # 0.0 K/mm3 12/22/21 04:22 Blast Cells # 0.0 K/mm3 12/22/21 04:22 WBC Morphology Not Reportable 12/22/21 04:22 Hypersegmented Neuts Not Reportable 12/22/21 04:22 Hyposegmented Neuts Not Reportable 12/22/21 04:22 Hypogranular Neuts Not Reportable 12/22/21 04:22 Smudge Cells Not Reportable 12/22/21 04:22 Toxic Granulation Not Reportable 12/22/21 04:22 Toxic Vacuolation Not Reportable 12/22/21 04:22 Dohle Bodies Not Reportable 12/22/21 04:22 Pelger-Huet Anomaly Not Reportable 12/22/21 04:22 Dmitri Rods Not Reportable 12/22/21 04:22 Platelet Estimate Consistent w auto 12/22/21 04:22 Clumped Platelets Not Reportable 12/22/21 04:22 Plt Clumps, EDTA Not Reportable 12/22/21 04:22 Large Platelets Not Reportable 12/22/21 04:22 Giant Platelets Not Reportable 12/22/21 04:22 Platelet Satelliting Not Reportable 12/22/21 04:22 Plt Morphology Comment Not Reportable 12/22/21 04:22 RBC Morphology Not Reportable 12/22/21 04:22 Dimorphic RBCs Not Reportable 12/22/21 04:22 Polychromasia Not Reportable 12/22/21 04:22 Hypochromasia Not Reportable 12/22/21 04:22 Poikilocytosis Not Reportable 12/22/21 04:22 Anisocytosis Not Reportable 12/22/21 04:22 Microcytosis Not Reportable 12/22/21 04:22 Macrocytosis Not Reportable 12/22/21 04:22 Spherocytes Not Reportable 12/22/21 04:22 Pappenheimer Bodies Not Reportable 12/22/21 04:22 Sickle Cells Not Reportable 12/22/21 04:22 Target Cells Not Reportable 12/22/21 04:22 Tear Drop Cells Not Reportable 12/22/21 04:22 Ovalocytes Not Reportable 12/22/21 04:22 Helmet Cells Not Reportable 12/22/21 04:22 [place] Bodies Not Reportable 12/22/21 04:22 [place] Rings Not Reportable 12/22/21 04:22 Zackary Cells Not Reportable 12/22/21 04:22 Bite Cells Not Reportable 12/22/21 04:22 Crenated Cell Not Reportable 12/22/21 04:22 Elliptocytes Not Reportable 12/22/21 04:22 Acanthocytes (Spur) Not Reportable 12/22/21 04:22 Rouleaux Not Reportable 12/22/21 04:22 Hemoglobin C Crystals Not Reportable 12/22/21 04:22 Schistocytes Not Reportable 12/22/21 04:22 Malaria parasites Not Reportable 12/22/21 04:22 Shamir Bodies Not Reportable 12/22/21 04:22 Hem Pathologist Commnt No 12/22/21 04:22 Sodium 133 mmol/L (137-145) L 12/26/21 07:42 Potassium 3.2 mmol/L (3.6-5.0) L 12/26/21 07:42 Chloride 98.4 mmol/L (98-107) 12/26/21 07:42 Carbon Dioxide 27 mmol/L (22-30) 12/26/21 07:42 Anion Gap 11 mmol/L 12/26/21 07:42 BUN 20 mg/dL (9-20) 12/26/21 07:42 Creatinine 2.5 mg/dL (0.8-1.3) H 12/26/21 07:42 Estimated GFR 35 ml/min 12/26/21 07:42 BUN/Creatinine Ratio 8 % 12/26/21 07:42 Glucose 86 mg/dL (75-100) 12/26/21 07:42 Lactic Acid 1.70 mmol/L (0.7-2.0) 12/23/21 04:24 Calcium 7.7 mg/dL (8.4-10.2) L 12/26/21 07:42 Phosphorus 3.80 mg/dL (2.5-4.5) 12/23/21 04:24 Magnesium 1.80 mg/dL (1.7-2.3) 12/24/21 04:14 Total Bilirubin 1.90 mg/dL (0.1-1.2) H 12/26/21 07:42 AST 19 units/L (5-40) 12/26/21 07:42 ALT 9 units/L (7-56) 12/26/21 07:42 Alkaline Phosphatase 97 units/L (35-129) 12/26/21 07:42 Ammonia 56.0 umol/L (25-60) 12/22/21 16:35 Total Protein 4.6 g/dL (6.3-8.2) L 12/26/21 07:42 Albumin 2.1 g/dL (3.9-5) L 12/26/21 07:42 Albumin/Globulin Ratio 0.8 % 12/26/21 07:42 Lipase 10 units/L (13-60) L 12/21/21 10:22 Urine Color Gloria (Yellow) 12/21/21 18:34 Urine Turbidity Clear (Clear) 12/21/21 18:34 Urine pH 5.0 (5.0-7.0) 12/21/21 18:34 Ur Specific [place] 1.020 (1.003-1.030) 12/21/21 18:34 Urine Protein 100 mg/dl mg/dL (Negative) 12/21/21 18:34 Urine Glucose (UA) Negative mg/dL (Negative) 12/21/21 18:34 Urine Ketones Negative mg/dL (Negative) 12/21/21 18:34 Urine Blood Negative (Negative) 12/21/21 18:34 Urine Nitrite Negative (Negative) 12/21/21 18:34 Urine Bilirubin 1+ (Negative) 12/21/21 18:34 Urine Ictotest Positive (Negative) 12/21/21 18:34 Urine Urobilinogen 0.0 mg/dL (<2.0) 12/21/21 18:34 Ur Leukocyte Esterase 1+ (Negative) 12/21/21 18:34 Urine RBC (Auto) /HPF (0.0-6.0) 12/21/21 18:34 Nasal Screen MRSA (PCR) Negative (Negative) 12/23/21 10:36 Hepatitis A IgM Ab Non-reactive (NonReactive) 12/22/21 15:50 Hep Bs Antigen Non-reactive (Negative) 12/22/21 15:50 Hep B Core IgM Ab Non-reactive (NonReactive) 12/22/21 15:50 Hepatitis C Antibody Non-reactive (NonReactive) 12/22/21 15:50 Blood Type O POSITIVE 12/21/21 12:48 Antibody Screen Negative 12/21/21 12:48 Crossmatch See Detail 12/21/21 12:48 Microbiology: Microbiology 12/21/21 18:34 Urine,Clean Catch Urine Culture - Final NO GROWTH AFTER 48 HOURS 12/21/21 12:48 Peripheral/Venous Blood Culture - Preliminary NO GROWTH AFTER 4 DAYS 12/21/21 12:48 Peripheral/Venous Blood Culture - Preliminary NO GROWTH AFTER 4 DAYS [place]/IV: Voiding Method Urinal Active Medications - Current Medications Current Medications: Generic Name Dose Route Start Last Admin Trade Name Freq PRN Reason Stop Dose Admin Albumin Human 25 gm 12/22/21 09:18 Albumin Human 25% (25 Gm/100 Ml) Inj IV CLAUDIA PRN Hypotension Epoetin Gautam-epbx 20,000 unit 12/22/21 09:18 12/24/21 14:56 Epoetin Gautam-Epbx 20,000 Unit/1 Ml Vial IV 20,000 unit CLAUDIA PRN Administration hemodialysis Hydromorphone HCl 0.5 mg 12/21/21 19:43 12/25/21 22:18 Hydromorphone 0.5 Mg/0.5 Ml Inj IV 0.5 mg Q3H PRN Administration Pain , Severe (7-10) Cefepime HCl 1 gm in 100 mls @ 200 mls/hr 12/22/21 10:00 12/26/21 10:52 Cefepime/Ns 1 Gm/100 Ml IV 12/29/21 09:59 200 mls/hr Q24HR JORDAN Administration Sodium Chloride 100 mls @ 999 mls/hr 12/22/21 09:18 Nacl 0.9% IV CLAUDIA PRN Hypotension Lactulose 20 gm 12/22/21 20:00 12/26/21 10:42 Lactulose 20 Gm/30 Ml Oral Liqd PO Not Given TID JORDAN Metoclopramide HCl 5 mg 12/22/21 08:00 Metoclopramide 10 Mg/2 Ml Inj IV Q6H PRN Nausea And Vomiting Morphine Sulfate 2 mg 12/21/21 19:43 12/26/21 10:52 Morphine 2 Mg/1 Ml Inj IV 2 mg Q4H PRN Administration Pain, Moderate (4-6) Ondansetron HCl 4 mg 12/21/21 19:32 Ondansetron 4 Mg/2 Ml Inj IV Q3H PRN Nausea And Vomiting Pantoprazole Sodium 40 mg 12/23/21 10:00 12/26/21 10:52 Pantoprazole 40 Mg Inj IV 40 mg QDAY JORDAN Administration Sodium Chloride 10 ml 12/21/21 22:00 12/26/21 10:52 Sodium Chloride 0.9% 10 Ml Flush Syringe IV 10 ml BID JORDAN Administration Sodium Chloride 10 ml 12/21/21 19:32 Sodium Chloride 0.9% 10 Ml Flush Syringe IV PRN PRN LINE FLUSH
[2021-12-26] MEDS ORDERED: LIDOCAINE (1%) 10 MG/1 ML VIAL 20 ML MDV ONE (14:25)
--- NOTE | 2021-12-26 14:35 | Procedure Note ---
Date of procedure: 12/26/21 Pre-op diagnosis: ascites Post-op diagnosis: same Procedure: US paracentesis Findings: moderate loculated ascites Anesthesia: local Surgeon: SAM TERRY Estimated blood loss: none Pathology: list (120cc cloudy yellow fluid) Specimen disposition: to lab Condition: stable Disposition: floor
--- NOTE | 2021-12-26 15:11 | Progress Note ---
Subjective Date of service: 12/26/21 Principal diagnosis: Gi bleed Interval history: Impression * End-stage renal disease on maintenance hemodialysis * GI bleed * Hyperkalemia * Cirrhosis of liver * Lactic acidosis * Leukocytosis Recommendations * Continue dialysis on TTS schedule . His outpatient dialysis days are however MWF at [facility] * Hyperkalemia noted * Monitor H&H and transfuse packed RBC as needed * Adjust diet and meds for ESRD state * Hold phosphate binders for now * Shall administer Epogen as well * Avoid nephrotoxins * Monitor fluid status and electrolytes closely * Further plan as per GI services Subjective Principal diagnosis: Gi bleed Interval history: Patient is comfortable today. He is currently out of IMCU. Denies any hematochezia or melena. No nausea or vomiting. Still complains of mild epigastric discomfort Objective - General Appearance General appearance: well-developed, well-nourished, appears stated age EENT: PERRL, mucous membranes moist Neck: no JVD, no thyromegaly, no carotid bruit, supple, other (IJ PermCath in place) Respiratory: Present: Clear to Ascultation Cardiology: regular, normal heart rate, S1S2, no murmurs Gastrointestinal: normal, normoactive bowel sounds, tenderness (Mild epigastric discomfort) Integumentary: other (No edema) Objective - Vital Signs Vital signs: Vital Signs - 12hr 12/26/21 12/26/21 12/26/21 04:17 12:00 12:30 Temperature 98.2 F 98.5 F Pulse Rate 96 H 97 H Respiratory 18 16 Rate Blood Pressure 115/72 Blood Pressure 115/69 [Left] O2 Sat by Pulse 93 100 98 Oximetry - Lab 12/26/21 07:42 12/26/21 07:42 Most recent lab results Calcium 7.7 mg/dL (8.4-10.2) L 12/26/21 07:42 Phosphorus 3.80 mg/dL (2.5-4.5) 12/23/21 04:24 Magnesium 1.80 mg/dL (1.7-2.3) 12/24/21 04:14 Medications & Allergies - Medications Allergies/Adverse Reactions: Allergies No Known Allergies Allergy (Verified 12/22/21 06:29) Home Medications: Home Medications Medication Instructions Recorded Confirmed Last Taken Type Lactulose [Cephulac] 20 gm PO TID #1 bottle 11/23/21 12/22/21 12/21/21 Rx Pantoprazole [Protonix TAB] 40 mg PO BID #60 tab 11/23/21 12/22/21 12/21/21 Rx Active Medications: Generic Name Dose Route Start Last Admin Trade Name Freq PRN Reason Stop Dose Admin Albumin Human 25 gm 12/22/21 09:18 Albumin Human 25% (25 Gm/100 Ml) Inj IV CLAUDIA PRN Hypotension Epoetin Gautam-epbx 20,000 unit 12/22/21 09:18 12/24/21 14:56 Epoetin Gautam-Epbx 20,000 Unit/1 Ml Vial IV 20,000 unit CLADUIA PRN Administration hemodialysis Hydromorphone HCl 0.5 mg 12/21/21 19:43 12/25/21 22:18 Hydromorphone 0.5 Mg/0.5 Ml Inj IV 0.5 mg Q3H PRN Administration Pain , Severe (7-10) Cefepime HCl 1 gm in 100 mls @ 200 mls/hr 12/22/21 10:00 12/26/21 10:52 Cefepime/Ns 1 Gm/100 Ml IV 12/29/21 09:59 200 mls/hr Q24HR JORDAN Administration Sodium Chloride 100 mls @ 999 mls/hr 12/22/21 09:18 Nacl 0.9% IV CLAUDIA PRN Hypotension Lactulose 20 gm 12/22/21 20:00 12/26/21 10:42 Lactulose 20 Gm/30 Ml Oral Liqd PO Not Given TID JORDAN Metoclopramide HCl 5 mg 12/22/21 08:00 Metoclopramide 10 Mg/2 Ml Inj IV Q6H PRN Nausea And Vomiting Morphine Sulfate 2 mg 12/21/21 19:43 12/26/21 10:52 Morphine 2 Mg/1 Ml Inj IV 2 mg Q4H PRN Administration Pain, Moderate (4-6) Ondansetron HCl 4 mg 12/21/21 19:32 Ondansetron 4 Mg/2 Ml Inj IV Q3H PRN Nausea And Vomiting Pantoprazole Sodium 40 mg 12/23/21 10:00 12/26/21 10:52 Pantoprazole 40 Mg Inj IV 40 mg QDAY JORDAN Administration Sodium Chloride 10 ml 12/21/21 22:00 12/26/21 10:52 Sodium Chloride 0.9% 10 Ml Flush Syringe IV 10 ml BID JORDAN Administration Sodium Chloride 10 ml 12/21/21 19:32 Sodium Chloride 0.9% 10 Ml Flush Syringe IV PRN PRN LINE FLUSH
[2021-12-26] MEDS ORDERED: SODIUM CHLORIDE 0.9% 100 ML IV PRN (15:30)
[2021-12-26] MEDS: POTASSIUM CHLORIDE 10 MEQ 10 MEQ/100 ML BAG IV SCH ×2 (15:50→19:04)
--- NOTE | 2021-12-26 16:00 | Ultrasound Report ---
ULTRASOUND-GUIDED PARACENTESIS HISTORY: ascites. PROCEDURE: The risks (including but not limited to bleeding, infection, and bowel injury) and benefi ts were explained to the patient and informed consent was obtained. A time out procedure was perform ed. Ultrasound was used to evaluate the abdomen and locate the largest ascites fluid pocket. The ascites is complex with multiple thin internal septations. Once the skin was marked, the procedure site was p repped and draped in the usual sterile fashion and lidocaine was used for local anesthesia. A 5 Fren ch centesis catheter was placed. The patient was monitored closely throughout the procedure, and a t otal of 2900 mL of cloudy yellow fluid was aspirated. Samples were sent to the lab for further evalu ation per the primary clinicians orders. The patient tolerated the procedure well with no complications. IMPRESSION: Successful ultrasound-guided paracentesis as described. Signer Name: Alberto El Jr, MD Signed: 12/26/2021 3:56 PM Workstation Name: [id number]
[2021-12-26 16:12] LABS: Total Cells Counted 100 /mm3
[2021-12-27 05:53] LABS: Hemoglobin 7.4 gm/dl (11.8-15.2); Mean Corpuscular HGB Conc 34 % (32-34); Mean Corpuscular Volume 91 fl (84-94); Platelet Count 226 K/mm3 (140-440); Red Blood Count 2.43 M/mm3 (3.65-5.03); Red Cell Distribution Width 17.8 % (13.2-15.2)
[2021-12-27 06:09] LABS: Calcium 7.8 mg/dL (8.4-10.2)
--- NOTE | 2021-12-27 08:07 | Ultrasound Report ---
Ultrasound-guided paracentesis HISTORY: Ascites. PROCEDURE: The risks (including but not limited to bleeding, infection, and bowel injury) and benefi ts were explained to the patient and informed consent was obtained. A time out procedure was perform ed. Ultrasound was used to evaluate the abdomen and locate the largest ascites fluid pocket. Once the sk in was marked, the procedure site was prepped and draped in the usual sterile fashion and lidocaine w as used for local anesthesia. A skin amanuel was made and a 6-[place] paracentesis catheter was placed. The patient was monitored closely throughout the procedure, and a total of 7500 mL of thin yellow fl uid was aspirated. The patient tolerated the procedure well with no complications. IMPRESSION: Successful paracentesis as above with a total of 7500 mL of thin yellow fluid aspirated. Signer Name: David Suazo MD Signed: 12/27/2021 8:03 AM Workstation Name: [id number]
--- NOTE | 2021-12-27 09:26 | Progress Note ---
Assessment and Plan Assessment and plan: This is a 41-year-old male with EtOH cirrhosis, esophageal varices, ascites, ESRD on HD, chronic HE who presented to the hospital on 12/21 with complaints of diffuse abdominal pain and black and bloody stools over the past 2 days along with nausea and vomiting. Of note patient was seen here on 11/23/2021 and was discharged after having banding of 1 esophageal varice. In the emergency department patient was tachycardic and had a hemoglobin and hematocrit of 6.5/20.2, leukocytosis at 27.7, hyponatremia 135, hyperkalemia 6.1. Patient was admitted to the hospitalist service with consults to nephrology and GI. Hospital course to date: 12/22: Patient had an EGD today which showed no active variceal bleed, patient has been cleared for clear liquid diet and will continue Protonix IVP and octreotide drip. 12/23: Patient had paracentesis today with removal 7.5 L. Lab studies ordered. Will administer albumin. 12/24: H/H holding, patient will be transferred to the floor. 12/25: Patient seen and examined, will continue pain control. Discussed with GI, plan is to repeat EGD for banding of the esophageal varices. Will also schedule for paracentesis. 12/26: Patient seen and examined, plan for Endoscopy tomorrow for possible varicale bleeding. Noted Hypokalemia. Will replace 12/27: Patient seen and examined, he is planned for Endcosopy today. Anticipate correction of Hypokalemia with Dialysis. Will also obtain PT/OT due to debility. He is improved Mental status. Anticipate discharge in am Neuro: Acute on chronic HE- Resolved -Reorientation as needed -Maintain sleep-wake cycle -As needed analgesia -Continue lactulose Cardiac: chronic hypotension -Home meds includes midodrine, restart as needed -Blood pressure monitoring per protocol Respiratory: Acute hypoxic respiratory failure -Weaned to RA -Pulmonary hygiene -SPO2 monitoring -Supplemental oxygen as needed GI: GIB, h/o EV, EtOH cirrhosis, GIB -GI consulted, patient recommendations -S/p EGD on 12/22 which showed grade 2 esophageal varices, one with small red spots but no active bleeding, unclear if this represents due to recent bleeding stigmata, unable to bend due to inadequate suctioning at bedside to assess the mucosa, no active bleeding seen at the end of the procedure -CLD -Octreotide drip for 2 days per GI -PPI -Stool occult positive -BR: lactulose : ESRD on HD -Nephrology consulted, appreciate recommendations -Renally dose medications -Avoid nephrotoxic medications -Epogen per nephro -Trend BMP ID: r/o SBP -On cefepime for now -Paracentesis completed 12/23 with removal of 7.5 L -Albumin post procedure -Fluid studies pending -f/u blood culture -Monitor WBC and temperature curve Endo: NAD -Avoid hypoglycemia Heme: Leukocytosis, symptomatic anemia -Presented with H/H of 6.8/22.6 -S/p 3 units prbc -Serial h/h -Transfuse hemoglobin less than 7 -SCDs to BLE while in bed -Avoid chemical anticoagulation in setting of recent GI bleed History Interval history: Patient seen and examined, no acute distress, No adverse event reports. He is s/p paracentesis 12/26. Hospitalist Physical - Physical exam Narrative exam: General appearance: Present: no acute distress, well-nourished, - EENT Eyes: Present: PERRL, EOM intact, icteric sclera ENT: dentition normal - Neck Neck: Present: normal ROM - Respiratory Respiratory: bilateral: diminished - Cardiovascular Rhythm: regular Heart Sounds: Present: S1 & S2. Absent: systolic murmur, diastolic murmur - Extremities Extremities: no ischemia, pulses intact, pulses symmetrical, No edema, normal temperature, normal color, Full ROM Peripheral Pulses: within normal limits - Abdominal General gastrointestinal: soft, normal bowel sounds, tender-generalized, gravidus pannus with positive fluid wave - Integumentary Integumentary: Present: warm, dry - Psychiatric Psychiatric: cooperative - Neurologic Neurologic: CNII-XII intact, no moves all extremities - Allied Health Allied health notes reviewed: nursing, RT, social work - Constitutional Vitals: Temp Pulse Resp BP Pulse Ox 99.0 F 100 H 18 111/74 100 12/26/21 15:50 12/26/21 20:23 12/26/21 20:22 12/26/21 20:22 12/27/21 07:46 General appearance: Present: no acute distress, well-nourished, cachectic Results - Labs CBC & Chem 7: 12/27/21 05:13 12/27/21 05:13 Labs: Laboratory Last Values WBC 10.3 K/mm3 (4.5-11.0) 12/27/21 05:13 RBC 2.43 M/mm3 (3.65-5.03) L 12/27/21 05:13 Hgb 7.4 gm/dl (11.8-15.2) L 12/27/21 05:13 Hct 22.0 % (35.5-45.6) L 12/27/21 05:13 MCV 91 fl (84-94) 12/27/21 05:13 MCH 31 pg (28-32) 12/27/21 05:13 MCHC 34 % (32-34) 12/27/21 05:13 RDW 17.8 % (13.2-15.2) H 12/27/21 05:13 Plt Count 226 K/mm3 (140-440) 12/27/21 05:13 Lymph % (Auto) 11.6 % (13.4-35.0) L 12/23/21 04:24 [place] % (Auto) 9.4 % (0.0-7.3) H 12/23/21 04:24 Eos % (Auto) 0.0 % (0.0-4.3) 12/23/21 04:24 Baso % (Auto) 0.3 % (0.0-1.8) 12/23/21 04:24 Lymph # (Auto) 1.5 K/mm3 (1.2-5.4) 12/23/21 04:24 [place] # (Auto) 1.2 K/mm3 (0.0-0.8) H 12/23/21 04:24 Eos # (Auto) 0.0 K/mm3 (0.0-0.4) 12/23/21 04:24 Baso # (Auto) 0.0 K/mm3 (0.0-0.1) 12/23/21 04:24 Add Manual Diff Complete 12/22/21 04:22 Total Counted 100 12/22/21 04:22 Seg Neutrophils % 78.7 % (40.0-70.0) H 12/23/21 04:24 Seg Neuts % (Manual) 85.0 % (40.0-70.0) H 12/22/21 04:22 Band Neutrophils % 0 % 12/22/21 04:22 Lymphocytes % (Manual) 7.0 % (13.4-35.0) L 12/22/21 04:22 Reactive Lymphs % (Man) 0 % 12/22/21 04:22 Monocytes % (Manual) 8.0 % (0.0-7.3) H 12/22/21 04:22 Eosinophils % (Manual) 0 % (0.0-4.3) 12/22/21 04:22 Basophils % (Manual) 0 % (0.0-1.8) 12/22/21 04:22 Metamyelocytes % 0 % 12/22/21 04:22 Myelocytes % 0 % 12/22/21 04:22 Promyelocytes % 0 % 12/22/21 04:22 Blast Cells % 0 % 12/22/21 04:22 Nucleated RBC % Not Reportable 12/22/21 04:22 Seg Neutrophils # 10.2 K/mm3 (1.8-7.7) H 12/23/21 04:24 Seg Neutrophils # Man 23.5 K/mm3 (1.8-7.7) H 12/22/21 04:22 Band Neutrophils # 0.0 K/mm3 12/22/21 04:22 Lymphocytes # (Manual) 1.9 K/mm3 (1.2-5.4) 12/22/21 04:22 Abs React Lymphs (Man) 0.0 K/mm3 12/22/21 04:22 Monocytes # (Manual) 2.2 K/mm3 (0.0-0.8) H 12/22/21 04:22 Eosinophils # (Manual) 0.0 K/mm3 (0.0-0.4) 12/22/21 04:22 Basophils # (Manual) 0.0 K/mm3 (0.0-0.1) 12/22/21 04:22 Metamyelocytes # 0.0 K/mm3 12/22/21 04:22 Myelocytes # 0.0 K/mm3 12/22/21 04:22 Promyelocytes # 0.0 K/mm3 12/22/21 04:22 Blast Cells # 0.0 K/mm3 12/22/21 04:22 WBC Morphology Not Reportable 12/22/21 04:22 Hypersegmented Neuts Not Reportable 12/22/21 04:22 Hyposegmented Neuts Not Reportable 12/22/21 04:22 Hypogranular Neuts Not Reportable 12/22/21 04:22 Smudge Cells Not Reportable 12/22/21 04:22 Toxic Granulation Not Reportable 12/22/21 04:22 Toxic Vacuolation Not Reportable 12/22/21 04:22 Dohle Bodies Not Reportable 12/22/21 04:22 Pelger-Huet Anomaly Not Reportable 12/22/21 04:22 Dmitri Rods Not Reportable 12/22/21 04:22 Platelet Estimate Consistent w auto 12/22/21 04:22 Clumped Platelets Not Reportable 12/22/21 04:22 Plt Clumps, EDTA Not Reportable 12/22/21 04:22 Large Platelets Not Reportable 12/22/21 04:22 Giant Platelets Not Reportable 12/22/21 04:22 Platelet Satelliting Not Reportable 12/22/21 04:22 Plt Morphology Comment Not Reportable 12/22/21 04:22 RBC Morphology Not Reportable 12/22/21 04:22 Dimorphic RBCs Not Reportable 12/22/21 04:22 Polychromasia Not Reportable 12/22/21 04:22 Hypochromasia Not Reportable 12/22/21 04:22 Poikilocytosis Not Reportable 12/22/21 04:22 Anisocytosis Not Reportable 12/22/21 04:22 Microcytosis Not Reportable 12/22/21 04:22 Macrocytosis Not Reportable 12/22/21 04:22 Spherocytes Not Reportable 12/22/21 04:22 Pappenheimer Bodies Not Reportable 12/22/21 04:22 Sickle Cells Not Reportable 12/22/21 04:22 Target Cells Not Reportable 12/22/21 04:22 Tear Drop Cells Not Reportable 12/22/21 04:22 Ovalocytes Not Reportable 12/22/21 04:22 Helmet Cells Not Reportable 12/22/21 04:22 Nicholson-Bransford Bodies Not Reportable 12/22/21 04:22 [place] Rings Not Reportable 12/22/21 04:22 Cropsey Cells Not Reportable 12/22/21 04:22 Bite Cells Not Reportable 12/22/21 04:22 Crenated Cell Not Reportable 12/22/21 04:22 Elliptocytes Not Reportable 12/22/21 04:22 Acanthocytes (Spur) Not Reportable 12/22/21 04:22 Rouleaux Not Reportable 12/22/21 04:22 Hemoglobin C Crystals Not Reportable 12/22/21 04:22 Schistocytes Not Reportable 12/22/21 04:22 Malaria parasites Not Reportable 12/22/21 04:22 Shamir Bodies Not Reportable 12/22/21 04:22 Hem Pathologist Commnt No 12/22/21 04:22 Sodium 135 mmol/L (137-145) L 12/27/21 05:13 Potassium 3.4 mmol/L (3.6-5.0) L 12/27/21 05:13 Chloride 100.0 mmol/L (98-107) 12/27/21 05:13 Carbon Dioxide 26 mmol/L (22-30) 12/27/21 05:13 Anion Gap 12 mmol/L 12/27/21 05:13 BUN 24 mg/dL (9-20) H 12/27/21 05:13 Creatinine 2.3 mg/dL (0.8-1.3) H 12/27/21 05:13 Estimated GFR 38 ml/min 12/27/21 05:13 BUN/Creatinine Ratio 10 % 12/27/21 05:13 Glucose 95 mg/dL (75-100) 12/27/21 05:13 Lactic Acid 1.70 mmol/L (0.7-2.0) 12/23/21 04:24 Calcium 7.8 mg/dL (8.4-10.2) L 12/27/21 05:13 Phosphorus 3.10 mg/dL (2.5-4.5) 12/27/21 05:13 Magnesium 1.70 mg/dL (1.7-2.3) 12/27/21 05:13 Total Bilirubin 1.90 mg/dL (0.1-1.2) H 12/26/21 07:42 AST 19 units/L (5-40) 12/26/21 07:42 ALT 9 units/L (7-56) 12/26/21 07:42 Alkaline Phosphatase 97 units/L (35-129) 12/26/21 07:42 Ammonia 56.0 umol/L (25-60) 12/22/21 16:35 Total Protein 4.6 g/dL (6.3-8.2) L 12/26/21 07:42 Albumin 2.1 g/dL (3.9-5) L 12/26/21 07:42 Albumin/Globulin Ratio 0.8 % 12/26/21 07:42 Lipase 10 units/L (13-60) L 12/21/21 10:22 Urine Color Gloria (Yellow) 12/21/21 18:34 Urine Turbidity Clear (Clear) 12/21/21 18:34 Urine pH 5.0 (5.0-7.0) 12/21/21 18:34 Ur Specific [place] 1.020 (1.003-1.030) 12/21/21 18:34 Urine Protein 100 mg/dl mg/dL (Negative) 12/21/21 18:34 Urine Glucose (UA) Negative mg/dL (Negative) 12/21/21 18:34 Urine Ketones Negative mg/dL (Negative) 12/21/21 18:34 Urine Blood Negative (Negative) 12/21/21 18:34 Urine Nitrite Negative (Negative) 12/21/21 18:34 Urine Bilirubin 1+ (Negative) 12/21/21 18:34 Urine Ictotest Positive (Negative) 12/21/21 18:34 Urine Urobilinogen 0.0 mg/dL (<2.0) 12/21/21 18:34 Ur Leukocyte Esterase 1+ (Negative) 12/21/21 18:34 Urine RBC (Auto) /HPF (0.0-6.0) 12/21/21 18:34 Fluid Type Ascitic 12/26/21 15:15 Fluid Color Yellow 12/26/21 15:15 Fluid Appearance Cloudy 12/26/21 15:15 Fluid WBC 500 /mm3 12/26/21 15:15 Fluid RBC 1265 /mm3 12/26/21 15:15 Fluid Seg Neutrophils 76.0 % 12/26/21 15:15 Fluid Lymphocytes 18.0 % 12/26/21 15:15 Fluid Monocytes 6.0 % 12/26/21 15:15 Nasal Screen MRSA (PCR) Negative (Negative) 12/23/21 10:36 Hepatitis A IgM Ab Non-reactive (NonReactive) 12/22/21 15:50 Hep Bs Antigen Non-reactive (Negative) 12/22/21 15:50 Hep B Core IgM Ab Non-reactive (NonReactive) 12/22/21 15:50 Hepatitis C Antibody Non-reactive (NonReactive) 12/22/21 15:50 Blood Type O POSITIVE 12/21/21 12:48 Antibody Screen Negative 12/21/21 12:48 Crossmatch See Detail 12/21/21 12:48 Microbiology: Microbiology 12/26/21 15:15 Ascities Fluid Body Fluid Culture - Preliminary 12/21/21 12:48 Peripheral/Venous Blood Culture - Final NO GROWTH AFTER 5 DAYS 12/21/21 12:48 Peripheral/Venous Blood Culture - Final NO GROWTH AFTER 5 DAYS Beltran/IV: Voiding Method Urinal Active Medications - Current Medications Current Medications: Generic Name Dose Route Start Last Admin Trade Name Freq PRN Reason Stop Dose Admin Albumin Human 25 gm 12/22/21 09:18 Albumin Human 25% (25 Gm/100 Ml) Inj IV CLAUDIA PRN Hypotension Epoetin Gautam-epbx 20,000 unit 12/22/21 09:18 12/24/21 14:56 Epoetin Gautam-Epbx 20,000 Unit/1 Ml Vial IV 20,000 unit CLAUDIA PRN Administration hemodialysis Hydromorphone HCl 0.5 mg 12/21/21 19:43 12/25/21 22:18 Hydromorphone 0.5 Mg/0.5 Ml Inj IV 0.5 mg Q3H PRN Administration Pain , Severe (7-10) Cefepime HCl 1 gm in 100 mls @ 200 mls/hr 12/22/21 10:00 12/26/21 10:52 Cefepime/Ns 1 Gm/100 Ml IV 12/29/21 09:59 200 mls/hr Q24HR JORDAN Administration Sodium Chloride 100 mls @ 999 mls/hr 12/22/21 09:18 Nacl 0.9% IV CLAUDIA PRN Hypotension Sodium Chloride 100 mls @ 999 mls/hr 12/26/21 15:30 Nacl 0.9% IV CLAUDIA PRN Hypotension Lactulose 20 gm 12/22/21 20:00 12/26/21 20:15 Lactulose 20 Gm/30 Ml Oral Liqd PO 20 gm TID JORDAN Administration Metoclopramide HCl 5 mg 12/22/21 08:00 Metoclopramide 10 Mg/2 Ml Inj IV Q6H PRN Nausea And Vomiting Morphine Sulfate 2 mg 12/21/21 19:43 12/26/21 20:15 Morphine 2 Mg/1 Ml Inj IV 2 mg Q4H PRN Administration Pain, Moderate (4-6) Ondansetron HCl 4 mg 12/21/21 19:32 Ondansetron 4 Mg/2 Ml Inj IV Q3H PRN Nausea And Vomiting Pantoprazole Sodium 40 mg 12/23/21 10:00 12/26/21 10:52 Pantoprazole 40 Mg Inj IV 40 mg QDAY JORDAN Administration Sodium Chloride 10 ml 12/21/21 22:00 12/26/21 21:14 Sodium Chloride 0.9% 10 Ml Flush Syringe IV Not Given BID JORDAN Sodium Chloride 10 ml 12/21/21 19:32 12/26/21 20:15 Sodium Chloride 0.9% 10 Ml Flush Syringe IV 10 ml PRN PRN Administration LINE FLUSH
[2021-12-27] MEDS: LACTULOSE 20 GM/30 ML ORAL LIQD PO SCH ×3 (10:23→22:11)
[2021-12-27] MEDS: EPOETIN ALFA-EPBX 20,000 UNIT/1 ML VIAL IV PRN (12:58)
[2021-12-27] MEDS ORDERED: MAGNESIUM SULFATE 2 GM/50 ML BAG IV ONE (13:18)
--- NOTE | 2021-12-27 13:19 | Progress Note ---
Subjective Date of service: 12/27/21 Principal diagnosis: Gi bleed Interval history: Impression * End-stage renal disease on maintenance hemodialysis * GI bleed * Hyperkalemia * Cirrhosis of liver * Lactic acidosis * Leukocytosis Recommendations * Continue dialysis on TTS schedule . His outpatient dialysis days are however MWF at [facility] * Hyperkalemia noted * Monitor H&H and transfuse packed RBC as needed * Adjust diet and meds for ESRD state * Hold phosphate binders for now * Shall administer Epogen as well * Avoid nephrotoxins * Monitor fluid status and electrolytes closely * Further plan as per GI services Subjective Principal diagnosis: Gi bleed Interval history: Patient is comfortable today. He is currently out of IMCU. Denies any hematochezia or melena. No nausea or vomiting. Still complains of mild epigastric discomfort Objective - General Appearance General appearance: well-developed, well-nourished, appears stated age EENT: PERRL, mucous membranes moist Neck: no JVD, no thyromegaly, no carotid bruit, supple, other (IJ PermCath in place) Respiratory: Present: Clear to Ascultation Cardiology: regular, normal heart rate, S1S2, no murmurs Gastrointestinal: normal, normoactive bowel sounds, tenderness (Mild epigastric discomfort) Integumentary: other (No edema) Objective - Vital Signs Vital signs: Vital Signs - 12hr 12/27/21 12/27/21 12/27/21 07:46 09:19 09:25 Temperature 98.9 F Pulse Rate 95 H 94 H Respiratory 18 Rate Blood Pressure 113/72 112/75 O2 Sat by Pulse 100 Oximetry O2 Sat by Pulse 99 Oximetry [ Bilateral Throughout] 12/27/21 12/27/21 12/27/21 09:30 09:45 10:00 Temperature Pulse Rate 92 H 93 H 93 H Respiratory Rate Blood Pressure 112/71 109/71 109/76 O2 Sat by Pulse Oximetry O2 Sat by Pulse Oximetry [ Bilateral Throughout] 12/27/21 12/27/21 12/27/21 10:15 10:30 10:45 Temperature Pulse Rate 93 H 94 H 93 H Respiratory Rate Blood Pressure 112/71 109/71 112/75 O2 Sat by Pulse Oximetry O2 Sat by Pulse Oximetry [ Bilateral Throughout] 12/27/21 12/27/21 12/27/21 11:00 11:15 11:30 Temperature Pulse Rate 93 H 96 H 96 H Respiratory Rate Blood Pressure 112/76 119/74 115/75 O2 Sat by Pulse Oximetry O2 Sat by Pulse Oximetry [ Bilateral Throughout] 12/27/21 12/27/21 12/27/21 11:45 12:00 12:15 Temperature Pulse Rate 94 H 92 H 97 H Respiratory Rate Blood Pressure 112/76 110/71 113/75 O2 Sat by Pulse Oximetry O2 Sat by Pulse Oximetry [ Bilateral Throughout] 12/27/21 12/27/21 12:30 12:45 Temperature Pulse Rate 95 H 97 H Respiratory Rate Blood Pressure 114/77 113/80 O2 Sat by Pulse Oximetry O2 Sat by Pulse Oximetry [ Bilateral Throughout] - Lab 12/27/21 05:13 12/27/21 05:13 Most recent lab results Calcium 7.8 mg/dL (8.4-10.2) L 12/27/21 05:13 Phosphorus 3.10 mg/dL (2.5-4.5) 12/27/21 05:13 Magnesium 1.70 mg/dL (1.7-2.3) 12/27/21 05:13 Medications & Allergies - Medications Allergies/Adverse Reactions: Allergies No Known Allergies Allergy (Verified 12/22/21 06:29) Home Medications: Home Medications Medication Instructions Recorded Confirmed Last Taken Type Lactulose [Cephulac] 20 gm PO TID #1 bottle 11/23/21 12/22/21 12/21/21 Rx Pantoprazole [Protonix TAB] 40 mg PO BID #60 tab 11/23/21 12/22/21 12/21/21 Rx Active Medications: Generic Name Dose Route Start Last Admin Trade Name Freq PRN Reason Stop Dose Admin Albumin Human 25 gm 12/22/21 09:18 Albumin Human 25% (25 Gm/100 Ml) Inj IV CLAUDIA PRN Hypotension Epoetin Gautam-epbx 20,000 unit 12/22/21 09:18 12/27/21 12:58 Epoetin Gautam-Epbx 20,000 Unit/1 Ml Vial IV 20,000 unit CLAUDIA PRN Administration hemodialysis Hydromorphone HCl 0.5 mg 12/21/21 19:43 12/25/21 22:18 Hydromorphone 0.5 Mg/0.5 Ml Inj IV 0.5 mg Q3H PRN Administration Pain , Severe (7-10) Cefepime HCl 1 gm in 100 mls @ 200 mls/hr 12/22/21 10:00 12/26/21 10:52 Cefepime/Ns 1 Gm/100 Ml IV 12/29/21 09:59 200 mls/hr Q24HR JORDAN Administration Sodium Chloride 100 mls @ 999 mls/hr 12/22/21 09:18 Nacl 0.9% IV CLAUDIA PRN Hypotension Sodium Chloride 100 mls @ 999 mls/hr 12/26/21 15:30 Nacl 0.9% IV CLAUDIA PRN Hypotension Magnesium Sulfate 2 gm in 50 mls @ 25 mls/hr 12/27/21 13:18 Magnesium Sulfate 2gm/50ml IV 12/27/21 15:17 ONCE ONE Lactulose 20 gm 12/22/21 20:00 12/27/21 10:23 Lactulose 20 Gm/30 Ml Oral Liqd PO Not Given TID JORDAN Metoclopramide HCl 5 mg 12/22/21 08:00 Metoclopramide 10 Mg/2 Ml Inj IV Q6H PRN Nausea And Vomiting Morphine Sulfate 2 mg 12/21/21 19:43 12/26/21 20:15 Morphine 2 Mg/1 Ml Inj IV 2 mg Q4H PRN Administration Pain, Moderate (4-6) Ondansetron HCl 4 mg 12/21/21 19:32 Ondansetron 4 Mg/2 Ml Inj IV Q3H PRN Nausea And Vomiting Pantoprazole Sodium 40 mg 12/23/21 10:00 12/26/21 10:52 Pantoprazole 40 Mg Inj IV 40 mg QDAY JORDAN Administration Sodium Chloride 10 ml 12/21/21 22:00 12/26/21 21:14 Sodium Chloride 0.9% 10 Ml Flush Syringe IV Not Given BID JORDAN Sodium Chloride 10 ml 12/21/21 19:32 12/26/21 20:15 Sodium Chloride 0.9% 10 Ml Flush Syringe IV 10 ml PRN PRN Administration LINE FLUSH
[2021-12-27] MEDS: MORPHINE 2 MG/1 ML INJ IV PRN ×2 (14:28→18:22)
[2021-12-27] MEDS: PANTOPRAZOLE 40 MG INJ IV SCH (14:28)
[2021-12-27] MEDS: CEFEPIME/NS 1 GM/100 ML 1 GM/100 ML BAG IV SCH (14:29)
--- NOTE | 2021-12-27 14:29 | Gastroenterology Progress Note ---
Assessment and Plan It is concerning to me that the patient was unable to have his varices successfully banded as he has had recurrent variceal bleeding, and outpatient follow-up is likely going to be challenging for him, tried to get the EGD done today, unable to , will try for tomorrow - Patient Problems (1) Ascites Current Visit: Yes Status: Acute (2) GI bleed Current Visit: Yes Status: Acute (3) ESRD on dialysis Current Visit: Yes Status: Chronic (4) Hepatic failure Current Visit: Yes Status: Chronic Qualifiers: Liver failure chronicity: chronic (5) Alcoholic cirrhosis of liver with ascites Current Visit: No Status: Chronic Subjective Date of service: 12/27/21 Principal diagnosis: Gi bleed Interval history: Patient with abdominal pain with movement and palpation of his abdomen he reports Just had paracentesis No overt bleeding since the endoscopy he reports Objective - Constitutional Vitals: Temp Pulse Resp BP Pulse Ox 99.0 F 95 H 18 120/71 99 12/27/21 13:30 12/27/21 13:30 12/27/21 13:30 12/27/21 13:30 12/27/21 13:30 General appearance: no acute distress - EENT ENT: hearing intact - Neck Neck: supple - Respiratory Respiratory effort: normal - Gastrointestinal General gastrointestinal: Present: other (still ttp) - Labs CBC & Chem 7: 12/27/21 05:13 12/27/21 05:13 Labs: Laboratory Results - last 24 hr 12/26/21 12/27/21 12/27/21 15:15 05:13 05:13 WBC 10.3 RBC 2.43 L Hgb 7.4 L Hct 22.0 L MCV 91 MCH 31 MCHC 34 RDW 17.8 H Plt Count 226 Sodium 135 L Potassium 3.4 L Chloride 100.0 Carbon Dioxide 26 Anion Gap 12 BUN 24 H Creatinine 2.3 H Estimated GFR 38 BUN/Creatinine Ratio 10 Glucose 95 Calcium 7.8 L Phosphorus 3.10 Magnesium 1.70 Fluid Type Ascitic Fluid Color Yellow Fluid Appearance Cloudy Fluid WBC 500 Fluid RBC 1265 Fluid Seg Neutrophils 76.0 Fluid Lymphocytes 18.0 Fluid Monocytes 6.0
[2021-12-27] MEDS: HYDROmorphone 0.5 MG/0.5 ML INJ IV PRN (22:15)
--- NOTE | 2021-12-27 23:55 | Event Note ---
Date: 12/27/21 discussed endo scheduling with team Will not be able to have EGD Sun, will therefore not make NPO Will be able to do . I will talk with the patient when I round Sun AM and ensure he is ok with this
[2021-12-28 08:07] LABS: Basophils # (Auto) 0.1 K/mm3 (0.0-0.1); Basophils % (Auto) 0.7 % (0.0-1.8); Eosinophils % (Auto) 0.4 % (0.0-4.3); Hematocrit 22.9 % (35.5-45.6); Hemoglobin 7.8 gm/dl (11.8-15.2); Lymphocytes # (Auto) 1.4 K/mm3 (1.2-5.4); Lymphocytes % (Auto) 16.5 % (13.4-35.0); Mean Corpuscular HGB Conc 34 % (32-34); Mean Corpuscular Volume 91 fl (84-94); Monocytes # (Auto) 1.2 K/mm3 (0.0-0.8); Monocytes % (Auto) 13.2 % (0.0-7.3); Platelet Count 191 K/mm3 (140-440); Red Blood Count 2.51 M/mm3 (3.65-5.03); Red Cell Distribution Width 17.9 % (13.2-15.2)
[2021-12-28] MEDS: CEFEPIME/NS 1 GM/100 ML 1 GM/100 ML BAG IV SCH (09:20)
[2021-12-28] MEDS: PANTOPRAZOLE 40 MG INJ IV SCH (09:20)
[2021-12-28] MEDS: LACTULOSE 20 GM/30 ML ORAL LIQD PO SCH ×3 (09:20→20:42)
[2021-12-28] MEDS: MORPHINE 2 MG/1 ML INJ IV PRN ×3 (09:27→23:56)
--- NOTE | 2021-12-28 10:36 | Gastroenterology Progress Note ---
Assessment and Plan It is concerning to me that the patient was unable to have his varices successfully banded as he has had recurrent variceal bleeding, and outpatient follow-up is likely going to be challenging for him, will have EGD tomorrow, I asked for him to be the first case early in the AM so we will take him BEFORE he goes to dialysis. - Patient Problems (1) Ascites Current Visit: Yes Status: Acute (2) GI bleed Current Visit: Yes Status: Acute (3) ESRD on dialysis Current Visit: Yes Status: Chronic (4) Hepatic failure Current Visit: Yes Status: Chronic Qualifiers: Liver failure chronicity: chronic (5) Alcoholic cirrhosis of liver with ascites Current Visit: No Status: Chronic Subjective Date of service: 12/28/21 Principal diagnosis: Gi bleed Interval history: Patient with stable abdominal pain No overt bleeding since the endoscopy he reports Objective - Constitutional Vitals: Temp Pulse Resp BP Pulse Ox 98.3 F 93 H 18 113/72 96 12/28/21 06:10 12/28/21 06:10 12/28/21 06:10 12/28/21 06:10 12/28/21 06:10 General appearance: no acute distress - EENT Eyes: EOM intact - Respiratory Respiratory effort: normal - Gastrointestinal General gastrointestinal: Present: other (+fluid wave, mild ttp) - Integumentary Integumentary: Present: dry - Neurologic Neurological: alert and oriented x3 - Labs CBC & Chem 7: 12/28/21 07:50 12/27/21 05:13 Labs: Laboratory Results - last 24 hr 12/28/21 07:50 WBC 8.7 RBC 2.51 L Hgb 7.8 L Hct 22.9 L MCV 91 MCH 31 MCHC 34 RDW 17.9 H Plt Count 191 Lymph % (Auto) 16.5 [place] % (Auto) 13.2 H Eos % (Auto) 0.4 Baso % (Auto) 0.7 Lymph # (Auto) 1.4 [place] # (Auto) 1.2 H Eos # (Auto) 0.0 Baso # (Auto) 0.1 Seg Neutrophils % 69.2 Seg Neutrophils # 6.0
--- NOTE | 2021-12-28 11:16 | Progress Note ---
Assessment and Plan Assessment and plan: This is a 41-year-old male with EtOH cirrhosis, esophageal varices, ascites, ESRD on HD, chronic HE who presented to the hospital on 12/21 with complaints of diffuse abdominal pain and black and bloody stools over the past 2 days along with nausea and vomiting. Of note patient was seen here on 11/23/2021 and was discharged after having banding of 1 esophageal varice. In the emergency department patient was tachycardic and had a hemoglobin and hematocrit of 6.5/20.2, leukocytosis at 27.7, hyponatremia 135, hyperkalemia 6.1. Patient was admitted to the hospitalist service with consults to nephrology and GI. Hospital course to date: 12/22: Patient had an EGD today which showed no active variceal bleed, patient has been cleared for clear liquid diet and will continue Protonix IVP and octreotide drip. 12/23: Patient had paracentesis today with removal 7.5 L. Lab studies ordered. Will administer albumin. 12/24: H/H holding, patient will be transferred to the floor. 12/25: Patient seen and examined, will continue pain control. Discussed with GI, plan is to repeat EGD for banding of the esophageal varices. Will also schedule for paracentesis. 12/26: Patient seen and examined, plan for Endoscopy tomorrow for possible varicale bleeding. Noted Hypokalemia. Will replace 12/27: Patient seen and examined, he is planned for Endcosopy today. Anticipate correction of Hypokalemia with Dialysis. Will also obtain PT/OT due to debility. He is improved Mental status. Anticipate discharge in am 12/28: Patient unfortunately could not get Endoscopy today, will wait till , awaiting labs result to further monitor H/Gb. He is quit deconditioned with increased HR on ambulation. Will continue daily PT. Plan discussed with GI and also discussed goals of care for 30 mins with the patient. His low side blood pressure limits addition of BB at this time. May try very low dose Atenolol. No anticoagulation at this time due to over all clinical condition. CCT 35 mins Neuro: Acute on chronic HE- Resolved -Reorientation as needed -Maintain sleep-wake cycle -As needed analgesia -Continue lactulose Cardiac: chronic hypotension -Home meds includes midodrine, restart as needed -Blood pressure monitoring per protocol Respiratory: Acute hypoxic respiratory failure -Weaned to RA -Pulmonary hygiene -SPO2 monitoring -Supplemental oxygen as needed GI: GIB, h/o EV, EtOH cirrhosis, GIB -GI consulted, patient recommendations -S/p EGD on 12/22 which showed grade 2 esophageal varices, one with small red spots but no active bleeding, unclear if this represents due to recent bleeding stigmata, unable to bend due to inadequate suctioning at bedside to assess the mucosa, no active bleeding seen at the end of the procedure -CLD -Octreotide drip for 2 days per GI -PPI -Stool occult positive -BR: lactulose : ESRD on HD -Nephrology consulted, appreciate recommendations -Renally dose medications -Avoid nephrotoxic medications -Epogen per nephro -Trend BMP ID: r/o SBP -On cefepime for now -Paracentesis completed 12/23 with removal of 7.5 L -Albumin post procedure -Fluid studies pending -f/u blood culture -Monitor WBC and temperature curve Endo: NAD -Avoid hypoglycemia Heme: Leukocytosis, symptomatic anemia -Presented with H/H of 6.8/22.6 -S/p 3 units prbc -Serial h/h -Transfuse hemoglobin less than 7 -SCDs to BLE while in bed -Avoid chemical anticoagulation in setting of recent GI bleed History Interval history: Patient seen and examined, no acute distress, No adverse event reports. He is s/ p paracentesis 12/26. Debility and increased HR with ambulation but no shortness of breath Hospitalist Physical - Physical exam Narrative exam: General appearance: Present: no acute distress, well-nourished, - EENT Eyes: Present: PERRL, EOM intact, icteric sclera ENT: dentition normal - Neck Neck: Present: normal ROM - Respiratory Respiratory: bilateral: diminished - Cardiovascular Rhythm: regular Heart Sounds: Present: S1 & S2. Absent: systolic murmur, diastolic murmur - Extremities Extremities: no ischemia, pulses intact, pulses symmetrical, No edema, normal temperature, normal color, Full ROM Peripheral Pulses: within normal limits - Abdominal General gastrointestinal: soft, normal bowel sounds, tender-generalized, gravidus pannus with positive fluid wave - Integumentary Integumentary: Present: warm, dry - Psychiatric Psychiatric: cooperative - Neurologic Neurologic: CNII-XII intact, no moves all extremities - Allied Health Allied health notes reviewed: nursing, RT, social work - Constitutional Vitals: Temp Pulse Resp BP Pulse Ox 98.3 F 93 H 18 113/72 96 12/28/21 06:10 12/28/21 06:10 12/28/21 06:10 12/28/21 06:10 12/28/21 06:10 General appearance: Present: no acute distress, well-nourished, cachectic Results - Labs CBC & Chem 7: 12/28/21 07:50 12/27/21 05:13 Labs: Laboratory Last Values WBC 8.7 K/mm3 (4.5-11.0) 12/28/21 07:50 RBC 2.51 M/mm3 (3.65-5.03) L 12/28/21 07:50 Hgb 7.8 gm/dl (11.8-15.2) L 12/28/21 07:50 Hct 22.9 % (35.5-45.6) L 12/28/21 07:50 MCV 91 fl (84-94) 12/28/21 07:50 MCH 31 pg (28-32) 12/28/21 07:50 MCHC 34 % (32-34) 12/28/21 07:50 RDW 17.9 % (13.2-15.2) H 12/28/21 07:50 Plt Count 191 K/mm3 (140-440) 12/28/21 07:50 Lymph % (Auto) 16.5 % (13.4-35.0) 12/28/21 07:50 Pratt % (Auto) 13.2 % (0.0-7.3) H 12/28/21 07:50 Eos % (Auto) 0.4 % (0.0-4.3) 12/28/21 07:50 Baso % (Auto) 0.7 % (0.0-1.8) 12/28/21 07:50 Lymph # (Auto) 1.4 K/mm3 (1.2-5.4) 12/28/21 07:50 Pratt # (Auto) 1.2 K/mm3 (0.0-0.8) H 12/28/21 07:50 Eos # (Auto) 0.0 K/mm3 (0.0-0.4) 12/28/21 07:50 Baso # (Auto) 0.1 K/mm3 (0.0-0.1) 12/28/21 07:50 Add Manual Diff Complete 12/22/21 04:22 Total Counted 100 12/22/21 04:22 Seg Neutrophils % 69.2 % (40.0-70.0) 12/28/21 07:50 Seg Neuts % (Manual) 85.0 % (40.0-70.0) H 12/22/21 04:22 Band Neutrophils % 0 % 12/22/21 04:22 Lymphocytes % (Manual) 7.0 % (13.4-35.0) L 12/22/21 04:22 Reactive Lymphs % (Man) 0 % 12/22/21 04:22 Monocytes % (Manual) 8.0 % (0.0-7.3) H 12/22/21 04:22 Eosinophils % (Manual) 0 % (0.0-4.3) 12/22/21 04:22 Basophils % (Manual) 0 % (0.0-1.8) 12/22/21 04:22 Metamyelocytes % 0 % 12/22/21 04:22 Myelocytes % 0 % 12/22/21 04:22 Promyelocytes % 0 % 12/22/21 04:22 Blast Cells % 0 % 12/22/21 04:22 Nucleated RBC % Not Reportable 12/22/21 04:22 Seg Neutrophils # 6.0 K/mm3 (1.8-7.7) 12/28/21 07:50 Seg Neutrophils # Man 23.5 K/mm3 (1.8-7.7) H 12/22/21 04:22 Band Neutrophils # 0.0 K/mm3 12/22/21 04:22 Lymphocytes # (Manual) 1.9 K/mm3 (1.2-5.4) 12/22/21 04:22 Abs React Lymphs (Man) 0.0 K/mm3 12/22/21 04:22 Monocytes # (Manual) 2.2 K/mm3 (0.0-0.8) H 12/22/21 04:22 Eosinophils # (Manual) 0.0 K/mm3 (0.0-0.4) 12/22/21 04:22 Basophils # (Manual) 0.0 K/mm3 (0.0-0.1) 12/22/21 04:22 Metamyelocytes # 0.0 K/mm3 12/22/21 04:22 Myelocytes # 0.0 K/mm3 12/22/21 04:22 Promyelocytes # 0.0 K/mm3 12/22/21 04:22 Blast Cells # 0.0 K/mm3 12/22/21 04:22 WBC Morphology Not Reportable 12/22/21 04:22 Hypersegmented Neuts Not Reportable 12/22/21 04:22 Hyposegmented Neuts Not Reportable 12/22/21 04:22 Hypogranular Neuts Not Reportable 12/22/21 04:22 Smudge Cells Not Reportable 12/22/21 04:22 Toxic Granulation Not Reportable 12/22/21 04:22 Toxic Vacuolation Not Reportable 12/22/21 04:22 Dohle Bodies Not Reportable 12/22/21 04:22 Pelger-Huet Anomaly Not Reportable 12/22/21 04:22 Dmitri Rods Not Reportable 12/22/21 04:22 Platelet Estimate Consistent w auto 12/22/21 04:22 Clumped Platelets Not Reportable 12/22/21 04:22 Plt Clumps, EDTA Not Reportable 12/22/21 04:22 Large Platelets Not Reportable 12/22/21 04:22 Giant Platelets Not Reportable 12/22/21 04:22 Platelet Satelliting Not Reportable 12/22/21 04:22 Plt Morphology Comment Not Reportable 12/22/21 04:22 RBC Morphology Not Reportable 12/22/21 04:22 Dimorphic RBCs Not Reportable 12/22/21 04:22 Polychromasia Not Reportable 12/22/21 04:22 Hypochromasia Not Reportable 12/22/21 04:22 Poikilocytosis Not Reportable 12/22/21 04:22 Anisocytosis Not Reportable 12/22/21 04:22 Microcytosis Not Reportable 12/22/21 04:22 Macrocytosis Not Reportable 12/22/21 04:22 Spherocytes Not Reportable 12/22/21 04:22 Pappenheimer Bodies Not Reportable 12/22/21 04:22 Sickle Cells Not Reportable 12/22/21 04:22 Target Cells Not Reportable 12/22/21 04:22 Tear Drop Cells Not Reportable 12/22/21 04:22 Ovalocytes Not Reportable 12/22/21 04:22 Helmet Cells Not Reportable 12/22/21 04:22 [place] Bodies Not Reportable 12/22/21 04:22 [place] Rings Not Reportable 12/22/21 04:22 [place] Cells Not Reportable 12/22/21 04:22 Bite Cells Not Reportable 12/22/21 04:22 Crenated Cell Not Reportable 12/22/21 04:22 Elliptocytes Not Reportable 12/22/21 04:22 Acanthocytes (Spur) Not Reportable 12/22/21 04:22 Rouleaux Not Reportable 12/22/21 04:22 Hemoglobin C Crystals Not Reportable 12/22/21 04:22 Schistocytes Not Reportable 12/22/21 04:22 Malaria parasites Not Reportable 12/22/21 04:22 Shamir Bodies Not Reportable 12/22/21 04:22 Hem Pathologist Commnt No 12/22/21 04:22 Sodium 135 mmol/L (137-145) L 12/27/21 05:13 Potassium 3.4 mmol/L (3.6-5.0) L 12/27/21 05:13 Chloride 100.0 mmol/L (98-107) 12/27/21 05:13 Carbon Dioxide 26 mmol/L (22-30) 12/27/21 05:13 Anion Gap 12 mmol/L 12/27/21 05:13 BUN 24 mg/dL (9-20) H 12/27/21 05:13 Creatinine 2.3 mg/dL (0.8-1.3) H 12/27/21 05:13 Estimated GFR 38 ml/min 12/27/21 05:13 BUN/Creatinine Ratio 10 % 12/27/21 05:13 Glucose 95 mg/dL (75-100) 12/27/21 05:13 Lactic Acid 1.70 mmol/L (0.7-2.0) 12/23/21 04:24 Calcium 7.8 mg/dL (8.4-10.2) L 12/27/21 05:13 Phosphorus 3.10 mg/dL (2.5-4.5) 12/27/21 05:13 Magnesium 1.70 mg/dL (1.7-2.3) 12/27/21 05:13 Total Bilirubin 1.90 mg/dL (0.1-1.2) H 12/26/21 07:42 AST 19 units/L (5-40) 12/26/21 07:42 ALT 9 units/L (7-56) 12/26/21 07:42 Alkaline Phosphatase 97 units/L (35-129) 12/26/21 07:42 Ammonia 56.0 umol/L (25-60) 12/22/21 16:35 Total Protein 4.6 g/dL (6.3-8.2) L 12/26/21 07:42 Albumin 2.1 g/dL (3.9-5) L 12/26/21 07:42 Albumin/Globulin Ratio 0.8 % 12/26/21 07:42 Lipase 10 units/L (13-60) L 12/21/21 10:22 Urine Color Gloria (Yellow) 12/21/21 18:34 Urine Turbidity Clear (Clear) 12/21/21 18:34 Urine pH 5.0 (5.0-7.0) 12/21/21 18:34 Ur Specific [place] 1.020 (1.003-1.030) 12/21/21 18:34 Urine Protein 100 mg/dl mg/dL (Negative) 12/21/21 18:34 Urine Glucose (UA) Negative mg/dL (Negative) 12/21/21 18:34 Urine Ketones Negative mg/dL (Negative) 12/21/21 18:34 Urine Blood Negative (Negative) 12/21/21 18:34 Urine Nitrite Negative (Negative) 12/21/21 18:34 Urine Bilirubin 1+ (Negative) 12/21/21 18:34 Urine Ictotest Positive (Negative) 12/21/21 18:34 Urine Urobilinogen 0.0 mg/dL (<2.0) 12/21/21 18:34 Ur Leukocyte Esterase 1+ (Negative) 12/21/21 18:34 Urine RBC (Auto) /HPF (0.0-6.0) 12/21/21 18:34 Fluid Type Ascitic 12/26/21 15:15 Fluid Color Yellow 12/26/21 15:15 Fluid Appearance Cloudy 12/26/21 15:15 Fluid WBC 500 /mm3 12/26/21 15:15 Fluid RBC 1265 /mm3 12/26/21 15:15 Fluid Seg Neutrophils 76.0 % 12/26/21 15:15 Fluid Lymphocytes 18.0 % 12/26/21 15:15 Fluid Monocytes 6.0 % 12/26/21 15:15 Nasal Screen MRSA (PCR) Negative (Negative) 12/23/21 10:36 Hepatitis A IgM Ab Non-reactive (NonReactive) 12/22/21 15:50 Hep Bs Antigen Non-reactive (Negative) 12/22/21 15:50 Hep B Core IgM Ab Non-reactive (NonReactive) 12/22/21 15:50 Hepatitis C Antibody Non-reactive (NonReactive) 12/22/21 15:50 Blood Type O POSITIVE 12/21/21 12:48 Antibody Screen Negative 12/21/21 12:48 Crossmatch See Detail 12/21/21 12:48 Beltran/IV: Voiding Method Urinal Active Medications - Current Medications Current Medications: Generic Name Dose Route Start Last Admin Trade Name Freq PRN Reason Stop Dose Admin Albumin Human 25 gm 12/22/21 09:18 Albumin Human 25% (25 Gm/100 Ml) Inj IV CLAUDIA PRN Hypotension Epoetin Gautam-epbx 20,000 unit 12/22/21 09:18 12/27/21 12:58 Epoetin Gautam-Epbx 20,000 Unit/1 Ml Vial IV 20,000 unit CLAUDIA PRN Administration hemodialysis Hydromorphone HCl 0.5 mg 12/21/21 19:43 12/27/21 22:15 Hydromorphone 0.5 Mg/0.5 Ml Inj IV 0.5 mg Q3H PRN Administration Pain , Severe (7-10) Cefepime HCl 1 gm in 100 mls @ 200 mls/hr 12/22/21 10:00 12/28/21 09:20 Cefepime/Ns 1 Gm/100 Ml IV 12/29/21 09:59 200 mls/hr Q24HR JORDAN Administration Sodium Chloride 100 mls @ 999 mls/hr 12/22/21 09:18 Nacl 0.9% IV CLAUDIA PRN Hypotension Sodium Chloride 100 mls @ 999 mls/hr 12/26/21 15:30 Nacl 0.9% IV CLAUDIA PRN Hypotension Lactulose 20 gm 12/22/21 20:00 12/28/21 09:20 Lactulose 20 Gm/30 Ml Oral Liqd PO 20 gm TID JORDAN Administration Metoclopramide HCl 5 mg 12/22/21 08:00 Metoclopramide 10 Mg/2 Ml Inj IV Q6H PRN Nausea And Vomiting Morphine Sulfate 2 mg 12/21/21 19:43 12/28/21 09:27 Morphine 2 Mg/1 Ml Inj IV 2 mg Q4H PRN Administration Pain, Moderate (4-6) Ondansetron HCl 4 mg 12/21/21 19:32 Ondansetron 4 Mg/2 Ml Inj IV Q3H PRN Nausea And Vomiting Pantoprazole Sodium 40 mg 12/23/21 10:00 12/28/21 09:20 Pantoprazole 40 Mg Inj IV 40 mg QDAY JORDAN Administration Sodium Chloride 10 ml 12/21/21 22:00 12/28/21 09:21 Sodium Chloride 0.9% 10 Ml Flush Syringe IV 10 ml BID JORDAN Administration Sodium Chloride 10 ml 12/21/21 19:32 12/26/21 20:15 Sodium Chloride 0.9% 10 Ml Flush Syringe IV 10 ml PRN PRN Administration LINE FLUSH
--- NOTE | 2021-12-28 12:31 | Progress Note ---
Subjective Date of service: 12/28/21 Principal diagnosis: Gi bleed Interval history: Impression * End-stage renal disease on maintenance hemodialysis * GI bleed * Hyperkalemia * Cirrhosis of liver * Lactic acidosis * Leukocytosis Recommendations * Continue dialysis on TTS schedule . His outpatient dialysis days are however MWF at [facility] * Hyperkalemia noted * Monitor H&H and transfuse packed RBC as needed * Adjust diet and meds for ESRD state * Hold phosphate binders for now * Shall administer Epogen as well * Avoid nephrotoxins * Monitor fluid status and electrolytes closely * Further plan as per GI services Subjective Principal diagnosis: Gi bleed Interval history: Patient is comfortable today. He is currently out of IMCU. Denies any hematochezia or melena. No nausea or vomiting. Still complains of mild epigastric discomfort Objective - General Appearance General appearance: well-developed, well-nourished, appears stated age EENT: PERRL, mucous membranes moist Neck: no JVD, no thyromegaly, no carotid bruit, supple, other (IJ PermCath in place) Respiratory: Present: Clear to Ascultation Cardiology: regular, normal heart rate, S1S2, no murmurs Gastrointestinal: normal, normoactive bowel sounds, tenderness (Mild epigastric discomfort) Integumentary: other (No edema) Objective - Vital Signs Vital signs: Vital Signs - 12hr 12/28/21 06:10 Temperature 98.3 F Pulse Rate 93 H Respiratory 18 Rate Blood Pressure 113/72 O2 Sat by Pulse 96 Oximetry - Lab 12/28/21 07:50 12/27/21 05:13 Most recent lab results Calcium 7.8 mg/dL (8.4-10.2) L 12/27/21 05:13 Phosphorus 3.10 mg/dL (2.5-4.5) 12/27/21 05:13 Magnesium 1.70 mg/dL (1.7-2.3) 12/27/21 05:13 Medications & Allergies - Medications Allergies/Adverse Reactions: Allergies No Known Allergies Allergy (Verified 12/22/21 06:29) Home Medications: Home Medications Medication Instructions Recorded Confirmed Last Taken Type Lactulose [Cephulac] 20 gm PO TID #1 bottle 11/23/21 12/22/21 12/21/21 Rx Pantoprazole [Protonix TAB] 40 mg PO BID #60 tab 11/23/21 12/22/21 12/21/21 Rx Active Medications: Generic Name Dose Route Start Last Admin Trade Name Freq PRN Reason Stop Dose Admin Albumin Human 25 gm 12/22/21 09:18 Albumin Human 25% (25 Gm/100 Ml) Inj IV CLAUDIA PRN Hypotension Epoetin Gautam-epbx 20,000 unit 12/22/21 09:18 12/27/21 12:58 Epoetin Gautam-Epbx 20,000 Unit/1 Ml Vial IV 20,000 unit CLAUDIA PRN Administration hemodialysis Hydromorphone HCl 0.5 mg 12/21/21 19:43 12/27/21 22:15 Hydromorphone 0.5 Mg/0.5 Ml Inj IV 0.5 mg Q3H PRN Administration Pain , Severe (7-10) Cefepime HCl 1 gm in 100 mls @ 200 mls/hr 12/22/21 10:00 12/28/21 09:20 Cefepime/Ns 1 Gm/100 Ml IV 12/29/21 09:59 200 mls/hr Q24HR JORDAN Administration Sodium Chloride 100 mls @ 999 mls/hr 12/22/21 09:18 Nacl 0.9% IV CLAUDIA PRN Hypotension Sodium Chloride 100 mls @ 999 mls/hr 12/26/21 15:30 Nacl 0.9% IV LCAUDIA PRN Hypotension Lactulose 20 gm 12/22/21 20:00 12/28/21 09:20 Lactulose 20 Gm/30 Ml Oral Liqd PO 20 gm TID JORDAN Administration Metoclopramide HCl 5 mg 12/22/21 08:00 Metoclopramide 10 Mg/2 Ml Inj IV Q6H PRN Nausea And Vomiting Morphine Sulfate 2 mg 12/21/21 19:43 12/28/21 09:27 Morphine 2 Mg/1 Ml Inj IV 2 mg Q4H PRN Administration Pain, Moderate (4-6) Ondansetron HCl 4 mg 12/21/21 19:32 Ondansetron 4 Mg/2 Ml Inj IV Q3H PRN Nausea And Vomiting Pantoprazole Sodium 40 mg 12/23/21 10:00 12/28/21 09:20 Pantoprazole 40 Mg Inj IV 40 mg QDAY JORDAN Administration Sodium Chloride 10 ml 12/21/21 22:00 12/28/21 09:21 Sodium Chloride 0.9% 10 Ml Flush Syringe IV 10 ml BID JORDAN Administration Sodium Chloride 10 ml 12/21/21 19:32 12/26/21 20:15 Sodium Chloride 0.9% 10 Ml Flush Syringe IV 10 ml PRN PRN Administration LINE FLUSH
[2021-12-29 05:52] LABS: Hematocrit 22.4 % (35.5-45.6); Hemoglobin 7.5 gm/dl (11.8-15.2); Mean Corpuscular HGB Conc 34 % (32-34); Mean Corpuscular Volume 91 fl (84-94); Platelet Count 227 K/mm3 (140-440); Red Blood Count 2.46 M/mm3 (3.65-5.03)
[2021-12-29 06:16] LABS: Calcium 7.7 mg/dL (8.4-10.2)
[2021-12-29] MEDS ORDERED: EPINEPHrine 1 MG/10 ML SYRINGE ONE (08:01)
[2021-12-29] MEDS ORDERED: WATER FOR IRRIG STERILE 250 ML BOTTLE IR ONE (08:01)
[2021-12-29] MEDS ORDERED: WATER FOR IRRIG STERILE 1,000 ML BOTTLE ONE (08:01)
[2021-12-29] MEDS ORDERED: LIDOCAINE MPF (2%) 20 MG/1 ML VIAL 5 ML ONE (08:02)
[2021-12-29] MEDS ORDERED: propofoL 200 MG/20 ML VIAL IV ONE (08:02)
[2021-12-29] MEDS ORDERED: SODIUM CHLORIDE 0.9% 1000 ML 1,000 ML ONE (08:05)
[2021-12-29] MEDS: LACTULOSE 20 GM/30 ML ORAL LIQD PO SCH ×2 (08:06→13:28)
--- NOTE | 2021-12-29 08:13 | Anesthesia Consultation ---
Anesthesia Consult and Med Hx Date of service: 12/29/21 - Airway Anesthetic Teeth Evaluation: Good ROM Head & Neck: Adequate Mental/Hyoid Distance: Adequate Mallampati Class: Class II Intubation Access Assessment: Probably Good - Pre-Operative Health Status ASA Pre-Surgery Classification: ASA3 Proposed Anesthetic Plan: MAC - Pulmonary Hx Smoking: Yes (occasional cigars - last 05/2021) Hx Asthma: No Hx Respiratory Symptoms: No Hx Pneumonia: No Hx Sleep Apnea: No - Cardiovascular System Hx Hypertension: No Hx Coronary Artery Disease: No - Central Nervous System Hx Seizures: No CVA: No Hx Psychiatric Problems: No - Gastrointestinal Hx Ulcer: Yes (esophageal varices) Hx Gastroesophageal Reflux Disease: No - Endocrine Hx Renal Disease: Yes (ESRD, HD - last on 12/27/21) Hx End Stage Renal Disease: Yes Hx Cirrhosis: Yes (ETOH) Hx Liver Disease: Yes (cirrosis with ascitis) Hx Non-Insulin Dependent Diabetes: No Hx Thyroid Disease: No - Hematic Hx Anemia: Yes Hx Sickle Cell Disease: No - Other Systems Hx Alcohol Use: Yes Hx Substance Use: No Hx Cancer: No Hx Obesity: No
--- NOTE | 2021-12-29 08:15 | Anesthesia Day of Surgery ---
Anesthesia Day of Surgery - Day of Surgery Patient Examined: Yes Patient H&P Reviewed: Yes Patient is NPO: Yes
--- NOTE | 2021-12-29 08:28 | Operative Report ---
Operative Report Operative Report: DOS: 12/29/21 SURGEON: Mayur Collier MD EGD WITH ESOPHAGEAL VARICEAL LIGATION REPORT PREOPERATIVE DIAGNOSIS and POSTOPERATIVE DIAGNOSIS: Recent variceal bleed ESTIMATED BLOOD LOSS: Minimal DESCRIPTION OF PROCEDURE: A high-resolution EGD scope was passed through the oropharynx, esophagus, stomach, and second portion of duodenum. The scope was carefully withdrawn. Retroflexion was performed in the stomach. At the end of the procedure, the scope was cleaned using normal technique. Vital signs monitored continuously throughout. SEDATION: Provided by Anesthesiology Services. COMPLICATIONS: None. FINDINGS: * No gross lesions in the duodenum * Moderate portal hypertensive gastropathy * Irregular Z-line 41 cm from incisors * 3 columns grade 2 varices in the distal half of the esophagus. 1 varix had a raised red spot 1 cm above the GE junction. The stricture christian counselor was utilized to deploy a total of 4 bands starting distally and proceeding proximally and circumferential fashion. First band was placed just distally to be high risk stigmata lesion seen on the esophageal varix with good collapse of that varix. After the total of 4 bands was placed, all varices had collapsed RECOMMENDATIONS: Pure consistency diet for the next 3 days then may resume regular renal diet Patient can be discharged from GI standpoint he needs to follow-up with hepatology as an outpatient for kidney/liver transplant eval. he may follow-up with us locally for chronic management of the liver disease in the meantime GI will sign off please call us back immediately if any further assistance
--- NOTE | 2021-12-29 12:02 | Progress Note ---
Subjective Date of service: 12/29/21 Principal diagnosis: Gi bleed Interval history: Impression * End-stage renal disease on maintenance hemodialysis * GI bleed * Hyperkalemia * Cirrhosis of liver * Lactic acidosis * Leukocytosis Recommendations * Continue dialysis on TTS schedule . His outpatient dialysis days are however MWF at [facility] * Hyperkalemia noted * Monitor H&H and transfuse packed RBC as needed * Adjust diet and meds for ESRD state * Hold phosphate binders for now * Shall administer Epogen as well * Avoid nephrotoxins * Monitor fluid status and electrolytes closely * Further plan as per GI services * ok to dc from renal standpoint Subjective Principal diagnosis: Gi bleed Interval history: Patient is comfortable today. He is currently out of IMCU. Denies any hematochezia or melena. No nausea or vomiting. Still complains of mild epigastric discomfort Objective - General Appearance General appearance: well-developed, well-nourished, appears stated age EENT: PERRL, mucous membranes moist Neck: no JVD, no thyromegaly, no carotid bruit, supple, other (IJ PermCath in place) Respiratory: Present: Clear to Ascultation Cardiology: regular, normal heart rate, S1S2, no murmurs Gastrointestinal: normal, normoactive bowel sounds, tenderness (Mild epigastric discomfort) Integumentary: other (No edema) Objective - Vital Signs Vital signs: Vital Signs - 12hr 12/29/21 12/29/21 12/29/21 03:24 07:59 08:28 Temperature 98.4 F 97.8 F 98.0 F Pulse Rate 101 H 93 H 104 H Respiratory 16 16 10 L Rate Blood Pressure 124/82 124/82 100/70 O2 Sat by Pulse 97 96 96 Oximetry O2 Sat by Pulse Oximetry [ Bilateral Throughout] 12/29/21 12/29/21 12/29/21 08:30 08:35 08:40 Temperature Pulse Rate 103 H 100 H 98 H Respiratory 17 19 14 Rate Blood Pressure 104/69 106/71 114/83 O2 Sat by Pulse 95 96 97 Oximetry O2 Sat by Pulse Oximetry [ Bilateral Throughout] 12/29/21 12/29/21 12/29/21 08:55 09:00 09:15 Temperature 99.0 F 97.8 F Pulse Rate 96 H 95 H 94 H Respiratory 20 16 16 Rate Blood Pressure 119/81 122/82 122/78 O2 Sat by Pulse 96 96 Oximetry O2 Sat by Pulse 97 Oximetry [ Bilateral Throughout] 12/29/21 12/29/21 12/29/21 09:20 09:34 09:45 Temperature Pulse Rate 94 H 93 H 92 H Respiratory Rate Blood Pressure 122/78 124/82 120/82 O2 Sat by Pulse Oximetry O2 Sat by Pulse Oximetry [ Bilateral Throughout] 12/29/21 12/29/21 12/29/21 10:00 10:15 10:30 Temperature Pulse Rate 97 H 103 H 102 H Respiratory Rate Blood Pressure 121/80 119/81 119/102 O2 Sat by Pulse Oximetry O2 Sat by Pulse Oximetry [ Bilateral Throughout] 12/29/21 12/29/21 12/29/21 10:45 11:00 11:08 Temperature Pulse Rate 100 H 105 H Respiratory Rate Blood Pressure 123/82 116/78 O2 Sat by Pulse 98 Oximetry O2 Sat by Pulse Oximetry [ Bilateral Throughout] 12/29/21 12/29/21 12/29/21 11:15 11:30 11:45 Temperature Pulse Rate 111 H 103 H 100 H Respiratory Rate Blood Pressure 118/106 122/81 119/80 O2 Sat by Pulse Oximetry O2 Sat by Pulse Oximetry [ Bilateral Throughout] 12/29/21 12:01 Temperature Pulse Rate 105 H Respiratory Rate Blood Pressure 123/79 O2 Sat by Pulse Oximetry O2 Sat by Pulse Oximetry [ Bilateral Throughout] - Lab 12/29/21 04:00 12/29/21 04:00 Most recent lab results Calcium 7.7 mg/dL (8.4-10.2) L 12/29/21 04:00 Phosphorus 3.10 mg/dL (2.5-4.5) 12/27/21 05:13 Magnesium 1.70 mg/dL (1.7-2.3) 12/27/21 05:13 Medications & Allergies - Medications Allergies/Adverse Reactions: Allergies No Known Allergies Allergy (Verified 12/22/21 06:29) Home Medications: Home Medications Medication Instructions Recorded Confirmed Last Taken Type Pantoprazole [Protonix TAB] 40 mg PO BID #60 tab 11/23/21 12/22/21 12/21/21 Rx Lactulose 10 gm PO BID 12/28/21 12/28/21 12/21/21 History Active Medications: Generic Name Dose Route Start Last Admin Trade Name Freq PRN Reason Stop Dose Admin Albumin Human 25 gm 12/22/21 09:18 Albumin Human 25% (25 Gm/100 Ml) Inj IV CLAUDIA PRN Hypotension Epoetin Gautam-epbx 20,000 unit 12/22/21 09:18 12/27/21 12:58 Epoetin Gautam-Epbx 20,000 Unit/1 Ml Vial IV 20,000 unit CLAUDIA PRN Administration hemodialysis Hydromorphone HCl 0.5 mg 12/21/21 19:43 12/27/21 22:15 Hydromorphone 0.5 Mg/0.5 Ml Inj IV 0.5 mg Q3H PRN Administration Pain , Severe (7-10) Sodium Chloride 100 mls @ 999 mls/hr 12/22/21 09:18 Nacl 0.9% IV CLAUDIA PRN Hypotension Sodium Chloride 100 mls @ 999 mls/hr 12/26/21 15:30 Nacl 0.9% IV CLAUDIA PRN Hypotension Lactulose 20 gm 12/22/21 20:00 12/29/21 08:06 Lactulose 20 Gm/30 Ml Oral Liqd PO Not Given TID JORDAN Metoclopramide HCl 5 mg 12/22/21 08:00 Metoclopramide 10 Mg/2 Ml Inj IV Q6H PRN Nausea And Vomiting Morphine Sulfate 2 mg 12/21/21 19:43 12/28/21 23:56 Morphine 2 Mg/1 Ml Inj IV 2 mg Q4H PRN Administration Pain, Moderate (4-6) Ondansetron HCl 4 mg 12/21/21 19:32 Ondansetron 4 Mg/2 Ml Inj IV Q3H PRN Nausea And Vomiting Pantoprazole Sodium 40 mg 12/23/21 10:00 12/28/21 09:20 Pantoprazole 40 Mg Inj IV 12/29/21 12:59 40 mg QDAY JORDAN Administration Pantoprazole Sodium 40 mg 12/30/21 08:00 Pantoprazole 40 Mg Tab PO QDDIAB JORDAN Sodium Chloride 10 ml 12/21/21 22:00 12/28/21 21:49 Sodium Chloride 0.9% 10 Ml Flush Syringe IV Not Given BID JORDAN Sodium Chloride 10 ml 12/21/21 19:32 12/28/21 23:56 Sodium Chloride 0.9% 10 Ml Flush Syringe IV 10 ml PRN PRN Administration LINE FLUSH
[2021-12-29 13:01] VITALS: BP 120/80
[2021-12-29] MEDS: PANTOPRAZOLE 40 MG INJ IV SCH (13:28)
[2021-12-29] MEDS: MORPHINE 2 MG/1 ML INJ IV PRN (13:29)
--- NOTE | 2021-12-29 14:19 | Discharge Summary ---
Providers - Providers Date of Admission: 12/21/21 19:33 Attending physician: JUDIE GUZMAN MD 12/21/21 14:13 Consult to Physician [CONS] Urgent Comment: Consulting Provider: ELIANE BRIONES Physician Instructions: Reason For Exam: GI bleed 12/22/21 06:36 Consult to Physician [CONS] Routine Comment: called office/ karie Consulting Provider: STACY SHAH Physician Instructions: Reason For Exam: ESRD 12/27/21 09:23 Occupational Therapy Evaluate and Treat [CONS] Routine Comment: Reason For Exam: debility Physical Therapy Evaluation and Treat [CONS] Routine Comment: Reason For Exam: debility Primary care physician: FUNERAL LIMOUSINE DRIVER Hospitalization Reason for admission: diffuse abdominal pain and black and bloody stools Condition: Stable Hospital course: This is a 41-year-old male with EtOH cirrhosis, esophageal varices, ascites, ESRD on HD, chronic HE who presented to the hospital on 12/21 with complaints of diffuse abdominal pain and black and bloody stools over the past 2 days along with nausea and vomiting. Of note patient was seen here on 11/23/2021 and was discharged after having banding of 1 esophageal varice. In the emergency department patient was tachycardic and had a hemoglobin and hematocrit of 6.5/20.2, leukocytosis at 27.7, hyponatremia 135, hyperkalemia 6.1. Patient was admitted to the hospitalist service with consults to nephrology and GI. Hospital course to date: 12/22: Patient had an EGD today which showed no active variceal bleed, patient has been cleared for clear liquid diet and will continue Protonix IVP and octreotide drip. 12/23: Patient had paracentesis today with removal 7.5 L. Lab studies ordered. Will administer albumin. 12/24: H/H holding, patient will be transferred to the floor. 12/25: Patient seen and examined, will continue pain control. Discussed with GI, plan is to repeat EGD for banding of the esophageal varices. Will also schedule for paracentesis. 12/26: Patient seen and examined, plan for Endoscopy tomorrow for possible varicale bleeding. Noted Hypokalemia. Will replace 12/27: Patient seen and examined, he is planned for Endcosopy today. Anticipate correction of Hypokalemia with Dialysis. Will also obtain PT/OT due to debility. He is improved Mental status. Anticipate discharge in am 12/28: Patient unfortunately could not get Endoscopy today, will wait till , awaiting labs result to further monitor H/Gb. He is quit deconditioned with increased HR on ambulation. Will continue daily PT. Plan discussed with GI and also discussed goals of care for 30 mins with the patient. His low side blood pressure limits addition of BB at this time. May try very low dose Atenolol. No anticoagulation at this time due to over all clinical condition. CCT 35 mins 12/29: Patient seen and examined, mother at the bedside, we discussed extensively care of the patient, preventive measures and counselling provided 35 mins. They will follow with the patients financial recording clerk and also be evaluated at the tertiary institutions for care. Patient underwent endoscopy and documentation as noted below.. Consistency diet was stressed. He verbalized understanding along with his mother. * No gross lesions in the duodenum * Moderate portal hypertensive gastropathy * Irregular Z-line 41 cm from incisors * 3 columns grade 2 varices in the distal half of the esophagus. 1 varix had a raised red spot 1 cm above the GE junction. The stricture psychiatric technician was utilized to deploy a total of 4 bands starting distally and proceeding proximally and circumferential fashion. First band was placed just distally to be high risk stigmata lesion seen on the esophageal varix with good collapse of that varix. After the total of 4 bands was placed, all varices had collapsed RECOMMENDATIONS: Pure consistency diet for the next 3 days then may resume regular renal diet Patient can be discharged from GI standpoint he needs to follow-up with hepatology as an outpatient for kidney/liver transplant eval. he may follow-up with us locally for chronic management of the liver disease in the meantime GI will sign off please call us back immediately if any further assistance Neuro: Acute on chronic Hepatic Encephalopathy- Resolved -Reorientation as needed -Maintain sleep-wake cycle -As needed analgesia -Continue lactulose Cardiac: chronic hypotension -Home meds includes midodrine, restart as needed -Blood pressure monitoring per protocol Respiratory: Acute hypoxic respiratory failure -Weaned to RA -Pulmonary hygiene -SPO2 monitoring -Supplemental oxygen as needed GI: GIB, h/o EV, EtOH cirrhosis, GIB -GI consulted, patient recommendations -S/p EGD on 12/22 which showed grade 2 esophageal varices, one with small red spots but no active bleeding, unclear if this represents due to recent bleeding stigmata, unable to bend due to inadequate suctioning at bedside to assess the mucosa, no active bleeding seen at the end of the procedure -CLD -Octreotide drip for 2 days per GI -PPI -Stool occult positive -BR: lactulose : ESRD on HD -Nephrology consulted, appreciate recommendations -Renally dose medications -Avoid nephrotoxic medications -Epogen per nephro -Trend BMP ID: r/o SBP -On cefepime for now -Paracentesis completed 12/23 with removal of 7.5 L -Albumin post procedure -Fluid studies pending -f/u blood culture -Monitor WBC and temperature curve Endo: NAD -Avoid hypoglycemia Heme: Leukocytosis, symptomatic anemia -Presented with H/H of 6.8/22.6 -S/p 3 units prbc -Serial h/h -Transfuse hemoglobin less than 7 -SCDs to BLE while in bed -Avoid chemical anticoagulation in setting of recent GI bleed Disposition: HOME HEALTH CARE SERVICE Final Discharge Diagnosis (Prints w/discharge instructions): Acute on chronic Hepatic Encephalopathy. Chronic hypotension. Acute hypoxic respiratory failure. GIB, h/o EV, EtOH cirrhosis, GIB Time spent for discharge: 35 mins Core Measure Documentation - Palliative Care Palliative Care/ Comfort Measures: Not Applicable - Core Measures Any of the following diagnoses?: none Exam - Physical Exam Narrative exam: General appearance: Present: no acute distress, well-nourished, lethargic - EENT Eyes: Present: PERRL, EOM intact, icteric sclera ENT: dentition normal - Neck Neck: Present: normal ROM - Respiratory Respiratory: bilateral: diminished - Cardiovascular Rhythm: regular Heart Sounds: Present: S1 & S2. Absent: systolic murmur, diastolic murmur - Extremities Extremities: no ischemia, pulses intact, pulses symmetrical, No edema, normal temperature, normal color, Full ROM Peripheral Pulses: within normal limits - Abdominal General gastrointestinal: soft, normal bowel sounds, tender-generalized, gravidus pannus with positive fluid wave - Integumentary Integumentary: Present: warm, dry - Psychiatric Psychiatric: cooperative - Neurologic Neurologic: CNII-XII intact, no moves all extremities - Allied Health Allied health notes reviewed: nursing, RT, social work - Constitutional Vitals: Temp Pulse Resp BP Pulse Ox 97.8 F 102 H 16 120/80 97 08/04/22 13:01 12/29/21 13:01 12/29/21 13:01 12/29/21 13:01 12/29/21 13:01 Plan Activity: advance as tolerated, fall precautions Diet: renal (pureed diet x 3 days) Special Instructions: restrict fluid intake to (1000cc/day), physical therapy, occupational therapy Follow up with: PRIMARY CARE, [Primary Care Provider] - 7 Days LUIS SMITH MD [Staff Physician] - 7 Days ELIER NARVAEZ MD [Staff Physician] - 7 Days [facility] [Outside] - 7 Days Prescriptions: Lactulose [Cephulac] 20 gm PO TID #1000 ml Pantoprazole [Protonix TAB] 40 mg PO QDDIAB #60 tablet
[2021-12-30] MEDS ORDERED: PANTOPRAZOLE 40 MG TAB PO SCH (08:00)
== END 2021-12-29 15:34 | disposition home health service (06) | DRG 871 ==
LOC: ED 06:57 → 3A 19:33 → IMCU 23:43 → 3A 12-24 15:23
PROVIDERS: ADMIT Internal Medicine; ATTEND Internal Medicine
PROC: 30233N1 Transfusion of Nonautologous Red Blood Cells into Peripheral Vein, Percutaneous Approach (ICD-10-PCS; 2021-12-21)
PROC: 0DJ08ZZ Inspection of Upper Intestinal Tract, Via Natural or Artificial Opening Endoscopic (ICD-10-PCS; principal; 2021-12-22)
PROC: 0W9G3ZZ Drainage of Peritoneal Cavity, Percutaneous Approach (ICD-10-PCS; 2021-12-23)
PROC: 0W9G3ZZ Drainage of Peritoneal Cavity, Percutaneous Approach (ICD-10-PCS; 2021-12-26)
PROC: 06L38CZ Occlusion of Esophageal Vein with Extraluminal Device, Via Natural or Artificial Opening Endoscopic (ICD-10-PCS; 2021-12-29)
DX: A41.9 Sepsis, unspecified organism (principal); J96.01 Acute respiratory failure with hypoxia; K65.2 Spontaneous bacterial peritonitis; N18.6 End stage renal disease; K72.00 Acute and subacute hepatic failure without coma; K92.2 Gastrointestinal hemorrhage, unspecified; K76.6 Portal hypertension; I85.10 Secondary esophageal varices without bleeding; D64.9 Anemia, unspecified; K72.10 Chronic hepatic failure without coma; K70.31 Alcoholic cirrhosis of liver with ascites; Z99.2 Dependence on renal dialysis; Z87.891 Personal history of nicotine dependence; E87.5 Hyperkalemia; K31.89 Other diseases of stomach and duodenum
CPT/HCPCS: 36415; 49083; 71045; 74176; 80048; 80053; 80074; 81001; 82040; 82140; 82150; 82271; 82947; 83605; 83690; 83735; 84100; 84132; 84160; 85007; 85014; 85018; 85025; 85027; 86850; 86900; 86901; 86920; 87040; 87086; 87116; 87641; 88112; 88305; 89051; G0378; J2501; J3490; Q9967; C1729; C9113; J0171; J0610; J0692; J0885; J1170; J1815; J2270; J2354; J2405; J2704; J3010; J3475; J3480; J7030; J7040; J7042; P9016; P9047